=== PATIENT | female | born 1930 | race Caucasian/White ===

== ENCOUNTER → 2018-09-16 | Outpatient (CLI) | payer MEDICARE ==
--- NOTE | 2018-09-16 16:32 | Diagnostic Imaging Report ---
PROCEDURE: CT head without contrast. TECHNIQUE: Multiple contiguous axial images were obtained through the brain without the use of intravenous contrast. Auto Exposure Controls were utilized during the CT exam to meet ALARA standards for radiation dose reduction. INDICATION: Cerebrovascular deficit, weakness There is decreased density in the periventricular white matter and both cerebral hemispheres. There are no masses or hemorrhages. There are no extra-axial fluid collections. There is no CT evidence of acute infarct. Impression: Chronic ischemic leukoencephalopathy. No acute abnormalities seen. Dictated by: Dictated on workstation # [id number]
--- NOTE | 2018-09-16 16:38 | Diagnostic Imaging Report ---
PROCEDURE: US carotid duplex, bilateral. TECHNIQUE: Multiple real-time grayscale images were obtained over the carotid arteries in various projections, bilaterally. Additional spectral analysis and color Doppler duplex images were also obtained. INDICATION: Altered mental status FINDINGS: There is atherosclerotic plaque at both carotid bifurcations. The right internal carotid artery has increased velocity suggesting a stenosis of approximately 65%. There is no significant velocity change in the left internal carotid artery. Both vertebral arteries are patent with antegrade flow. IMPRESSION: Moderate stenosis right internal carotid artery. Parameters based on the consensus panel Landon-Scale and Doppler ultrasound criteria published March 2003, Radiology, Volume 229. DOPPLER (peak systolic velocity M/S Right Left CCA .70 .67 ICA Proximal 1.98 .50 ICA Mid 1.35 .75 ICA Distal 1.28 .82 RATIO 2.8 .74 ECA 2.22 .97 VERT .51 .35 Dictated by: Dictated on workstation # [id number]
== END ==
LOC: RAD 15:39
PROVIDERS: ATTEND Pediatrics
DX: G93.40 Encephalopathy, unspecified (principal); I65.21 Occlusion and stenosis of right carotid artery; I63.81 Other cerebral infarction due to occlusion or stenosis of small artery
CPT/HCPCS: 70450; 93880

== ENCOUNTER 2018-10-06 12:09 | Observation (INO) | payer MEDICARE ==
[~2018-10-06] VITALS: Ht 162.6 cm; Wt 64.6 kg
[2018-10-06] MEDS ORDERED: NS IV 1000 ML 500 ML IV SCH (12:27)
[2018-10-06 12:35] LABS: HEMATOCRIT 39 % (35-52); HEMOGLOBIN 12.6 G/DL (11.5-16.0); MEAN CORPUSCULAR HEMOGLOBIN 32 PG (25-34); MEAN CORPUSCULAR HGB CONC 33 G/DL (32-36); MEAN CORPUSCULAR VOLUME 98 FL (80-99); PLATELET COUNT 132 10^3/uL (130-400); RED CELL DISTRIBUTION WIDTH 14.6 % (10.0-14.5); WHITE BLOOD COUNT 8.1 10^3/uL (4.3-11.0)
[2018-10-06 12:36] LABS: BASOPHILS % (AUTO) 0 % (0-10); EOSINOPHILS # (AUTO) 0.4 10^3/uL (0.0-0.3); EOSINOPHILS % (AUTO) 5 % (0-10); LYMPHOCYTES # (AUTO) 3.1 X 10^3 (1.0-4.0); LYMPHOCYTES % (AUTO) 38 % (12-44); MEAN PLATELET VOLUME 11.7 FL (7.4-10.4); MONOCYTES # (AUTO) 1.1 X 10^3 (0.0-1.0); MONOCYTES % (AUTO) 14 % (0-12); NEUTROPHILS # (AUTO) 3.5 X 10^3 (1.8-7.8); NEUTROPHILS % (AUTO) 43 % (42-75)
--- NOTE | 2018-10-06 12:36 | ED Cardiac General ---
History of Present Illness General Stated Complaint: SYNCOPE History of Present Illness Date Seen by Provider: Oct 06, 2018 Time Seen by Provider: 12:10 Initial Comments The patient is an 88-year-old female with a history of hypertension, hyperlipidemia, coronary artery disease status post myocardial infarction, history of prior ischemic stroke. Patient's additional medical history is unc lear as I have no records to refer to and we have multiple conflicting medication lists for her. She presents with concern for a syncopal episode which occurred while she was seated at rest in a pew in [place] just prior to arrival. Patient states she had been feeling a little fatigued over the past couple of days but had generally been feeling well otherwise. She states she awoke from sleep late for cheondoism this morning and only had "some cookies" to eat before going to cheondoism. She states this is somewhat unusual for her. She states that over about 2 minutes prior to her syncopal episode she started to feel faint and lightheaded but had no other symptoms and specifically did not have any chest pain or shortness of breath or pain anywhere. She was then noted to fall forward but did not strike her head on the ground or hit or hurt anything as she was caught by bystanders per EMS report. Patient was immediately awake and alert after the episode and in no distress and there was no convulsive activity and no protracted loss of consciousness and en route per EMS vital signs were appropriate as was blood glucose and on arrival here the patient's vital signs are appropriate and she is alert and oriented 4. She denies any pain anywhere and states she feels well at this time and specifically denies fevers, nausea or vomiting, headache, focal weakness, numbness, tingling, neck stiffness, vision c hanges, shortness of breath or chest pain either now or prior to onset of symptoms, abdominal pain, flank pain, back pain, dysuria or hematuria, changes in bowel habits. Allergies and Home Medications Allergies Coded Allergies: No Known Drug Allergies (Unverified , 10/06/18) Patient Home Medication List Home Medication List Reviewed: Yes Review of Systems Review of Systems Constitutional: see HPI All Other Systems Reviewed Negative Unless Noted: Yes Past Ijgteeo-Dwidee-Usrnqd Hx Past Med/Social Hx: Reviewed Nursing Past Med/Soc Hx Family Medical History Reviewed Nursing Family Hx Physical Exam Vital Signs Vital Signs - First Documented 10/06/18 12:10 Temp 97.4 Pulse 57 Resp 17 B/P (MAP) 154/55 (88) Pulse Ox 99 O2 Delivery Nasal Cannula O2 Flow Rate 2.00 Capillary Refill : Height, Weight, BMI Height: '" Weight: lbs. oz. kg; BMI Method: General Appearance: No Apparent Distress Other comments This is a very elderly female appearing nontoxic and in no acute distress. She is alert and oriented 4 and pleasantly and appropriately interactive. Head is normocephalic and atraumatic. Neck is supple and nontender. Oropharynx is moist. Lungs are clear to auscultation at all stations. There is a normal S1 and S2 without rubs or gallops and capillary refill is appropriate, le ss 2 seconds globally. There are no murmurs. Abdomen is soft, nontender nondistended. Skin is warm and dry without cyanosis, clubbing or edema. Psychiatrically, the patient answers. Mood and affect and is alert. From a neurologic standpoint, cranial nerves II through XII are intact and there are no lateralizing deficits noted. Speech is normal. Line which is normal. Coordination is normal. There is no dysmetria to finger to nose bilaterally. Strength is 5 out of 5 in all joints of bilateral upper and lower extremity's. Sensation is intact to light touch in bilateral upper and lower extremities. Ambulation testing is deferred. Progress/Results/Core Measures Results/Orders Lab Results Laboratory Tests Test 10/06/18 12:25 10/06/18 13:00 Range/Units White Blood Count 8.1 4.3-11.0 10^3/uL Red Blood Count 3.93 L 4.35-5.85 10^6/uL Hemoglobin 12.6 11.5-16.0 G/DL Hematocrit 39 35-52 % Mean Corpuscular Volume 98 80-99 FL Mean Corpuscular Hemoglobin 32 25-34 PG Mean Corpuscular Hemoglobin Concent 33 32-36 G/DL Red Cell Distribution Width 14.6 H 10.0-14.5 % Platelet Count 132 130-400 10^3/uL Mean Platelet Volume 11.7 H 7.4-10.4 FL Neutrophils (%) (Auto) 43 42-75 % Lymphocytes (%) (Auto) 38 12-44 % Monocytes (%) (Auto) 14 H 0-12 % Eosinophils (%) (Auto) 5 0-10 % Basophils (%) (Auto) 0 0-10 % Neutrophils # (Auto) 3.5 1.8-7.8 X 10^3 Lymphocytes # (Auto) 3.1 1.0-4.0 X 10^3 Monocytes # (Auto) 1.1 H 0.0-1.0 X 10^3 Eosinophils # (Auto) 0.4 H 0.0-0.3 10^3/uL Basophils # (Auto) 0.0 0.0-0.1 10^3/uL Prothrombin Time 15.1 H 12.2-14.7 SEC INR Comment 1.1 0.8-1.4 Activated Partial Thromboplast Time 30 24-35 SEC Sodium Level 140 135-145 MMOL/L Potassium Level 3.9 3.6-5.0 MMOL/L Chloride Level 105 98-107 MMOL/L Blood Urea Nitrogen 20 H 7-18 MG/DL Creatinine 0.56 L 0.60-1.30 MG/DL Estimat Glomerular Filtration Rate > 60 BUN/Creatinine Ratio 36 Glucose Level 142 H 70-105 MG/DL Calcium Level 9.0 8.5-10.1 MG/DL Corrected Calcium 9.7 8.5-10.1 MG/DL Total Bilirubin 0.7 0.1-1.0 MG/DL Aspartate Amino Transf (AST/SGOT) 82 H 5-34 U/L Alanine Aminotransferase (ALT/SGPT) 53 0-55 U/L Alkaline Phosphatase 135 40-136 U/L Troponin T 13 H <=10 NG/L Pro-B-Type Natriuretic Peptide 1043.0 H <75.0 PG/ML Total Protein 6.6 6.4-8.2 GM/DL Albumin 3.1 L 3.2-4.5 GM/DL My Orders Orders - EDITH MALDONADO MD Cbc With Automated Diff (10/06/18 12:24) Comprehensive Metabolic Panel (10/06/18 12:24) Troponin T (10/06/18 12:24) Ekg Tracing (10/06/18 12:24) Chest 1 View Ap/Pa Only (10/06/18 12:24) Protime With Inr (10/06/18 12:24) Partial Thromboplastin Time (10/06/18 12:24) Ed Iv/Invasive Line Start (10/06/18 12:24) Probnp Fs (10/06/18 12:24) Ua Culture If Indicated (10/06/18 12:24) Ed Iv/Invasive Line Start (10/06/18 12:24) Ns Iv 1000 Ml (Sodium Chloride 0.9%) (10/06/18 12:27) Digoxin (10/06/18 12:59) Vital Signs/I&O 10/06/18 12:10 Temp 97.4 Pulse 57 Resp 17 B/P (MAP) 154/55 (88) Pulse Ox 99 O2 Delivery Nasal Cannula O2 Flow Rate 2.00 Progress Progress Note : Time: 12:37 Progress Note Initial clinical examination reassuring. Very elderly female with some significant cardiac comorbidities who presents after a syncopal episode at rest during cheondoism. She admits to poor by mouth intake earlier today; however, in view of syncopal episode at rest and comorbidities as noted, will minimally plan for labs and EKG and chest x-ray and urinalysis and a small fluid bolus and if workup is reassuring will plan for observation admission with telemetry monitoring at [facility]. The patient and her family understand and agree with the plan of care. Update 1343: Work up is as above, generally without significant evidence of acute process aside from elevated BNP without hypoxia and without findings concerning for vascular congestion on chest x-ray as well as a very minimal elevation in troponin T (nl <10, value is 13 in this patient) without any chest pain or shortness of breath. Upon reassessment the patient is resting comfortably and verbalizes that she is not having any symptoms and feels well. We will proceed with a transfer to [facility] for observation on telemetry, trending of troponin and further testing as indicated. Dr. Evans graciously accepts. We have been unable to obtain a urine sample yet and rather than straight catheterize the patient we will defer urine testing to the receiving facility. Initial ECG Impression Date: Oct 06, 2018 Comment Sinus rhythm, no acute ST elevation or depression, frequent premature ventricular contractions, KS 153, QRS 94, QTC 411, EP interpretation. Departure Impression Primary Impression: Syncope and collapse Additional Impressions: Elevated troponin Elevated brain natriuretic peptide (BNP) level Disposition: XFER SHT-TRM HOSP Condition: Stable Admissions Decision to Admit Reason: Admit from ER (General) Decision to Admit/Date: Oct 06, 2018 Time/Decision to Admit Time: 13:35 Departure-Patient Inst. Referrals: MARLIN ALLRED MD (PCP/Family) Primary Care Physician EDITH MALDONADO MD Oct 06, 2018 12:36
[2018-10-06 12:51] LABS: INR 1.1 (0.8-1.4); PROTHROMBIN TIME PATIENT 15.1 SEC (12.2-14.7)
--- NOTE | 2018-10-06 12:56 | Diagnostic Imaging Report ---
EXAMINATION: Single frontal view of the chest. INDICATION: Dizziness and syncope. COMPARISON: None available. FINDINGS: There is mild bibasilar atelectasis/scarring. Punctate calcified granulomas are demonstrated in the right upper lung laterally. There is mild biapical pleural-parenchymal scarring more prominent on the right. The lungs are otherwise clear and the pulmonary vasculature is normal. No pneumothorax or sizable pleural effusion. There is mild cardiomegaly. No acute osseous abnormality is appreciated. IMPRESSION: Mild bibasilar atelectasis/scarring, otherwise no radiographic evidence of acute chest disease. Mild cardiomegaly. Dictated by: Dictated on workstation # [id number]
[2018-10-06 13:07] LABS: CHLORIDE 105 MMOL/L (98-107); POTASSIUM 3.9 MMOL/L (3.6-5.0); SODIUM 140 MMOL/L (135-145)
[2018-10-06 13:08] LABS: ALANINE AMINOTRANSFERASE 53 U/L (0-55); ALBUMIN 3.1 GM/DL (3.2-4.5); ALKALINE PHOSPHATASE 135 U/L (40-136); BILIRUBIN,TOTAL 0.7 MG/DL (0.1-1.0); BUN/CREATININE RATIO 36; CREATININE SERUM 0.56 MG/DL (0.60-1.30); GFR ESTIMATED > 60; GLUCOSE 142 MG/DL (70-105); TOTAL PROTEIN 6.6 GM/DL (6.4-8.2)
[2018-10-06 13:46] LABS: CARBON DIOXIDE 21 MMOL/L (21-32)
[2018-10-06] MEDS ORDERED: ASPIRIN 81 MG CHEW (CHILDREN'S ASA) PO STA (13:48)
--- NOTE | 2018-10-06 14:09 | NUR ---
Patient states she has already taken 4 baby aspirins prior to arrival. Notified Dr Looney who instructed to not give the aspirin ordered on JUL.
[2018-10-06 15:25] VITALS: BP 156/83
[2018-10-06 15:28] VITALS: BP 156/83
[2018-10-06] MEDS ORDERED: CATHETER FLUSH 10 ML SYR IV PRN (15:30)
[2018-10-06 19:35] VITALS: BP 145/67
[2018-10-06] MEDS: CATHETER FLUSH 10 ML SYR IV SCH (22:52)
[2018-10-07 00:14] VITALS: BP 137/63
[2018-10-07 04:39] VITALS: BP 148/73
[2018-10-07 05:46] LABS: BASOPHILS % (AUTO) 0 % (0-10); EOSINOPHILS # (AUTO) 0.3 10^3/uL (0.0-0.3); EOSINOPHILS % (AUTO) 4 % (0-10); HEMATOCRIT 34 % (35-52); HEMOGLOBIN 11.4 G/DL (11.5-16.0); LYMPHOCYTES # (AUTO) 2.9 X 10^3 (1.0-4.0); LYMPHOCYTES % (AUTO) 48 % (12-44); MEAN CORPUSCULAR HEMOGLOBIN 32 PG (25-34); MEAN CORPUSCULAR HGB CONC 34 G/DL (32-36); MEAN CORPUSCULAR VOLUME 94 FL (80-99); MEAN PLATELET VOLUME 11.7 FL (7.4-10.4); MONOCYTES # (AUTO) 0.7 X 10^3 (0.0-1.0); MONOCYTES % (AUTO) 12 % (0-12); NEUTROPHILS # (AUTO) 2.1 X 10^3 (1.8-7.8); NEUTROPHILS % (AUTO) 35 % (42-75); PLATELET COUNT 93 10^3/uL (130-400); RED CELL DISTRIBUTION WIDTH 14.3 % (10.0-14.5); WHITE BLOOD COUNT 6.1 10^3/uL (4.3-11.0)
[2018-10-07 06:07] LABS: ALANINE AMINOTRANSFERASE 52 U/L (0-55); ALBUMIN 2.8 GM/DL (3.2-4.5); ALKALINE PHOSPHATASE 118 U/L (40-136); BILIRUBIN,TOTAL 0.9 MG/DL (0.1-1.0); BUN/CREATININE RATIO 22; CALCIUM 8.5 MG/DL (8.5-10.1); CARBON DIOXIDE 23 MMOL/L (21-32); CHLORIDE 113 MMOL/L (98-107); CREATININE SERUM 0.78 MG/DL (0.60-1.30); GFR ESTIMATED > 60; GLUCOSE 91 MG/DL (70-105); POTASSIUM 3.9 MMOL/L (3.6-5.0); SODIUM 141 MMOL/L (135-145); TOTAL PROTEIN 5.9 GM/DL (6.4-8.2)
[2018-10-07] MEDS: CATHETER FLUSH 10 ML SYR IV SCH ×2 (06:16→14:00)
[2018-10-07 08:00] VITALS: BP 164/80
[2018-10-07] MEDS ORDERED: NADO20TA PO (09:07)
[2018-10-07] MEDS ORDERED: CLOP75TA28 PO (09:07)
[2018-10-07] MEDS ORDERED: ISM60TCR PO (09:07)
[2018-10-07] MEDS ORDERED: ASPI-983 PO (09:07)
[2018-10-07] MEDS ORDERED: LOSA25TA41 PO (09:07)
[2018-10-07] MEDS ORDERED: IBUP-30 PO (09:48)
[2018-10-07] MEDS ORDERED: ACET325T38 PO (09:48)
[2018-10-07] MEDS ORDERED: CETI10TA20 PO (09:48)
--- NOTE | 2018-10-07 09:50 | NUR ---
SPOKE WITH THE PATIENT ABOUT HER MEDICATIONS. WE WENT OVER THE EXT MED HX AND SHE TOLD ME THAT SHE TAKES 1/2 TAB DAILY OF ONE MED AND 1.5 TABS BID OF ANOTHER BUT SHE DOES NOT KNOW THE NAMES OF THEM OR WHAT THEY ARE FOR. I UPDATED THE MED REC WITH WHAT HAS BEEN FILLED RECENTLY. I ALSO HAD A LIST FAXED OVER FROM DR. ALLRED'S OFFICE. THEY STATE SHE WAS CONFUSED ABOUT HER MEDICATIONS AT HER LAST VISIT BUT FAXED ME WHAT THEY HAVE ON FILE. I ADDED ZYRTEC DAILY, IBU AND TYLENOL PRN OTC FROM THAT LIST. THE PRESCRIPTIONS MATCHED WHAT HAS BEEN FILLED RECENTLY ACCORDING TO THE EXT MED HX.
--- NOTE | 2018-10-07 11:53 | History & Physical-Hospitalist ---
History of Present Illness HPI/Chief Complaint The patient is a charming 88-year-old white female who was at [employer] in [place]. She had not eaten and had an episode while sitting in which she began to feel faint and lightheaded and then started to pitch forward. She did not hit the pew in front of her or the floor but was restrained by others. She denied any chest pain or sense of palpitations. She has a cardiac history with previous [place] as well as previous ischemic stroke. She states that she has been seen a unit aide in [place] but this has been difficult because of the distance. She remains active including mowing her lawn on a riding no her. 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 She reports several syncopal attacks through the her life ith the first that she recalls happening in the early 1950s. Date Seen 10/07/18 Time Seen by a Provider: 11:55 Attending Physician Andres Ewing MD PCP Felipe Olvera MD Referring Physician Date of Admission Oct 06, 2018 at 14:01 Home Medications & Allergies Home Medications Reviewed patient Home Medication Reconciliation performed by pharmacy medication reconciliations land survey technician and/or nursing. Patients Allergies have been reviewed. Allergies Allergies Coded Allergies No Known Drug Allergies (Unverified10/06/18) Past Pvpegsd-Wlhvvp-Dysxki Hx Past Med/Social Hx: Reviewed Nursing Past Med/Soc Hx Patient Social History Alcohol Use: Denies Use Recreational Drug Use: No Smoking Status: Never a Smoker 2nd Hand Smoke Exposure: No Recent Foreign Travel: No Contact w/other who traveled: No Recent Hopitalizations: No Recent Infectious Disease Expo: No Immunizations Up To Date Date of Pneumonia Vaccine: Feb 06, 2018 Seasonal Allergies Seasonal Allergies: No Past Medical History Cardiac: Heart Attack, Hypertension Neurological: Stroke Musculoskeletal: Gout History of Blood Disorders: No Family History Reviewed Nursing Family Hx Review of Systems Constitutional: see HPI EENTM: no symptoms reported Respiratory: no symptoms reported Cardiovascular: see HPI Gastrointestinal: no symptoms reported Genitourinary: no symptoms reported Musculoskeletal: no symptoms reported Skin: no symptoms reported Psychiatric/Neurological: No Symptoms Reported Physical Exam Physical Exam Vital Signs Vital Signs - First Documented 10/06/18 12:10 Temp 97.4 Pulse 57 Resp 17 B/P (MAP) 154/55 (88) Pulse Ox 99 O2 Delivery Nasal Cannula O2 Flow Rate 2.00 Capillary Refill : Less Than 3 Seconds Height, Weight, BMI Height: 5'4.00" Weight: 142lbs. 6.0oz. 64.493578cw; 24.4 BMI Method:Stated General Appearance: No Apparent Distress Eyes: Bilateral Eye Normal Inspection HEENT: Normal ENT Inspection Neck: Full Range of Motion, Normal Inspection, Non Tender Respiratory: Chest Non Tender, Lungs Clear, Normal Breath Sounds, No Accessory Muscle Use, No Respiratory Distress Cardiovascular: Regular Rate, Rhythm, No Edema, No Gallop Gastrointestinal: Normal Bowel Sounds, No Organomegaly, No Pulsatile Mass, Non Tender, Soft Back: Normal Inspection, No CVA Tenderness, No Vertebral Tenderness Extremity: Normal Capillary Refill, Normal Inspection, Normal Range of Motion, Non Tender, No Calf Tenderness, No Pedal Edema Neurologic/Psychiatric: Alert, Oriented x3, No Motor/Sensory Deficits Results Results/Procedures Labs Laboratory Tests 10/06/18 12:25 10/07/18 05:20 Patient resulted labs reviewed. Assessment/Plan Admission Diagnosis 1.near syncopal episode. 2.arteriosclerotic heart disease with previous myocardial infarction. 3.history of previous ischemic stroke with minimum residua. 4.hypertension Admission Status: Observation Clinical Quality Measures DVT/VTE Risk/Contraindication: Risk Factor Score Per Nursin RFS Level Per Nursing on Admit: 4+=Very High ANDRES EWING MD Oct 07, 2018 11:53
[2018-10-07 12:00] VITALS: BP 145/66
--- NOTE | 2018-10-07 14:22 | Discharge Inst-Simple/Standard ---
Discharge Inst-Standard Patient Instructions/Follow Up Plan of Care/Instructions/FU: Medications as listed on the discharge sequence. Resume diet and activities as tolerated. Appointment with ABHAY Major as arranged by his nurse practitioner Edwina Patel Activity as Tolerated: Yes Discharge Diet: No Restrictions Return to The Hospital For: Change in performance TAVON EWING MD Oct 07, 2018 14:22
[2018-10-07 15:30] VITALS: BP 175/80
[2018-10-07 17:50] VITALS: BP 175/80
--- NOTE | 2018-10-07 17:51 | NUR ---
SARTHAK STANLEY demonstrates understanding of discharge instructions and accurately returns instructions upon questioning. Copy of Post-Discharge Instructions and Medication Discharge Instructions given to patient and family. SARTHAK STANLEY is able to manage continuing needs after discharge. Patients belongings returned to patient. Skin dry and intact; no breakdown noted. Patient discharged from [facility] on 10/07/18 at 1752 . SARTHAK STANLEY left floor via wheelchair, accompanied by staff and family.
[2018-10-07] MEDS ORDERED: PROPRANOLOL 20 MG (INDERAL) TABLET PO SCH (21:00)
[2018-10-08] MEDS ORDERED: ISOSORBIDE MONONITRATE 60 MG (IMDUR) TAB PO SCH (09:00)
[2018-10-08] MEDS ORDERED: ASPIRIN E.C. 325 MG (ECOTRIN) TABLET PO SCH (09:00)
[2018-10-08] MEDS ORDERED: LOSARTAN 25 MG (COZAAR) TAB PO SCH (09:00)
[2018-10-08] MEDS ORDERED: CLOPIDOGREL 75 MG (PLAVIX) TABLET PO SCH (09:00)
== END 2018-10-07 17:52 | disposition home or self-care (01) ==
LOC: EDUNIT# 12:09 → ER FS 12:11 → 4TH 14:01
PROVIDERS: ADMIT Internal Medicine; ATTEND Internal Medicine
DX: R55 Syncope and collapse (principal); R79.89 Other specified abnormal findings of blood chemistry; I25.10 Atherosclerotic heart disease of native coronary artery without angina pectoris; I10 Essential (primary) hypertension; E78.5 Hyperlipidemia, unspecified; I25.2 Old myocardial infarction; Z86.73 Personal history of transient ischemic attack (TIA), and cerebral infarction without residual deficits; Z79.82 Long term (current) use of aspirin; Z79.899 Other long term (current) drug therapy
CPT/HCPCS: 36415; 71045; 80053; 80162; 83880; 84484; 85025; 85610; 85730; 93005; 96360; G0378

== ENCOUNTER 2018-11-25 10:25 | Emergency (ER) | payer MEDICARE ==
[~2018-11-25] VITALS: Ht 165.1 cm; Wt 59.0 kg
[~2018-11-25 10:25] MED LIST: ACET325T38 PO; ASPI-983 PO; CETI10TA20 PO; CLOP75TA28 PO; IBUP-30 PO; ISM60TCR PO; LOSA25TA41 PO; NADO20TA PO
--- NOTE | 2018-11-25 10:41 | ED Back Pain ---
General Chief Complaint: Back Problems Stated Complaint: FALL; LWR BACK PAIN Source of Information: Patient Exam Limitations: No Limitations History of Present Illness Date Seen by Provider: Nov 25, 2018 Time Seen by Provider: 10:40 Initial Comments fell yesterday onto buttocks in a sitting position. c/o low back pain. She thought it might resolve, but this morning she noticed that the pain persisted and at times was severe in spasms. She lives by herself, but takes care of herself quite well. She even enjoys mowing her own lawn. She has had CVA twice in the past with right sided paralysis, which has resolved. She has history of heart attacks twice, and is on losratan, nadolol, clopedrogel , isosorb, and asa. Timing/Duration: 1 Day Severity: Moderate Pain/Injury Location: Back Method of Injury: Fall Associated Symptoms: muscle spasms, weakness Allergies and Home Medications Allergies Coded Allergies: No Known Drug Allergies (Unverified , 10/06/18) Home Medications Acetaminophen 325 Mg Tablet, 325 MG PO Q6H PRN for PAIN-MILD, (Reported) Aspirin 81 Mg Tablet.dr, 324 MG PO DAILY, (Reported) TAKES 4 (81MG) TABLETS Cetirizine HCl 10 Mg Tablet, 10 MG PO DAILY, (Reported) Clopidogrel Bisulfate 75 Mg Tablet, 75 MG PO DAILY, (Reported) Cyclobenzaprine HCl 5 Mg Tablet, 5 MG PO TID PRN for SPASMS Prescribed by: BRENDA AG on 11/30/18 0636 Cyclobenzaprine HCl 10 Mg Tablet, 5 MG PO Q8H PRN for SPASMS Prescribed by: BRENDA AG on 11/25/18 1304 Isosorbide Mononitrate 60 Mg Tab, 60 MG PO DAILY, (Reported) Losartan Potassium 25 Mg Tablet, 12.5 MG PO DAILY, (Reported) TAKES 1/2 (25MG) TABLET Nadolol 20 Mg Tablet, 30 MG PO BID, (Reported) TAKES 1 & 1/2 (20MG) TABLET Patient Home Medication List Home Medication List Reviewed: Yes Review of Systems Constitutional: no symptoms reported, see HPI EENTM: see HPI Respiratory: see HPI Cardiovascular: see HPI Gastrointestinal: see HPI Genitourinary: see HPI Musculoskeletal: see HPI, back pain Skin: see HPI Psychiatric/Neurological: No Symptoms Reported, See HPI All Other Systems Reviewed Negative Unless Noted: Yes Past Tfapxgf-Cruezv-[place] Hx Patient Social History 2nd Hand Smoke Exposure: No Recent Hopitalizations: No Immunizations Up To Date Date of Pneumonia Vaccine: Feb 06, 2018 Seasonal Allergies Seasonal Allergies: No Past Medical History Surgeries: Yes Respiratory: No Cardiac: Yes Heart Attack, Hypertension Neurological: Yes Stroke Genitourinary: No Gastrointestinal: No Musculoskeletal: Yes Gout Endocrine: No HEENT: No Cancer: No Psychosocial: No Integumentary: No Blood Disorders: No Physical Exam Vital Signs Vital Signs - First Documented 11/25/18 10:28 Temp 98.2 Pulse 66 Resp 18 B/P (MAP) 181/67 (105) Pulse Ox 94 O2 Delivery Room Air Capillary Refill : Height, Weight, BMI Height: 5'4.00" Weight: 142lbs. 6.0oz. 64.578720rk; 24.4 BMI Method:Stated General Appearance: No Apparent Distress, WD/WN HEENT: PERRL/EOMI Neck: Full Range of Motion, Normal Inspection, Non Tender, Supple Cardiovascular: Regular Rate, Rhythm, No Edema, No JVD, Normal Peripheral Pulses Respiratory: Chest Non Tender, No Accessory Muscle Use, No Respiratory Distress, Accessory Muscle Use Peripheral Pulses: 0 Carotid (R); 2+ Carotid (R); 0 Carotid (L); 2+ Carotid (L); 0 Femoral (R); 2+ Femoral (R); 0 Femoral (L); 2+ Femoral (L); 0 Dorsalis Pedis (R); 2+ Dorsalis Pedis (R); 0 Left Dors-Pedis (L); 2+ Left Dors-Pedis (L), 2+ Radial Pulses (R), 2+ Radial Pulses (L) Gastrointestinal: Non Tender, Soft Back: Normal Inspection, No CVA Tenderness, No Vertebral Tenderness, Other Extremity: Normal Inspection, Normal Range of Motion, Non Tender, No Calf Tenderness, No Pedal Edema Neurologic/Psychiatric: Alert, Oriented x3, No Motor/Sensory Deficits, Normal Mood/Affect, ammonium nitrate neutralizer II-XII Norm as Tested, Abnormal Cerebellar Tests Skin: Normal Color, Warm/Dry, Cool, Cyanosis Lymphatic: No Adenopathy, Axilla Node Tender (L), Axilla Node Tender (R) Progress/Results/Core Measures Results/Orders Lab Results Laboratory Tests Test 11/25/18 12:25 Range/Units Urine Color YELLOW Urine Clarity CLOUDY Urine pH 8.0 5-9 Urine Specific [place] 1.015 L 1.016-1.022 Urine Protein NEGATIVE NEGATIVE Urine Glucose (UA) NEGATIVE NEGATIVE Urine Ketones NEGATIVE NEGATIVE Urine Nitrite POSITIVE H NEGATIVE Urine Bilirubin NEGATIVE NEGATIVE Urine Urobilinogen 0.2 NORMAL MG/DL Urine Leukocyte Esterase 2+ H NEGATIVE Urine RBC (Auto) NEGATIVE NEGATIVE Urine RBC NONE /HPF Urine WBC 5-10 H /HPF Urine Squamous Epithelial Cells 0-2 /HPF Urine Crystals NONE /LPF Urine Bacteria LARGE H /HPF Urine Casts NONE /LPF Urine Mucus NONE /LPF Urine Culture Indicated YES Micro Results Microbiology 11/25/18 Urine Culture - Final, Complete Enterobacter aerogenes Enterobacter aerogenes#2 My Orders Orders - BRENDA MCGILL MD Lumbar Spine 2 Or 3 View (11/25/18 10:48) Ua Culture If Indicated (11/25/18 12:28) Urine Culture (11/25/18 12:25) Ceftriaxone For Im Use (Rocephin For Im (11/25/18 13:00) Ceftriaxone For Im Use (Rocephin For Im (11/25/18 13:00) Lidocaine 1% Inj 20 Ml (Xylocaine 1% Inj (11/25/18 13:00) Cyclobenzaprine Tablet (Flexeril Tablet) (11/25/18 13:15) Ibuprofen Tablet (Motrin Tablet) (11/25/18 13:15) Im Injection Antibiotic Ed (11/25/18 ) Vital Signs/I&O 11/25/18 11/25/18 10:28 13:45 Temp 98.2 97.6 Pulse 66 66 Resp 18 18 B/P (MAP) 181/67 (105) 167/79 (108) Pulse Ox 94 98 O2 Delivery Room Air Room Air Progress Progress Note : Time: 12:49 Progress Note There is no evidence of compression fracture. 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 Stress of fall may have activated lumbar spasm. I have discussed this with her. She takes ASA which is sufficient. At her age I do not recommend NSAID. Flexeril 5 BID or TID may help. Ultimately, imagine for stenosis will require MRI. She should contact her physician for reasonable time of recovery. If persistent or increased symptoms, causing functional disability, she will need MRI. Ua is cloudy, 5-10 WBC, large bacteria load, 2+ leukocytes, + nitrate and culture is indicated. Squams are 2 so presumptively reliable specimen. Question is whether incidental or co-incidental to fall and contributing to back pain. Unaware of regional resistances, so will give single dose Rocephin then wait for cultures to guide further treatment. She needs to call her doctor regarding this. Departure Impression Primary Impression: Back pain Disposition: 01 HOME, SELF-CARE Condition: Stable Departure-Patient Inst. Referrals: MARLIN ALLRED MD (PCP/Family) Primary Care Physician Scripts Cyclobenzaprine HCl (Cyclobenzaprine HCl) 10 Mg Tablet 5 MG PO Q8H PRN for SPASMS, #15 TAB 0 Refills Prov: BRENDA MCGILL MD 11/25/18 Cyclobenzaprine HCl (Cyclobenzaprine HCl) 5 Mg Tablet 5 MG PO TID PRN for SPASMS for 10 Days, #15 TAB 0 Refills Prov: BRENDA MCGILL MD 11/25/18 BRENDA MCGILL MD Nov 25, 2018 10:41
--- NOTE | 2018-11-25 11:46 | Diagnostic Imaging Report ---
EXAMINATION: Lumbar spine at 10:37 a.m. INDICATION: Fell, back pain. AP, lateral, and spot lateral views were obtained. There are no prior studies available for comparison. FINDINGS: The spot lateral view does suggest that there is a grade 2 spondylolisthesis of L5 with marked narrowing of the disc space at this level. The alignment of the other vertebral bodies is within normal limits. There is at least moderate narrowing of the L3-L4 disc space posteriorly. The other intervertebral spaces are well maintained. There is no fracture or acute bony abnormality appreciated. There is no sign of a paraspinal mass. There is a 3.6 x 3.7 cm oval calcification low in the pelvis just to the left of midline. This could represent a large calcified uterine fibroid. If further evaluation is desired, then ultrasound would be recommended. IMPRESSION: 1. There is no evidence for an acute bony abnormality. 2. 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 If there is clinical concern regarding spinal stenosis or nerve root encroachment at this level, then MRI would be recommended for further study. 3. There is a question of a large calcified uterine fibroid. Recommendations as above. Dictated by: Dictated on workstation # [id number]
[2018-11-25 12:41] LABS: BILIRUBIN,URINE NEGATIVE (NEGATIVE); CLARITY,URINE CLOUDY; COLOR,URINE YELLOW; GLUCOSE, URINE (UA) NEGATIVE (NEGATIVE); KETONES,URINE NEGATIVE (NEGATIVE); LEUKOCYTE ESTERASE ,URINE 2+ (NEGATIVE); NITRITE,URINE POSITIVE (NEGATIVE); PROTEIN,URINE NEGATIVE (NEGATIVE); UROBILINOGEN,URINE 0.2 MG/DL (NORMAL)
[2018-11-25 12:42] LABS: BACTERIA,URINE LARGE /HPF; SQUAMOUS EPITHELIAL CELL,UR 0-2 /HPF
[2018-11-25] MEDS ORDERED: cefTRIAXone 1,000 MG/2.86 ml vial (IM ONLY) IM SCH (13:00)
[2018-11-25] MEDS ORDERED: LIDOCAINE 1% INJ 20 ML 20 ML VIAL INJ ONE (13:00)
[2018-11-25] MEDS ORDERED: cefTRIAXone 500 MG/1.43 ML vial (IM ONLY) IM ONE (13:00)
[2018-11-25] MEDS ORDERED: CYCL5TAB PO (13:02)
[2018-11-25] MEDS ORDERED: CYCL10TA9 PO (13:04)
[2018-11-25] MEDS ORDERED: IBUPROFEN TABLET 200 MG TAB PO ONE (13:15)
[2018-11-25] MEDS ORDERED: CYCLOBENZAPRINE 10 MG (FLEXERIL) TAB PO SCH (13:15)
[2018-11-25 13:45] VITALS: BP 167/79
--- OUTSIDE RECORDS SUMMARY | 2018-11-25 22:21 | XMS REPORT | Continuity of Care Document ---
Author Organization Unknown Address Unknown Allergies Active Description Code Type Severity Reaction Onset Reported/Identified Relationship to Patient Clinical Status Yes No Known Drug Allergies [id number] Drug Allergy Unknown N/A 10/06/2018 Medications There is no data. 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 10/07/2018 TAVON EWING MD, Ot E78.5 HYPERLIPIDEMIA, UNSPECIFIED 10/07/2018 TAVON EWING MD Ot I10 ESSENTIAL (PRIMARY) HYPERTENSION 10/07/2018 TAVON EWING MD Ot I25.10 ATHSCL HEART DISEASE OF [place] CORONARY 10/07/2018 TAVON EWING MD, Ot I25.2 OLD MYOCARDIAL INFARCTION 10/07/2018 TAVON EWIGN MD Ot R55 SYNCOPE AND COLLAPSE 10/07/2018 TAVON EWING MD Ot R79.89 OTHER SPECIFIED ABNORMAL FINDINGS OF BLO 10/07/2018 TAVON EWING MD Ot Z79.82 FDC (CURRENT) USE OF ASPIRIN 10/07/2018 TAVON EWING MD Ot Z79.899 OTHER FDC (CURRENT) DRUG THERAPY 10/07/2018 TAVON EWING MD Ot Z86.73 PRSNL HX OF TIA (TIA), AND CEREB INFRC W 10/07/2018 TAVON EWING MD, Ot E78.5 HYPERLIPIDEMIA, UNSPECIFIED 10/07/2018 TAVON EWING MD Ot I10 ESSENTIAL (PRIMARY) HYPERTENSION 10/07/2018 TAVON EWING MD Ot I25.10 ATHSCL HEART DISEASE OF [place] CORONARY 10/07/2018 TAVON EWING MD Ot I25.2 OLD MYOCARDIAL INFARCTION 10/07/2018 TAVON EWING MD Ot R55 SYNCOPE AND COLLAPSE 10/07/2018 TAVON EWING MD Ot R79.89 OTHER SPECIFIED ABNORMAL FINDINGS OF BLO 10/07/2018 TAVON EWING MD Ot Z79.82 FDC (CURRENT) USE OF ASPIRIN 10/07/2018 TAVON EWING MD Ot Z79.899 OTHER DOCUMENTATION IMPROVEMENT SPECIALIST (CURRENT) DRUG THERAPY 10/07/2018 TAVON EWING MD Ot Z86.73 PRSNL HX OF TIA (TIA), AND CEREB INFRC W 10/08/2018 MARLIN ALLRED MD Ot G93.40 ENCEPHALOPATHY, UNSPECIFIED 10/08/2018 MARLIN ALLRED MD Ot 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 10/08/2018 MARLIN ALLRED MD Ot 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 10/11/2018 TAVON EWING MD Ot E78.5 HYPERLIPIDEMIA, UNSPECIFIED 10/11/2018 TAVON EWING MD Ot I10 ESSENTIAL (PRIMARY) HYPERTENSION 10/11/2018 TAVON EWING MD Ot I25.10 ATHSCL HEART DISEASE OF [place] CORONARY 10/11/2018 TAVON EWING MD Ot I25.2 OLD MYOCARDIAL INFARCTION 10/11/2018 TAVON EWING MD Ot R55 SYNCOPE AND COLLAPSE 10/11/2018 TAVON EWING MD Ot R79.89 OTHER SPECIFIED ABNORMAL FINDINGS OF BLO 10/11/2018 TAVON EWING MD Ot Z79.82 FDC (CURRENT) USE OF ASPIRIN 10/11/2018 TAVON EWING MD Ot Z79.899 OTHER DOCUMENTATION IMPROVEMENT SPECIALIST (CURRENT) DRUG THERAPY 10/11/2018 TAVON EWING MD Ot Z86.73 PRSNL HX OF TIA (TIA), AND CEREB INFRC W 10/11/2018 TAVON EWING MD Ot E78.5 HYPERLIPIDEMIA, UNSPECIFIED 10/11/2018 TAVON EWING MD Ot I10 ESSENTIAL (PRIMARY) HYPERTENSION 10/11/2018 TAVON EWING MD Ot I25.10 ATHSCL HEART DISEASE OF [place] CORONARY 10/11/2018 TAVON EWING MD Ot I25.2 OLD MYOCARDIAL INFARCTION 10/11/2018 TAVON EWING MD Ot R55 SYNCOPE AND COLLAPSE 10/11/2018 TAVON EWING MD, Ot R79.89 OTHER SPECIFIED ABNORMAL FINDINGS OF BLO 10/11/2018 TAVON EWING MD, Ot Z79.82 DOCUMENTATION IMPROVEMENT SPECIALIST (CURRENT) USE OF ASPIRIN 10/11/2018 TAVON EWING MD, Ot Z79.899 OTHER DOCUMENTATION IMPROVEMENT SPECIALIST (CURRENT) DRUG THERAPY 10/11/2018 TAVON EWING MD, Ot Z86.73 PRSNL HX OF TIA (TIA), AND CEREB INFRC W 10/16/2018 MARLIN ALLRED MD, Ot G93.40 ENCEPHALOPATHY, UNSPECIFIED 10/16/2018 MARLIN ALLRED MD, Ot 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 Results Test Result Range Complete blood count (CBC) with automated white blood cell (WBC) differential - 10/06/18 12:25 Blood leukocytes automated count (number/volume) 8.1 10*3/uL 4.3-11.0 Blood erythrocytes automated count (number/volume) 3.93 10*6/uL 4.35-5.85 Venous blood hemoglobin measurement (mass/volume) 12.6 g/dL 11.5-16.0 Blood hematocrit (volume fraction) 39 % 35-52 Automated erythrocyte mean corpuscular volume 98 [foz_us] 80-99 Automated erythrocyte mean corpuscular hemoglobin (mass per erythrocyte) 32 pg 25-34 Automated erythrocyte mean corpuscular hemoglobin concentration measurement (mass/volume) 33 g/dL 32-36 Automated erythrocyte distribution width ratio 14.6 % 10.0- 14.5 Automated blood platelet count (count/volume) 132 10*3/uL 130-400 Automated blood platelet mean volume measurement 11.7 [foz_us] 7.4-10.4 Automated blood neutrophils/100 leukocytes 43 % 42-75 Automated blood lymphocytes/100 leukocytes 38 % 12-44 Blood monocytes/100 leukocytes 14 % 0-12 Automated blood eosinophils/100 leukocytes 5 % 0-10 Automated blood basophils/100 leukocytes 0 % 0-10 Blood neutrophils automated count (number/volume) 3.5 10*3 1.8-7.8 Blood lymphocytes automated count (number/volume) 3.1 10*3 1.0-4.0 Blood monocytes automated count (number/volume) 1.1 10*3 0.0- 1.0 Automated eosinophil count 0.4 10*3/uL 0.0-0.3 Automated blood basophil count (count/volume) 0.0 10*3/uL 0.0-0.1 PT panel in platelet poor plasma by coagulation assay - 10/06/18 12:25 Prothrombin time (PT) in platelet poor plasma by coagulation assay 15.1 s 12.2-14.7 INR in platelet poor plasma or blood by coagulation assay 1.1 0.8-1.4 Activated partial thromboplastin time (aPTT) in platelet poor plasma bycoagulation assay - 10/06/18 12:25 Activated partial thromboplastin time (aPTT) in platelet poor plasma bycoagulation assay 30 s 24-35 Comprehensive metabolic panel - 10/06/18 12:25 Serum or plasma sodium measurement (moles/volume) 140 mmol/L 135-145 Serum or plasma potassium measurement (moles/volume) 3.9 mmol/L 3.6-5.0 Serum or plasma chloride measurement (moles/volume) 105 mmol/L 98-107 Carbon dioxide 21 mmol/L 21-32 Serum or plasma anion gap determination (moles/volume) 14 mmol/L 5-14 Serum or plasma urea nitrogen measurement (mass/volume) 20 mg/dL 7-18 Serum or plasma creatinine measurement (mass/volume) 0.56 mg/dL 0.60-1.30 Serum or plasma urea nitrogen/creatinine mass ratio 36 NRG Serum or plasma creatinine measurement with calculation of estimated glomerular filtration rate > NRG Serum or plasma glucose measurement (mass/volume) 142 mg/dL 70-105 Serum or plasma calcium measurement (mass/volume) 9.0 mg/dL 8.5-10.1 Serum or plasma total bilirubin measurement (mass/volume) 0.7 mg/dL 0.1-1.0 Serum or plasma alkaline phosphatase measurement (enzymatic activity/volume) 135 U/L 40-136 Serum or plasma aspartate aminotransferase measurement (enzymatic activity/volume) 82 U/L 5-34 Serum or plasma alanine aminotransferase measurement (enzymatic activity/volume) 53 U/L 0-55 Serum or plasma protein measurement (mass/volume) 6.6 g/dL 6.4-8.2 Serum or plasma albumin measurement (mass/volume) 3.1 g/dL 3.2-4.5 CALCIUM CORRECTED 9.7 mg/dL 8.5-10.1 TROPONIN T - 10/06/18 12:25 TROPONIN T 13 % <=10 PROBNP FS - 10/06/18 12:25 PROBNP FS 1043.0 pg/mL <75.0 DIGOXIN - 10/06/18 13:00 DIGOXIN < 0.30 0.80-2.00 Serum or plasma troponin i.cardiac measurement (mass/volume) - 10/06/18 18:10 Serum or plasma troponin i.cardiac measurement (mass/volume) < ng/mL <0.028 Serum or plasma troponin i.cardiac measurement (mass/volume) - 10/06/18 23:38 Serum or plasma troponin i.cardiac measurement (mass/volume) < ng/mL <0.028 Complete blood count (CBC) with automated white blood cell (WBC) differential - 10/07/18 05:20 Blood leukocytes automated count (number/volume) 6.1 10*3/uL 4.3-11.0 Blood erythrocytes automated count (number/volume) 3.57 10*6/uL 4.35-5.85 Venous blood hemoglobin measurement (mass/volume) 11.4 g/dL 11.5-16.0 Blood hematocrit (volume fraction) 34 % 35-52 Automated erythrocyte mean corpuscular volume 94 [foz_us] 80-99 Automated erythrocyte mean corpuscular hemoglobin (mass per erythrocyte) 32 pg 25-34 Automated erythrocyte mean corpuscular hemoglobin concentration measurement (mass/volume) 34 g/dL 32-36 Automated erythrocyte distribution width ratio 14.3 % 10.0- 14.5 Automated blood platelet count (count/volume) 93 10*3/uL 130- 400 Automated blood platelet mean volume measurement 11.7 [foz_us] 7.4-10.4 Automated blood neutrophils/100 leukocytes 35 % 42-75 Automated blood lymphocytes/100 leukocytes 48 % 12-44 Blood monocytes/100 leukocytes 12 % 0-12 Automated blood eosinophils/100 leukocytes 4 % 0-10 Automated blood basophils/100 leukocytes 0 % 0-10 Blood neutrophils automated count (number/volume) 2.1 10*3 1.8-7.8 Blood lymphocytes automated count (number/volume) 2.9 10*3 1.0-4.0 Blood monocytes automated count (number/volume) 0.7 10*3 0.0- 1.0 Automated eosinophil count 0.3 10*3/uL 0.0-0.3 Automated blood basophil count (count/volume) 0.0 10*3/uL 0.0-0.1 Comprehensive metabolic panel - 10/07/18 05:20 Serum or plasma sodium measurement (moles/volume) 141 mmol/L 135-145 Serum or plasma potassium measurement (moles/volume) 3.9 mmol/L 3.6-5.0 Serum or plasma chloride measurement (moles/volume) 113 mmol/L 98-107 Carbon dioxide 23 mmol/L 21-32 Serum or plasma anion gap determination (moles/volume) 5 mmol/L 5-14 Serum or plasma urea nitrogen measurement (mass/volume) 17 mg/dL 7-18 Serum or plasma creatinine measurement (mass/volume) 0.78 mg/dL 0.60-1.30 Serum or plasma urea nitrogen/creatinine mass ratio 22 NRG Serum or plasma creatinine measurement with calculation of estimated glomerular filtration rate > NRG Serum or plasma glucose measurement (mass/volume) 91 mg/dL 70-105 Serum or plasma calcium measurement (mass/volume) 8.5 mg/dL 8.5-10.1 Serum or plasma total bilirubin measurement (mass/volume) 0.9 mg/dL 0.1-1.0 Serum or plasma alkaline phosphatase measurement (enzymatic activity/volume) 118 U/L 40-136 Serum or plasma aspartate aminotransferase measurement (enzymatic activity/volume) 75 U/L 5-34 Serum or plasma alanine aminotransferase measurement (enzymatic activity/volume) 52 U/L 0-55 Serum or plasma protein measurement (mass/volume) 5.9 g/dL 6.4-8.2 Serum or plasma albumin measurement (mass/volume) 2.8 g/dL 3.2-4.5 CALCIUM CORRECTED 9.5 mg/dL 8.5-10.1 Complete urinalysis with reflex to culture - 11/25/18 12:25 Urine color determination YELLOW NRG Urine clarity determination CLOUDY NRG Urine pH measurement by test strip 8.0 5-9 Specific gravity of urine by test strip 1.015 1.016-1.022 Urine protein assay by test strip, semi-quantitative NEGATIVE NEGATIVE Urine glucose detection by automated test strip NEGATIVE NEGATIVE Erythrocytes detection in urine sediment by light microscopy NEGATIVE NEGATIVE Urine ketones detection by automated test strip NEGATIVE NEGATIVE Urine nitrite detection by test strip POSITIVE NEGATIVE Urine total bilirubin detection by test strip NEGATIVE NEGATIVE Urine urobilinogen measurement by automated test strip (mass/volume) 0.2 mg/dL NORMAL Urine leukocyte esterase detection by dipstick 2+ NEGATIVE Automated urine sediment erythrocyte count by microscopy (number/high power field) NONE NRG Automated urine sediment leukocyte count by microscopy (number/high power field) [HPF] NRG Bacteria detection in urine sediment by light microscopy LARGE NRG Squamous epithelial cells detection in urine sediment by light microscopy 0-2 NRG Crystals detection in urine sediment by light microscopy NONE NRG Casts detection in urine sediment by light microscopy NONE NRG Mucus detection in urine sediment by light microscopy NONE NRG Complete urinalysis with reflex to culture YES NRG Encounters ACCT No. Visit Date/Time Discharge Status Pt. Type Provider Facility Loc./Unit Complaint [id number] 10/06/2018 15:15:00 10/07/2018 14:21:00 DIS Inpatient KAYLIN HAMMOND, TAVON Murphy [facility] 4TH SYNCOPE [id number] 09/16/2018 15:39:00 09/16/2018 23:59:59 CLS Outpatient MARLIN ALLRED MD [facility] RAD FOCAL DEFICIT/CEREBROVASCULAR INS [id number] 11/25/2018 12:43:00 Document Registration
== END 2018-11-25 13:45 | disposition home or self-care (01) ==
LOC: EDUNIT# 10:25 → ER FS 10:26
DX: M54.5 Low back pain (principal); I10 Essential (primary) hypertension; I25.2 Old myocardial infarction; Z86.73 Personal history of transient ischemic attack (TIA), and cerebral infarction without residual deficits; Z79.82 Long term (current) use of aspirin; Z79.02 Long term (current) use of antithrombotics/antiplatelets; W19.XXXA Unspecified fall, initial encounter
CPT/HCPCS: 72100; 81000; 87077; 87088; 87186; 96372

== ENCOUNTER 2018-11-28 15:14 | Inpatient (IN) | payer MEDICARE ==
[~2018-11-28] VITALS: Ht 162.6 cm; Wt 61.9 kg
[~2018-11-28 15:14] MED LIST changes: +CYCL10TA9 PO; +CYCL5TAB PO
--- OUTSIDE RECORDS SUMMARY | 2018-11-28 15:20 | XMS REPORT | Continuity of Care Document ---
Author Organization Unknown Address Unknown Allergies Active Description Code Type Severity Reaction Onset Reported/Identified Relationship to Patient Clinical Status Yes No Known Drug Allergies [id number] Drug Allergy Unknown N/A 10/06/2018 Medications There [...] MD Ot I25.10 ATHSCL HEART DISEASE OF [place] CORONARY 10/07/2018 TAVON EWING MD, Ot I25.2 OLD MYOCARDIAL INFARCTION 10/07/2018 TAVON EWING MD Ot R55 SYNCOPE AND COLLAPSE 10/07/2018 TAVON EWING MD Ot R79.89 OTHER SPECIFIED ABNORMAL FINDINGS OF BLO 10/07/2018 TAVON EWING MD Ot Z79.82 ASSISTED (CURRENT) USE OF ASPIRIN 10/07/2018 TAVON EWING MD Ot Z79.899 OTHER ASSISTED (CURRENT) DRUG THERAPY 10/07/2018 TAVON EWING MD Ot Z86.73 PRSNL HX OF TIA (TIA), AND CEREB INFRC W 10/07/2018 TAVON EWING MD, Ot E78.5 HYPERLIPIDEMIA, UNSPECIFIED 10/07/2018 TAVON EWING MD Ot I10 ESSENTIAL (PRIMARY) HYPERTENSION 10/07/2018 TAVON EWING MD Ot I25.10 ATHSCL HEART DISEASE OF [place] CORONARY 10/07/2018 TAVON EWING MD Ot I25.2 OLD MYOCARDIAL INFARCTION 10/07/2018 TAVON EWING MD Ot R55 SYNCOPE AND COLLAPSE 10/07/2018 TAVON EWING MD Ot R79.89 OTHER SPECIFIED ABNORMAL FINDINGS OF BLO 10/07/2018 TAVON EWING MD Ot Z79.82 ASSISTED (CURRENT) USE OF ASPIRIN 10/07/2018 TAVON EWING MD Ot Z79.899 OTHER MARINE FIREMAN (CURRENT) DRUG THERAPY 10/07/2018 TAVON EWING MD [...] MD Ot I25.10 ATHSCL HEART DISEASE OF [place] CORONARY 10/11/2018 TAVON EWING MD Ot I25.2 OLD MYOCARDIAL INFARCTION 10/11/2018 TAVON EWING MD Ot R55 SYNCOPE AND COLLAPSE 10/11/2018 TAVON EWING MD Ot R79.89 OTHER SPECIFIED ABNORMAL FINDINGS OF BLO 10/11/2018 TAVON EWING MD Ot Z79.82 ASSISTED (CURRENT) USE OF ASPIRIN 10/11/2018 TAVON EWING MD Ot Z79.899 OTHER MARINE FIREMAN (CURRENT) DRUG THERAPY 10/11/2018 TAVON EWING MD Ot Z86.73 PRSNL HX OF TIA (TIA), AND CEREB INFRC W 10/11/2018 TAVON EWING MD Ot E78.5 HYPERLIPIDEMIA, UNSPECIFIED 10/11/2018 TAVON EWING MD Ot I10 ESSENTIAL (PRIMARY) HYPERTENSION 10/11/2018 TAVON EWING MD Ot I25.10 ATHSCL HEART DISEASE OF [place] CORONARY 10/11/2018 TAVON EWING MD Ot I25.2 OLD MYOCARDIAL INFARCTION 10/11/2018 TAVON EWING MD Ot R55 SYNCOPE AND COLLAPSE 10/11/2018 TAVON EWING MD, Ot R79.89 OTHER SPECIFIED ABNORMAL FINDINGS OF BLO 10/11/2018 TAVON EWING MD, Ot Z79.82 MARINE FIREMAN (CURRENT) USE OF ASPIRIN 10/11/2018 TAVON EWING MD, Ot Z79.899 OTHER MARINE FIREMAN (CURRENT) DRUG THERAPY 10/11/2018 TAVON EWING MD, [...] urinalysis with reflex to culture YES NRG Bacterial urine culture - 11/25/18 12:25 Bacterial urine culture [id number] NRG COLONY COUNT >100,000/ML NRG FTX;REPORTABLE SUSCEPTIBILITIES REPORTED [id number] [facility] FREE TEXT ENTRY 2 ID REPORTED 11/26/18 17:05 NRG Dirithromycin susceptibility test by disk diffusion - 11/25/18 12:25 Gentamicin susceptibility test by minimum inhibitory concentration <= NRG Trimethoprim/sulfamethoxazole susceptibility test by minimum inhibitoryconcentration <= NRG Levofloxacin susceptibility test by minimum inhibitory concentration <= NRG Ampicillin susceptibility test by minimum inhibitory concentration > NRG Cefazolin susceptibility test by minimum inhibitory concentration > NRG Ceftriaxone susceptibility test by minimum inhibitory concentration <= NRG Ciprofloxacin susceptibility test by minimum inhibitory concentration <= NRG Meropenem susceptibility test by minimum inhibitory concentration <= NRG Nitrofurantoin susceptibility test by minimum inhibitory concentration 64 NRG Amoxicillin and clavulanate potassium susc RAYMUNDO > NRG Dirithromycin susceptibility test by disk diffusion - 11/25/18 12:25 Gentamicin susceptibility test by minimum inhibitory concentration <= NRG Trimethoprim/sulfamethoxazole susceptibility test by minimum inhibitoryconcentration <= NRG Levofloxacin susceptibility test by minimum inhibitory concentration <= NRG Ampicillin susceptibility test by minimum inhibitory concentration R NRG Cefazolin susceptibility test by minimum inhibitory concentration > NRG Ceftriaxone susceptibility test by minimum inhibitory concentration <= NRG Ciprofloxacin susceptibility test by minimum inhibitory concentration <= NRG Meropenem susceptibility test by minimum inhibitory concentration <= NRG Nitrofurantoin susceptibility test by minimum inhibitory concentration 64 NRG Amoxicillin and clavulanate potassium susc RAYMUNDO > NRG Encounters ACCT No. Visit Date/Time Discharge Status Pt. Type Provider Facility Loc./Unit Complaint [id number] 11/25/2018 10:26:00 11/25/2018 13:45:00 DIS Emergency NANO HAMMOND, BRENDA Ocasio [facility] ER FS FALL; LWR BACK PAIN [id number] 10/06/2018 15:15:00 10/07/2018 14:21:00 DIS Inpatient KAYLIN HAMMOND, TAVON Murphy [facility] 4TH SYNCOPE [id number] 09/16/2018 15:39:00 09/16/2018 23:59:59 CLS Outpatient BRIGIDA HAMMOND, MARLIN Robins [facility] RAD FOCAL DEFICIT/CEREBROVASCULAR INS
--- NOTE | 2018-11-28 15:56 | ED General ---
General Chief Complaint: - Urinary Stated Complaint: FALL;FLANK PAIN Nursing Triage Note: PATIENT STATES THAT SHE WAS TOLD BY DR ALLRED TO COME TO THE ER FOR ADMISSION. HE DOES NOT HAVE ADMIT PRIVILEGES. APPARENTLY SHE NEEDS IV ANTIBIOTICS BECAUSE THE PILLS THAT COULD FIGHT THIS INFECTION SHE IS ALLERGIC TO. PATIENT STATES SHE IS NOT ALLERGIC TO ANY MEDICINE. Nursing Sepsis Screen: No Definite Risk Source of Information: Patient Exam Limitations: No Limitations History of Present Illness Date Seen by Provider: Nov 28, 2018 Time Seen by Provider: 15:37 Initial Comments Here with report of being told that she needed to come here for IV antibiotics because of allergies and multiple drug resistant pathogens. Patient states that she is not really allergic to Bactrim or sulfa and she only had of stomach stomach many years ago. She does not complain of fever, nausea, vomiting or breathing problems. Does have right hip pain still after the injury due to fall on 11/24/18. She was seen in the emergency department at [place] on 11/25/18 and had x-ray of the lumbar spine done which was negative for acute findings. Did have UA done at that time and this is apparently positive with the multi- drugs. That culture was done through our system and has been evaluated and shows that the patient would be sensitive to Rocephin or third generation cephalosporins as well as fluoroquinolones. Denies hitting her head on the fall but really does not remember. She is on Plavix. Timing/Duration: 4-5 Days Severity: Mild, Moderate Associated Systoms: No Chest Pain, No Fever/Chills, No Nausea/Vomiting, No Shortness of Air; Weakness Allergies and Home Medications Allergies Coded Allergies: No Known Drug Allergies (Unverified , 10/06/18) Home Medications Acetaminophen 325 Mg Tablet, 325 MG PO Q6H PRN for PAIN-MILD, (Reported) Aspirin 81 Mg Tablet.dr, 324 MG PO DAILY, (Reported) TAKES 4 (81MG) TABLETS Cetirizine HCl 10 Mg Tablet, 10 MG PO DAILY, (Reported) Clopidogrel Bisulfate 75 Mg Tablet, 75 MG PO DAILY, (Reported) Cyclobenzaprine HCl 10 Mg Tablet, 5 MG PO Q8H PRN for SPASMS Prescribed by: BRENDA AG on 11/25/18 1304 Ibuprofen 200 Mg Tablet, 200 MG PO Q6H PRN for PAIN-MILD, (Reported) Isosorbide Mononitrate 60 Mg Tab, 60 MG PO DAILY, (Reported) Losartan Potassium 25 Mg Tablet, 12.5 MG PO DAILY, (Reported) TAKES 1/2 (25MG) TABLET Nadolol 20 Mg Tablet, 30 MG PO BID, (Reported) TAKES 1 & 1/2 (20MG) TABLET Patient Home Medication List Home Medication List Reviewed: Yes Review of Systems Review of Systems Constitutional: see HPI; No chills, No fever; weakness EENTM: no symptoms reported Respiratory: no symptoms reported Cardiovascular: no symptoms reported Gastrointestinal: No abdominal pain, No nausea, No vomiting Genitourinary: see HPI; No dysuria, No pain Musculoskeletal: back pain, joint pain Skin: change in color; No lesions Psychiatric/Neurological: Denies Headache; Weakness, Other (dizziness) Hematologic/Lymphatic: No Symptoms Reported Immunological/Allergic: no symptoms reported All Other Systems Reviewed Negative Unless Noted: Yes Past Ighxopl-Rvyeoo-Dpzzrl Hx Past Med/Social Hx: Reviewed Nursing Past Med/Soc Hx Patient Social History Alcohol Use: Denies Use Recreational Drug Use: No Smoking Status: Never a Smoker 2nd Hand Smoke Exposure: No Recent Foreign Travel: No Contact w/Someone Who Travel: No Recent Infectious Disease Expo: No Recent Hopitalizations: No Immunizations Up To Date Date of Pneumonia Vaccine: Feb 06, 2018 Seasonal Allergies Seasonal Allergies: No Past Medical History Surgeries: No Respiratory: No Cardiac: Yes Heart Attack, Hypertension Neurological: Yes Stroke Genitourinary: No Gastrointestinal: No Musculoskeletal: Yes Gout Endocrine: No HEENT: No Cancer: No Psychosocial: No Integumentary: No Blood Disorders: No Family Medical History Reviewed Nursing Family Hx No Pertinent Family Hx Physical Exam-Suspected Sepsis Physical Exam Vital Signs Vital Signs - First Documented 11/28/18 15:24 Pulse 60 Resp 20 B/P (MAP) 164/80 (108) Pulse Ox 97 Capillary Refill : Less Than 3 Seconds Blood Pressure Mean: 108 Height, Weight, BMI Height: 5'4.00" Weight: 135lbs. 0oz. 61.029313nq; 24.4 BMI Method:Stated General Appearance: No Apparent Distress, WD/WN HEENT: PERRL/EOMI, Pharynx Normal Neck: Full Range of Motion, Normal Inspection, Non Tender, Supple Respiratory: Lungs Clear, Normal Breath Sounds Cardiovascular: No Murmur Gastrointestinal: Non Tender, Soft Back: Normal Inspection, No CVA Tenderness, No Vertebral Tenderness Extremity: Normal Range of Motion, No Calf Tenderness, Pelvis Stable, Other (tender over the right hip) Neurologic/Psychiatric: Alert, Oriented x3, No Motor/Sensory Deficits Skin: warm/dry, ecchymosis (right medial forearm but has full range of motion) Focused Exam Lactate Level 11/28/18 16:15: Lactic Acid Level 1.82 Lactic Acid Level Laboratory Tests Test 11/28/18 16:15 Lactic Acid Level 1.82 MMOL/L (0.50-2.00) Progress/Results/Core Measures Suspected Sepsis Recent Fever Within 48 Hours: No Infection Criteria Present: Documented Infection New/Unexplained Altered Menta: No Sepsis Screen: No Definite Risk SIRS Temperature: Pulse: 60 Respiratory Rate: 20 Laboratory Tests 11/28/18 16:15: White Blood Count 8.2 Blood Pressure 164 /80 Mean: 108 11/28/18 16:15: Lactic Acid Level 1.82 Laboratory Tests 11/28/18 16:15: Creatinine 0.86, INR Comment 1.1, Platelet Count 153, Total Bilirubin 1.0 Results/Orders Lab Results Laboratory Tests Test 11/28/18 15:05 11/28/18 16:15 Range/Units White Blood Count 8.2 4.3-11.0 10^3/uL Red Blood Count 4.19 L 4.35-5.85 10^6/uL Hemoglobin 13.4 11.5-16.0 G/DL Hematocrit 40 35-52 % Mean Corpuscular Volume 96 80-99 FL Mean Corpuscular Hemoglobin 32 25-34 PG Mean Corpuscular Hemoglobin Concent 34 32-36 G/DL Red Cell Distribution Width 14.4 10.0-14.5 % Platelet Count 153 130-400 10^3/uL Mean Platelet Volume 12.1 H 7.4-10.4 FL Neutrophils (%) (Auto) 42 42-75 % Lymphocytes (%) (Auto) 37 12-44 % Monocytes (%) (Auto) 16 H 0-12 % Eosinophils (%) (Auto) 5 0-10 % Basophils (%) (Auto) 0 0-10 % Neutrophils # (Auto) 3.4 1.8-7.8 X 10^3 Lymphocytes # (Auto) 3.0 1.0-4.0 X 10^3 Monocytes # (Auto) 1.3 H 0.0-1.0 X 10^3 Eosinophils # (Auto) 0.4 H 0.0-0.3 10^3/uL Basophils # (Auto) 0.0 0.0-0.1 10^3/uL Prothrombin Time 15.0 H 12.2-14.7 SEC INR Comment 1.1 0.8-1.4 Activated Partial Thromboplast Time 32 24-35 SEC Sodium Level 136 135-145 MMOL/L Potassium Level 4.7 3.6-5.0 MMOL/L Chloride Level 107 98-107 MMOL/L Carbon Dioxide Level 20 L 21-32 MMOL/L Anion Gap 9 5-14 MMOL/L Blood Urea Nitrogen 20 H 7-18 MG/DL Creatinine 0.86 0.60-1.30 MG/DL Estimat Glomerular Filtration Rate > 60 BUN/Creatinine Ratio 23 Glucose Level 88 70-105 MG/DL Lactic Acid Level 1.82 0.50-2.00 MMOL/L Calcium Level 9.5 8.5-10.1 MG/DL Corrected Calcium 10.0 8.5-10.1 MG/DL Total Bilirubin 1.0 0.1-1.0 MG/DL Aspartate Amino Transf (AST/SGOT) 108 H 5-34 U/L Alanine Aminotransferase (ALT/SGPT) 59 H 0-55 U/L Alkaline Phosphatase 162 H 40-136 U/L Total Protein 7.8 6.4-8.2 GM/DL Albumin 3.4 3.2-4.5 GM/DL My Orders Orders - HALEIGH MURILLO MD Cbc With Automated Diff (11/28/18 15:45) Comprehensive Metabolic Panel (11/28/18 15:45) Blood Culture (11/28/18 15:45) Sputum Culture (11/28/18 15:45) Urinalysis (11/28/18 15:45) Urine Culture (11/28/18 15:45) Protime With Inr (11/28/18 15:45) Partial Thromboplastin Time (11/28/18 15:45) Chest 1 View, Ap/Pa Only (11/28/18 15:45) Ed Iv/Invasive Line Start (11/28/18 15:45) Vital Signs Adult Sepsis Patie Q15M (11/28/18 15:45) O2 (11/28/18 15:45) Remove Rings In Anticipation O (11/28/18 15:45) Lactic Acid Analyzer (11/28/18 15:45) Pelvis (11/28/18 15:47) Ct Head Wo (11/28/18 16:28) Ns Iv 500 Ml (Sodium Chloride 0.9%) (11/28/18 16:36) Ceftriaxone For Iv Use (Rocephin For I (11/28/18 16:45) Medications Given in ED Current Medications Medications Dose Ordered Sig/Hollie Route Start Time Stop Time Status Last Admin Dose Admin Ceftriaxone Sodium 1000 mg/ Sterile Water 10 ml @ 200 mls/hr ONCE ONCE IV 11/28/18 16:45 11/28/18 16:47 DC 11/28/18 17:16 200 MLS/HR Sodium Chloride 500 ml @ 0 mls/hr Q0M ONCE IV 11/28/18 16:36 11/28/18 16:38 DC 11/28/18 16:44 500 MLS/HR Vital Signs/I&O 11/28/18 15:24 Pulse 60 Resp 20 B/P (MAP) 164/80 (108) Pulse Ox 97 Capillary Refill : Less Than 3 Seconds Blood Pressure Mean: 108 Progress Note : Progress Note Seen and evaluated. IV, labs, UA, chest x-ray, blood cultures and lactic acid ordered. We will go ahead and get pelvic x-ray and CT of the head due to the fall. Patient did have UA culture is been on previous visit and the shoulder evaluated. It does appear that she has UTI sensitive to Rocephin. We will initiate after blood cultures. Normal saline 500 mL bolus ordered. Monitor patient. 1745: She is doing little bit better but still weak. Given her advanced age, multiple organisms with multiple resistances and her urinary tract infection and the dizziness/weakness that she's been encountering, observation admission is indicated. This was discussed with patient and family who agree and are appreciative as she lives alone and they're concerned about her safety currently. I did discuss the case with Dr. Schultz and she accepts patient for admission, observation status. Patient and family agree with plan. Departure Communication (Admissions) Time/Spoke to Admitting Phy: 17:45 Impression Primary Impression: Urinary tract infection Qualified Codes: N30.00 - Acute cystitis without hematuria Additional Impression: Lumbar back pain Disposition: 09 ADMITTED INPATIENT Condition: Stable Admissions Decision to Admit Reason: Admit from ER (General) Decision to Admit/Date: Nov 28, 2018 Time/Decision to Admit Time: 17:45 Departure-Patient Inst. Referrals: MARLIN ALLRED MD (PCP/Family) Primary Care Physician HALEIGH MURILLO MD Nov 28, 2018 15:56
[2018-11-28 16:10] VITALS: BP 164/80
[2018-11-28 16:31] LABS: BASOPHILS % (AUTO) 0 % (0-10); EOSINOPHILS # (AUTO) 0.4 10^3/uL (0.0-0.3); EOSINOPHILS % (AUTO) 5 % (0-10); HEMATOCRIT 40 % (35-52); HEMOGLOBIN 13.4 G/DL (11.5-16.0); LYMPHOCYTES % (AUTO) 37 % (12-44); MEAN CORPUSCULAR HEMOGLOBIN 32 PG (25-34); MEAN CORPUSCULAR HGB CONC 34 G/DL (32-36); MEAN CORPUSCULAR VOLUME 96 FL (80-99); MEAN PLATELET VOLUME 12.1 FL (7.4-10.4); MONOCYTES # (AUTO) 1.3 X 10^3 (0.0-1.0); MONOCYTES % (AUTO) 16 % (0-12); NEUTROPHILS # (AUTO) 3.4 X 10^3 (1.8-7.8); NEUTROPHILS % (AUTO) 42 % (42-75); PLATELET COUNT 153 10^3/uL (130-400); RED CELL DISTRIBUTION WIDTH 14.4 % (10.0-14.5); WHITE BLOOD COUNT 8.2 10^3/uL (4.3-11.0)
[2018-11-28] MEDS ORDERED: NS IV 500 ML 500 ML IV ONE (16:36)
[2018-11-28 16:42] LABS: INR 1.1 (0.8-1.4)
[2018-11-28] MEDS ORDERED: cefTRIAXone FOR IV USE 1,000 MG in WATER (STERILE) FOR INJECTION 10 ML IV ONE (16:45)
[2018-11-28 16:50] LABS: ALANINE AMINOTRANSFERASE 59 U/L (0-55); ALBUMIN 3.4 GM/DL (3.2-4.5); ALKALINE PHOSPHATASE 162 U/L (40-136); BUN/CREATININE RATIO 23; CALCIUM 9.5 MG/DL (8.5-10.1); CARBON DIOXIDE 20 MMOL/L (21-32); CHLORIDE 107 MMOL/L (98-107); CREATININE SERUM 0.86 MG/DL (0.60-1.30); GFR ESTIMATED > 60; GLUCOSE 88 MG/DL (70-105); POTASSIUM 4.7 MMOL/L (3.6-5.0); SODIUM 136 MMOL/L (135-145); TOTAL PROTEIN 7.8 GM/DL (6.4-8.2)
--- NOTE | 2018-11-28 17:04 | Diagnostic Imaging Report ---
PROCEDURE: CT head without contrast. TECHNIQUE: Multiple contiguous axial images were obtained through the brain without the use of intravenous contrast. Auto Exposure Controls were utilized during the CT exam to meet ALARA standards for radiation dose reduction. INDICATION: Fall. Dizziness. Confusion. Anticoagulation therapy. COMPARISON: CT head without contrast 09/16/2018. FINDINGS: Advanced generalized cerebral and cerebellar parenchymal volume loss. 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 Intracranial vascular calcifications. No CT evidence of a territorial infarction. No intracranial hemorrhage, mass effect, hydrocephalus or extra-axial fluid collections. Osseous structures are intact. The paranasal sinuses and mastoids are clear where seen. IMPRESSION: No acute intracranial CT findings. Dictated by: Dictated on workstation # [id number]
--- NOTE | 2018-11-28 17:19 | Diagnostic Imaging Report ---
EXAM: CHEST 1 VIEW, AP/PA ONLY INDICATION: Fall. Back pain. COMPARISON: Chest radiograph 10/06/2018. FINDINGS: Cardiomegaly. Normal central pulmonary vascularity. Calcified granulomas in both lungs. Mild atelectasis or infiltrate in the left costophrenic angle is stable. No new focal pulmonary opacity. No pleural effusion or pneumothorax. Calcified aorta. No acute osseous findings. IMPRESSION: 1. No acute cardiopulmonary findings. 2. Stable cardiomegaly with normal central pulmonary vascularity. 3. Persistent atelectasis and/or scarring in the left costophrenic angle. Dictated by: Dictated on workstation # [id number]
[2018-11-28 17:23] LABS: BILIRUBIN,URINE NEGATIVE (NEGATIVE); CLARITY,URINE CLEAR; COLOR,URINE YELLOW; GLUCOSE, URINE (UA) NEGATIVE (NEGATIVE); KETONES,URINE NEGATIVE (NEGATIVE); LEUKOCYTE ESTERASE ,URINE 1+ (NEGATIVE); NITRITE,URINE NEGATIVE (NEGATIVE); PH,URINE 6.5 (5-9); PROTEIN,URINE NEGATIVE (NEGATIVE); UROBILINOGEN,URINE 4 MG/DL (NORMAL)
--- NOTE | 2018-11-28 17:26 | Diagnostic Imaging Report ---
EXAM: PELVIS. INDICATION: Fall. Low back pain. COMPARISON: None. FINDINGS: No fracture or malalignment. Advanced degenerative changes in the visualized lower lumbar spine. Presumed calcified uterine fibroid. Mild degenerative changes in both hips. Moderate degenerative changes in the pubic symphysis. IMPRESSION: No acute radiographic findings in the pelvis on this single image. Chronic findings as above. Dictated by: Dictated on workstation # [id number]
--- NOTE | 2018-11-28 17:50 | NUR ---
Tried to call report to ARVIN Golden and she asked to wait until 1830.
[2018-11-28 17:55] LABS: RBC,URINE RARE /HPF; WBC,URINE RARE /HPF
[2018-11-28 17:56] LABS: BACTERIA,URINE TRACE /HPF; RENAL EPITHELIAL CELLS,URINE RARE /HPF
--- NOTE | 2018-11-28 18:41 | NUR ---
Have tried to call report twice at this time, no answer.
[2018-11-28 19:00] VITALS: BP 133/61
--- NOTE | 2018-11-28 19:00 | NUR ---
SARTHAK STANLEY admitted to room 427-1, with an admitting diagnosis of UTI,back pain, on 11/28/18 from ED via wheelchair, accompanied by staff.SARTHAK STANLEY introduced to surroundings, call light, bed controls, phone, TV, temperature control, lights, meal times, smoking policy, visitor policy, side rail policy, bathrooms and showers. Patient Rights given to patient in the handbook. SARTHAK STANLEY verbalizes understanding that [facility] is not responsible for the loss or damage to any personal effects or valuables that are kept in the patients posession during their hospitalization. SARTHAK STANLEY verbalizes understanding of Interdisciplinary Patient Education. Patient and/or family were informed about the Rapid Response Team and its purpose.
[2018-11-28] MEDS ORDERED: CATHETER FLUSH 10 ML SYR IV PRN (19:15)
[2018-11-28] MEDS ORDERED: NS IV 1000 ML 1,000 ML IV SCH (19:15)
[2018-11-28] MEDS ORDERED: NAPROXEN 250 MG (NAPROSYN) TABLET PO PRN (19:15)
[2018-11-28 20:00] VITALS: BP 133/61
--- OUTSIDE RECORDS SUMMARY | 2018-11-28 20:01 | XMS REPORT | Continuity of Care Document ---
Author Organization Unknown Address Unknown Allergies Active Description Code Type Severity Reaction Onset Reported/Identified Relationship to Patient Clinical Status Yes No Known Drug Allergies [id number] Drug Allergy Unknown N/A 10/06/2018 Medications There [...] MD 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 10/07/2018 TAVON EWING MD, Ot I25.2 OLD MYOCARDIAL INFARCTION 10/07/2018 TAVON EWING MD Ot R55 SYNCOPE AND COLLAPSE 10/07/2018 TAVON EWING MD Ot R79.89 OTHER SPECIFIED ABNORMAL FINDINGS OF BLO 10/07/2018 TAVON EWING MD Ot Z79.82 RESIDENTIAL (CURRENT) USE OF ASPIRIN 10/07/2018 TAVON EWING MD Ot Z79.899 OTHER RESIDENTIAL (CURRENT) DRUG THERAPY 10/07/2018 TAVON EWING MD Ot Z86.73 PRSNL HX OF TIA (TIA), AND CEREB INFRC W 10/07/2018 TAVON EWING MD, Ot E78.5 HYPERLIPIDEMIA, UNSPECIFIED 10/07/2018 TAVON EWING MD Ot I10 ESSENTIAL (PRIMARY) HYPERTENSION 10/07/2018 TAVON EWING MD 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 10/07/2018 TAVON EWING MD Ot I25.2 OLD MYOCARDIAL INFARCTION 10/07/2018 TAVON EWING MD Ot R55 SYNCOPE AND COLLAPSE 10/07/2018 TAVON EWING MD Ot R79.89 OTHER SPECIFIED ABNORMAL FINDINGS OF BLO 10/07/2018 TAVON EWING MD Ot Z79.82 RESIDENTIAL (CURRENT) USE OF ASPIRIN 10/07/2018 TAVON EWING MD Ot Z79.899 OTHER MOP MAKER (CURRENT) DRUG THERAPY 10/07/2018 TAVON EWING MD [...] MD 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 10/11/2018 TAVON EWING MD Ot I25.2 OLD MYOCARDIAL INFARCTION 10/11/2018 TAVON EWING MD Ot R55 SYNCOPE AND COLLAPSE 10/11/2018 TAVON EWING MD Ot R79.89 OTHER SPECIFIED ABNORMAL FINDINGS OF BLO 10/11/2018 TAVON EWING MD Ot Z79.82 RESIDENTIAL (CURRENT) USE OF ASPIRIN 10/11/2018 TAVON EWING MD Ot Z79.899 OTHER MOP MAKER (CURRENT) DRUG THERAPY 10/11/2018 TAVON EWING MD Ot Z86.73 PRSNL HX OF TIA (TIA), AND CEREB INFRC W 10/11/2018 TAVON EWING MD Ot E78.5 HYPERLIPIDEMIA, UNSPECIFIED 10/11/2018 TAVON EWING MD Ot I10 ESSENTIAL (PRIMARY) HYPERTENSION 10/11/2018 TAVON EWING MD 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 10/11/2018 TAVON EWING MD Ot I25.2 OLD MYOCARDIAL INFARCTION 10/11/2018 TAVON EWING MD Ot R55 SYNCOPE AND COLLAPSE 10/11/2018 TAVON EWING MD, Ot R79.89 OTHER SPECIFIED ABNORMAL FINDINGS OF BLO 10/11/2018 TAVON EWING MD, Ot Z79.82 MOP MAKER (CURRENT) USE OF ASPIRIN 10/11/2018 TAVON EWING MD, Ot Z79.899 OTHER MOP MAKER (CURRENT) DRUG THERAPY 10/11/2018 TAVON EWING MD, [...] culture - 11/25/18 12:25 Bacterial urine culture [id number] NRG COLONY COUNT >100,000/ML NRG FTX;REPORTABLE SUSCEPTIBILITIES REPORTED [id number] [facility] FREE TEXT ENTRY 2 ID REPORTED 11/26/18 [...] and clavulanate potassium susc RAYMUNDO > NRG Complete urinalysis with reflex to culture - 11/28/18 15:05 Urine color determination YELLOW NRG Urine clarity determination CLEAR NRG Urine pH measurement by test strip 6.5 5-9 Specific gravity of urine by test strip 1.010 1.016-1.022 Urine protein assay by test strip, semi-quantitative NEGATIVE NEGATIVE Urine glucose detection by automated test strip NEGATIVE NEGATIVE Erythrocytes detection in urine sediment by light microscopy NEGATIVE NEGATIVE Urine ketones detection by automated test strip NEGATIVE NEGATIVE Urine nitrite detection by test strip NEGATIVE NEGATIVE Urine total bilirubin detection by test strip NEGATIVE NEGATIVE Urine urobilinogen measurement by automated test strip (mass/volume) 4 mg/dL NORMAL Urine leukocyte esterase detection by dipstick 1+ NEGATIVE Automated urine sediment erythrocyte count by microscopy (number/high power field) RARE NRG Automated urine sediment leukocyte count by microscopy (number/high power field) RARE NRG Bacteria detection in urine sediment by light microscopy TRACE NRG Crystals detection in urine sediment by light microscopy NONE NRG Casts detection in urine sediment by light microscopy NONE NRG Mucus detection in urine sediment by light microscopy NEGATIVE NRG Complete urinalysis with reflex to culture NO NRG Renal epithelial cells detection in urine sediment by light microscopy RARE NRG Complete blood count (CBC) with automated white blood cell (WBC) differential - 11/28/18 16:15 Blood leukocytes automated count (number/volume) 8.2 10*3/uL 4.3-11.0 Blood erythrocytes automated count (number/volume) 4.19 10*6/uL 4.35-5.85 Venous blood hemoglobin measurement (mass/volume) 13.4 g/dL 11.5-16.0 Blood hematocrit (volume fraction) 40 % 35-52 Automated erythrocyte mean corpuscular volume 96 [foz_us] 80-99 Automated erythrocyte mean corpuscular hemoglobin (mass per erythrocyte) 32 pg 25-34 Automated erythrocyte mean corpuscular hemoglobin concentration measurement (mass/volume) 34 g/dL 32-36 Automated erythrocyte distribution width ratio 14.4 % 10.0- 14.5 Automated blood platelet count (count/volume) 153 10*3/uL 130-400 Automated blood platelet mean volume measurement 12.1 [foz_us] 7.4-10.4 Automated blood neutrophils/100 leukocytes 42 % 42-75 Automated blood lymphocytes/100 leukocytes 37 % 12-44 Blood monocytes/100 leukocytes 16 % 0-12 Automated blood eosinophils/100 leukocytes 5 % 0-10 Automated blood basophils/100 leukocytes 0 % 0-10 Blood neutrophils automated count (number/volume) 3.4 10*3 1.8-7.8 Blood lymphocytes automated count (number/volume) 3.0 10*3 1.0-4.0 Blood monocytes automated count (number/volume) 1.3 10*3 0.0- 1.0 Automated eosinophil count 0.4 10*3/uL 0.0-0.3 Automated blood basophil count (count/volume) 0.0 10*3/uL 0.0-0.1 Blood lactic acid measurement (moles/volume) - 11/28/18 16:15 Blood lactic acid measurement (moles/volume) 1.82 mmol/L 0.50- 2.00 Comprehensive metabolic panel - 11/28/18 16:15 Serum or plasma sodium measurement (moles/volume) 136 mmol/L 135-145 Serum or plasma potassium measurement (moles/volume) 4.7 mmol/L 3.6-5.0 Serum or plasma chloride measurement (moles/volume) 107 mmol/L 98-107 Carbon dioxide 20 mmol/L 21-32 Serum or plasma anion gap determination (moles/volume) 9 mmol/L 5-14 Serum or plasma urea nitrogen measurement (mass/volume) 20 mg/dL 7-18 Serum or plasma creatinine measurement (mass/volume) 0.86 mg/dL 0.60-1.30 Serum or plasma urea nitrogen/creatinine mass ratio 23 NRG Serum or plasma creatinine measurement with calculation of estimated glomerular filtration rate > NRG Serum or plasma glucose measurement (mass/volume) 88 mg/dL 70-105 Serum or plasma calcium measurement (mass/volume) 9.5 mg/dL 8.5-10.1 Serum or plasma total bilirubin measurement (mass/volume) 1.0 mg/dL 0.1-1.0 Serum or plasma alkaline phosphatase measurement (enzymatic activity/volume) 162 U/L 40-136 Serum or plasma aspartate aminotransferase measurement (enzymatic activity/volume) 108 U/L 5-34 Serum or plasma alanine aminotransferase measurement (enzymatic activity/volume) 59 U/L 0-55 Serum or plasma protein measurement (mass/volume) 7.8 g/dL 6.4-8.2 Serum or plasma albumin measurement (mass/volume) 3.4 g/dL 3.2-4.5 CALCIUM CORRECTED 10.0 mg/dL 8.5-10.1 PT panel in platelet poor plasma by coagulation assay - 11/28/18 16:15 Prothrombin time (PT) in platelet poor plasma by coagulation assay 15.0 s 12.2-14.7 INR in platelet poor plasma or blood by coagulation assay 1.1 0.8-1.4 Activated partial thromboplastin time (aPTT) in platelet poor plasma bycoagulation assay - 11/28/18 16:15 Activated partial thromboplastin time (aPTT) in platelet poor plasma bycoagulation assay 32 s 24-35 Encounters ACCT No. Visit Date/Time Discharge Status Pt. Type Provider Facility Loc./Unit Complaint [id number] 11/25/2018 10:26:00 11/25/2018 13:45:00 DIS Emergency NANO HAMMOND, BRENDA Ocasio [facility] ER FS FALL; LWR BACK PAIN [id number] 10/06/2018 15:15:00 10/07/2018 14:21:00 DIS Inpatient KAYLIN HAMMOND, TAVON Murphy [facility] 4TH SYNCOPE [id number] 09/16/2018 15:39:00 09/16/2018 23:59:59 CLS Outpatient BRIGIDA HAMMOND, MARLIN Robins [facility] RAD FOCAL DEFICIT/CEREBROVASCULAR INS [id number] 11/28/2018 16:36:00 Document Registration
[2018-11-28] MEDS: ACETAMINOPHEN 325 MG TABLET PO PRN (20:22)
[2018-11-28] MEDS ORDERED: MELATONIN 3 MG TABLET PO PRN (21:15)
[2018-11-28] MEDS ORDERED: ONDANSETRON 4 MG (ZOFRAN) ORAL DISSOLVE TAB PO PRN (21:15)
[2018-11-28] MEDS ORDERED: diphenhydrAMINE 25 MG TAB (BENADRYL) PO PRN (21:15)
[2018-11-28] MEDS ORDERED: ONDANSETRON 4 MG/2 ML (SDV) Z0FRAN IVP PRN (21:15)
[2018-11-28] MEDS ORDERED: LOPERAMIDE 2 MG (IMODIUM) TABLET PO PRN (21:15)
[2018-11-28] MEDS ORDERED: CALCIUM CARBONATE 500 MG (TUMS) TAB.CHEW PO PRN (21:15)
[2018-11-28] MEDS ORDERED: DOCUSATE SODIUM 100 MG (COLACE) CAP PO PRN (21:15)
[2018-11-29 00:15] VITALS: BP 132/55
[2018-11-29 04:00] VITALS: BP 156/67
[2018-11-29] MEDS: ACETAMINOPHEN 325 MG TABLET PO PRN ×2 (05:33→18:08)
[2018-11-29 06:00] LABS: BASOPHILS % (AUTO) 0 % (0-10); EOSINOPHILS # (AUTO) 0.4 10^3/uL (0.0-0.3); EOSINOPHILS % (AUTO) 6 % (0-10); HEMATOCRIT 37 % (35-52); HEMOGLOBIN 12.3 G/DL (11.5-16.0); LYMPHOCYTES % (AUTO) 35 % (12-44); MEAN CORPUSCULAR HGB CONC 33 G/DL (32-36); MEAN CORPUSCULAR VOLUME 95 FL (80-99); MONOCYTES % (AUTO) 17 % (0-12); NEUTROPHILS # (AUTO) 2.4 X 10^3 (1.8-7.8); NEUTROPHILS % (AUTO) 42 % (42-75); PLATELET COUNT 109 10^3/uL (130-400); RED CELL DISTRIBUTION WIDTH 13.9 % (10.0-14.5); WHITE BLOOD COUNT 5.7 10^3/uL (4.3-11.0)
[2018-11-29 06:01] LABS: MEAN CORPUSCULAR HEMOGLOBIN 31 PG (25-34)
[2018-11-29 06:28] LABS: ALANINE AMINOTRANSFERASE 51 U/L (0-55); ALKALINE PHOSPHATASE 151 U/L (40-136); BILIRUBIN,TOTAL 1.1 MG/DL (0.1-1.0); BUN/CREATININE RATIO 23; CALCIUM 8.9 MG/DL (8.5-10.1); CARBON DIOXIDE 20 MMOL/L (21-32); CHLORIDE 111 MMOL/L (98-107); CREATININE SERUM 0.82 MG/DL (0.60-1.30); GFR ESTIMATED > 60; GLUCOSE 90 MG/DL (70-105); POTASSIUM 4.1 MMOL/L (3.6-5.0); SODIUM 140 MMOL/L (135-145); TOTAL PROTEIN 6.6 GM/DL (6.4-8.2)
[2018-11-29 08:00] VITALS: BP 144/55
[2018-11-29] MEDS: CLOPIDOGREL 75 MG (PLAVIX) TABLET PO SCH (09:26)
[2018-11-29] MEDS: cefTRIAXone 1,000 MG/SWFI 10 ML IV PUSH IV SCH ×2 (09:26)
[2018-11-29] MEDS: SENNA W/DOCUSATE (SENOKOT S) TABLET PO SCH ×2 (09:26→19:43)
--- NOTE | 2018-11-29 09:59 | NUR ---
WENT OVER THE EXT MED HX AND THE OTC MEDS ON FILE FOR THE PATIENT. SHE VERIFIED HOW SHE TAKES THEM. SHE WAS PRESCRIBED FLEXERIL FROM THE ED EARLIER THIS WEEK, I CALLED AND VERIFIED WITH THOMAS SHE DID PICK IT UP HOWEVER WHEN I ASKED HER ABOUT IT IT DID NOT SOUND FAMILIAR TO HER. I LEFT IT ON THE MED REC AT THIS TIME SINCE IT WAS PICKED UP RECENTLY.
--- NOTE | 2018-11-29 10:29 | Short Stay Summary-Hospitalist ---
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 Olvera informed her that due to [id number] UTI and intolerance to antibiotics she was to come to the ER for admission since he does not have admitting privileges. Patient is much improved but she has been following a great deal and the hip x- ray lumbar spine x-ray showed no evidence of any fracture that was done on 11/25/18 in [facility]. Rocephin as tolerated will Hep-Lock IV fluids since s he is eating and drinking and we'll order PT and OT and inpatient rehabilitation evaluation. Source: patient Exam Limitations: no limitations Date Seen 11/29/18 Time Seen by a Provider: 10:30 Attending Physician Alessandra Schultz DO PCP Felipe Olvera MD Referring Physician Date of Admission Nov 28, 2018 at 17:55 Home Medications & Allergies Home Medications Reviewed patient Home Medication Reconciliation performed by pharmacy medication reconciliations low voltage technician and/or nursing. Patients Allergies have been reviewed. Allergies Allergies Coded Allergies No Known Drug Allergies (Unverified10/06/18) Past Rkwxryn-Akwzdd-Jmqkni Hx Past Med/Social Hx: Reviewed Nursing Past Med/Soc Hx, Reviewed and Corrections made Patient Social History Marrital Status: Alcohol Use: Denies Use Recreational Drug Use: No Smoking Status: Never a Smoker 2nd Hand Smoke Exposure: No Recent Foreign Travel: No Contact w/other who traveled: No Recent Hopitalizations: No Recent Infectious Disease Expo: No Immunizations Up To Date Date of Pneumonia Vaccine: Nov 28, 2017 Seasonal Allergies Seasonal Allergies: No Past Medical History Cardiac: Heart Attack, Hypertension Neurological: Stroke Musculoskeletal: Gout History of Blood Disorders: No Family History Reviewed Nursing Family Hx No Pertinent Family Hx Review of Systems Constitutional: see HPI EENTM: no symptoms reported Respiratory: no symptoms reported Cardiovascular: no symptoms reported Gastrointestinal: no symptoms reported Genitourinary: no symptoms reported Musculoskeletal: back pain, joint pain Skin: no symptoms reported Psychiatric/Neurological: No Symptoms Reported All Other Systems Reviewed Negative Unless Noted: Yes Physical Exam Physical Exam Vital Signs Vital Signs - First Documented 11/28/18 11/28/18 11/28/18 15:24 16:10 19:00 Temp 97.6 Pulse 60 Resp 20 B/P (MAP) 164/80 (108) Pulse Ox 97 O2 Delivery Room Air Capillary Refill : Less Than 3 Seconds Height, Weight, BMI Height: 5'4.00" Weight: 138lbs. 5.0oz. [id number]; 23.7 BMI Method:Stated General Appearance: No Apparent Distress, WD/WN Eyes: Bilateral Eye Normal Inspection, Bilateral Eye PERRL HEENT: PERRL/EOMI, Normal ENT Inspection, Pharynx Normal Neck: Full Range of Motion, Normal Inspection, Non Tender, Supple Respiratory: Lungs Clear, Normal Breath Sounds Cardiovascular: No Murmur Gastrointestinal: Non Tender, Soft Back: Normal Inspection, No CVA Tenderness, No Vertebral Tenderness Extremity: Normal Capillary Refill, Normal Inspection, Normal Range of Motion, No Calf Tenderness, Pelvis Stable, Other (tender over the right hip) Neurologic/Psychiatric: Alert, Oriented x3, No Motor/Sensory Deficits, Normal Mood/Affect, station agent II-XII Norm as Tested Skin: Normal Color, Warm/Dry Lymphatic: No Adenopathy Results Results/Procedures Labs Laboratory Tests 11/28/18 16:15 11/29/18 05:43 Patient resulted labs reviewed. Short Stay Diagnosis Discharge Diagnosis-Short Stay Admission Diagnosis Assessment: UTI with resistant organism and intolerance to antibiotics remotely Recent fall with right hip pain no fracture History of stroke with right-sided weakness maintained on Plavix Osteoarthritis Plan: Rocephin Hep-locked IV fluid PT/OT Inpatient rehabilitation eval Final Discharge Diagnosis Assessment: UTI with resistant organism and intolerance to antibiotics remotely Recent fall with right hip pain no fracture History of stroke with right-sided weakness maintained on Plavix Osteoarthritis Plan: Rocephin Hep-locked IV fluid PT/OT Inpatient rehabilitation eval Conclusion Plan Plan: Rocephin Hep-locked IV fluid PT/OT Inpatient rehabilitation eval Clinical Quality Measures DVT/VTE Risk/Contraindication: Risk Factor Score Per Nursin RFS Level Per Nursing on Admit: 4+=Very High ALESSANDRA SCHULTZ DO Nov 29, 2018 10:29
--- NOTE | 2018-11-29 11:32 | NUR ---
IRF Evaluation Order received to evaluate patient for the ARU - awaiting therapy evaluation(s). Will continue to follow. Thank you for this referral.
[2018-11-29 12:00] VITALS: BP 146/60
--- NOTE | 2018-11-29 12:59 | Physical Therapy Evaluation ---
PT Evaluation-General Medical Diagnosis Admission Date Nov 28, 2018 at 17:55 Medical Diagnosis: sepsis Onset Date: Nov 28, 2018 Therapy Diagnosis Therapy Diagnosis: impaired mobility, strength, endurance Height/Weight Height (Feet): 5 Height (Inches): 4.00 Weight (Pounds): 138 Weight (Ounces): 5.0 Precautions Precautions/Isolations: Fall Prevention Weight Bear Status Right Lower Extremity: Right Weight Bearing/Tolerated Left Lower Extremity: Left Weight Bearing/Tolerated Referral Physician: Alessandra Schultz DO Reason for Referral: Evaluation/Treatment Medical History Additional Medical History Past Medical History Surgeries: No Respiratory: No Cardiac: Yes Heart Attack, Hypertension Neurological: Yes Stroke Genitourinary: No Gastrointestinal: No Musculoskeletal: Yes Gout Endocrine: No HEENT: No Cancer: No Psychosocial: No Integumentary: No Blood Disorders: No Reviewed History: Yes Social History Home: Single Level Current Living Status: Alone Entry Into Home: Stairs With Railing PT Steps Into Home: 2 Prior/Core FIM Prior Level of Function Therapy Code Descriptions/Definitions Functional Bulger Measure: 0=Not Assessed/NA 4=Minimal Assistance 1=Total Assistance 5=Supervision or Setup 2=Maximal Assistance 6=Modified Bulger 3=Moderate Assistance 7=Complete Bul[place] Therapy Quality Codes: 6 Independent with activity with or without an assistive device 5 Patient requires set up or clean up by helper. Patient completes activity by themselves 4 Supervision or touching assist (CGA). [place] provide cues , steadying assist 3 The helper provides less than half the effort to complete the activity 2 The helper provides more than half the effort to complete the activity 1 Dependent. The helper does all the effort to complete an activity 7 Patient refused to complete or attempt activity 9 The patient did not perform the activity before the current illness or injury 88 Not attempted due to Medical conditions or safety concerns Functional Abilities and Goals: Independent: Patient completed the activities by him/herself, with or without an assistive device, with no assistance from a helper. Needed Some Help: Patient needed partial assistance from another person to complete activities. Dependent: A helper completed the activities for the patient. Unknown: Not Applicable: Bed Mobility: 6 Transfers (B,C,W/C) (FIM): 6 Gait: 6 Stairs: 6 Indoor Mobility (Ambulation): Independent Stairs: Independent Patient was using a rolling walker previously. PT Evaluation-Current Subjective Patient in bed pre tx, agrees to PT, has no complaints of pain at rest. Pt/Family Goals to be independent at home Objective Patient Orientation: Person, Place, Situation Attachments: IV ROM/Strength ROM Lower Extremities WNL Strength Lower Extremities RLE (hip flexion 3/5, knee flexion 4/5, knee extension 4/5, dorsiflexion 3/5), LLE (hip flexion 4/5, knee flexion 5/5, knee extension 5/5, dorsiflexion 5/5) Sensory Hearing: Functional Sensation Right Lower Extremit: Intact Sensation Left Lower Extremity: Intact Transfers Therapy Code Descriptions/Definitions Functional Bulger Measure: 0=Not Assessed/NA 4=Minimal Assistance 1=Total Assistance 5=Supervision or Setup 2=Maximal Assistance 6=Modified Bulger 3=Moderate Assistance 7=Complete Bulger Transfers (B, C, W/C) (FIM): 4 Scootin Rollin Supine to/from Sit: 4 Sit to/from Stand: 4 Patient needs min assist for supine to sit but SBA for sit to supine, can stand with CGA but she can only stand for a couple of seconds due to pain in back and right hip. She tried to stand twice but could not remain standing, no ambulation. Balance Sitting Static: Normal Sitting Dynamic: Normal Standing Static: Poor Standing Dynamic: Poor Treatment supine exercises x15 (AP, HS, QS) Assessment/Needs Patient has impaired mobility, strength, endurance. She could not stand or ambulate due to back and hip pain on the right side. Patient BTB post tx with nurse call, phone, tray, all needs met. Rehab Potential: Fair PT Short Term Goals Short Term Goals Time Frame: Dec 06, 2018 Transfers (B,C,W/C) (FIM): 5 Gait (FIM): 1 Gait Distance Comment: 10' Gait Level of Assist: 4 Gait Assistive Device: FWW PT Plan Problem List Problem List: Activity Tolerance, Functional Strength, Safety, Balance, Gait, Transfer, Bed Mobility, ROM Treatment/Plan Treatment Plan: Continue Plan of Care Treatment Plan: Bed Mobility, Education, Functional Activity Marya, Functional Strength, Gait, Safety, Therapeutic Exercise, Transfers Treatment Duration: Dec 06, 2018 Frequency: 6 times per week Estimated Hrs Per Day: .25 hour per day Patient and/or Family Agrees t: Yes Safety Risks/Education Patient Education: Transfer Techniques, Correct Positioning, Safety Issues Teaching Recipient: Patient Teaching Methods: Demonstration, Discussion Response to Teaching: Reinforcement Needed Discharge Recommendations Plan Patient will perform bed mobility and transfer training, balance and endurance training, functional strengthening, stair training, gait training, and education, to improve functional mobility and independence at home. Therapy D/C Recommendations: Home w/ Family Support Time/GCodes Time In: 1136 Time Out: 1153 Total Billed Treatment Time: 17 Total Billed Treatment 1 visit KEATON 17' JAGJIT BONDS PT Nov 29, 2018 12:59
--- NOTE | 2018-11-29 14:47 | Occupational Therapy Eval ---
OT Evaluation-General/PLF Medical Diagnosis Admission Date Nov 28, 2018 at 17:55 Medical Diagnosis: sepsis Onset Date: Nov 28, 2018 Therapy Diagnosis Therapy Diagnosis: decreased self care skills Height/Weight Height (Feet): 5 Height (Inches): 4.00 Weight (Pounds): 138 Weight (Ounces): 5.0 Precautions Precautions/Isolations: Fall Prevention Safety Interventions: Bed Exit Alarm Referral Physician: Alessandra Schultz DO Medical History Pertinent Medical History: CVA, HTN, MS Additional Medical History gout Social History Home: Single Level Current Living Status: Alone Entry Into Home: Stairs With Railing Steps Into Home: 2 ADL-Prior Level of Function Therapy Code Descriptions/Definitions Functional [place] Measure: 0=Not Assessed/NA 4=Minimal Assistance 1=Total Assistance 5=Supervision or Setup 2=Maximal Assistance 6=Modified [place] 3=Moderate Assistance 7=Complete [place] Therapy Quality Codes: 6 Independent with activity with or without an assistive device 5 Patient requires set up or clean up by helper. Patient completes activity by themselves 4 Supervision or touching assist (CGA). [place] provide cues , steadying assist 3 The helper provides less than half the effort to complete the activity 2 The helper provides more than half the effort to complete the activity 1 Dependent. The helper does all the effort to complete an activity 7 Patient refused to complete or attempt activity 9 The patient did not perform the activity before the current illness or injury 88 Not attempted due to Medical conditions or safety concerns Functional Abilities and Goals: Independent: Patient completed the activities by him/herself, with or without an assistive device, with no assistance from a helper. Needed Some Help: Patient needed partial assistance from another person to complete activities. Dependent: A helper completed the activities for the patient. Unknown: Not Applicable: ADL PLOF Comments Pt reports being independent prior to admission. States she has a FWW and cane, but does not use inside the house. Pt reports doing her own housework and shopping. Self Care: Independent DME/Equipment: Grab Bars, Shower, Tub/Shower Drive Self: Yes OT Current Status Subjective Pt in bed, agrees to therapy. Pt reports back pain with movement, but does not rate. Mental Status/Objective Patient Orientation: Person, Place, Situation Current Glasses/Contacts: Yes (reading) Hearing Aids: Yes Dentures/Partials: Yes Hand Dominance: Right Upper Extremity ROM Grossly WFL ADL-Treatment ADL-Current Pt supine to sit with minimal assistance. UE assessment completed. Pt declined to attempt standing secondary pain, requests to return to supine. Sit to supine with min assist for LE. Pt resting in bed with needs met after session. Therapy Code Descriptions/Definitions Functional [place] Measure: 0=Not Assessed/NA 4=Minimal Assistance 1=Total Assistance 5=Supervision or Setup 2=Maximal Assistance 6=Modified [place] 3=Moderate Assistance 7=Complete [place] Therapy Quality Codes: 6 Independent with activity with or without an assistive device 5 Patient requires set up or clean up by helper. Patient completes activity by themselves 4 Supervision or touching assist (CGA). [place] provide cues , steadying assist 3 The helper provides less than half the effort to complete the activity 2 The helper provides more than half the effort to complete the activity 1 Dependent. The helper does all the effort to complete an activity 7 Patient refused to complete or attempt activity 9 The patient did not perform the activity before the current illness or injury 88 Not attempted due to Medical conditions or safety concerns Eating (FIM): 5 (by report) Education OT Patient Education: Rehab process Teaching Recipient: Patient Teaching Methods: Discussion Response to Teaching: Verbalize Understanding OT Short Term Goals Short Term Goals Transfers (B,C,W/C) (FIM): 5 1=Demonstrate adherence to instructed precautions during ADL tasks. 2=Patient will verbalize/demonstrate understanding of assistive devices/modifications for ADL. 3=Patient will improve strength/tolerance for activity to enable patient to perform ADL's. OT Flattening Press Operator Goals Flattening Press Operator Goals Time Frame: Dec 13, 2018 Eating (FIM): 6 Grooming(FIM): 6 Bathing(FIM): 5 Upper Body Dressing(FIM): 6 Lower Body Dressing(FIM): 6 Toilet/Commode Transfer(FIM): 6 Additional Goals: 1-Demonstrate ADL Tasks, 2-Verbalize Understanding, 3- ImproveStrength/Marya 1=Demonstrate adherence to instructed precautions during ADL tasks. 2=Patient will verbalize/demonstrate understanding of assistive devices/modifications for ADL. 3=Patient will improve strength/tolerance for activity to enable patient to perform ADL's. OT Education/Plan Problem List/Assessment Assessment: Decreased Activ Tolerance, Decreased UE Strength, Dependent Transfers, Impaired Funct Balance, Impaired Self-Care Skills Pt to benefit from skilled OT intervention for ADL training, transfers, strengthening, and safety education to increase level of independence and allow safe discharge. Discharge Recommendations Plan/Recommendations: Continue POC Treatment Plan/Plan of Care Treatment,Training & Education: Yes Patient would benefit from OT for education, treatment and training to promote independence in ADL's, mobility, safety and/or upper extremity function for ADL's. Plan of Care: ADL Retraining, Functional Mobility, UE Funct Exercise/Act Treatment Duration: Dec 13, 2018 Frequency: 5 times per week Estimated Hrs Per Day: .25 hour per day Rehab Potential: Fair Time/GCodes Start Time: 13:52 Stop Time: 14:07 Total Time Billed (hr/min): 15 Billed Treatment Time 1 visit, EVM(15minutes) TONIO HOLDER OT Nov 29, 2018 14:47
[2018-11-29 15:45] VITALS: BP 153/66
[2018-11-29 19:45] VITALS: BP 129/62
[2018-11-30] VITALS (7 sets, daily range): BP systolic 113–170; BP diastolic 60–77
[2018-11-30] MEDS: SENNA W/DOCUSATE (SENOKOT S) TABLET PO SCH ×2 (08:56→19:53)
[2018-11-30] MEDS: CLOPIDOGREL 75 MG (PLAVIX) TABLET PO SCH (08:56)
[2018-11-30] MEDS: cefTRIAXone 1,000 MG/SWFI 10 ML IV PUSH IV SCH ×2 (08:57)
[2018-11-30] MEDS: ACETAMINOPHEN 325 MG TABLET PO PRN ×2 (08:57→17:39)
--- NOTE | 2018-11-30 12:56 | Progress Note - Hospitalist ---
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 Olvera informed her that due to [id number] UTI and intolerance to antibiotics she was to come to the ER for admission since he does not have admitting privileges. Patient is much improved but she has been following a great deal and the hip x- ray lumbar spine x-ray showed no evidence of any fracture that was done on 11/25/18 in [place] ER. Rocephin as tolerated will Hep-Lock IV fluids since she is eating and drinking and we'll order PT and OT and inpatient rehabilitation evaluation. Subjective/Events-last exam Patient feeling a little better but her back pain and leg pain preclude her from participating a lot in therapy and ambulating Uses a walker Interested in going to respiratory and manner at [place] since she has long- term care insurance and that is a great plan since she is observation and does not have skilled days at this current time Tolerating Rocephin Constipated so we'll add MiraLAX to the Colace Review of Systems General: Fatigue Gastrointestinal: Constipation Musculoskeletal: back pain, leg pain Focused Exam Lactate Level 11/28/18 16:15: Lactic Acid Level 1.82 Objective Exam Vital Signs Vital Signs Date Time Temp Pulse Resp B/P (MAP) Pulse Ox O2 Delivery O2 Flow Rate FiO2 11/30/18 12:00 98.0 76 18 113/77 (89) 97 Room Air Capillary Refill : Less Than 3 Seconds General Appearance: No Apparent Distress, WD/WN HEENT: PERRL/EOMI, Normal ENT Inspection, Pharynx Normal Neck: Full Range of Motion, Normal Inspection, Non Tender, Supple Respiratory: Lungs Clear, Normal Breath Sounds Cardiovascular: No Murmur Gastrointestinal: Non Tender, Soft Back: Normal Inspection, No CVA Tenderness, No Vertebral Tenderness Extremity: Normal Capillary Refill, Normal Inspection, Normal Range of Motion, No Calf Tenderness, Pelvis Stable, Other (tender over the right hip) Neurologic/Psychiatric: Alert, Oriented x3, No Motor/Sensory Deficits, Normal Mood/Affect, roofing tile sorter II-XII Norm as Tested Skin: Normal Color, Warm/Dry Lymphatic: No Adenopathy Results/Procedures Lab Patient resulted labs reviewed. Assessment/Plan Assessment and Plan Assess & Plan/Chief Complaint Assessment: UTI with resistant organism and intolerance to antibiotics remotely Recent fall with right hip pain no fracture History of stroke with right-sided weakness maintained on Plavix Osteoarthritis Plan: Rocephin Hep-locked IV fluid PT/OT [facility] in [place] at discharge since she has long-term care insurance Clinical Quality Measures DVT/VTE Risk/Contraindication: Risk Factor Score Per Nursin RFS Level Per Nursing on Admit: 4+=Very High EMILY STEIN DO Nov 30, 2018 12:56
--- NOTE | 2018-11-30 13:04 | Physical Therapy Daily Note ---
PT Daily Note-Current Subjective Pt had stood earlier to go to the restroom and felt popping in her back. She reported increased lumbar pain and requested to stay in bed. Pain Numeric Pain Scale: 5-Moderate Pain Location: Lower Location Body Site: Back Pain Description: Pressure Mental Status Patient Orientation: Person, Place, Time, Situation Transfers Therapy Code Descriptions/Definitions Functional Early Measure: 0=Not Assessed/NA 4=Minimal Assistance 1=Total Assistance 5=Supervision or Setup 2=Maximal Assistance 6=Modified Early 3=Moderate Assistance 7=Complete Early Therapy Quality Codes: 6 Independent with activity with or without an assistive device 5 Patient requires set up or clean up by helper. Patient completes activity by themselves 4 Supervision or touching assist (CGA). [place] provide cues , steadying assist 3 The helper provides less than half the effort to complete the activity 2 The helper provides more than half the effort to complete the activity 1 Dependent. The helper does all the effort to complete an activity 7 Patient refused to complete or attempt activity 9 The patient did not perform the activity before the current illness or injury 88 Not attempted due to Medical conditions or safety concerns Supine to/from Sit: 4 Weight Bearing Right Lower Extremity: Right Weight Bearing/Tolerated Left Lower Extremity: Left Weight Bearing/Tolerated Exercises Supine Ex: LE Protocol Supine Reps: 20 Assessment Current Status: Fair Progress Pt was able to complete all of the supine exercises including bridging without eliciting lumbar pain. She was able to sit edge of bed for 1 minute without lum bar pain, and then returned to supine. PT Short Term Goals Short Term Goals Time Frame: Dec 06, 2018 Transfers (B,C,W/C) (FIM): 5 Gait (FIM): 1 Gait Distance Comment: 10' Gait Level of Assist: 4 Gait Assistive Device: FWW PT Plan Treatment/Plan Treatment Plan: Continue Plan of Care Treatment Plan: Bed Mobility, Education, Functional Activity Marya, Functional Strength, Gait, Safety, Therapeutic Exercise, Transfers Treatment Duration: Dec 06, 2018 Frequency: 6 times per week Estimated Hrs Per Day: .25 hour per day Patient and/or Family Agrees t: Yes Time/GCodes Time In: 930 Time Out: 944 Total Billed Treatment Time: 14 Total Billed Treatment 1, ex 14 BALJEET BLUM PT Nov 30, 2018 13:04
[2018-11-30] MEDS ORDERED: POLYETHYLENE GLYCOL 17 GM (MIRALAX) PACK PO ONE (13:15)
[2018-11-30] MEDS: POLYETHYLENE GLYCOL 17 GM (MIRALAX) PACK PO SCH (19:54)
[2018-12-01 08:00] VITALS: BP 181/77
[2018-12-01] MEDS: cefTRIAXone 1,000 MG/SWFI 10 ML IV PUSH IV SCH ×2 (08:20)
[2018-12-01] MEDS: ACETAMINOPHEN 325 MG TABLET PO PRN ×2 (08:20→17:30)
[2018-12-01] MEDS: SENNA W/DOCUSATE (SENOKOT S) TABLET PO SCH ×2 (08:20→20:30)
[2018-12-01] MEDS: CLOPIDOGREL 75 MG (PLAVIX) TABLET PO SCH (08:20)
--- NOTE | 2018-12-01 11:25 | Progress Note - Hospitalist ---
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 Olvera informed her that due to [id number] UTI and intolerance to antibiotics she was to come to the ER for admission since he does not have admitting privileges. Patient is much improved but she has been following a great deal and the hip x- ray lumbar spine x-ray showed no evidence of any fracture that was done on 11/25/18 in [place] [facility]. Rocephin as tolerated will Hep-Lock IV fluids since she is eating and drinking and we'll order PT and OT and inpatient rehabilitation evaluation. Subjective/Events-last exam Patient doing well Going to a shelter tomorrow or Sunday once it is arranged at [facility] No pain except for back Check meds and labs Review of Systems General: Fatigue Focused Exam Lactate Level 11/28/18 16:15: Lactic Acid Level 1.82 Objective Exam Vital Signs Vital Signs Date Time Temp Pulse Resp B/P (MAP) Pulse Ox O2 Delivery O2 Flow Rate FiO2 12/01/18 08:00 98.5 52 20 181/77 (111) 96 Room Air Capillary Refill : Less Than 3 Seconds General Appearance: No Apparent Distress, WD/WN HEENT: PERRL/EOMI, Normal ENT Inspection, Pharynx Normal Neck: Full Range of Motion, Normal Inspection, Non Tender, Supple Respiratory: Lungs Clear, Normal Breath Sounds Cardiovascular: No Murmur Gastrointestinal: Non Tender, Soft Back: Normal Inspection, No CVA Tenderness, No Vertebral Tenderness Extremity: Normal Capillary Refill, Normal Inspection, Normal Range of Motion, No Calf Tenderness, Pelvis Stable, Other (tender over the right hip) Neurologic/Psychiatric: Alert, Oriented x3, No Motor/Sensory Deficits, Normal Mood/Affect, microbiology technician II-XII Norm as Tested Skin: Normal Color, Warm/Dry Lymphatic: No Adenopathy Results/Procedures Lab Patient resulted labs reviewed. Assessment/Plan Assessment and Plan Assess & Plan/Chief Complaint Assessment: UTI with resistant organism and intolerance to antibiotics remotely Recent fall with right hip pain no fracture History of stroke with right-sided weakness maintained on Plavix Osteoarthritis Plan: Rocephin Hep-locked IV fluid PT/OT [facility] in [place] at discharge since she has long-term care insurance Clinical Quality Measures DVT/VTE Risk/Contraindication: Risk Factor Score Per Nursin RFS Level Per Nursing on Admit: 4+=Very High EMILY STEIN DO Dec 01, 2018 11:24
[2018-12-01 16:12] VITALS: BP 177/77
[2018-12-01] MEDS: POLYETHYLENE GLYCOL 17 GM (MIRALAX) PACK PO SCH (20:30)
[2018-12-02 00:06] VITALS: BP 145/65
[2018-12-02] MEDS: SENNA W/DOCUSATE (SENOKOT S) TABLET PO SCH ×2 (08:03→20:50)
[2018-12-02] MEDS: CLOPIDOGREL 75 MG (PLAVIX) TABLET PO SCH (08:03)
[2018-12-02] MEDS: cefTRIAXone 1,000 MG/SWFI 10 ML IV PUSH IV SCH ×2 (08:03)
[2018-12-02] MEDS: POLYETHYLENE GLYCOL 17 GM (MIRALAX) PACK PO SCH (08:14)
[2018-12-02 08:21] VITALS: BP 178/73
--- NOTE | 2018-12-02 09:36 | NUR ---
Chart review complete. It appears patient intends to dismiss to a facility in [place], [place]; further evaluation not warranted.
--- NOTE | 2018-12-02 10:13 | Physical Therapy Daily Note ---
PT Daily Note-Current Subjective Patient agrees to PT. No c/o. Dons socks independently Pain Numeric Pain Scale: 5-Moderate Pain Location: Lower Location Body Site: Back Pain Description: Ache Mental Status Patient Orientation: Normal For Age Transfers Therapy Code Descriptions/Definitions Functional [place] Measure: 0=Not Assessed/NA 4=Minimal Assistance 1=Total Assistance 5=Supervision or Setup 2=Maximal Assistance 6=Modified [place] 3=Moderate Assistance 7=Complete [place] Therapy Quality Codes: 6 Independent with activity with or without an assistive device 5 Patient requires set up or clean up by helper. Patient completes activity by themselves 4 Supervision or touching assist (CGA). [place] provide cues , steadying assist 3 The helper provides less than half the effort to complete the activity 2 The helper provides more than half the effort to complete the activity 1 Dependent. The helper does all the effort to complete an activity 7 Patient refused to complete or attempt activity 9 The patient did not perform the activity before the current illness or injury 88 Not attempted due to Medical conditions or safety concerns Transfers (B, C, W/C) (FIM): 7 Scootin Rollin Supine to/from Sit: 7 Sit to/from Stand: 7 Weight Bearing Right Lower Extremity: Right Weight Bearing/Tolerated Left Lower Extremity: Left Weight Bearing/Tolerated Gait Training Gait (FIM): 6 Distance (FIM): 3=150 ft Distance: 300' Gait Level of Assist: 6 Gait Assistive Device: FWW slow, steady, functional gait sequence with FWW Assessment Patient tolerated treatment well and is up in recliner with needs met. Plan dismissal this week. PT Short Term Goals Short Term Goals Time Frame: Dec 06, 2018 Transfers (B,C,W/C) (FIM): 5 Gait (FIM): 1 Gait Distance Comment: 10' Gait Level of Assist: 4 Gait Assistive Device: FWW PT Plan Treatment/Plan Treatment Plan: Continue Plan of Care Treatment Plan: Bed Mobility, Education, Functional Activity Marya, Functional Strength, Gait, Safety, Therapeutic Exercise, Transfers Treatment Duration: Dec 06, 2018 Frequency: 6 times per week Estimated Hrs Per Day: .25 hour per day Patient and/or Family Agrees t: Yes Time/GCodes Time In: 941 Time Out: 950 Total Billed Treatment Time: 9 Total Billed Treatment 1 visit FA 9 min DELMER ALLEN PT Dec 02, 2018 10:13
--- NOTE | 2018-12-02 10:42 | NUR ---
CM/SS responded to consult. Patient information sent to [facility] ([facility]) in [facility] at the patient's request. Facility was going to review the information and then get back to this contract technical writer. 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
--- NOTE | 2018-12-02 11:45 | NUR ---
CM/SS [facility] needed therapy notes from this day. They were faxed over and they will also need an application for residency, they will fax it. Once they receive the application it has to be reviewed by their City Engineer before they would accept. They seemed hesitant to accept with the amount of assistance she is requiring with therapies.
--- NOTE | 2018-12-02 12:42 | Progress Note - Hospitalist ---
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 Olvera informed her that due to [id number] UTI and intolerance to antibiotics she was to come to the ER for admission since he does not have admitting privileges. Patient is much improved but she has been following a great deal and the hip x- ray lumbar spine x-ray showed no evidence of any fracture that was done on 11/25/18 in [facility]. Rocephin as tolerated will Hep-Lock IV fluids since she is eating and drinking and we'll order PT and OT and inpatient rehabilitation evaluation. Subjective/Events-last exam Pt reports doing well. Currently filling out paperwork for [facility]. Objective Exam Vital Signs Vital Signs Date Time Temp Pulse Resp B/P (MAP) Pulse Ox O2 Delivery O2 Flow Rate FiO2 12/02/18 08:21 97.2 67 22 178/73 (108) 99 Room Air Capillary Refill : Less Than 3 Seconds General Appearance: No Apparent Distress, WD/WN Respiratory: Lungs Clear, Normal Breath Sounds Cardiovascular: Regular Rate, Rhythm, No Murmur Gastrointestinal: Non Tender, Soft Neurologic/Psychiatric: Alert, Oriented x3 Results/Procedures Lab Patient resulted labs reviewed. Assessment/Plan Assessment and Plan Assess & Plan/Chief Complaint UTI Recent fall with right hip pain no fracture History of stroke with residual right-sided weakness Osteoarthritis Plan: Continue Rocephin Plan for DC to [facility] as soon as arranged Appreciate Social Work assistance Clinical Quality Measures DVT/VTE Risk/Contraindication: Risk Factor Score Per Nursin RFS Level Per Nursing on Admit: 4+=Very High REILLY TSE MD Dec 02, 2018 12:42
--- NOTE | 2018-12-02 13:28 | NUR ---
CM/SS assisted the patient with filling out the application for [facility] and faxed it back to them. They will review and let this jingle writer know.
--- NOTE | 2018-12-02 13:49 | Occupational Ther Daily Note ---
OT Current Status-Daily Note Subjective pt agreed to OT TX session with focus on increasing independence with ADLs and functional transfers. pt reports 4/10 R hip pain Mental Status/Objective Patient Orientation: Person, Place Therapy Code Descriptions/Definitions Functional [place] Measure: 0=Not Assessed/NA 4=Minimal Assistance 1=Total Assistance 5=Supervision or Setup 2=Maximal Assistance 6=Modified [place] 3=Moderate Assistance 7=Complete [place] ADL-Treatment Grooming (FIM): 5 (standing at sink. SPV for safety/ balance while stnaidng. ) Bathing (FIM): 5 (SPV for safty/ balnace hwile stanidng in shower. note dintermitted sitting and standing throught out shower. note SOB with activity. ) Bathing Location: L Arm, R Arm, L Upper Leg, R Upper Leg, L Lower Leg (including foot), R Lower Leg (including foot), Chest, Abdomen, Buttocks, Perineal Area Upper Body (FIM): 6 (green chain puller shirt. ) Lower Body Dressing (FIM): 5 (underpants, prabha socks. pt educatiuon on figure four positioing to increase indep., with LB dressing. pt demo correclty. ) Toileting (FIM): 6 (3/3 toielting tasks. ) Transfers (B, C, W/C) (FIM): 6 (use of RW ) Toilet/Commode Transfer (FIM): 6 (use of RW ) Shower Transfer(FIM): 5 (pt educaiton on placement of RW when perofrming transfers. noted use of GB and shower bench. ) pt reports increase right hip pain with ADLs. pt stated :I can mange through it, its not that bad, but I know it's there" noted SOB with activiy. pt education on energy conservation techniques throughout ADLs. pt verbalized understanding. post OT session pt sitting in recliner chair, call light within reach, all needs met. Education OT Patient Education: Energy conservation, Modified ADL techniques, Progress toward Goal/Update tx plan, Purpose of tx/functional activities, Transfer techniques Teaching Recipient: Patient Teaching Methods: Demonstration, Discussion Response to Teaching: Verbalize Understanding, Return Demonstration OT Short Term Goals Short Term Goals Transfers (B,C,W/C) (FIM): 5 1=Demonstrate adherence to instructed precautions during ADL tasks. 2=Patient will verbalize/demonstrate understanding of assistive devices/modifications for ADL. 3=Patient will improve strength/tolerance for activity to enable patient to perform ADL's. OT Detention Goals Golf Course Starter Goals Time Frame: Dec 13, 2018 Eating (FIM): 6 Grooming(FIM): 6 Bathing(FIM): 5 Upper Body Dressing(FIM): 6 Lower Body Dressing(FIM): 6 Toilet/Commode Transfer(FIM): 6 Additional Goals: 1-Demonstrate ADL Tasks, 2-Verbalize Understanding, 3- ImproveStrength/Marya 1=Demonstrate adherence to instructed precautions during ADL tasks. 2=Patient will verbalize/demonstrate understanding of assistive devices/modifications for ADL. 3=Patient will improve strength/tolerance for activity to enable patient to perform ADL's. OT Education/Plan Problem List/Assessment Assessment: Decreased Activ Tolerance, Decreased UE Strength, Impaired Funct Balance, Impaired I ADL's, Impaired Self-Care Skills Pt to benefit from skilled OT intervention for ADL training, transfers, strengthening, and safety education to increase level of independence and allow safe discharge. Discharge Recommendations Plan/Recommendations: Continue POC Treatment Plan/Plan of Care Treatment,Training & Education: Yes Patient would benefit from OT for education, treatment and training to promote independence in ADL's, mobility, safety and/or upper extremity function for ADL's. Plan of Care: ADL Retraining, Functional Mobility, UE Funct Exercise/Act Treatment Duration: Dec 13, 2018 Frequency: 5 times per week Estimated Hrs Per Day: .25 hour per day Rehab Potential: Fair Time/GCodes Start Time: 13:15 Stop Time: 13:55 Billed Treatment Time ADL 40 minutes, 3 units. CATHERINE DE LA ROSA OT Dec 02, 2018 13:49
--- NOTE | 2018-12-02 14:45 | NUR ---
Pastoral care visit.
--- NOTE | 2018-12-02 15:29 | NUR ---
VAZQUEZ/JACKIE RN from [facility] here to assess the patient before they would accept. Director also going to speak with the patient about potential financial responsibilities. They will give final answer when they know what insurance covers and if patient accepting of paying costs.
[2018-12-02 16:02] VITALS: BP 182/79
[2018-12-02] MEDS: ACETAMINOPHEN 325 MG TABLET PO PRN (20:50)
[2018-12-03] VITALS: BP 125/69
[2018-12-03] MEDS: ACETAMINOPHEN 325 MG TABLET PO PRN (06:43)
[2018-12-03 08:00] VITALS: BP 153/73
[2018-12-03] MEDS: SENNA W/DOCUSATE (SENOKOT S) TABLET PO SCH (08:07)
[2018-12-03] MEDS: CLOPIDOGREL 75 MG (PLAVIX) TABLET PO SCH (08:07)
[2018-12-03] MEDS: cefTRIAXone 1,000 MG/SWFI 10 ML IV PUSH IV SCH ×2 (08:08)
--- NOTE | 2018-12-03 09:54 | Occupational Ther Daily Note ---
OT Current Status-Daily Note Subjective pt sitting in recliner chiar upon OT arrival. pt agreed to OT TX session with focus energy conservation techniques within ADL sand HEP for increase strength for daily activities. Pain Numeric Pain Scale: 0-No Pain Mental Status/Objective Patient Orientation: Person, Place, Time Therapy Code Descriptions/Definitions Functional [place] Measure: 0=Not Assessed/NA 4=Minimal Assistance 1=Total Assistance 5=Supervision or Setup 2=Maximal Assistance 6=Modified [place] 3=Moderate Assistance 7=Complete [place] Other Treatment pt education on the 4"p" of energy conservation techniques within daily activities. pt able to stated example of how to use techniques within everyday task. all questions answered. pt education on pursed lip breathing. pt demo unde rstanding correcting . pt education on HEP to build UE strength/ tolerance for daily activities. pt perform 15X2 shoulder flex/ ADD/ ABD against gravity, 15X2 elbow flex/ ext against gravity. noted limited activity tolerance with tasks and good use of trained energy conservation techniques. pt sitting in recliner chair post OT session, call light within reach, all needs met. Education OT Patient Education: Energy conservation, Exercise program, Progress toward Goal/Update tx plan, Purpose of tx/functional activities Teaching Recipient: Patient Teaching Methods: Demonstration, Discussion Response to Teaching: Verbalize Understanding, Return Demonstration OT Short Term Goals Short Term Goals Transfers (B,C,W/C) (FIM): 5 1=Demonstrate adherence to instructed precautions during ADL tasks. 2=Patient will verbalize/demonstrate understanding of assistive devices/modifications for ADL. 3=Patient will improve strength/tolerance for activity to enable patient to perform ADL's. OT Chemistry Research Assistant Goals Chemistry Research Assistant Goals Time Frame: Dec 13, 2018 Eating (FIM): 6 Grooming(FIM): 6 Bathing(FIM): 5 Upper Body Dressing(FIM): 6 Lower Body Dressing(FIM): 6 Toilet/Commode Transfer(FIM): 6 Additional Goals: 1-Demonstrate ADL Tasks, 2-Verbalize Understanding, 3- ImproveStrength/Marya 1=Demonstrate adherence to instructed precautions during ADL tasks. 2=Patient will verbalize/demonstrate understanding of assistive devices/modifications for ADL. 3=Patient will improve strength/tolerance for activity to enable patient to perform ADL's. OT Education/Plan Problem List/Assessment Assessment: Decreased Activ Tolerance, Decreased UE Strength Pt to benefit from skilled OT intervention for ADL training, transfers, strengthening, and safety education to increase level of independence and allow safe discharge. Discharge Recommendations Plan/Recommendations: Continue POC Treatment Plan/Plan of Care Treatment,Training & Education: Yes Patient would benefit from OT for education, treatment and training to promote independence in ADL's, mobility, safety and/or upper extremity function for ADL's. Plan of Care: ADL Retraining, Functional Mobility, UE Funct Exercise/Act Treatment Duration: Dec 13, 2018 Frequency: 5 times per week Estimated Hrs Per Day: .25 hour per day Rehab Potential: Fair Time/GCodes Start Time: 09:35 Stop Time: 10:00 Billed Treatment Time FA 15 minutes, 1 unit EX 10 minutes, 1 unit CATHERINE DE LA ROSA OT Dec 03, 2018 09:54
--- NOTE | 2018-12-03 10:10 | Physical Therapy Daily Note ---
PT Daily Note-Current Subjective Patient is in bed and agrees to PT. She report her back hurt this morning earlier, however, is better. Pain Numeric Pain Scale: 3 Location: Lower Location Body Site: Back Pain Description: Ache Mental Status Patient Orientation: Person, Time, Situation Transfers Therapy Code Descriptions/Definitions Functional [place] Measure: 0=Not Assessed/NA 4=Minimal Assistance 1=Total Assistance 5=Supervision or Setup 2=Maximal Assistance 6=Modified [place] 3=Moderate Assistance 7=Complete [place] Therapy Quality Codes: 6 Independent with activity with or without an assistive device 5 Patient requires set up or clean up by helper. Patient completes activity by themselves 4 Supervision or touching assist (CGA). [place] provide cues , steadying assist 3 The helper provides less than half the effort to complete the activity 2 The helper provides more than half the effort to complete the activity 1 Dependent. The helper does all the effort to complete an activity 7 Patient refused to complete or attempt activity 9 The patient did not perform the activity before the current illness or injury 88 Not attempted due to Medical conditions or safety concerns Transfers (B, C, W/C) (FIM): 5 Scootin Rollin Supine to/from Sit: 6 Sit to/from Stand: 5 Bed to/from Chair: 5 Weight Bearing Right Lower Extremity: Right Weight Bearing/Tolerated Left Lower Extremity: Left Weight Bearing/Tolerated Gait Training Gait (FIM): 5 Distance (FIM): 3=150 ft Distance: 325' Gait Level of Assist: 5 Gait Assistive Device: FWW slow, steady mayra Exercises Seated Therapy Exercises: Ankle pumps, Long arc quads, Hip flexion Seated Reps: 15 Assessment Patient is up in recliner with needs met. Patient reports desire to transfer to [facility] in [place] for continued care. PT Short Term Goals Short Term Goals Time Frame: Dec 06, 2018 Transfers (B,C,W/C) (FIM): 5 Gait (FIM): 1 Gait Distance Comment: 10' Gait Level of Assist: 4 Gait Assistive Device: FWW PT Plan Treatment/Plan Treatment Plan: Continue Plan of Care Treatment Plan: Bed Mobility, Education, Functional Activity Marya, Functional Strength, Gait, Safety, Therapeutic Exercise, Transfers Treatment Duration: Dec 06, 2018 Frequency: 6 times per week Estimated Hrs Per Day: .25 hour per day Patient and/or Family Agrees t: Yes Time/GCodes Time In: 908 Time Out: 922 Total Billed Treatment Time: 14 Total Billed Treatment 1 visit FA 14 min DELMER ALLEN PT Dec 03, 2018 10:10
--- NOTE | 2018-12-03 10:38 | NUR ---
CM/SS spoke with the patient's son (Serene) he is viewing [facility] room this day and then arranging to get her belongings there. He will notify this typewriter repairer after his visit to confirm that she will be transitioning there.
--- NOTE | 2018-12-03 12:14 | D/C HH Face to Face Order ---
D/C Face to Face Orders Instructions for Patient Via [facility], Patient Instructions/FollowUp: Please continue to take your medications as written. Please follow up with your PCP in 1-2 weeks. If your symptoms return or worsen please return to the ER for evaluation. Physician to follow Patient: Dr Olvera Discharge Diet for Home: No Restrictions Patient Data-Allergies,Ht & Wt Patient Allergies: Coded Allergies: No Known Drug Allergies (Unverified , 10/06/18) Height (Feet): 5 Height (Inches): 4.00 Weight (Pounds): 136 Weight (Ounces): 8.0 Home Health Need/Face to Face Date of Face to Face: Dec 03, 2018 Clinical Findings: Generalized weakness and fatigue I have seen Pt [id number]: Yes Discharged To: Other ([facility]) Diagnosis/Conditions: HTN, CAD, CVA, Patient is Homebound due to: Ruba fall risk due to instabilty, Muscle weakness Homebound Status Due to the above stated illness, injury or surgical procedure (medical condition or diagnosis) and associated clinical findings, the patient is homebound because of his/her inability to leave home except with aid of a supportive device and/or person AND leaving the home requires a considerable and taxing effort or is medically contraindicated. Pt req the following assistanc: Aid of another person, Walker Home Health Nursing Orders Home Health Services Order: Nursing Services, Physical Therapy-Evaluate & Treat Home Health Infusion Therapy Line Start Date: Nov 28, 2018 Therapy Orders Therapy Orders: Physical Therapy, PT to assess for OT Therapy Specific Orders: Eval assistive deivces, Teach enviro modific ations/safety, Gait training, Increase strength/endurance [facility] that this patient is under my care and that I, a nurse practitioner or a physician; a assistant operations manager working with me, had a face to face encounter that -meets the physician face to face encounter requirements with this patient as dated. REILLY TSE MD Dec 03, 2018 12:14
--- NOTE | 2018-12-03 13:15 | Discharge Summary ---
Diagnosis/Chief Complaint Date of Admission Dec 01, 2018 at 8:52 am Date of Discharge Discharge Date: Dec 03, 2018 Admission Diagnosis Assessment: UTI Recent fall with right hip pain no fracture History of stroke with right-sided weakness maintained on Plavix Osteoarthritis Plan: Rocephin Hep-locked IV fluid PT/OT Inpatient rehabilitation eval Discharge Summary Discharge Physical Exam Allergies: Coded Allergies: No Known Drug Allergies (Unverified , 10/06/18) Vitals & I&Os Vital Signs Date Time Temp Pulse Resp B/P (MAP) Pulse Ox O2 Delivery O2 Flow Rate FiO2 12/03/18 08:00 97.8 62 18 153/73 (99) 96 Room Air General Appearance: No Apparent Distress, WD/WN Respiratory: Lungs Clear Cardiovascular: Regular Rate, Rhythm Neurologic/Psychiatric: Alert, Oriented x3 Hospital Course Pt admitted for UTI and frequent falls. She was treated with Rocephin and PT/OT were ordered. She had an uneventful hospital course and complete antibiotics while inpatient. She elected to discharge to an assisted living facility at [facility] in [place]. She discharged in stable condition with Home Health PT/OT arranged. Labs (last 24 hrs) Microbiology 11/28/18 Blood Culture - Final, Complete No growth 11/28/18 Urine Culture - Final, Complete 3 or more isolates Patient resulted labs reviewed. Discussion & Recommendations Discharge Planning: >30 minutes discharge planning Discharge Home Medications: Active Scripts Active Reported Tylenol (Acetaminophen) 325 Mg Tablet 325 Mg PO Q6H PRN Zyrtec (Cetirizine HCl) 10 Mg Tablet 10 Mg PO DAILY Nadolol 20 Mg Tablet 30 Mg PO BID TAKES 1 & 1/2 (20MG) TABLET Clopidogrel (Clopidogrel Bisulfate) 75 Mg Tablet 75 Mg PO DAILY Isosorbide Mononitrate ER (Isosorbide Mononitrate) 60 Mg Tab 60 Mg PO DAILY Losartan Potassium 25 Mg Tablet 12.5 Mg PO DAILY TAKES 1/2 (25MG) TABLET Aspirin EC (Aspirin) 81 Mg Tablet.dr 324 Mg PO DAILY TAKES 4 (81MG) TABLETS Instructions to patient/family Please see electronic discharge instructions given to patient. Clinical Quality Measures DVT/VTE Risk/Contraindication: Risk Factor Score Per Nursin RFS Level Per Nursing on Admit: 4+=Very High REILLY TSE MD Dec 03, 2018 13:15
--- NOTE | 2018-12-03 13:26 | NUR ---
CM/SS patient will discharge this day to [facility] in [facility]. The family will transport this afternoon around 1500/1530. Discharge information faxed to [facility] and [facility] for PT/OT. C choice form in chart. Had patient sign Medicare important message, it is in patient chart.
== END 2018-12-03 15:29 | disposition home health service (06) | DRG 690 ==
LOC: EDUNIT# 15:14 → ER 15:16 → 4TH 17:55 → UNDOADMOB 17:55 → 4TH 19:00 → OBSVTOIN 12-01 08:52 → INTOOBSV 12-01 08:52 → OBSVTOIN 12-01 08:54 → UNDODISIN 12-03 15:29
PROVIDERS: ADMIT Internal Medicine; ATTEND Internal Medicine
DX: N30.00 Acute cystitis without hematuria (principal); M54.5 Low back pain; S79.911A Unspecified injury of right hip, initial encounter; I69.351 Hemiplegia and hemiparesis following cerebral infarction affecting right dominant side; I25.2 Old myocardial infarction; I10 Essential (primary) hypertension; M10.9 Gout, unspecified; M19.91 Primary osteoarthritis, unspecified site; K59.00 Constipation, unspecified; W19.XXXA Unspecified fall, initial encounter; Z79.02 Long term (current) use of antithrombotics/antiplatelets
CPT/HCPCS: 36415; 70450; 71045; 72170; 80053; 81000; 83605; 85025; 85610; 85730; 87040; 87088; G0378

== ENCOUNTER → 2019-01-09 | Outpatient (CLI) | payer MEDICARE ==
--- NOTE | 2019-01-09 13:06 | Diagnostic Imaging Report ---
INDICATION: SOB COMPARISON: 11/28/2018 FINDINGS: Frontal and lateral views of the chest demonstrate normal heart size and pulmonary vascularity. The lungs are hyperinflated, but are otherwise clear. There are no signs of infiltrate, pleural effusions or pneumothoraces. The visualized osseous structures show no acute abnormalities. Calcified aortic atherosclerosis is noted. IMPRESSION: 1. No acute process. No signs of infiltrates, effusions or pneumothoraces. 2. Background COPD changes. Dictated by: Dictated on workstation # [id number]
== END ==
LOC: RAD 12:33
PROVIDERS: ATTEND Pediatrics
DX: J44.9 Chronic obstructive pulmonary disease, unspecified (principal)
CPT/HCPCS: 71046

== ENCOUNTER → 2019-01-20 | Outpatient (CLI) | payer MEDICARE ==
--- NOTE | 2019-01-20 11:25 | Diagnostic Imaging Report ---
PROCEDURE: US abdomen complete. TECHNIQUE: Multiple real-time grayscale images were obtained over the abdomen in various projections. INDICATION: Elevated liver enzymes. FINDINGS: The liver is normal in size at 14.8 cm. The portal vein is patent and shows normal direction of flow. No discrete liver mass is identified. The gallbladder is without stones or sludge. No wall thickening or biliary duct dilatation is identified. The pancreas is unremarkable. Spleen is normal in size at 8.8 cm. Adjacent accessory spleens are also present. Aorta is non-aneurysmal. IVC is patent. There are bilateral renal cysts. Cyst involving the right kidney is approximately 3.2 cm in diameter. Cyst involving the left kidney is 3.4 cm. No calculi or hydronephrosis is identified. There is no ascites. IMPRESSION: 1. No evidence of cholelithiasis or acute cholecystitis. No discrete liver mass is detected. 2. Bilateral renal cysts. Dictated by: Dictated on workstation # [id number]
== END ==
LOC: RAD 09:35
PROVIDERS: ATTEND Pediatrics
DX: N28.1 Cyst of kidney, acquired (principal); R74.8 Abnormal levels of other serum enzymes; R73.09 Other abnormal glucose
CPT/HCPCS: 36415; 76700; 83036

== ENCOUNTER → 2019-01-30 | Outpatient (CLI) | payer MEDICARE ==
[2019-01-30 12:19] LABS: BACTERIA,URINE LARGE /HPF; BILIRUBIN,URINE NEGATIVE (NEGATIVE); CLARITY,URINE CLOUDY; COLOR,URINE YELLOW; GLUCOSE, URINE (UA) TRACE (NEGATIVE); KETONES,URINE NEGATIVE (NEGATIVE); LEUKOCYTE ESTERASE ,URINE 3+ (NEGATIVE); NITRITE,URINE POSITIVE (NEGATIVE); PH,URINE 7.5 (5-9); PROTEIN,URINE 1+ (NEGATIVE); WBC,URINE >100 /HPF
== END ==
LOC: LAB FS 11:40
PROVIDERS: ATTEND Internal Medicine
DX: R30.0 Dysuria (principal)
CPT/HCPCS: 81000; 87077; 87088; 87186

== ENCOUNTER 2019-03-12 11:26 | Observation (INO) | payer MEDICARE ==
[~2019-03-12] VITALS: Ht 162.5 cm; Wt 65.0 kg
[2019-03-12] VITALS (16 sets, daily range): BP systolic 106–148; BP diastolic 48–78
--- NOTE | 2019-03-12 11:26 | NUR ---
Arrival to ER via [facility] with Code Red run with no report prior to arrival. Per EMS, patient went down syncopal at [facility] and hx of CVA. Pt appeared near apneic like and EMS bagged pt for awhile. Pt arrives awakening more and spontaneous breathing. Pt reports, "Feel sick!" See nursing triage. Pt continues to fall asleep rapidly, pt is answering questions by repeated awakening.
[2019-03-12] MEDS ORDERED: ONDANSETRON 4 MG/2 ML (SDV) Z0FRAN IVP ONE (11:30)
[2019-03-12] MEDS ORDERED: NS IV 500 ML 500 ML IV SCH (11:30)
--- NOTE | 2019-03-12 11:33 | NUR ---
[facility] began as numerous staff assisting with many tests/procedures upon arrival.
--- NOTE | 2019-03-12 11:37 | ED General ---
General Stated Complaint: SYNCOPE Source of Information: Patient, EMS Exam Limitations: No Limitations History of Present Illness Date Seen by Provider: Mar 12, 2019 Time Seen by Provider: 11:28 Initial Comments Patient brought in by EMS, "code red". She was getting her hair done this morning was feeling fine when she suddenly passed out and was unresponsive. On EMS arrival, patient still unresponsive but with a pulse. Stated they assisted with ventilation, she had a blood sugar of 120 and sinus rhythm on the monitor, no CPR done. On arrival to the ER, she was waking up. Patient states, she doesn't feel well. Somewhat nauseated, denies chest pain or shortness of air. Denies any abdominal pain and states that she did eat breakfast this morning. Allergies and Home Medications Allergies Coded Allergies: No Known Drug Allergies (Unverified , 10/06/18) Home Medications Acetaminophen 325 Mg Tablet, 325 MG PO Q6H PRN for PAIN-MILD, (Reported) Aspirin 81 Mg Tablet.dr, 324 MG PO DAILY, (Reported) TAKES 4 (81MG) TABLETS Cetirizine HCl 10 Mg Tablet, 10 MG PO DAILY, (Reported) Clopidogrel Bisulfate 75 Mg Tablet, 75 MG PO DAILY, (Reported) Isosorbide Mononitrate 60 Mg Tab, 60 MG PO DAILY, (Reported) Losartan Potassium 25 Mg Tablet, 12.5 MG PO DAILY, (Reported) TAKES 1/2 (25MG) TABLET Nadolol 20 Mg Tablet, 30 MG PO BID, (Reported) TAKES 1 & 1/2 (20MG) TABLET Patient Home Medication List Home Medication List Reviewed: Yes Review of Systems Review of Systems Constitutional: see HPI EENTM: no symptoms reported Respiratory: no symptoms reported; No cough, No dyspnea on exertion Cardiovascular: No chest pain, No palpitations; syncope, vascular heart diseas Gastrointestinal: No abdominal pain, No diarrhea, No melena; nausea; No vomiting Psychiatric/Neurological: Denies Headache, Denies Paresthesia; Weakness Past Sbomiwd-Aglifj-Vospox Hx Past Med/Social Hx: Reviewed Nursing Past Med/Soc Hx Patient Social History 2nd Hand Smoke Exposure: No Recent Foreign Travel: Yes Recent Hopitalizations: No Immunizations Up To Date Date of Pneumonia Vaccine: Nov 28, 2017 Seasonal Allergies Seasonal Allergies: No Past Medical History Surgeries: No Respiratory: No Cardiac: Yes Heart Attack, Hypertension Neurological: Yes Stroke Genitourinary: No Gastrointestinal: No Musculoskeletal: Yes Gout Endocrine: No HEENT: No Cancer: No Psychosocial: No Integumentary: No Blood Disorders: No Family Medical History No Pertinent Family Hx Physical Exam Vital Signs Vital Signs - First Documented 03/12/19 11:26 Temp 35.3 Pulse 71 Resp 24 B/P (MAP) 149/62 (91) Pulse Ox 94 O2 Delivery Room Air Capillary Refill : Height, Weight, BMI Height: 5'4.00" Weight: 136lbs. 8.0oz. 61.883231ip; 23.7 BMI Method:Stated General Appearance: No Apparent Distress, WD/WN, Other (very lethargic, arousable to voice and follows commands) Eyes: Bilateral Eye PERRL, Bilateral Eye EOMI HEENT: TMs Normal, Pharynx Normal Neck: Full Range of Motion, Non Tender, Supple Respiratory: Chest Non Tender, Lungs Clear, Normal Breath Sounds Cardiovascular: Regular Rate, Rhythm, No Edema, No Gallop, No JVD, No Murmur, Normal Peripheral Pulses Gastrointestinal: Normal Bowel Sounds, Non Tender, Soft Back: Normal Inspection, No CVA Tenderness Extremity: Normal Capillary Refill, Normal Inspection, Normal Range of Motion, Non Tender, No Calf Tenderness Neurologic/Psychiatric: Alert, Oriented x3, No Motor/Sensory Deficits, Normal Mood/Affect, internet marketing manager II-XII Norm as Tested; No Aphasia, No Disoriented, No Facial Droop, No Motor Weakness, No Sensory Deficit Focused Exam Lactate Level 03/12/19 11:30: Lactic Acid Level 2.13*H 03/12/19 13:30: Lactic Acid Level 1.44 Lactic Acid Level Progress/Results/Core Measures Suspected Sepsis SIRS Temperature: Pulse: Respiratory Rate: Laboratory Tests 03/12/19 11:30: White Blood Count 11.0 Blood Pressure / Mean: 03/12/19 11:30: Lactic Acid Level 2.13*H 03/12/19 13:30: Lactic Acid Level 1.44 Laboratory Tests 03/12/19 11:30: Creatinine 0.85, INR Comment 1.1, Platelet Count 193, Total Bilirubin 0.9 Results/Orders Lab Results Laboratory Tests Test 03/12/19 11:30 03/12/19 13:30 03/12/19 13:50 Range/Units White Blood Count 11.0 4.3-11.0 10^3/uL Red Blood Count 4.06 L 4.35-5.85 10^6/uL Hemoglobin 12.5 11.5-16.0 G/DL Hematocrit 38 35-52 % Mean Corpuscular Volume 94 80-99 FL Mean Corpuscular Hemoglobin 31 25-34 PG Mean Corpuscular Hemoglobin Concent 33 32-36 G/DL Red Cell Distribution Width 13.9 10.0-14.5 % Platelet Count 193 130-400 10^3/uL Mean Platelet Volume 11.5 H 7.4-10.4 FL Neutrophils (%) (Auto) 43 42-75 % Lymphocytes (%) (Auto) 35 12-44 % Monocytes (%) (Auto) 14 H 0-12 % Eosinophils (%) (Auto) 7 0-10 % Basophils (%) (Auto) 1 0-10 % Neutrophils # (Auto) 4.7 1.8-7.8 X 10^3 Lymphocytes # (Auto) 3.8 1.0-4.0 X 10^3 Monocytes # (Auto) 1.5 H 0.0-1.0 X 10^3 Eosinophils # (Auto) 0.8 H 0.0-0.3 10^3/uL Basophils # (Auto) 0.1 0.0-0.1 10^3/uL Prothrombin Time 14.8 H 12.2-14.7 SEC INR Comment 1.1 0.8-1.4 Activated Partial Thromboplast Time 28 24-35 SEC Sodium Level 138 135-145 MMOL/L Potassium Level 4.4 3.6-5.0 MMOL/L Chloride Level 106 98-107 MMOL/L Carbon Dioxide Level 20 L 21-32 MMOL/L Anion Gap 12 5-14 MMOL/L Blood Urea Nitrogen 17 7-18 MG/DL Creatinine 0.85 0.60-1.30 MG/DL Estimat Glomerular Filtration Rate > 60 BUN/Creatinine Ratio 20 Glucose Level 128 H 70-105 MG/DL Lactic Acid Level 2.13 *H 1.44 0.50-2.00 MMOL/L Calcium Level 9.0 8.5-10.1 MG/DL Corrected Calcium 9.5 8.5-10.1 MG/DL Total Bilirubin 0.9 0.1-1.0 MG/DL Aspartate Amino Transf (AST/SGOT) 123 H 5-34 U/L Alanine Aminotransferase (ALT/SGPT) 63 H 0-55 U/L Alkaline Phosphatase 230 H 40-136 U/L Troponin I < 0.30 <0.30 NG/ML Total Protein 7.4 6.4-8.2 GM/DL Albumin 3.4 3.2-4.5 GM/DL Urine Color YELLOW Urine Clarity CLOUDY Urine pH 6.0 5-9 Urine Specific [place] 1.015 L 1.016-1.022 Urine Protein NEGATIVE NEGATIVE Urine Glucose (UA) NEGATIVE NEGATIVE Urine Ketones TRACE H NEGATIVE Urine Nitrite POSITIVE H NEGATIVE Urine Bilirubin 1+ H NEGATIVE Urine Urobilinogen 1.0 NORMAL MG/DL Urine Leukocyte Esterase 2+ H NEGATIVE Urine RBC (Auto) NEGATIVE NEGATIVE Urine RBC NONE /HPF Urine WBC >100 H /HPF Urine Crystals NONE /LPF Urine Bacteria LARGE H /HPF Urine Casts NONE /LPF Urine Mucus NEGATIVE /LPF Urine Culture Indicated YES My Orders Orders - ROVENSTINE,KRANTHI L DO Ed Iv/Invasive Line Start (03/12/19 11:29) Ct Head Wo (03/12/19 11:29) Orthostatic Vital Signs (Adult (03/12/19 11:29) Cbc With Automated Diff (03/12/19 11:29) Comprehensive Metabolic Panel (03/12/19 11:29) Lactic Acid Analyzer (03/12/19 11:29) Troponin I Fs (03/12/19 11:29) Urinalysis (03/12/19 11:29) Ns Iv 500 Ml (Sodium Chloride 0.9%) (03/12/19 11:30) Ondansetron Injection (Zofran Injectio (03/12/19 11:30) Partial Thromboplastin Time (03/12/19 12:44) Protime With Inr (03/12/19 12:44) Urine Culture (03/12/19 13:50) Ciprofloxacin Iv 400mg/200ml (Cipro Iv S (03/12/19 14:24) Medications Given in ED Current Medications Medications Dose Ordered Sig/Hollie Route Start Time Stop Time Status Last Admin Dose Admin Ondansetron HCl 4 mg ONCE ONCE IVP 03/12/19 11:30 03/12/19 11:32 DC 03/12/19 11:38 4 MG Vital Signs/I&O 03/12/19 03/12/19 03/12/19 03/12/19 11:26 11:45 12:03 12:15 Temp 35.3 Pulse 71 66 58 Resp 24 27 27 B/P (MAP) 149/62 (91) 124/61 139/64 Pulse Ox 94 94 93 O2 Delivery Room Air 03/12/19 03/12/19 03/12/19 03/12/19 12:30 12:45 13:00 13:15 Pulse 52 51 53 55 Resp 24 24 22 20 B/P (MAP) 139/53 130/63 132/51 121/59 Pulse Ox 93 94 94 94 03/12/19 03/12/19 03/12/19 03/12/19 13:30 13:42 13:45 14:00 Pulse 55 59 61 57 61 64 Resp 20 21 21 B/P (MAP) 133/59 146/63 (90) 138/66 133/59 148/67 (94) 139/63 (88) Pulse Ox 94 94 94 03/12/19 03/12/19 03/12/19 03/12/19 14:00 14:15 14:30 15:20 Temp 35.5 Pulse 55 55 65 Resp 19 B/P (MAP) 126/57 123/55 123/55 (88) Pulse Ox 94 94 94 O2 Delivery Room Air 03/12/19 03/12/19 03/12/19 03/12/19 16:15 16:26 16:34 17:00 Temp 36.2 Pulse 60 62 59 Resp 25 12 B/P (MAP) 137/75 (95) 140/70 (93) Pulse Ox 95 97 96 O2 Delivery Room Air Room Air Room Air 03/12/19 03/12/19 18:00 20:00 Pulse 69 Resp 20 B/P (MAP) 146/78 (100) Pulse Ox 95 93 O2 Delivery Room Air Capillary Refill : Departure Communication (Admissions) Time/Spoke to Admitting Phy: 13:[address] Jacinto re pt presentation, EMS verbal report and current labs and CT findings. Accepts for OBS admission @ 1338 Impression Primary Impression: Syncopal episodes Qualified Codes: R55 - Syncope and collapse Additional Impressions: Weakness UTI (urinary tract infection) Qualified Codes: N39.0 - Urinary tract infection, site not specified Disposition: ADMITTED INPATIENT Condition: Stable Admissions Decision to Admit Reason: Admit from ER (General) Decision to Admit/Date: Mar 12, 2019 Time/Decision to Admit Time: 13:00 Departure-Patient Inst. Referrals: MARLIN ALLRED MD (PCP/Family) Primary Care Physician KRANTHI FLORES DO Mar 12, 2019 11:37 POS
--- NOTE | 2019-03-12 11:40 | NUR ---
Pt's son, Serene, arrived to see pt and told her he will move her car from [place] and await results before returning to ED after awhile.
[2019-03-12 11:47] LABS: BASOPHILS % (AUTO) 1 % (0-10); EOSINOPHILS # (AUTO) 0.8 10^3/uL (0.0-0.3); EOSINOPHILS % (AUTO) 7 % (0-10); HEMATOCRIT 38 % (35-52); HEMOGLOBIN 12.5 G/DL (11.5-16.0); LYMPHOCYTES # (AUTO) 3.8 X 10^3 (1.0-4.0); LYMPHOCYTES % (AUTO) 35 % (12-44); MEAN CORPUSCULAR HEMOGLOBIN 31 PG (25-34); MEAN CORPUSCULAR HGB CONC 33 G/DL (32-36); MEAN CORPUSCULAR VOLUME 94 FL (80-99); MEAN PLATELET VOLUME 11.5 FL (7.4-10.4); MONOCYTES # (AUTO) 1.5 X 10^3 (0.0-1.0); MONOCYTES % (AUTO) 14 % (0-12); NEUTROPHILS # (AUTO) 4.7 X 10^3 (1.8-7.8); NEUTROPHILS % (AUTO) 43 % (42-75); PLATELET COUNT 193 10^3/uL (130-400); RED CELL DISTRIBUTION WIDTH 13.9 % (10.0-14.5)
[2019-03-12 11:48] LABS: BASOPHILS # (AUTO) 0.1 10^3/uL (0.0-0.1)
[2019-03-12 12:06] LABS: ALANINE AMINOTRANSFERASE 63 U/L (0-55); ALBUMIN 3.4 GM/DL (3.2-4.5); ALKALINE PHOSPHATASE 230 U/L (40-136); BILIRUBIN,TOTAL 0.9 MG/DL (0.1-1.0); BUN/CREATININE RATIO 20; CARBON DIOXIDE 20 MMOL/L (21-32); CHLORIDE 106 MMOL/L (98-107); CREATININE SERUM 0.85 MG/DL (0.60-1.30); GFR ESTIMATED > 60; GLUCOSE 128 MG/DL (70-105); POTASSIUM 4.4 MMOL/L (3.6-5.0); SODIUM 138 MMOL/L (135-145); TOTAL PROTEIN 7.4 GM/DL (6.4-8.2)
--- NOTE | 2019-03-12 12:25 | Diagnostic Imaging Report ---
INDICATION: Syncope. Possible stroke. TECHNIQUE: Routine noncontrast enhanced axial images were obtained from the skull base to the vertex. Auto Exposure Controls were utilized during the CT exam to meet ALARA standards for radiation dose reduction COMPARISON: 11/28/2018. FINDINGS: The ventricles and cortical sulci are diffusely prominent, compatible with age-related volume loss. There are confluent areas of abnormal, low attenuation in the periventricular white matter. This is consistent with chronic small vessel ischemic changes. Old small bilateral basal ganglia infarcts are also noted. There is no midline shift or mass effect. No acute intra-axial hemorrhage is seen. There are no abnormal areas of increased or decreased density to suggest acute hemorrhage or edema. No extra-axial masses or collections are present. The bony calvarium is intact. The visualized paranasal sinuses are unremarkable. The mastoid air cells are clear. IMPRESSION: 1. No acute intracranial abnormality. No CT evidence of mass, acute infarct, or intracranial hemorrhage. 2. Chronic small vessel ischemic changes and old small bilateral basal ganglia infarcts. 3. The report was called to Brandyn Ramirez by RICCARDO@12:24 PM. Dictated by: Dictated on workstation # [id number]
[2019-03-12 13:10] LABS: INR 1.1 (0.8-1.4); PROTHROMBIN TIME PATIENT 14.8 SEC (12.2-14.7)
--- NOTE | 2019-03-12 13:45 | NUR ---
Pt up on bedside commode after orthostats completed. Pt requires assist x 1 to transfer back to bed after assist x 2 to get up for first time. Pt tolerated well. Dysphagia test completed, pt has passed.
--- NOTE | 2019-03-12 14:00 | NUR ---
Nilam RN speaking with [facility] on planned OBS admit. They will discuss in [facility] placement option and call back. Pt signed her transfer consent form.
[2019-03-12 14:03] LABS: CLARITY,URINE CLOUDY; COLOR,URINE YELLOW; GLUCOSE, URINE (UA) NEGATIVE (NEGATIVE); KETONES,URINE TRACE (NEGATIVE); NITRITE,URINE POSITIVE (NEGATIVE); PROTEIN,URINE NEGATIVE (NEGATIVE)
[2019-03-12 14:04] LABS: BACTERIA,URINE LARGE /HPF; BILIRUBIN,URINE 1+ (NEGATIVE); LEUKOCYTE ESTERASE ,URINE 2+ (NEGATIVE); WBC,URINE >100 /HPF
--- NOTE | 2019-03-12 14:20 | NUR ---
Call to patient's son whittaker to notify of admit per patient's wishes.
[2019-03-12] MEDS ORDERED: CIPROFLOXACIN IV 400MG/200ML 200 ML IV ONE (14:24)
--- NOTE | 2019-03-12 14:40 | NUR ---
Attempted call to [facility] Bed 4, nurses are busy and will have to call back for report.
--- NOTE | 2019-03-12 14:57 | NUR ---
Report called to Viki SHERIDAN.
--- NOTE | 2019-03-12 15:10 | NUR ---
EMS arriving for transport.
--- NOTE | 2019-03-12 15:20 | NUR ---
EMS departing ER at this time for admission to OBS bed at [facility] Bed 4. NS infusing at KVO rate with Cipro infusing at 200 ml/hr.
--- NOTE | 2019-03-12 16:29 | History & Physical-Hospitalist ---
History of Present Illness HPI/Chief Complaint Patient is an 88-year-old female with a past medical history of coronary artery disease CVA and TIA who presented to the emergency department via EMS after a syncopal episode at the [facility]. She reports she has been feeling well and had no precipitating symptoms but was sitting in a chair getting her hair done and passed out. EMS was called and they brought her in as a code red as they were bagging her. Reportedly she never lost a pulse. On arrival to the ER she awoke and was alert and oriented. She denies any palpitations chest pain or shortness of breath. She denies any confusion following the incident. She denies any incontinence tongue biting. She does not recall this event and there are no witnesses present to say whether she was convulsing. She states this happens from time to time most recently being around 2 months ago. She has never seen a mash tub cooker operator before. Source: patient Date Seen 03/12/19 Time Seen by a Provider: 16:24 Attending Physician Sara Jacinto MD PCP Dr Arroyo Self Referring Physician Date of Admission Mar 12, 2019 at 14:14 Home Medications & Allergies Home Medications Reviewed patient Home Medication Reconciliation performed by pharmacy medication reconciliations ag equipment field service technician and/or nursing. Patients Allergies have been reviewed. Allergies Allergies Coded Allergies No Known Drug Allergies (Unverified10/06/18) Past Wulyfwp-Gwwuwl-Dohjxo Hx Past Med/Social Hx: Reviewed Nursing Past Med/Soc Hx Patient Social History Employed/Student: retired Alcohol Use: Denies Use Recreational Drug Use: No Smoking Status: Never a Smoker 2nd Hand Smoke Exposure: No Recent Foreign Travel: Yes Contact w/other who traveled: No Recent Hopitalizations: No Recent Infectious Disease Expo: No Immunizations Up To Date Date of Pneumonia Vaccine: Nov 28, 2017 Date of Influenza Vaccine: Feb 04, 2019 Seasonal Allergies Seasonal Allergies: No Past Medical History Cardiac: Heart Attack, Hypertension Neurological: Stroke Musculoskeletal: Gout History of Blood Disorders: No Family History Reviewed Nursing Family Hx No Pertinent Family Hx Review of Systems Constitutional: no symptoms reported EENTM: no symptoms reported Respiratory: dyspnea on exertion; No orthopnea, No phlegm, No short of breath Cardiovascular: No chest pain, No edema, No Hx of Intervention, No palpitatio ns; syncope Genitourinary: No decreased output, No dysuria, No frequency Musculoskeletal: no symptoms reported Skin: no symptoms reported Psychiatric/Neurological: No Symptoms Reported Physical Exam Physical Exam Vital Signs Vital Signs - First Documented 03/12/19 11:26 Temp 35.3 Pulse 71 Resp 24 B/P (MAP) 149/62 (91) Pulse Ox 94 O2 Delivery Room Air Capillary Refill : Less Than 3 Seconds Height, Weight, BMI Height: 5'4.00" Weight: 136lbs. 8.0oz. 61.952167vn; 24.00 BMI Method:Stated General Appearance: No Apparent Distress, WD/WN, Thin HEENT: PERRL/EOMI, Moist Mucous Membranes; No Scleral Icterus (L), No Scleral Icterus (R) Neck: Normal Inspection, Supple; No Thyromegaly Respiratory: Lungs Clear, No Accessory Muscle Use, No Respiratory Distress Cardiovascular: Regular Rate, Rhythm, No JVD, No Murmur Gastrointestinal: Normal Bowel Sounds, Non Tender, Soft Extremity: No Calf Tenderness, No Pedal Edema Neurologic/Psychiatric: Alert, Oriented x3, Normal Mood/Affect Skin: Normal Color, Warm/Dry Results Results/Procedures Labs Laboratory Tests 03/12/19 11:30 Patient resulted labs reviewed. Imaging: Reviewed Imaging Report Assessment/Plan Admission Diagnosis Syncope Admission Status: Observation Assessment and Plan Syncope CAD CT head negative EKG sinus rhythm Monitor on telemetry Cardiology consulted, appreciate recs Echo ordered Does not sound seizure like based on history UTI Received Cipro per ER Will start Rocephin Await cultures no evidence of sepsis HTN Well controlled Diagnosis/Problems Diagnosis/Problems (1) CAD (coronary artery disease) Status: Chronic Qualifiers: Coronary Disease-Associated Artery/Lesion type: [place] artery [place] vs. transplanted heart: [place] heart Associated angina: without angina Qualified Codes: I25.10 - Atherosclerotic heart disease of [place] coronary artery without angina pectoris (2) Essential (primary) hypertension Status: Chronic (3) Syncopal episodes Status: Acute Qualifiers: Syncope type: unspecified Qualified Codes: R55 - Syncope and collapse (4) UTI (urinary tract infection) Status: Acute Qualifiers: Urinary tract infection type: acute cystitis Hematuria presence: without hematuria Qualified Codes: N30.00 - Acute cystitis without hematuria (5) Back pain Status: Chronic Qualifiers: Back pain location: low back pain Chronicity: chronic Back pain laterality: unspecified Sciatica presence: unspecified whether sciatica present Qualified Codes: M54.5 - Low back pain; G89.29 - Other chronic pain Clinical Quality Measures Stroke: Date of last known well: Mar 12, 2019 Copy Copies To 1: PADMAJA TANNER MD, KATELYN M MD Mar 12, 2019 16:29 POS
[2019-03-12] MEDS ORDERED: CATHETER FLUSH 10 ML SYR IV PRN (16:30)
[2019-03-12] MEDS ORDERED: MILK OF MAGNESIA 400 MG/5 ML 30 ML UDC PO PRN (16:45)
[2019-03-12] MEDS ORDERED: ACETAMINOPHEN 325 MG TABLET PO PRN (16:45)
[2019-03-12] MEDS ORDERED: MELATONIN 3 MG TABLET PO PRN (16:45)
[2019-03-12] MEDS ORDERED: BENZONATATE 100 MG (TESSALON) CAPSULE PO PRN (16:45)
[2019-03-12] MEDS ORDERED: ONDANSETRON 4 MG/2 ML (SDV) Z0FRAN IV PRN (16:45)
[2019-03-12] MEDS ORDERED: ANTACID SUSP 30 ML UDC (MYLANTA) PO PRN (16:45)
--- NOTE | 2019-03-12 17:36 | Consultation-Cardiology ---
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 Does not report any premonitory symptoms or confusion afterwards. Not known if she had seizures. She states she has had such episodes before, but cannot recall when the last was (thinks it was a year ago). She has chronic exertional shortness of breath. No palp or cp. No leg swelling. No recent fever or chills Review of Systems-Cardiology Review of Systems Constitutional: As described under HPI Eyes: No vision change Ears/Nose/Throat: chronic hearing loss; No ear discharge, No nasal drainage, No recent hearing loss Respiratory: As described under HPI Cardiovascular: As described under HPI Gastrointestinal: No diarrhea, No nausea, No vomiting Genitourinary: No dysuria, No hematuria, No urine frequency changes Musculoskeletal: back pain (chronic) Skin: No rash, No ulcerations Psychiatric/Neurological: As described under HPI; No focal weakness Hematologic: No bleeding abnormalities TCC-Jbolgd-Sphlut Hx Patient Social History Employed/Student: retired Alcohol Use: Denies Use Recreational Drug Use: No Smoking Status: Never a Smoker 2nd Hand Smoke Exposure: No Recent Foreign Travel: Yes Recent Infectious Disease Expo: No Hospitalization with Isolation: Denies Immunizations Up To Date Date of Pneumonia Vaccine: Feb 25, 2019 Date of Influenza Vaccine: Feb 25, 2019 Past Medical History PMH As described under Assessment. Family Medical History Family Medical History: Fam h/o CAD, but no early CAD. Fam h/o CVA (mother) Allergies and Home Medications Allergies Coded Allergies: No Known Drug Allergies (Unverified , 10/06/18) Home Medications Acetaminophen 325 Mg Tablet, 325 MG PO Q6H PRN for PAIN-MILD, (Reported) Aspirin 81 Mg Tablet.dr, 324 MG PO DAILY, (Reported) TAKES 4 (81MG) TABLETS Cetirizine HCl 10 Mg Tablet, 10 MG PO DAILY, (Reported) Clopidogrel Bisulfate 75 Mg Tablet, 75 MG PO DAILY, (Reported) Isosorbide Mononitrate 60 Mg Tab, 60 MG PO DAILY, (Reported) Losartan Potassium 25 Mg Tablet, 12.5 MG PO DAILY, (Reported) TAKES 1/2 (25MG) TABLET Nadolol 20 Mg Tablet, 30 MG PO BID, (Reported) TAKES 1 & 1/2 (20MG) TABLET Patient Home Medication List Home Medication List Reviewed: Yes Physical Exam-Cardiology Physical Exam Vital Signs/I&O 03/12/19 03/12/19 03/12/19 03/12/19 11:26 12:03 13:42 14:00 Temp 35.3 Pulse 71 59 61 64 Resp 24 B/P (MAP) 149/62 (91) 146/63 (90) 148/67 (94) 139/63 (88) Pulse Ox 94 O2 Delivery Room Air 03/12/19 03/12/19 03/12/19 03/12/19 15:20 16:15 16:26 16:34 Temp 35.5 36.2 Pulse 65 60 62 Resp 19 25 B/P (MAP) 123/55 (88) 137/75 (95) Pulse Ox 94 95 97 O2 Delivery Room Air Room Air Room Air Capillary Refill : Less Than 3 Seconds Constitutional: AAO x 3, well-developed, well-nourished, other (thin appearin) HEENT: PERRL, EOMI, hard of hearing Neck: carotid pulses are 2 + bilaterally, with good upstrokes Respiratory: No accessory muscle use; other (good bilateral air entry) Cardiovascular: regular rate-rhythm, S1 and S2, systolic murmur (soft SAMMY at card base) Gastrointestinal: No tender; soft; No guarding, No rebound; audible bowel sounds Extremities: No clubbing, No cyanosis, No significant edema Neurologic/Psychiatric: oriented x 3, other (moves all limbs equally) Skin: No rash on exposed areas, No ulcerations on exposed areas Data Review Labs Laboratory Tests 03/12/19 11:30: White Blood Count 11.0, Red Blood Count 4.06L, Hemoglobin 12.5, Hematocrit 38, Mean Corpuscular Volume 94, Mean Corpuscular Hemoglobin 31, Mean Corpuscular Hemoglobin Concent 33, Red Cell Distribution Width 13.9, Platelet Count 193, Me an Platelet Volume 11.5H, Neutrophils (%) (Auto) 43, Lymphocytes (%) (Auto) 35, Monocytes (%) (Auto) 14H, Eosinophils (%) (Auto) 7, Basophils (%) (Auto) 1, Neutrophils # (Auto) 4.7, Lymphocytes # (Auto) 3.8, Monocytes # (Auto) 1.5H, Eosinophils # (Auto) 0.8H, Basophils # (Auto) 0.1, Prothrombin Time 14.8H, INR Comment 1.1, Activated Partial Thromboplast Time 28, Sodium Level 138, Potassium Level 4.4, Chloride Level 106, Carbon Dioxide Level 20L, Anion Gap 12, Blood Urea Nitrogen 17, Creatinine 0.85, Estimat Glomerular Filtration Rate > 60, BUN/Creatinine Ratio 20, Glucose Level 128H, Lactic Acid Level 2.13*H, Calcium Level 9.0, Corrected Calcium 9.5, Total Bilirubin 0.9, Aspartate Amino Transf (AST/SGOT) 123H, Alanine Aminotransferase (ALT/SGPT) 63H, Alkaline Phosphatase 230H, Troponin I < 0.30, Total Protein 7.4, Albumin 3.4 03/12/19 13:30: Lactic Acid Level 1.44 03/12/19 13:50: Urine Color YELLOW, Urine Clarity CLOUDY, Urine pH 6.0, Urine Specific [place] 1.015L, Urine Protein NEGATIVE, Urine Glucose (UA) NEGATIVE, Urine Ketones TRACEH, Urine Nitrite POSITIVEH, Urine Bilirubin 1+H, Urine Urobilinogen 1.0, Urine Leukocyte Esterase 2+H, Urine RBC (Auto) NEGATIVE, Urine RBC NONE, Urine WBC >100H, Urine Crystals NONE, Urine Bacteria LARGEH, Urine Casts NONE, Urine Mucus NEGATIVE, Urine Culture Indicated YES Laboratory Tests 03/12/19 11:30 A/P-Cardiology Assessment/Admission Diagnosis Syncope of undetermined etiology H/o [place]. 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
[2019-03-12] MEDS: NS IV 1000 ML 1,000 ML IV SCH ×2 (17:38→20:27)
[2019-03-12] MEDS: cefTRIAXone FOR IV USE 1,000 MG in WATER (STERILE) FOR INJECTION 10 ML IV SCH (17:52)
[2019-03-12] MEDS: LACTOBACILLUS ACIDOPHILUS (PROBIOTIC) CAPSULE PO SCH (17:52)
[2019-03-13 00:35] VITALS: BP 145/63
[2019-03-13 03:51] LABS: BASOPHILS % (AUTO) 0 % (0-10); EOSINOPHILS # (AUTO) 0.4 10^3/uL (0.0-0.3); EOSINOPHILS % (AUTO) 5 % (0-10); HEMATOCRIT 31 % (35-52); HEMOGLOBIN 10.1 G/DL (11.5-16.0); LYMPHOCYTES # (AUTO) 2.9 X 10^3 (1.0-4.0); LYMPHOCYTES % (AUTO) 41 % (12-44); MEAN CORPUSCULAR HEMOGLOBIN 30 PG (25-34); MEAN CORPUSCULAR HGB CONC 32 G/DL (32-36); MEAN CORPUSCULAR VOLUME 94 FL (80-99); MEAN PLATELET VOLUME 11.9 FL (7.4-10.4); MONOCYTES % (AUTO) 14 % (0-12); NEUTROPHILS # (AUTO) 2.9 X 10^3 (1.8-7.8); NEUTROPHILS % (AUTO) 40 % (42-75); PLATELET COUNT 127 10^3/uL (130-400); RED CELL DISTRIBUTION WIDTH 14.2 % (10.0-14.5); WHITE BLOOD COUNT 7.2 10^3/uL (4.3-11.0)
[2019-03-13 04:14] LABS: ALANINE AMINOTRANSFERASE 53 U/L (0-55); ALBUMIN 2.6 GM/DL (3.2-4.5); ALKALINE PHOSPHATASE 176 U/L (40-136); BILIRUBIN,TOTAL 0.7 MG/DL (0.1-1.0); BUN/CREATININE RATIO 24; CALCIUM 8.6 MG/DL (8.5-10.1); CARBON DIOXIDE 21 MMOL/L (21-32); CHLORIDE 112 MMOL/L (98-107); CREATININE SERUM 0.85 MG/DL (0.60-1.30); GFR ESTIMATED > 60; GLUCOSE 90 MG/DL (70-105); MAGNESIUM 1.9 MG/DL (1.6-2.4); POTASSIUM 4.2 MMOL/L (3.6-5.0); SODIUM 140 MMOL/L (135-145); TOTAL PROTEIN 5.8 GM/DL (6.4-8.2)
[2019-03-13 05:29] VITALS: BP 146/70
--- NOTE | 2019-03-13 08:30 | NUR ---
REPORT RECEIVED AND CHART REVIEWED. ASSESSMENT COMPLETED. PT AMBULATED TO CHAIR WITH SBA WITH NO DIFFICULTIES. STATES SHE FEELS GOOD THIS MORNING. SHE HAS NO COMPLAINTS. VITALS OBTAINED. CALL LIGHT WITHIN REACH. PT STATES SHE UNDERSTANDS TO CALL FOR ASSISTANCE TO THE RESTROOM.
[2019-03-13] MEDS ORDERED: CEPH-507 PO (08:38)
[2019-03-13 09:00] VITALS: BP 151/65
[2019-03-13] MEDS: LACTOBACILLUS ACIDOPHILUS (PROBIOTIC) CAPSULE PO SCH ×3 (09:57→16:35)
[2019-03-13] MEDS: ASPIRIN 81 MG CHEW (CHILDREN'S ASA) PO SCH (09:57)
[2019-03-13] MEDS: RAMIPRIL 5 MG (ALTACE) CAP PO SCH (09:57)
[2019-03-13] MEDS: CLOPIDOGREL 75 MG (PLAVIX) TABLET PO SCH (09:57)
--- NOTE | 2019-03-13 09:57 | Diagnostic Imaging Report ---
PROCEDURE: US carotid duplex, bilateral. TECHNIQUE: Multiple real-time grayscale images were obtained over the carotid arteries in various projections, bilaterally. Additional spectral analysis and color Doppler duplex images were also obtained. INDICATION: Syncope. FINDINGS: The previous carotid Doppler exam performed on 09/16/2018 noted moderate stenosis of the internal carotid artery on the right as the IC/CC ratio was slightly elevated at 2.8. On this exam, there is again hard and soft plaque formation involving both carotid bifurcations. The IC/CC ratio on the right has increased and is now estimated to be 3.9. This does suggest a stenosis in the 70-80% range. I would recommend that CTA of the neck be performed for further evaluation. There is still no evidence for a hemodynamically significant stenosis of the left carotid system. Both vertebral arteries were noted and there was antegrade flow bilaterally. IMPRESSION: 1. The stenosis involving the internal carotid artery on the right noted on the prior exam has progressed and is now in the 70-80% range. CTA of the neck would be recommended for further study. 2. There is still no evidence for hemodynamically significant stenosis of the left carotid system. Parameters based on the consensus panel [place]andon-Scale and Doppler ultrasound criteria published March 2003, Radiology, Volume 229. DOPPLER (peak systolic velocity M/S Right Left CCA .72 1.38 ICA Proximal 2.79 .81 ICA Mid 1.84 1.09 ICA Distal 1.44 .72 RATIO 3.87 .79 ECA 1.67 1.34 VERT .66 .41 Dictated by: Dictated on workstation # [id number]
--- NOTE | 2019-03-13 11:06 | Progress Note - Hospitalist ---
Subjective HPI/CC On Admission Date Seen by Provider: Mar 13, 2019 Time Seen by Provider: 08:30 Patient is an 88-year-old female with a past medical history of coronary artery disease CVA and TIA who presented to the emergency department via EMS after a syncopal episode at the [facility]. She reports she has been feeling well and had no precipitating symptoms but was sitting in a chair getting her hair done and passed out. EMS was called and they brought her in as a code red as they were bagging her. Reportedly she never lost a pulse. On arrival to the ER she awoke and was alert and oriented. She denies any palpitations chest pain or shortness of breath. She denies any confusion following the incident. She denies any incontinence tongue biting. She does not recall this event and there are no witnesses present to say whether she was convulsing. She states this happens from time to time most recently being around 2 months ago. She has never seen a admissions specialist before. Subjective/Events-last exam Pt reports feeling well. currently getting carotid dopplers done. No further syn copal episodes. No palpitations. Focused Exam Lactate Level 03/12/19 11:30: Lactic Acid Level 2.13*H 03/12/19 13:30: Lactic Acid Level 1.44 Objective Exam Vital Signs Vital Signs Date Time Temp Pulse Resp B/P (MAP) Pulse Ox O2 Delivery O2 Flow Rate FiO2 03/13/19 09:00 36.2 69 16 151/65 (93) 95 Room Air Capillary Refill : Less Than 3 Seconds General Appearance: No Apparent Distress, WD/WN Respiratory: Lungs Clear, No Respiratory Distress Cardiovascular: Regular Rate, Rhythm, No Murmur Gastrointestinal: Normal Bowel Sounds, Soft Neurologic/Psychiatric: Alert, Oriented x3 Results/Procedures Lab Laboratory Tests 03/12/19 11:30 03/13/19 02:54 Patient resulted labs reviewed. Imaging: Reviewed Imaging Report Assessment/Plan Assessment and Plan Assess & Plan/Chief Complaint Syncope CAD CT head negative EKG sinus rhythm Orthostatics negative Monitor on telemetry- may need loop recorder Cardiology consulted, appreciate recs Echo ordered, Dopplers ordered- await results Does not sound seizure like based on history UTI Continue rocephin Await cultures no evidence of sepsis HTN Well controlled Diagnosis/Problems Diagnosis/Problems (1) CAD (coronary artery disease) Status: Chronic Qualifiers: Coronary Disease-Associated Artery/Lesion type: [place] artery [place] vs. transplanted heart: [place] heart Associated angina: without angina Qualified Codes: I25.10 - Atherosclerotic heart disease of [place] coronary artery without angina pectoris (2) Essential (primary) hypertension Status: Chronic (3) Syncopal episodes Status: Acute Qualifiers: Syncope type: unspecified Qualified Codes: R55 - Syncope and collapse (4) UTI (urinary tract infection) Status: Acute Qualifiers: Urinary tract infection type: site unspecified Hematuria presence: without hematuria Qualified Codes: N39.0 - Urinary tract infection, site not specified (5) Back pain Status: Chronic Qualifiers: Back pain location: low back pain Chronicity: chronic Back pain laterality: unspecified Sciatica presence: unspecified whether sciatica present Qualified Codes: M54.5 - Low back pain; G89.29 - Other chronic pain Clinical Quality Measures DVT/VTE Risk/Contraindication: Risk Factor Score Per Nursin RFS Level Per Nursing on Admit: 3=High Stroke: Date of last known well: Mar 12, 2019 REILLY TSE MD Mar 13, 2019 11:06 POS
[2019-03-13] MEDS ORDERED: CYCL5TAB PO (11:57)
[2019-03-13] MEDS ORDERED: MAGN400O7 PO (11:57)
--- NOTE | 2019-03-13 11:57 | NUR ---
REQUESTED A MEDICATION LIST TO BE FAXED OVER TWICE THIS MORNING FROM [facility] AFTER NOT RECEIVING IT THE 1ST TWO TIMES ON THE THIRD TIME I CALLED THEY E-MAILED IT. I STILL HAVE NOT RECEIVED IT AFTER THOSE THREE REQUESTS. I CALLED BACK AT THIS TIME AND THE NURSE READ THE ORDERS TO ME VERBALLY OVER THE PHONE AND I UPDATED THE MED REC ACCORDINGLY: ASPIRIN 81MG 4 TABS DAILY PLAVIX 75MG DAILY IMDUR ER 60MG DAILY LOSARTAN 25MG 1/2 TAB DAILY NADOLOL 20MG 1 & 1/2 TAB BID TYLENOL 325MG Q6H PRN FLEXERIL 5MG Q8H PRN MILK OF MAG PRN SHE NO LONGER TAKING ZYRTEC.
[2019-03-13 12:30] VITALS: BP 162/75
--- NOTE | 2019-03-13 16:27 | Progress Note - Cardiology ---
Cardiology SOAP Progress Note Subjective: No further syncope No cp or palp No shortness of breath at rest Objective: I&O/Vital Signs 03/13/19 03/13/19 03/13/19 03/13/19 05:29 06:21 08:30 09:00 Temp 36.2 Pulse 73 63 69 Resp 16 B/P (MAP) 146/70 (95) 151/65 (93) Pulse Ox 95 95 O2 Delivery Room Air Room Air Room Air 03/13/19 03/13/19 03/13/19 12:00 12:30 12:53 Pulse 78 62 Resp 31 B/P (MAP) 162/75 (104) Pulse Ox 94 O2 Delivery Room Air 03/12/19 23:59 Intake Total 100 ml Balance 100 ml Weight (Pounds): 136 Weight (Ounces): 8.0 Weight (Calculated Kilograms): 61.064244 Constitutional: AAO x 3, well-developed, well-nourished, other (thin appearin) Respiratory: No accessory muscle use; other (good bilateral air entry) Cardiovascular: regular rate-rhythm, S1 and S2, systolic murmur (soft SAMMY at card base) Gastrointestional: No tender; soft; No guarding, No rebound; audible bowel sounds Extremities: No clubbing, No cyanosis, No significant edema Neurologic/Psychiatric: oriented x 3, other (moves all limbs equally) Skin: No rash on exposed areas, No ulcerations on exposed areas Results/Procedures: Labs Laboratory Tests 03/13/19 02:54: White Blood Count 7.2, Red Blood Count 3.34L, Hemoglobin 10.1L, Hematocrit 31L, Mean Corpuscular Volume 94, Mean Corpuscular Hemoglobin 30, Mean Corpuscular Hemoglobin Concent 32, Red Cell Distribution Width 14.2, Platelet Count 127L, Mean Platelet Volume 11.9H, Neutrophils (%) (Auto) 40L, Lymphocytes (%) (Auto) 41, Monocytes (%) (Auto) 14H, Eosinophils (%) (Auto) 5, Basophils (%) (Auto) 0, Neutrophils # (Auto) 2.9, Lymphocytes # (Auto) 2.9, Monocytes # (Auto) 1.0, Eosinophils # (Auto) 0.4H, Basophils # (Auto) 0.0, Sodium Level 140, Potassium Level 4.2, Chloride Level 112H, Carbon Dioxide Level 21, Anion Gap 7, Blood Urea Nitrogen 20H, Creatinine 0.85, Estimat Glomerular Filtration Rate > 60, BUN/Creatinine Ratio 24, Glucose Level 90, Calcium Level 8.6, Corrected Calcium 9.7, Magnesium Level 1.9, Total Bilirubin 0.7, Aspartate Amino Transf (AST/SGOT) 93H, Alanine Aminotransferase (ALT/SGPT) 53, Alkaline Phosphatase 176H, Total Protein 5.8L, Albumin 2.6L, Thyroid Stimulating Hormone (TSH) 0.53 Laboratory Tests 03/12/19 11:30 03/13/19 02:54 A/P: Assessment: Syncope of undetermined etiology Ischemic cardiomyopathy: Echo of 03/13/19: LVEF 40-45%, mild global hypokinesis, localized apical akinesis, mild MAC, mild to mod MR, mild TR, RVSP 25 mmHg H/o [place]. She thinks it was in the late s, thinks had cor stents done at [facility] H/o CVA. She thinks last was around 1994, had weakness of R half of the body that has since recovered Carotid u/s of 03/13/19: 70-80% R ICA stenosis; no hemodynamically significant L ICA stenosis Hypertension, by history Hyperlipidemia, by history Plan: * Keep on tele * Add ramipril, given ischemic cardiomyopathy * D/c beta-nilo. Not suitable for beta-nilo because of significant likelihood of bradycardic syncope * ASA for CAD * Clopidogrel for carotid arterial disease * Add statin, given h/o CAD and carotid art dz * Refer for consideration of R CEA on an outpt basis * ILR if no cause for syncope found over next 24 hours * I discussed her case with Dr Jacinto again today Clinical Quality Measures Stroke: Date of last known well: Mar 12, 2019 ABHAY BENAVIDES MD FACP FAC CCDS Mar 13, 2019 16:27 POS
[2019-03-13 16:35] VITALS: BP 154/71
[2019-03-13] MEDS: cefTRIAXone FOR IV USE 1,000 MG in WATER (STERILE) FOR INJECTION 10 ML IV SCH (16:35)
[2019-03-13 20:55] VITALS: BP 148/66
[2019-03-14] VITALS: BP 172/78
[2019-03-14 03:40] LABS: BASOPHILS % (AUTO) 1 % (0-10); EOSINOPHILS # (AUTO) 0.7 10^3/uL (0.0-0.3); EOSINOPHILS % (AUTO) 9 % (0-10); HEMATOCRIT 36 % (35-52); HEMOGLOBIN 11.8 G/DL (11.5-16.0); LYMPHOCYTES # (AUTO) 2.5 X 10^3 (1.0-4.0); LYMPHOCYTES % (AUTO) 35 % (12-44); MEAN CORPUSCULAR HEMOGLOBIN 31 PG (25-34); MEAN CORPUSCULAR HGB CONC 33 G/DL (32-36); MEAN CORPUSCULAR VOLUME 94 FL (80-99); MEAN PLATELET VOLUME 11.9 FL (7.4-10.4); MONOCYTES % (AUTO) 14 % (0-12); NEUTROPHILS % (AUTO) 42 % (42-75); PLATELET COUNT 123 10^3/uL (130-400); WHITE BLOOD COUNT 7.2 10^3/uL (4.3-11.0)
[2019-03-14 04:00] VITALS: BP 164/75
[2019-03-14 04:17] LABS: CALCIUM 8.8 MG/DL (8.5-10.1); CREATININE SERUM 0.92 MG/DL (0.60-1.30); MAGNESIUM 1.7 MG/DL (1.6-2.4); POTASSIUM 4.1 MMOL/L (3.6-5.0)
[2019-03-14 05:08] LABS: EOSINOPHILS % (MANUAL) 11 %; LYMPHOCYTES % (MANUAL) 42 %; MONOCYTES % (MANUAL) 7 %; NEUTROPHILS % (MANUAL) 40 %
[2019-03-14] MEDS: LACTOBACILLUS ACIDOPHILUS (PROBIOTIC) CAPSULE PO SCH (06:38)
[2019-03-14 08:07] VITALS: BP 158/62
[2019-03-14] MEDS ORDERED: LIDOCAINE 1% INJ 20 ML 20 ML VIAL ONE (08:27)
[2019-03-14] MEDS ORDERED: ATOR40TA PO (09:13)
[2019-03-14] MEDS ORDERED: RAMI5CAP65 PO (09:13)
--- NOTE | 2019-03-14 09:14 | Discharge Inst-Simple/Standard ---
Discharge Inst-Standard Patient Instructions/Follow Up Plan of Care/Instructions/FU: Please continue to take her medications as written. Please follow up with Dr. Jacobsen as scheduled. Please follow-up with Dr. salguero in the next week to follow-up this hospital stay. Activity as Tolerated: Yes Discharge Diet: No Restrictions Return to The Hospital For: Passing out, chest pain, palpitations, shortness of breath, if you feel you are getting worse. REILLY TSE MD Mar 14, 2019 09:14 POS
--- NOTE | 2019-03-14 09:30 | NUR ---
patient back from procedure, assessment unchanged
[2019-03-14] MEDS: ASPIRIN 81 MG CHEW (CHILDREN'S ASA) PO SCH (09:44)
[2019-03-14] MEDS: CLOPIDOGREL 75 MG (PLAVIX) TABLET PO SCH (09:44)
[2019-03-14] MEDS: RAMIPRIL 5 MG (ALTACE) CAP PO SCH (09:44)
[2019-03-14] MEDS ORDERED: LIDOCAINE 1% INJ 20 ML 20 ML VIAL INJ ONE (09:45)
--- NOTE | 2019-03-14 09:55 | NUR ---
CM DISCHARGE PLANNING: Zaira has been dismissed to home self care. Visited with her et she denies any needs at this time. She did request that I call her son Serene to come et pick her up. I made contact with Serene et he indicates that someone will be here to get her within the next few hours. He denies any needs or concerns at this time either. Updated primary care nurse Hillary as well.
--- NOTE | 2019-03-14 10:52 | Discharge Summary ---
Diagnosis/Chief Complaint Date of Admission Mar 12, 2019 at 14:14 Date of Discharge Discharge Date: Mar 14, 2019 Admission Diagnosis Syncope Primary Care Felipe Olvera MD Discharge Diagnosis (1) CAD (coronary artery disease) Status: Chronic (2) Essential (primary) hypertension Status: Chronic (3) Syncopal episodes Status: Acute (4) UTI (urinary tract infection) Status: Acute (5) Back pain Status: Chronic Discharge Summary Discharge Physical Exam Allergies: Coded Allergies: No Known Drug Allergies (Unverified , 10/06/18) Vitals & I&Os Vital Signs Date Time Temp Pulse Resp B/P (MAP) Pulse Ox O2 Delivery O2 Flow Rate FiO2 03/14/19 08:08 96 Room Air 03/14/19 08:07 36.5 67 18 158/62 (94) General Appearance: No Apparent Distress, WD/WN Respiratory: Lungs Clear, No Respiratory Distress Cardiovascular: Regular Rate, Rhythm, No Murmur Neurologic/Psychiatric: Alert, Oriented x3 Hospital Course Patient is an 80-year-old female with a past medical history of coronary artery disease who presented to the ER due to syncopal episode. She reported that these were frequent episodes that happened at least every couple of months. She was observed on telemetry with no abnormal cardiac rhythm. Due to history they do sound like they are of cardiac origin and cardiology was co nsulted and ultimately a loop recorder was implanted. Her beta nilo was stopped to prevent bradycardia. Echo was done and revealed systolic heart failure that was compensated. She was started on an Ramipril. She was also to have a urinary tract infection and was treated with Rocephin and Keflex and sent to the pharmacy to complete course. She is to follow-up with Dr. salguero and with Dr. Pepper. Labs (last 24 hrs) Laboratory Tests 03/14/19 03:35: White Blood Count 7.2, Red Blood Count 3.86L, Hemoglobin 11.8, Hematocrit 36, Mean Corpuscular Volume 94, Mean Corpuscular Hemoglobin 31, Mean Corpuscular Hemoglobin Concent 33, Red Cell Distribution Width 14.0, Platelet Count 123L, Mean Platelet Volume 11.9H, Neutrophils (%) (Auto) 42, Lymphocytes (%) (Auto) 35, Monocytes (%) (Auto) 14H, Eosinophils (%) (Auto) 9, Basophils (%) (Auto) 1, Neutrophils # (Auto) 3.0, Lymphocytes # (Auto) 2.5, Monocytes # (Auto) 1.0, Eosinophils # (Auto) 0.7H, Basophils # (Auto) 0.0, Neutrophils % (Manual) 40, Lymphocytes % (Manual) 42, Monocytes % (Manual) 7, Eosinophils % (Manual) 11, Sodium Level 139, Potassium Level 4.1, Chloride Level 108H, Carbon Dioxide Level 23, Anion Gap 8, Blood Urea Nitrogen 20H, Creatinine 0.92, Estimat Glomerular Fi ltration Rate 58, BUN/Creatinine Ratio 22, Glucose Level 112H, Calcium Level 8.8, Magnesium Level 1.7, Triglycerides Level 80, Cholesterol Level 185, LDL Cholesterol Direct 135H, VLDL Cholesterol 16, HDL Cholesterol 39L Patient resulted labs reviewed. Pending Labs Laboratory Tests 03/14/19 03:35: White Blood Count 7.2, Red Blood Count 3.86, Hemoglobin 11.8, Hematocrit 36, Mean Corpuscular Volume 94, Mean Corpuscular Hemoglobin 31, Mean Corpuscular Hemoglobin Concent 33, Red Cell Distribution Width 14.0, Platelet Count 123, Mean Platelet Volume 11.9, Neutrophils (%) (Auto) 42, Lymphocytes (%) (Auto) 35, Monocytes (%) (Auto) 14, Eosinophils (%) (Auto) 9, Basophils (%) (Auto) 1, Neutrophils # (Auto) 3.0, Lymphocytes # (Auto) 2.5, Monocytes # (Auto) 1.0, Eosinophils # (Auto) 0.7, Basophils # (Auto) 0.0, Neutrophils % (Manual) 40, Lymphocytes % (Manual) 42, Monocytes % (Manual) 7, Eosinophils % (Manual) 11, S odium Level 139, Potassium Level 4.1, Chloride Level 108, Carbon Dioxide Level 23, Anion Gap 8, Blood Urea Nitrogen 20, Creatinine 0.92, Estimat Glomerular Filtration Rate 58, BUN/Creatinine Ratio 22, Glucose Level 112, Calcium Level 8.8, Magnesium Level 1.7, Triglycerides Level 80, Cholesterol Level 185, LDL Cholesterol Direct 135, VLDL Cholesterol 16, HDL Cholesterol 39 Imaging: Reviewed Imaging Report Discussion & Recommendations Discharge Planning: >30 minutes discharge planning Discharge Home Medications: Active Scripts Active Ramipril 5 Mg Capsule 5 Mg PO DAILY Lipitor (Atorvastatin Calcium) 40 Mg Tablet 40 Mg PO HS Keflex (Cephalexin) 500 Mg Capsule 500 Mg PO BID Reported Cyclobenzaprine HCl 5 Mg Tablet 5 Mg PO Q8H PRN Milk of Magnesia (Magnesium Hydroxide) 400 Mg/5 Ml Oral.susp 30 Ml PO DAILY PRN Tylenol (Acetaminophen) 325 Mg Tablet 325 Mg PO Q6H PRN Nadolol 20 Mg Tablet 30 Mg PO BID TAKES 1 & 1/2 (20MG) TABLET Clopidogrel (Clopidogrel Bisulfate) 75 Mg Tablet 75 Mg PO DAILY Isosorbide Mononitrate ER (Isosorbide Mononitrate) 60 Mg Tab 60 Mg PO DAILY Losartan Potassium 25 Mg Tablet 12.5 Mg PO DAILY TAKES 1/2 (25MG) TABLET Aspirin EC (Aspirin) 81 Mg Tablet.dr 324 Mg PO DAILY TAKES 4 (81MG) TABLETS Instructions to patient/family Please see electronic discharge instructions given to patient. Clinical Quality Measures DVT/VTE Risk/Contraindication: Risk Factor Score Per Nursin RFS Level Per Nursing on Admit: 3=High Stroke: Date of last known well: Mar 12, 2019 Problem Qualifiers (1) CAD (coronary artery disease): Coronary Disease-Associated Artery/Lesion type: [place] artery [place] vs. transplanted heart: [place] heart Associated angina: without angina Qualified Codes: I25.10 - Atherosclerotic heart disease of [place] coronary artery without angina pectoris (2) Syncopal episodes: Syncope type: unspecified Qualified Codes: R55 - Syncope and collapse (3) UTI (urinary tract infection): Urinary tract infection type: site unspecified Hematuria presence: without hematuria Qualified Codes: N39.0 - Urinary tract infection, site not specified (4) Back pain: Back pain location: low back pain Chronicity: chronic Back pain laterality: unspecified Sciatica presence: unspecified whether sciatica present Qualified Codes: M54.5 - Low back pain; G89.29 - Other chronic pain REILLY TSE MD Mar 14, 2019 10:52 POS
--- NOTE | 2019-03-14 10:55 | NUR ---
Patient taken to procedure accompanied by staff
[2019-03-14 12:00] VITALS: BP 164/75
--- NOTE | 2019-03-14 16:58 | OPERATIVE REPORT ---
DATE OF SERVICE: 03/14/2019 PREOPERATIVE DIAGNOSIS: Syncope. POSTOPERATIVE DIAGNOSIS: Syncope. PROCEDURE: Implantable loop recorder implantation. DESCRIPTION OF PROCEDURE: The patient is an 88-year-old lady who has syncope that occurs several months apart. No specific cause was found during this hospitalization. Implantable loop recorder was carried out after having obtained an informed consent. The left prepectoral area was prepared and draped in the usual sterile fashion. Lidocaine 1% was used for local anesthesia. The tools provided with Setred LINQ device were used to make a pocket anterior to the fourth intercostal space on the left side into which the device was placed. The wound edges were closed using Dermabond and Steri-Strips. She tolerated the procedure well. The serial number of the device is [id number]. Job ID: [id number] DocumentID: [id number] Dictated Date: 03/14/2019 09:13:25 Fleet Technician Date: 03/14/2019 16:58:42 Dictated By: ABHAY BENAVIDES MD, MA, FACP, FACC,
--- NOTE | 2019-03-14 17:08 | Progress Note - Cardiology ---
Cardiology SOAP Progress Note Subjective: No recurrence of syncope No cp or palp or shortness of breath or focal weakness Objective: I&O/Vital Signs 03/14/19 03/14/19 03/14/19 03/14/19 06:56 08:07 08:08 09:00 Temp 36.5 Pulse 62 67 Resp 18 B/P (MAP) 158/62 (94) Pulse Ox 95 96 96 O2 Delivery Room Air Room Air Room Air 03/14/19 03/14/19 12:00 12:00 Temp 36.5 Pulse 70 Resp 18 B/P (MAP) 164/75 (104) Pulse Ox 95 96 O2 Delivery Room Air Room Air 03/14/19 00:00 Intake Total 1700 ml Balance 1700 ml Weight (Pounds): 136 Weight (Ounces): 8.0 Weight (Calculated Kilograms): 61.885052 Constitutional: AAO x 3, well-developed, well-nourished, other (thin appearin) Respiratory: No accessory muscle use; other (good bilateral air entry) Cardiovascular: regular rate-rhythm, S1 and S2, systolic murmur (soft SAMMY at card base) Gastrointestional: No tender; soft; No guarding, No rebound; audible bowel sounds Extremities: No clubbing, No cyanosis, No significant edema Neurologic/Psychiatric: oriented x 3, other (moves all limbs equally) Skin: No rash on exposed areas, No ulcerations on exposed areas Results/Procedures: Labs Laboratory Tests 03/14/19 03:35: White Blood Count 7.2, Red Blood Count 3.86L, Hemoglobin 11.8, Hematocrit 36, Mean Corpuscular Volume 94, Mean Corpuscular Hemoglobin 31, Mean Corpuscular Hemoglobin Concent 33, Red Cell Distribution Width 14.0, Platelet Count 123L, Mean Platelet Volume 11.9H, Neutrophils (%) (Auto) 42, Lymphocytes (%) (Auto) 35, Monocytes (%) (Auto) 14H, Eosinophils (%) (Auto) 9, Basophils (%) (Auto) 1, Neutrophils # (Auto) 3.0, Lymphocytes # (Auto) 2.5, Monocytes # (Auto) 1.0, Eosinophils # (Auto) 0.7H, Basophils # (Auto) 0.0, Neutrophils % (Manual) 40, Lymphocytes % (Manual) 42, Monocytes % (Manual) 7, Eosinophils % (Manual) 11, Sodium Level 139, Potassium Level 4.1, Chloride Level 108H, Carbon Dioxide Level 23, Anion Gap 8, Blood Urea Nitrogen 20H, Creatinine 0.92, Estimat Glomerular Filtration Rate 58, BUN/Creatinine Ratio 22, Glucose Level 112H, Calcium Level 8.8, Magnesium Level 1.7, Triglycerides Level 80, Cholesterol Level 185, LDL Cholesterol Direct 135H, VLDL Cholesterol 16, HDL Cholesterol 39L A/P: Assessment: Syncope of undetermined etiology. S/p ILR that was implanted on 03/14/19 Ischemic cardiomyopathy: Echo of 03/13/19: LVEF 40-45%, mild global hypokinesis, localized apical akinesis, mild MAC, mild to mod MR, mild TR, RVSP 25 mmHg H/o AR. She thinks it was in the late s, thinks had cor stents done at [facility] H/o CVA. 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
== END 2019-03-14 10:48 | disposition home or self-care (01) ==
LOC: EDUNIT# 11:27 → ER FS 11:29 → ICU 14:14 → UNDOADMOB 14:14 → ICU 16:06 → CSD 03-13 23:02 → UNDODISOB 03-14 12:20
PROVIDERS: ADMIT Family Medicine; ATTEND Family Medicine
DX: I25.10 Atherosclerotic heart disease of native coronary artery without angina pectoris (principal); R55 Syncope and collapse; G89.29 Other chronic pain; M54.9 Dorsalgia, unspecified; E78.5 Hyperlipidemia, unspecified; I10 Essential (primary) hypertension; M10.9 Gout, unspecified; N39.0 Urinary tract infection, site not specified; Z79.01 Long term (current) use of anticoagulants; Z79.82 Long term (current) use of aspirin; Z79.899 Other long term (current) drug therapy; Z86.74 Personal history of sudden cardiac arrest; Z86.73 Personal history of transient ischemic attack (TIA), and cerebral infarction without residual deficits
CPT/HCPCS: 33285; 36415; 70450; 80048; 80053; 80061; 81000; 83605; 83735; 84443; 84484; 85007; 85025; 85027; 85610; 85730; 87077; 87088; 87186; 93005; 93306; 93880

== ENCOUNTER → 2019-04-15 | Outpatient (CLI) | payer MEDICARE ==
[~2019-04-15] VITALS: Ht 165 cm; Wt 62.0 kg
[~2019-04-15] MED LIST changes: +ATOR40TA PO; +CATHETER FLUSH 10 ML SYR IV PRN; +CEPH-507 PO; +MAGN400O7 PO; +RAMI5CAP65 PO; +REGADENOSON 0.4 MG/5 ML SYR (LEXISCAN) IV ONE
[2019-04-15 09:23] VITALS: BP 161/88
[2019-04-15 09:27] VITALS: BP 161/78
--- NOTE | 2019-04-15 16:15 | STRESS TEST ---
DATE OF SERVICE: 04/15/2019 RESTING AND POST REGADENOSON TECHNETIUM-99M TETROFOSMIN SPECT CT IMAGING ORDERING PHYSICIAN: Edwina Patel APRN PRIMARY PHYSICIAN: Dr. Jacinto. CLINICAL DIAGNOSES: Syncope. Baseline images were carried out after injection of 10.55 mCi of technetium-99m Tetrofosmin. This was followed by 0.4 mg regadenoson and 29.2 mCi of technetium-99m Tetrofosmin. The electrocardiogram showed sinus rhythm with subtle nonspecific ST abnormality. Isolated and coupled premature ventricular contractions were seen throughout the study. The patient noted mild shortness of breath following regadenoson infusion, which resolved in a few minutes. Review of images at rest and following stress indicates a large anteroapical perfusion defect that is predominantly fixed. Gated images show anteroapical akinesis to dyskinesis. Left ventricular ejection fraction is 28%. CONCLUSIONS: 1. Anteroapical with minimal maco-infarct ischemia. 2. Anteroapical akinesis to dyskinesis. 3. Impairment of global left ventricular systolic function with ejection fraction approximately 28%. Job ID: [id number] DocumentID: [id number] Dictated Date: 04/15/2019 15:32:31 Resolution Agent Date: 04/15/2019 16:14:02 Dictated By: ABHAY BENAVIDES MD, MA, FACP, FACC,
== END ==
LOC: CARD 08:12
PROVIDERS: ATTEND Nurse Practitioner Family
DX: I25.10 Atherosclerotic heart disease of native coronary artery without angina pectoris (principal); I65.23 Occlusion and stenosis of bilateral carotid arteries; E78.5 Hyperlipidemia, unspecified; I51.89 Other ill-defined heart diseases
CPT/HCPCS: 78452; 93017

== ENCOUNTER 2019-10-04 09:27 | Emergency (ER) | payer MEDICARE ==
[~2019-10-04] VITALS: Ht 162.6 cm; Wt 62.0 kg
[~2019-10-04 09:27] MED LIST changes: -CATHETER FLUSH 10 ML SYR IV PRN; -CETI10TA20 PO; +CETI10TA21 PO; -REGADENOSON 0.4 MG/5 ML SYR (LEXISCAN) IV ONE
--- OUTSIDE RECORDS SUMMARY | 2019-10-04 09:45 | XMS REPORT | Continuity of Care Document ---
Author Organization Unknown Address Unknown Phone Unavailable Allergies Active Description Code Type Severity Reaction Onset Reported/Identified Relationship to Patient Clinical Status Yes No Known Drug Allergies [id number] Drug Allergy Unknown N/A 10/06/2018 Medications There is no data. 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 INFARCTION 10/07/2018 TAVON EWING MD Ot R55 SYNCOPE AND COLLAPSE 10/07/2018 TAVON EWING MD Ot R79.89 OTHER SPECIFIED ABNORMAL FINDINGS OF BLO 10/07/2018 TAVON EWING MD Ot Z79.82 ELEVATOR INSTALLER APPRENTICE (CURRENT) USE OF ASPIRIN 10/07/2018 TAVON EWING MD Ot Z79.899 OTHER USP (CURRENT) DRUG THERAPY 10/07/2018 TAVON EWING MD Ot Z86.73 PRSNL HX OF TIA (TIA), AND CEREB INFRC W 10/07/2018 TAVON EWING MD, Ot E78 .5 HYPERLIPIDEMIA, UNSPECIFIED 10/07/2018 TVAON EWING MD Ot I10 ESSENTIAL (PRIMARY) HYPERTENSION 10/07/2018 TAVON EWING MD Ot I25.10 ATHSCL HEART DISEASE OF [place] CORONARY 10/07/2018 TAVON EWING MD Ot 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 INFARCTION 10/07/2018 TAVON EWING MD Ot R55 SYNCOPE AND COLLAPSE 10/07/2018 TAVON EWING MD Ot R79.89 OTHER SPECIFIED ABNORMAL FINDINGS OF BLO 10/07/2018 TAVON EWING MD Ot Z79.82 ELEVATOR INSTALLER APPRENTICE (CURRENT) USE OF ASPIRIN 10/07/2018 TAVON EWING MD Ot Z79.899 OTHER ELEVATOR INSTALLER APPRENTICE (CURRENT) DRUG THERAPY 10/07/2018 TAVON EWING MD Ot Z86.73 PRSNL HX OF TIA (TIA), AND CEREB INFRC W 10/08/2018 MARLIN ALLRED MD Ot G93.40 ENCEPHALOPATHY, UNSPECIFIED 10/08/2018 MARLIN ALLRED MD Ot 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 10/08/2018 MARLIN ALLRED MD Ot 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 10/11/2018 TAVON EWING MD Ot E78 .5 HYPERLIPIDEMIA, UNSPECIFIED 10/11/2018 TAVON EWING MD Ot I10 ESSENTIAL (PRIMARY) HYPERTENSION 10/11/2018 TAVON EWING MD Ot I25.10 ATHSCL HEART DISEASE OF [place] CORONARY 10/11/2018 TAVON EWING MD Ot 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 INFARCTION 10/11/2018 TAVON EWING MD Ot R55 SYNCOPE AND COLLAPSE 10/11/2018 TAVON EWING MD Ot R79.89 OTHER SPECIFIED ABNORMAL FINDINGS OF BLO 10/11/2018 TAVON EWING MD Ot Z79.82 USP (CURRENT) USE OF ASPIRIN 10/11/2018 TAVON EWING MD Ot Z79.899 OTHER USP (CURRENT) DRUG THERAPY 10/11/2018 TAVON EWING MD Ot Z86.73 PRSNL HX OF TIA (TIA), AND CEREB INFRC W 10/11/2018 TAOVN EWING MD Ot E78 .5 HYPERLIPIDEMIA, UNSPECIFIED 10/11/2018 TAVON EWING MD Ot I10 ESSENTIAL (PRIMARY) HYPERTENSION 10/11/2018 TAVON EWING MD Ot I25.10 ATHSCL HEART DISEASE OF [place] CORONARY 10/11/2018 TAVON EWING MD Ot 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 INFARCTION 10/11/2018 TAVON EWING MD Ot R55 SYNCOPE AND COLLAPSE 10/11/2018 TAVON EWING MD Ot R79.89 OTHER SPECIFIED ABNORMAL FINDINGS OF BLO 10/11/2018 TAVON EWING MD Ot Z79.82 ELEVATOR INSTALLER APPRENTICE (CURRENT) USE OF ASPIRIN 10/11/2018 TAVON EWING MD Ot Z79.899 OTHER USP (CURRENT) DRUG THERAPY 10/11/2018 TAVON EWING MD Ot Z86.73 PRSNL HX OF TIA (TIA), AND CEREB INFRC W 10/16/2018 MARLIN ALLRED MD Ot G93.40 ENCEPHALOPATHY, UNSPECIFIED 10/16/2018 MARLIN ALLRED MD Ot 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 10/16/2018 MARLIN ALLRED MD Ot 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 11/25/2018 BRENDA MCGILL MD I10 ESSENTIAL (PRIMARY) HYPERTENSION 11/25/2018 BRENDA MCGILL MD I25.2 OLD MYOCARDIAL INFARCTION 11/25/2018 BRENDA MCGILL MD M54.5 LOW BACK PAIN 11/25/2018 BRENDA MCGILL MD W19.XXXA UNSPECIFIED FALL, INITIAL ENCOUNTER 11/25/2018 BRENDA MCGILL MD Z79.02 ELEVATOR INSTALLER APPRENTICE (CURRENT) USE OF ANTITHROMBOTI 11/25/2018 BRENDA MCGILL MD Z79.82 USP (CURRENT) USE OF ASPIRIN 11/25/2018 BRENDA MCGILL MD Z86.73 PRSNL HX OF TIA (TIA), AND CEREB INFRC W 12/02/2018 BRENDA MCGILL MD I10 ESSENTIAL (PRIMARY) HYPERTENSION 12/02/2018 BRENDA MCGILL MD I25.2 OLD MYOCARDIAL INFARCTION 12/02/2018 BRENDA MCGILL MD M54.5 LOW BACK PAIN 12/02/2018 BRENDA MCGILL MD W19.XXXA UNSPECIFIED FALL, INITIAL ENCOUNTER 12/02/2018 BRENDA MCGILL MD Z79.02 USP (CURRENT) USE OF ANTITHROMBOTI 12/02/2018 BRENDA MCGILL MD Z79.82 ELEVATOR INSTALLER APPRENTICE (CURRENT) USE OF ASPIRIN 12/02/2018 NANO HAMMOND, BRENDA mccloud Z86.73 PRSNL HX OF TIA (TIA), AND CEREB INFRC W 12/03/2018 STEIN DO, EMILY Ot I10 ESSENTIAL (PRIMARY) HYPERTENSION 12/03/2018 STEIN DO, EMILY Ot I25.2 OLD MYOCARDIAL INFARCTION 12/03/2018 STEIN DO, EMILY Ot M10.9 GOUT, UNSPECIFIED 12/03/2018 STEIN DO, EMILY Ot M54.5 LOW BACK PAIN 12/03/2018 STEIN DO, EMILY Ot N30.00 ACUTE CYSTITIS WITHOUT HEMATURIA 12/03/2018 STEIN DO, EMILY Ot S79.91 1A UNSPECIFIED INJURY OF RIGHT HIP, INITIAL 12/03/2018 STEIN DO, EMILY Ot W19.XX XA UNSPECIFIED FALL, INITIAL ENCOUNTER 12/03/2018 STEIN DO, EMILY Ot Z79.02 ELEVATOR INSTALLER APPRENTICE (CURRENT) USE OF ANTITHROMBOTI 12/03/2018 STEIN DO, EMILY Ot Z86.73 PRSNL HX OF TIA (TIA), AND CEREB INFRC W 12/03/2018 STEIN DO, EMILY Ot I10 ESSENTIAL (PRIMARY) HYPERTENSION 12/03/2018 STEIN DO, EMILY Ot I25.2 OLD MYOCARDIAL INFARCTION 12/03/2018 STEIN DO, EMILY Ot 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 12/03/2018 STEIN DO, EMILY Ot K59.00 CONSTIPATION, UNSPECIFIED 12/03/2018 STEIN DO, EMILY Ot M10.9 GOUT, UNSPECIFIED 12/03/2018 STEIN DO, EMILY Ot M19.91 PRIMARY OSTEOARTHRITIS, UNSPECIFIED SITE 12/03/2018 STEIN DO, EMILY Ot M54.5 LOW BACK PAIN 12/03/2018 STEIN DO, EMILY Ot N30.00 ACUTE CYSTITIS WITHOUT HEMATURIA 12/03/2018 STEIN DO, EMILY Ot S79.91 1A UNSPECIFIED INJURY OF RIGHT HIP, INITIAL 12/03/2018 STEIN DO, EMILY Ot W19.XX XA UNSPECIFIED FALL, INITIAL ENCOUNTER 12/03/2018 STEIN DO, EMILY Ot Z79.02 ELEVATOR INSTALLER APPRENTICE (CURRENT) USE OF ANTITHROMBOTI 12/03/2018 STEIN DO, EMILY Ot Z86.73 PRSNL HX OF TIA (TIA), AND CEREB INFRC W 12/04/2018 STEIN DO, EMILY Ot I10 ESSENTIAL (PRIMARY) HYPERTENSION 12/04/2018 STEIN DO, EMILY Ot I25.2 OLD MYOCARDIAL INFARCTION 12/04/2018 STEIN DO, EMILY Ot 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 12/04/2018 STEIN DO, EMILY Ot K59.00 CONSTIPATION, UNSPECIFIED 12/04/2018 STEIN DO, EMILY Ot M10.9 GOUT, UNSPECIFIED 12/04/2018 STEIN DO, EMILY Ot M19.91 PRIMARY OSTEOARTHRITIS, UNSPECIFIED SITE 12/04/2018 STEIN DO, EMILY Ot M54.5 LOW BACK PAIN 12/04/2018 STEIN DO, EMILY Ot N30.00 ACUTE CYSTITIS WITHOUT HEMATURIA 12/04/2018 STEIN DO, EMILY Ot S79.91 1A UNSPECIFIED INJURY OF RIGHT HIP, INITIAL 12/04/2018 STEIN DO, EMILY Ot W19.XX XA UNSPECIFIED FALL, INITIAL ENCOUNTER 12/04/2018 EMIL DO EMILY Ot Z79.02 USP (CURRENT) USE OF ANTITHROMBOTI 12/04/2018 EMIL DO, EMILY Ot Z86.73 PRSNL HX OF TIA (TIA), AND CEREB INFRC W 12/04/2018 STEIN DO, EMILY Ot I10 ESSENTIAL (PRIMARY) HYPERTENSION 12/04/2018 STEIN DO, EMILY Ot I25.2 OLD MYOCARDIAL INFARCTION 12/04/2018 STEIN DO, EMILY Ot 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 12/04/2018 STEIN DO, EMILY Ot K59.00 CONSTIPATION, UNSPECIFIED 12/04/2018 STEIN DO, EMILY Ot M10.9 GOUT, UNSPECIFIED 12/04/2018 STEIN DO, EMILY Ot M19.91 PRIMARY OSTEOARTHRITIS, UNSPECIFIED SITE 12/04/2018 STEIN DO, EMILY Ot M54.5 LOW BACK PAIN 12/04/2018 STEIN DO, EMILY Ot N30.00 ACUTE CYSTITIS WITHOUT HEMATURIA 12/04/2018 STEIN DO, EMILY Ot S79.91 1A UNSPECIFIED INJURY OF RIGHT HIP, INITIAL 12/04/2018 STEIN DO, EMILY Ot W19.XX XA UNSPECIFIED FALL, INITIAL ENCOUNTER 12/04/2018 EMILY STEIN DO, Ot Z79.02 ELEVATOR INSTALLER APPRENTICE (CURRENT) USE OF ANTITHROMBOTI 12/04/2018 EMILY STEIN DO, Ot Z86.73 PRSNL HX OF TIA (TIA), AND CEREB INFRC W 01/13/2019 MARLIN ALLRED MD, Ot J44.9 CHRONIC OBSTRUCTIVE PULMONARY DISEASE, U 01/20/2019 MARLIN ALLRED MD, Ot G93.40 ENCEPHALOPATHY, UNSPECIFIED 01/20/2019 MARLIN ALLRED MD, Ot 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 01/20/2019 MARLIN ALLRED MD, Ot 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 01/20/2019 MARLIN ALLRED MD, Ot J44.9 CHRONIC OBSTRUCTIVE PULMONARY DISEASE, U 01/20/2019 MARLIN ALLRED MD, Ot R73.09 OTHER ABNORMAL GLUCOSE 01/22/2019 MARLIN ALLRED MD, Ot N28.1 CYST OF KIDNEY, ACQUIRED 01/22/2019 MARLIN ALLRED MD, Ot R73.09 OTHER ABNORMAL GLUCOSE 01/22/2019 MARLIN ALLRED MD, Ot R74.8 ABNORMAL LEVELS OF OTHER SERUM ENZYMES 01/29/2019 MARLIN ALLRED MD, Ot J44.9 CHRONIC OBSTRUCTIVE PULMONARY DISEASE, U 01/30/2019 MARLIN ALLRED MD, Ot G93.40 ENCEPHALOPATHY, UNSPECIFIED 01/30/2019 MARLIN ALLRED MD, Ot 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 01/30/2019 MARLIN ALLRED MD, Ot 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 01/30/2019 MARLIN ALLRED MD, Ot J44.9 CHRONIC OBSTRUCTIVE PULMONARY DISEASE, U 01/30/2019 MARLIN ALLRED MD, Ot N28.1 CYST OF KIDNEY, ACQUIRED 01/30/2019 MARLIN ALLRED MD, Ot R73.09 OTHER ABNORMAL GLUCOSE 01/30/2019 MARLIN ALLRED MD, Ot R74.8 ABNORMAL LEVELS OF OTHER SERUM ENZYMES 02/06/2019 MARLIN ALLRED MD, Ot J44.9 CHRONIC OBSTRUCTIVE PULMONARY DISEASE, U 02/13/2019 MARLIN ALLRED MD, Ot N28.1 CYST OF KIDNEY, ACQUIRED 02/13/2019 MARLIN ALLRED MD, Ot R73.09 OTHER ABNORMAL GLUCOSE 02/13/2019 MARLIN ALLRED MD, Ot R74.8 ABNORMAL LEVELS OF OTHER SERUM ENZYMES 02/19/2019 MARLIN ALLRED MD, Ot N28.1 CYST OF KIDNEY, ACQUIRED 02/19/2019 MARLIN ALLRED MD Ot R73.09 OTHER ABNORMAL GLUCOSE 02/19/2019 MARLIN ALLRED MD, Ot R74.8 ABNORMAL LEVELS OF OTHER SERUM ENZYMES 03/14/2019 REILLY TSE MD, Ot E78. 5 HYPERLIPIDEMIA, UNSPECIFIED 03/14/2019 REILLY TSE MD, Ot G89. 29 OTHER CHRONIC PAIN 03/14/2019 REILLY TSE MD, Ot I10 ESSENTIAL (PRIMARY) HYPERTENSION 03/14/2019 REILLY TSE MD, Ot I25. 10 ATHSCL HEART DISEASE OF [place] CORONARY 03/14/2019 REILLY TSE MD, Ot M10. 9 GOUT, UNSPECIFIED 03/14/2019 REILLY TSE MD, Ot M54. 9 DORSALGIA, UNSPECIFIED 03/14/2019 REILLY TSE MD, Ot N39. 0 URINARY TRACT INFECTION, SITE NOT SPECIF 03/14/2019 REILLY TSE MD, Ot R55 SYNCOPE AND COLLAPSE 03/14/2019 REILLY TSE MD, Ot Z79. 01 USP (CURRENT) USE OF ANTICOAGULANT 03/14/2019 REILLY TSE MD, Ot Z79. 82 ELEVATOR INSTALLER APPRENTICE (CURRENT) USE OF ASPIRIN 03/14/2019 REILLY TSE MD, Ot Z79.899 OTHER USP (CURRENT) DRUG THERAPY 03/14/2019 REILLY TSE MD, Ot Z86. 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 Results Test Result Range Complete blood count (CBC) with automate d white blood cell (WBC) differential - 10/06/18 12:25 Blood leukocytes automated count (number/volume) 8.1 10*3/uL 4.3-11.0 Blood erythrocytes automated count (number/volume) 3.93 10*6/uL 4.35-5.85 Venous blood hemoglobin measurement (mass/volume) 12.6 g/dL 11.5-16.0 Blood hematocrit (volume fraction) 39 % 35-52 Automated erythrocyte mean corpuscular volume 98 [ foz_us] 80-99 Automated erythrocyte mean corpuscular h emoglobin (mass per erythrocyte) 32 pg 25-34 Automated erythrocyte mean corpuscular h emoglobin concentration measurement (mass/volume) 33 g/dL 32-36 Automated erythrocyte distribution width ratio 14. 6 % 10.0- 14.5 Automated blood platelet count [...] 10*3 1.0-4.0 Blood monocytes automated count (number/volume) 1. 1 10*3 0.0-1.0 Automated eosinophil count 0.4 10*3/uL 0 .0-0.3 Automated blood basophil count (count/volume) 0.0 10*3/uL 0.0-0.1 PT panel in platelet poor plasma by coag ulation assay - 10/06/18 12:25 Prothrombin time (PT) in platelet poor plasma by coagu lation assay 15.1 s 12.2-14.7 INR in platelet poor plasma or blood by coagulation as say 1.1 0.8-1.4 Activated partial thromboplastin time (a PTT) in platelet poor plasma bycoagulation assay - 10/06/18 12:25 Activated partial thromboplastin time (a PTT) in platelet poor plasma bycoagulation assay 30 s 24-35 Comprehensive metabolic panel - 10/06/18 12:25 Serum or plasma sodium measurement (moles/volume) 140 mmol/L 135-145 Serum or plasma potassium measurement (moles/volume) 3.9 mmol/L 3.6-5.0 Serum or plasma chloride measurement (moles/volume) 105 mmol/L 98-107 Carbon dioxide 21 mmol/L 21-32 Serum or plasma anion gap determination (moles/volume) 14 mmol/L 5-14 Serum or plasma urea nitrogen measurement (mass/volume ) 20 mg/dL 7-18 Serum or plasma creatinine measurement (mass/volume) 0.56 mg/dL 0.60-1.30 Serum or plasma urea nitrogen/creatinine mass ratio 36 NRG Serum or plasma creatinine measurement w ith calculation of estimated glomerular filtration rate > NRG Serum or plasma glucose measurement (mass/volume) 142 mg/dL 70-105 Serum or plasma calcium measurement (mass/volume) 9.0 mg/dL 8.5-10.1 Serum or plasma total bilirubin measurement (mass/volu me) 0.7 mg/dL 0.1-1.0 Serum or plasma alkaline phosphatase josefina surement (enzymatic activity/volume) 135 U/L 40-136 Serum or plasma aspartate aminotransfera se measurement (enzymatic activity/volume) 82 U/L 5-34 Serum [...] 0.30 0.80-2.00 Serum or plasma troponin i.cardiac measu rement (mass/volume) - 10/06/18 18:10 Serum or plasma troponin i.cardiac measurement (mass/v olume) < ng/mL <0.028 Serum or plasma troponin i.cardiac measu rement (mass/volume) - 10/06/18 23:38 Serum or plasma troponin i.cardiac measurement (mass/v olume) < ng/mL <0.028 Complete blood count (CBC) with automate d white blood cell (WBC) differential - 10/07/18 05:20 Blood leukocytes automated count (number/volume) 6.1 10*3/uL 4.3-11.0 Blood erythrocytes automated count (number/volume) 3.57 10*6/uL 4.35-5.85 Venous blood hemoglobin measurement (mass/volume) 11.4 g/dL 11.5-16.0 Blood hematocrit (volume fraction) 34 % 35-52 Automated erythrocyte mean corpuscular volume 94 [ foz_us] 80-99 Automated erythrocyte mean corpuscular h emoglobin (mass per erythrocyte) 32 pg 25-34 Automated erythrocyte mean corpuscular h emoglobin concentration measurement (mass/volume) 34 g/dL 32-36 Automated erythrocyte distribution width ratio 14. 3 % 10.0- 14.5 Automated blood platelet count (count/volume) 93 1 0*3/uL 130-400 Automated blood platelet mean volume measurement [...] 10*3 1.0-4.0 Blood monocytes automated count (number/volume) 0. 7 10*3 0.0-1.0 Automated eosinophil count 0.3 10*3/uL 0 .0-0.3 Automated blood basophil count (count/volume) 0.0 10*3/uL 0.0-0.1 Comprehensive metabolic panel - 06/03/19 05:20 Serum or plasma sodium measurement (moles/volume) 141 mmol/L 135-145 Serum or plasma potassium measurement (moles/volume) 3.9 mmol/L 3.6-5.0 Serum or plasma chloride measurement (moles/volume) 113 mmol/L 98-107 Carbon dioxide 23 mmol/L 21-32 Serum or plasma anion gap determination (moles/volume) 5 mmol/L 5-14 Serum or plasma urea nitrogen measurement (mass/volume ) 17 mg/dL 7-18 Serum or plasma creatinine measurement (mass/volume) 0.78 mg/dL 0.60-1.30 Serum or plasma urea nitrogen/creatinine mass ratio 22 NRG Serum or plasma creatinine measurement w ith calculation of estimated glomerular filtration rate > NRG Serum or plasma glucose measurement (mass/volume) 91 mg/dL 70-105 Serum or plasma calcium measurement (mass/volume) 8.5 mg/dL 8.5-10.1 Serum or plasma total bilirubin measurement (mass/volu me) 0.9 mg/dL 0.1-1.0 Serum or plasma alkaline phosphatase josefina surement (enzymatic activity/volume) 118 U/L 40-136 Serum or plasma aspartate aminotransfera se measurement (enzymatic activity/volume) 75 U/L 5-34 Serum or plasma alanine aminotransferase measurement (enzymatic activity/volume) 52 U/L 0-55 Serum or plasma protein measurement (mass/volume) 5.9 g/dL 6.4-8.2 Serum or plasma albumin measurement (mass/volume) 2.8 g/dL 3.2-4.5 CALCIUM CORRECTED 9.5 mg/dL 8.5-10.1 Complete urinalysis with reflex to cultu re - 11/25/18 12:25 Urine color determination YELLOW NRG Urine clarity determination CLOUDY NR G Urine pH measurement by test strip 8.0 5-9 Specific gravity of urine by test strip 1.015 1.016-1.022 Urine protein assay by test strip, semi-quantitative NEGATIVE NEGATIVE Urine glucose detection by automated test strip NE GATIVE NEGATIVE Erythrocytes detection in urine sediment by light micr oscopy NEGATIVE NEGATIVE Urine ketones detection by automated test strip NE GATIVE NEGATIVE Urine nitrite detection by test strip POSITIVE NEGATIVE Urine total bilirubin detection by test strip NEGA TIVE NEGATIVE Urine urobilinogen measurement by automated test strip (mass/volume) 0.2 mg/dL NORMAL Urine leukocyte esterase detection by dipstick 2+ NEGATIVE Automated urine sediment erythrocyte cou nt by microscopy (number/high power field) NONE NRG Automated urine sediment leukocyte count by microscopy (number/high power field) [HPF] NRG Bacteria detection in urine sediment by light microsco py LARGE NRG Squamous epithelial cells detection in u rine sediment by light microscopy 0-2 NRG Crystals detection in urine sediment by light microsco py NONE NRG Casts detection in urine sediment by light microscopy NONE NRG Mucus detection in urine sediment by light microscopy NONE NRG Complete urinalysis with reflex to culture YES NRG Bacterial urine culture - 11/25/18 12:25 Bacterial urine culture [id number] NRG COLONY COUNT >100,000/ML NRG FTX;REPORTABLE SUSCEPTIBILITIES REPORTED [id number] NRG FREE TEXT ENTRY 2 ID REPORTED 11/26/18 17:05 NRG Dirithromycin susceptibility test by dis k diffusion - 11/25/18 12:25 Gentamicin susceptibility test by minimum inhibitory c oncentration <= NRG Trimethoprim/sulfamethoxazole susceptibi lity test by minimum inhibitoryconcentration <= NRG Levofloxacin susceptibility test by minimum inhibitory concentration <= NRG Ampicillin susceptibility test by minimum inhibitory c oncentration > NRG Cefazolin susceptibility test by minimum inhibitory co ncentration > NRG Ceftriaxone susceptibility test by minimum inhibitory concentration <= NRG Ciprofloxacin susceptibility test by minimum inhibitor y concentration <= NRG Meropenem susceptibility test by minimum inhibitory co ncentration <= NRG Nitrofurantoin susceptibility test by mi nimum inhibitory concentration 64 NRG Amoxicillin and clavulanate potassium susc RAYMUNDO > NRG Dirithromycin susceptibility test by dis k diffusion - 11/25/18 12:25 Gentamicin susceptibility test by minimum inhibitory c oncentration <= NRG Trimethoprim/sulfamethoxazole susceptibi lity test by minimum inhibitoryconcentration <= NRG Levofloxacin susceptibility test by minimum inhibitory concentration <= NRG Ampicillin susceptibility test by minimum inhibitory c oncentration R NRG Cefazolin susceptibility test by minimum inhibitory co ncentration > NRG Ceftriaxone susceptibility test by minimum inhibitory concentration <= NRG Ciprofloxacin susceptibility test by minimum inhibitor y concentration <= NRG Meropenem susceptibility test by minimum inhibitory co ncentration <= NRG Nitrofurantoin susceptibility test by mi nimum inhibitory concentration 64 NRG Amoxicillin and clavulanate potassium susc RAYMUNDO > NRG Complete urinalysis with reflex to cultu re - 11/28/18 15:05 Urine color determination YELLOW NRG Urine clarity determination CLEAR NR G Urine pH measurement by test strip 6.5 5-9 Specific gravity of urine by test strip 1.010 1.016-1.022 Urine protein assay by test strip, semi-quantitative NEGATIVE NEGATIVE Urine glucose detection by automated test strip NE GATIVE NEGATIVE Erythrocytes detection in urine sediment by light micr oscopy NEGATIVE NEGATIVE Urine ketones detection by automated test strip NE GATIVE NEGATIVE Urine nitrite detection by test strip NEGATIVE NEGATIVE Urine total bilirubin detection by test strip NEGA TIVE NEGATIVE Urine urobilinogen measurement by automated test strip (mass/volume) 4 mg/dL NORMAL Urine leukocyte esterase detection by dipstick 1+ NEGATIVE Automated urine sediment erythrocyte cou nt by microscopy (number/high power field) RARE NRG Automated urine sediment leukocyte count by microscopy (number/high power field) RARE NRG Bacteria detection in urine sediment by light microsco py TRACE NRG Crystals detection in urine sediment by light microsco py NONE NRG Casts detection in urine sediment by light microscopy NONE NRG Mucus detection in urine sediment by light microscopy NEGATIVE NRG Complete urinalysis with reflex to culture NO NRG Renal epithelial cells detection in urin e sediment by light microscopy RARE NRG Bacterial urine culture - 11/28/18 15:05 Bacterial urine culture 3 OR MORE NRG COLONY COUNT 40,000 CFU/ML NRG FTX;REPORTABLE SUGGESTING PROBABLE COLLECTION NRG FREE TEXT ENTRY 2 CONTAMINATION WITH SKIN JOHN NRG FREE TEXT ENTRY 3 NO SUSCEPTIBILITY PERFORMED NRG Complete blood count (CBC) with automate d white blood cell (WBC) differential - 11/28/18 16:15 Blood leukocytes automated count (number/volume) 8.2 10*3/uL 4.3-11.0 Blood erythrocytes automated count (number/volume) 4.19 10*6/uL 4.35-5.85 Venous blood hemoglobin measurement (mass/volume) 13.4 g/dL 11.5-16.0 Blood hematocrit (volume fraction) 40 % 35-52 Automated erythrocyte mean corpuscular volume 96 [ foz_us] 80-99 Automated erythrocyte mean corpuscular h emoglobin (mass per erythrocyte) 32 pg 25-34 Automated erythrocyte mean corpuscular h emoglobin concentration measurement (mass/volume) 34 g/dL 32-36 Automated erythrocyte distribution width ratio 14. 4 % 10.0- 14.5 Automated blood platelet count [...] 10*3 1.0-4.0 Blood monocytes automated count (number/volume) 1. 3 10*3 0.0-1.0 Automated eosinophil count 0.4 10*3/uL 0 .0-0.3 Automated blood basophil count (count/volume) 0.0 10*3/uL 0.0-0.1 Blood lactic acid measurement (moles/vol ume) - 11/28/18 16:15 Blood lactic acid measurement (moles/volume) 1.82 mmol/L 0.50-2.00 Comprehensive metabolic panel - 11/28/18 16:15 Serum or plasma sodium measurement (moles/volume) 136 mmol/L 135-145 Serum or plasma potassium measurement (moles/volume) 4.7 mmol/L 3.6-5.0 Serum or plasma chloride measurement (moles/volume) 107 mmol/L 98-107 Carbon dioxide 20 mmol/L 21-32 Serum or plasma anion gap determination (moles/volume) 9 mmol/L 5-14 Serum or plasma urea nitrogen measurement (mass/volume ) 20 mg/dL 7-18 Serum or plasma creatinine measurement (mass/volume) 0.86 mg/dL 0.60-1.30 Serum or plasma urea nitrogen/creatinine mass ratio 23 NRG Serum or plasma creatinine measurement w ith calculation of estimated glomerular filtration rate > NRG Serum or plasma glucose measurement (mass/volume) 88 mg/dL 70-105 Serum or plasma calcium measurement (mass/volume) 9.5 mg/dL 8.5-10.1 Serum or plasma total bilirubin measurement (mass/volu me) 1.0 mg/dL 0.1-1.0 Serum or plasma alkaline phosphatase josefina surement (enzymatic activity/volume) 162 U/L 40-136 Serum or plasma aspartate aminotransfera se measurement (enzymatic activity/volume) 108 U/L 5-34 Serum or plasma alanine aminotransferase measurement (enzymatic activity/volume) 59 U/L 0-55 Serum or plasma protein measurement (mass/volume) 7.8 g/dL 6.4-8.2 Serum or plasma albumin measurement (mass/volume) 3.4 g/dL 3.2-4.5 CALCIUM CORRECTED 10.0 mg/dL 8.5-10.1 PT panel in platelet poor plasma by coag ulation assay - 11/28/18 16:15 Prothrombin time (PT) in platelet poor plasma by coagu lation assay 15.0 s 12.2-14.7 INR in platelet poor plasma or blood by coagulation as say 1.1 0.8-1.4 Activated partial thromboplastin time (a PTT) in platelet poor plasma bycoagulation assay - 11/28/18 16:15 Activated partial thromboplastin time (a PTT) in platelet poor plasma bycoagulation assay 32 s 24-35 Bacterial blood culture - 11/28/18 16:15 Bacterial blood culture NG NRG Bacterial blood culture - 11/28/18 16:44 Bacterial blood culture NG NRG Complete blood count (CBC) with automate d white blood cell (WBC) differential - 11/29/18 05:43 Blood leukocytes automated count (number/volume) 5.7 10*3/uL 4.3-11.0 Blood erythrocytes automated count (number/volume) 3.91 10*6/uL 4.35-5.85 Venous blood hemoglobin measurement (mass/volume) 12.3 g/dL 11.5-16.0 Blood hematocrit (volume fraction) 37 % 35-52 Automated erythrocyte mean corpuscular volume 95 [ foz_us] 80-99 Automated erythrocyte mean corpuscular h emoglobin (mass per erythrocyte) 31 pg 25-34 Automated erythrocyte mean corpuscular h emoglobin concentration measurement (mass/volume) 33 g/dL 32-36 Automated erythrocyte distribution width ratio 13. 9 % 10.0- 14.5 Automated blood platelet count (count/volume) 109 10*3/uL 130-400 Automated blood platelet mean volume measurement 12.0 [foz_us] 7.4-10.4 Automated blood neutrophils/100 leukocytes 42 % 42-75 Automated blood lymphocytes/100 leukocytes 35 % 12-44 Blood monocytes/100 leukocytes 17 % 0-12 Automated blood eosinophils/100 leukocytes 6 % 0-10 Automated blood basophils/100 leukocytes 0 % 0-10 Blood neutrophils automated count (number/volume) 2.4 10*3 1.8-7.8 Blood lymphocytes automated count (number/volume) 2.0 10*3 1.0-4.0 Blood monocytes automated count (number/volume) 1. 0 10*3 0.0-1.0 Automated eosinophil count 0.4 10*3/uL 0 .0-0.3 Automated blood basophil count (count/volume) 0.0 10*3/uL 0.0-0.1 Comprehensive metabolic panel - 11/29/18 05:43 Serum or plasma sodium measurement (moles/volume) 140 mmol/L 135-145 Serum or plasma potassium measurement (moles/volume) 4.1 mmol/L 3.6-5.0 Serum or plasma chloride measurement (moles/volume) 111 mmol/L 98-107 Carbon dioxide 20 mmol/L 21-32 Serum or plasma anion gap determination (moles/volume) 9 mmol/L 5-14 Serum or plasma urea nitrogen measurement (mass/volume ) 19 mg/dL 7-18 Serum or plasma creatinine measurement (mass/volume) 0.82 mg/dL 0.60-1.30 Serum or plasma urea nitrogen/creatinine mass ratio 23 NRG Serum or plasma creatinine measurement w ith calculation of estimated glomerular filtration rate > NRG Serum or plasma glucose measurement (mass/volume) 90 mg/dL 70-105 Serum or plasma calcium measurement (mass/volume) 8.9 mg/dL 8.5-10.1 Serum or plasma total bilirubin measurement (mass/volu me) 1.1 mg/dL 0.1-1.0 Serum or plasma alkaline phosphatase josefina surement (enzymatic activity/volume) 151 U/L 40-136 Serum or plasma aspartate aminotransfera se measurement (enzymatic activity/volume) 89 U/L 5-34 Serum or plasma alanine aminotransferase measurement (enzymatic activity/volume) 51 U/L 0-55 Serum or plasma protein measurement (mass/volume) 6.6 g/dL 6.4-8.2 Serum or plasma albumin measurement (mass/volume) 3.0 g/dL 3.2-4.5 CALCIUM CORRECTED 9.7 mg/dL 8.5-10.1 Hemoglobin A1c measurement - 01/20/19 09 :51 Blood hemoglobin A1C measurement (mass/volume) 5.8 % 4.0-5.6 MEAN BLOOD GLUCOSE 120 % <=126 Complete urinalysis with reflex to cultu re - 01/30/19 09:30 Urine color determination YELLOW NRG Urine clarity determination CLOUDY NR G Urine pH measurement by test strip 7.5 5-9 Specific gravity of urine by test strip 1.015 1.016-1.022 Urine protein assay by test strip, semi-quantitative 1+ NEGATIVE Urine glucose detection by automated test strip TR DONN NEGATIVE Erythrocytes detection in urine sediment by light micr oscopy 2+ NEGATIVE Urine ketones detection by automated test strip NE GATIVE NEGATIVE Urine nitrite detection by test strip POSITIVE NEGATIVE Urine total bilirubin detection by test strip NEGA TIVE NEGATIVE Urine urobilinogen measurement by automated test strip (mass/volume) 1.0 mg/dL NORMAL Urine leukocyte esterase detection by dipstick 3+ NEGATIVE Automated urine sediment erythrocyte cou nt by microscopy (number/high power field) [HPF] NRG Automated urine sediment leukocyte count by microscopy (number/high power field) > [HPF] NRG Bacteria detection in urine sediment by light microsco py LARGE NRG Squamous epithelial cells detection in u rine sediment by light microscopy NONE NRG Crystals detection in urine sediment by light microsco py NONE NRG Casts detection in urine sediment by light microscopy NONE NRG Mucus detection in urine sediment by light microscopy NEGATIVE NRG Complete urinalysis with reflex to culture YES NRG Bacterial urine culture - 01/30/19 09:30 Bacterial urine culture [id number] NRG COLONY COUNT >100,000/ML NRG FTX;REPORTABLE SUSCEPTIBILITY REPORTED 02-01-19, NRG Dirithromycin susceptibility test by dis k diffusion - 01/30/19 09:30 Gentamicin susceptibility test by minimum inhibitory c oncentration <= NRG Trimethoprim/sulfamethoxazole susceptibi lity test by minimum inhibitoryconcentration <= NRG Levofloxacin susceptibility test by minimum inhibitory concentration <= NRG Ampicillin susceptibility test by minimum inhibitory c oncentration > NRG Cefazolin susceptibility test by minimum inhibitory co ncentration 2 NRG Ceftriaxone susceptibility test by minimum inhibitory concentration <= NRG Ciprofloxacin susceptibility test by minimum inhibitor y concentration <= NRG Meropenem susceptibility test by minimum inhibitory co ncentration <= NRG Nitrofurantoin susceptibility test by mi nimum inhibitory concentration <= NRG Amoxicillin and clavulanate potassium susc RAYMUNDO = NRG TSH w/ FREE T4 - 02/04/19 16:04 TSH 2.26 mIU/L 0.40-4.50 T4, FREE 1.5 ng/dL 0.8-1.8 MICROALBUMIN/CREATININE RATIO, URINE - 1 16:04 CREATININE, RANDOM URINE 133 mg/dL 20-27 5 MICROALBUMIN 21.1 mg/dL See Note: MICROALBUMIN/CREATININE RATIO, RANDOM URINE 159 mcg/mg creat <30 CMP - 02/04/19 16:04 GLUCOSE 144 mg/dL 65-139 UREA NITROGEN (BUN) 23 mg/dL 7-25 CREATININE 1.02 mg/dL 0.60-0.88 eGFR NON-AFR. MICRONESIAN 49 mL/min/1.73m2 > OR = 60 eGFR 57 mL/min/1.73m2 > OR = 60 BUN/CREATININE RATIO 23 (calc) 6-22 SODIUM 138 mmol/L 135-146 POTASSIUM 4.8 mmol/L 3.5-5.3 CHLORIDE 103 mmol/L 98-110 CARBON DIOXIDE 26 mmol/L 20-32 CALCIUM 9.2 mg/dL 8.6-10.4 PROTEIN, TOTAL 7.1 g/dL 6.1-8.1 ALBUMIN 3.4 g/dL 3.6-5.1 GLOBULIN 3.7 g/dL (calc) 1.9-3.7 ALBUMIN/GLOBULIN RATIO 0.9 (calc) 1.0-2. 5 BILIRUBIN, TOTAL 0.9 mg/dL 0.2-1.2 ALKALINE PHOSPHATASE 199 U/L 33-130 AST 90 U/L 10-35 ALT 60 U/L 6-29 A1C - 02/04/19 16:04 HEMOGLOBIN A1c 5.8 % of total Hgb <5.7 Complete blood count (CBC) with automate d white blood cell (WBC) differential - 03/12/19 11:30 Blood leukocytes automated count (number/volume) 11.0 10*3/uL 4.3-11.0 Blood erythrocytes automated count (number/volume) 4.06 10*6/uL 4.35-5.85 Venous blood hemoglobin measurement (mass/volume) 12.5 g/dL 11.5-16.0 Blood hematocrit (volume fraction) 38 % 35-52 Automated erythrocyte mean corpuscular volume 94 [ foz_us] 80-99 Automated erythrocyte mean corpuscular h emoglobin (mass per erythrocyte) 31 pg 25-34 Automated erythrocyte mean corpuscular h emoglobin concentration measurement (mass/volume) 33 g/dL 32-36 Automated erythrocyte distribution width ratio 13. 9 % 10.0- 14.5 Automated blood platelet count (count/volume) 193 10*3/uL 130-400 Automated blood platelet mean volume measurement 11.5 [foz_us] 7.4-10.4 Automated blood neutrophils/100 leukocytes 43 % 42-75 Automated blood lymphocytes/100 leukocytes 35 % 12-44 Blood monocytes/100 leukocytes 14 % 0-12 Automated blood eosinophils/100 leukocytes 7 % 0-10 Automated blood basophils/100 leukocytes 1 % 0-10 Blood neutrophils automated count (number/volume) 4.7 10*3 1.8-7.8 Blood lymphocytes automated count (number/volume) 3.8 10*3 1.0-4.0 Blood monocytes automated count (number/volume) 1. 5 10*3 0.0-1.0 Automated eosinophil count 0.8 10*3/uL 0 .0-0.3 Automated blood basophil count (count/volume) 0.1 10*3/uL 0.0-0.1 Blood lactic acid measurement (moles/vol ume) - 03/12/19 11:30 Blood lactic acid measurement (moles/volume) 2.13 mmol/L 0.50-2.00 Comprehensive metabolic panel - 03/12/19 11:30 Serum or plasma sodium measurement (moles/volume) 138 mmol/L 135-145 Serum or plasma potassium measurement (moles/volume) 4.4 mmol/L 3.6-5.0 Serum or plasma chloride measurement (moles/volume) 106 mmol/L 98-107 Carbon dioxide 20 mmol/L 21-32 Serum or plasma anion gap determination (moles/volume) 12 mmol/L 5-14 Serum or plasma urea nitrogen measurement (mass/volume ) 17 mg/dL 7-18 Serum or plasma creatinine measurement (mass/volume) 0.85 mg/dL 0.60-1.30 Serum or plasma urea nitrogen/creatinine mass ratio 20 NRG Serum or plasma creatinine measurement w ith calculation of estimated glomerular filtration rate > NRG Serum or plasma glucose measurement (mass/volume) 128 mg/dL 70-105 Serum or plasma calcium measurement (mass/volume) 9.0 mg/dL 8.5-10.1 Serum or plasma total bilirubin measurement (mass/volu me) 0.9 mg/dL 0.1-1.0 Serum or plasma alkaline phosphatase josefina surement (enzymatic activity/volume) 230 U/L 40-136 Serum or plasma aspartate aminotransfera se measurement (enzymatic activity/volume) 123 U/L 5-34 Serum or plasma alanine aminotransferase measurement (enzymatic activity/volume) 63 U/L 0-55 Serum or plasma protein measurement (mass/volume) 7.4 g/dL 6.4-8.2 Serum or plasma albumin measurement (mass/volume) 3.4 g/dL 3.2-4.5 CALCIUM CORRECTED 9.5 mg/dL 8.5-10.1 TROPONIN I FS - 03/12/19 11:30 TROPONIN I FS < 0.30 <0.30 PT panel in platelet poor plasma by coag ulation assay - 03/12/19 11:30 Prothrombin time (PT) in platelet poor plasma by coagu lation assay 14.8 s 12.2-14.7 INR in platelet poor plasma or blood by coagulation as say 1.1 0.8-1.4 Activated partial thromboplastin time (a PTT) in platelet poor plasma bycoagulation assay - 03/12/19 11:30 Activated partial thromboplastin time (a PTT) in platelet poor plasma bycoagulation assay 28 s 24-35 Serum or plasma lactate measurement (mol es/volume) - 03/12/19 13:30 Serum or plasma lactate measurement (moles/volume) 1.44 mmol/L 0.50-2.00 Complete urinalysis with reflex to cultu re - 03/12/19 13:50 Urine color determination YELLOW NRG Urine clarity determination CLOUDY NR G Urine pH measurement by test strip 6.0 5-9 Specific gravity of urine by test strip 1.015 1.016-1.022 Urine protein assay by test strip, semi-quantitative NEGATIVE NEGATIVE Urine glucose detection by automated test strip NE GATIVE NEGATIVE Erythrocytes detection in urine sediment by light micr oscopy NEGATIVE NEGATIVE Urine ketones detection by automated test strip TR DONN NEGATIVE Urine nitrite detection by test strip POSITIVE NEGATIVE Urine total bilirubin detection by test strip 1+ NEGATIVE Urine urobilinogen measurement by automated test strip (mass/volume) 1.0 mg/dL NORMAL Urine leukocyte esterase detection by dipstick 2+ NEGATIVE Automated urine sediment erythrocyte cou nt by microscopy (number/high power field) NONE NRG Automated urine sediment leukocyte count by microscopy (number/high power field) > [HPF] NRG Bacteria detection in urine sediment by light microsco py LARGE NRG Crystals detection in urine sediment by light microsco py NONE NRG Casts detection in urine sediment by light microscopy NONE NRG Mucus detection in urine sediment by light microscopy NEGATIVE NRG Complete urinalysis with reflex to culture YES NRG Bacterial urine culture - 03/12/19 13:50 Bacterial urine culture [id number] NRG COLONY COUNT >100,000/ML NRG FTX;REPORTABLE SUSCEPTIBILITY REPORTED 03/15 10:20 NRG Dirithromycin susceptibility test by dis k diffusion - 03/12/19 13:50 Gentamicin susceptibility test by minimum inhibitory c oncentration <= NRG Trimethoprim/sulfamethoxazole susceptibi lity test by minimum inhibitoryconcentration <= NRG Levofloxacin susceptibility test by minimum inhibitory concentration <= NRG Ampicillin susceptibility test by minimum inhibitory c oncentration > NRG Cefazolin susceptibility test by minimum inhibitory co ncentration 16 NRG Ceftriaxone susceptibility test by minimum inhibitory concentration <= NRG Ciprofloxacin susceptibility test by minimum inhibitor y concentration <= NRG Meropenem susceptibility test by minimum inhibitory co ncentration <= NRG Nitrofurantoin susceptibility test by mi nimum inhibitory concentration 32 NRG Amoxicillin and clavulanate potassium susc RAYMUNDO = NRG Complete blood count (CBC) with automate d white blood cell (WBC) differential - 03/13/19 02:54 Blood leukocytes automated count (number/volume) 7.2 10*3/uL 4.3-11.0 Blood erythrocytes automated count (number/volume) 3.34 10*6/uL 4.35-5.85 Venous blood hemoglobin measurement (mass/volume) 10.1 g/dL 11.5-16.0 Blood hematocrit (volume fraction) 31 % 35-52 Automated erythrocyte mean corpuscular volume 94 [ foz_us] 80-99 Automated erythrocyte mean corpuscular h emoglobin (mass per erythrocyte) 30 pg 25-34 Automated erythrocyte mean corpuscular h emoglobin concentration measurement (mass/volume) 32 g/dL 32-36 Automated erythrocyte distribution width ratio 14. 2 % 10.0- 14.5 Automated blood platelet count (count/volume) 127 10*3/uL 130-400 Automated blood platelet mean volume measurement 11.9 [foz_us] 7.4-10.4 Automated blood neutrophils/100 leukocytes 40 % 42-75 Automated blood lymphocytes/100 leukocytes 41 % 12-44 Blood monocytes/100 leukocytes 14 % 0-12 Automated blood eosinophils/100 leukocytes 5 % 0-10 Automated blood basophils/100 leukocytes 0 % 0-10 Blood neutrophils automated count (number/volume) 2.9 10*3 1.8-7.8 Blood lymphocytes automated count (number/volume) 2.9 10*3 1.0-4.0 Blood monocytes automated count (number/volume) 1. 0 10*3 0.0-1.0 Automated eosinophil count 0.4 10*3/uL 0 .0-0.3 Automated blood basophil count (count/volume) 0.0 10*3/uL 0.0-0.1 Comprehensive metabolic panel - 03/13/19 02:54 Serum or plasma sodium measurement (moles/volume) 140 mmol/L 135-145 Serum or plasma potassium measurement (moles/volume) 4.2 mmol/L 3.6-5.0 Serum or plasma chloride measurement (moles/volume) 112 mmol/L 98-107 Carbon dioxide 21 mmol/L 21-32 Serum or plasma anion gap determination (moles/volume) 7 mmol/L 5-14 Serum or plasma urea nitrogen measurement (mass/volume ) 20 mg/dL 7-18 Serum or plasma creatinine measurement (mass/volume) 0.85 mg/dL 0.60-1.30 Serum or plasma urea nitrogen/creatinine mass ratio 24 NRG Serum or plasma creatinine measurement w ith calculation of estimated glomerular filtration rate > NRG Serum or plasma glucose measurement (mass/volume) 90 mg/dL 70-105 Serum or plasma calcium measurement (mass/volume) 8.6 mg/dL 8.5-10.1 Serum or plasma total bilirubin measurement (mass/volu me) 0.7 mg/dL 0.1-1.0 Serum or plasma alkaline phosphatase josefina surement (enzymatic activity/volume) 176 U/L 40-136 Serum or plasma aspartate aminotransfera se measurement (enzymatic activity/volume) 93 U/L 5-34 Serum or plasma alanine aminotransferase measurement (enzymatic activity/volume) 53 U/L 0-55 Serum or plasma protein measurement (mass/volume) 5.8 g/dL 6.4-8.2 Serum or plasma albumin measurement (mass/volume) 2.6 g/dL 3.2-4.5 CALCIUM CORRECTED 9.7 mg/dL 8.5-10.1 Magnesium - 03/13/19 02:54 Magnesium 1.9 mg/dL 1.6-2.4 THYROID STIMULATING HORMONE - 03/13/19 0 2:54 THYROID STIMULATING HORMONE 0.53 u[iU]/mL 0.35-4.94 Blood CBC with ordered manual differenti al panel - 03/14/19 03:35 Blood leukocytes automated count (number/volume) 7.2 10*3/uL 4.3-11.0 Blood erythrocytes automated count (number/volume) 3.86 10*6/uL 4.35-5.85 Venous blood hemoglobin measurement (mass/volume) 11.8 g/dL 11.5-16.0 Blood hematocrit (volume fraction) 36 % 35-52 Automated erythrocyte mean corpuscular volume 94 [ foz_us] 80-99 Automated erythrocyte mean corpuscular h emoglobin (mass per erythrocyte) 31 pg 25-34 Automated erythrocyte mean corpuscular h emoglobin concentration measurement (mass/volume) 33 g/dL 32-36 Automated erythrocyte distribution width ratio 14. 0 % 10.0- 14.5 Automated blood platelet count (count/volume) 123 10*3/uL 130-400 Automated blood platelet mean volume measurement 11.9 [foz_us] 7.4-10.4 Automated blood neutrophils/100 leukocytes 42 % 42-75 Automated blood lymphocytes/100 leukocytes 35 % 12-44 Blood monocytes/100 leukocytes 7 % NRG Automated blood eosinophils/100 leukocytes 9 % 0-10 Automated blood basophils/100 leukocytes 1 % 0-10 Blood neutrophils automated count (number/volume) 3.0 10*3 1.8-7.8 Blood lymphocytes automated count (number/volume) 2.5 10*3 1.0-4.0 Blood monocytes automated count (number/volume) 1. 0 10*3 0.0-1.0 Automated eosinophil count 0.7 10*3/uL 0 .0-0.3 Automated blood basophil count (count/volume) 0.0 10*3/uL 0.0-0.1 Manual blood segmented neutrophils/100 leukocytes 40 % NRG Manual blood lymphocytes/100 leukocytes 42 % NRG Manual eosinophils/100 leukocytes in nose 11 % NRG Whole blood basic metabolic panel - 12/23 03:35 Serum or plasma sodium measurement (moles/volume) 139 mmol/L 135-145 Serum or plasma potassium measurement (moles/volume) 4.1 mmol/L 3.6-5.0 Serum or plasma chloride measurement (moles/volume) 108 mmol/L 98-107 Carbon dioxide 23 mmol/L 21-32 Serum or plasma anion gap determination (moles/volume) 8 mmol/L 5-14 Serum or plasma urea nitrogen measurement (mass/volume ) 20 mg/dL 7-18 Serum or plasma creatinine measurement (mass/volume) 0.92 mg/dL 0.60-1.30 Serum or plasma urea nitrogen/creatinine mass ratio 22 NRG Serum or plasma creatinine measurement w ith calculation of estimated glomerular filtration rate 58 NRG Serum or plasma glucose measurement (mass/volume) 112 mg/dL 70-105 Serum or plasma calcium measurement (mass/volume) 8.8 mg/dL 8.5-10.1 Magnesium - 03/14/19 03:35 Magnesium 1.7 mg/dL 1.6-2.4 Lipid 1996 panel - 03/14/19 03:35 Serum or plasma triglyceride measurement (mass/volume) 80 mg/dL <150 Serum or plasma cholesterol measurement (mass/volume) 185 mg/dL < 200 Serum or plasma cholesterol in HDL measurement (mass/v olume) 39 mg/dL 40-60 Cholesterol in LDL [mass/volume] in serum or plasma by direct assay 135 mg/dL 1-129 Serum or plasma cholesterol in VLDL measurement (mass/ volume) 16 mg/dL 5-40 Encounters ACCT No. Visit Date/Time Discharge Status Pt. Type Provider Facility Loc./Unit Complaint [id number] 05/18/2019 10:50:00 05/18/2019 23:59: 59 [facility] Outpatient [facility] [id number] 02/04/2019 15:30:00 Document Registration [id number] 04/15/2019 08:12:00 23:59:59 CLS Outpatient ADRIAN ROSALES [facility] CARD SYNCOPE [id number] 03/12/2019 16:06:00 10:48:00 DIS Inpatient DEDRICK HAMMOND, REILLY Robins [facility] CSD SYNCOPAL EVENT WEAKNE SS [id number] 01/30/2019 11:40:00 23:59:59 CLS Outpatient MARLIN HINSON MD [facility] LAB FS R30.0 [id number] 01/20/2019 09:35:00 23:59:59 CLS Outpatient BRIGIDA HAMMOND, MARLIN cort[facility] RAD ELEVATED LIVER ENZYMES, EVELATED GLUCOSE [id number] 01/09/2019 12:33:00 23:59:59 CLS Outpatient BRIGIDA HAMMOND, MARLIN cortes [facility] RAD CHEST XR [id number] 12/01/2018 08:54:00 15:29:00 DIS Inpatient STEIN DO, EMILY V [facility] 4TH UTI,BACK PAIN [id number] 11/25/2018 10:26:00 13:45:00 DIS Emergency NANO HAMMOND, RENEE Ocasio [facility] ER FS FALL; LWR B ACK PAIN [id number] 10/06/2018 15:15:00 14:21:00 DIS Inpatient TAVON EWING MD [facility] 4TH SYNCOPE [id number] 09/16/2018 15:39:00 23:59:59 CLS Outpatient BRIGIDA HAMMOND, MARLIN cort[facility] RAD FOCAL DEFICIT/CEREBROVA SCULAR INS
--- NOTE | 2019-10-04 09:56 | ED Hip Pain/Injury ---
General Chief Complaint: Hip/Pelvic Problems Stated Complaint: RT HIP PAIN Nursing Triage Note: Patient reports right hip pain after falling in her kitchen at [facility]. Patient states she lost her balance and fell, denies any pain/injury other than right hip. States she has broken her right hip previously. Exam Limitations: no limitations History of Present Illness Date Seen by Provider: October 04, 2019 Time Seen by Provider: 09:30 Initial Comments Patient was in the kitchen today when she turned to get milk slipped and fell onto her right hip causing pain she did not hit her head there was no loss of consciousness she has no back elbow arm knee pain is localized only to the right hip. She was able to be assisted and was able to ambulate. Timing/Duration: just prior to arrival Location: hip (R) Method of Injury: fell Associated Symptoms: denies symptoms Allergies and Home Medications Allergies Coded Allergies: Sulfa (Sulfonamide Antibiotics) (Verified Allergy, Unknown, 10/04/19) carvedilol (Verified Allergy, Unknown, 10/04/19) ciprofloxacin (Verified Allergy, Unknown, 10/04/19) Home Medications Acetaminophen 325 Mg Tablet, 325 MG PO Q6H PRN for PAIN-MILD, (Reported) Aspirin 81 Mg Tablet.dr, 324 MG PO DAILY, (Reported) TAKES 4 (81MG) TABLETS Atorvastatin Calcium 40 Mg Tablet, 40 MG PO HS Prescribed by: REILLY TSE on 03/14/19912 Cephalexin 500 Mg Capsule, 500 MG PO BID Prescribed by: REILLY TSE on 03/14/19912 Cephalexin 500 Mg Capsule, 500 MG PO QID Prescribed by: LEDA CALLE on 10/04/19 1148 Clopidogrel Bisulfate 75 Mg Tablet, 75 MG PO DAILY, (Reported) Cyclobenzaprine HCl 5 Mg Tablet, 5 MG PO Q8H PRN for MUSCLE SPASMS, (Reported) Hydrocodone/Acetaminophen 1 Each Tablet, 1 EACH PO QID Prescribed by: LEDA CALLE on 10/04/19 1136 Isosorbide Mononitrate 60 Mg Tab, 60 MG PO DAILY, (Reported) Magnesium Hydroxide 400 Mg/5 Ml Oral.susp, 30 ML PO DAILY PRN for CONSTIPATION- 7TH LINE, (Reported) Ramipril 5 Mg Capsule, 5 MG PO DAILY Prescribed by: REILLY TSE on 03/14/19912 Patient Home Medication List Home Medication List Reviewed: Yes Review of Systems Constitutional: no symptoms reported EENTM: no symptoms reported Respiratory: no symptoms reported Cardiovascular: no symptoms reported Gastrointestinal: no symptoms reported Genitourinary: no symptoms reported Musculoskeletal: see HPI Skin: no symptoms reported Psychiatric/Neurological: No Symptoms Reported Past Gyxmsct-Uisvbb-Gmhltz Hx Past Med/Social Hx: Reviewed Nursing Past Med/Soc Hx Patient Social History 2nd Hand Smoke Exposure: No Recent Foreign Travel: No Contact w/Someone Who Travel: No Recent Infectious Disease Expo: No Recent Hopitalizations: No Immunizations Up To Date Date of Pneumonia Vaccine: Feb 25, 2019 Date of Influenza Vaccine: Feb 25, 2019 Seasonal Allergies Seasonal Allergies: No Past Medical History Surgeries: No Respiratory: No Cardiac: Yes Heart Attack, Hypertension Neurological: Yes Stroke Genitourinary: No Gastrointestinal: No Musculoskeletal: Yes Gout Endocrine: No HEENT: No Cancer: No Psychosocial: No Integumentary: No Blood Disorders: No Family Medical History No Pertinent Family Hx Physical Exam Vital Signs Vital Signs - First Documented 10/04/19 09:30 Temp 36.4 Pulse 71 Resp 24 B/P (MAP) 139/64 (89) Pulse Ox 98 O2 Delivery Room Air Capillary Refill : Less Than 3 Seconds Height, Weight, BMI Height: 5'4.00" Weight: 136lbs. 8.0oz. 61.012523mf; 23.00 BMI Method:Stated General Appearance: No Apparent Distress, WD/WN HEENT: PERRL/EOMI, Normal ENT Inspection, Moist Mucous Membranes Neck: Full Range of Motion, Normal Inspection, Non Tender, Supple Cardiovascular: Regular Rate, Rhythm, No Edema, No Gallop Respiratory: Chest Non Tender, Lungs Clear, Normal Breath Sounds, No Accessory Muscle Use, No Respiratory Distress Gastrointestinal: Normal Bowel Sounds, No Organomegaly, No Pulsatile Mass, Non Tender Back: Normal Inspection, No CVA Tenderness, No Vertebral Tenderness Extremity: Normal Capillary Refill, Normal Inspection, Normal Range of Motion, Non Tender, No Calf Tenderness Neurologic/Psychiatric: Alert, Oriented x3, No Motor/Sensory Deficits, Normal Mood/Affect Skin: Normal Color, Warm/Dry Progress/Results/Core Measures Results/Orders Lab Results Laboratory Tests Test 10/04/19 11:00 10/04/19 11:10 Range/Units White Blood Count 6.4 4.3-11.0 10^3/uL Red Blood Count 4.06 L 4.35-5.85 10^6/uL Hemoglobin 10.4 L 11.5-16.0 G/DL Hematocrit 32 L 35-52 % Mean Corpuscular Volume 79 L 80-99 FL Mean Corpuscular Hemoglobin 26 25-34 PG Mean Corpuscular Hemoglobin Concent 33 32-36 G/DL Red Cell Distribution Width 20.7 H 10.0-14.5 % Platelet Count 150 130-400 10^3/uL Mean Platelet Volume 7.4-10.4 FL Sodium Level 138 135-145 MMOL/L Potassium Level 4.9 3.6-5.0 MMOL/L Chloride Level 105 98-107 MMOL/L Carbon Dioxide Level 23 21-32 MMOL/L Anion Gap 10 5-14 MMOL/L Blood Urea Nitrogen 20 H 7-18 MG/DL Creatinine 1.01 0.60-1.30 MG/DL Estimat Glomerular Filtration Rate 52 BUN/Creatinine Ratio 20 Glucose Level 121 H 70-105 MG/DL Calcium Level 9.1 8.5-10.1 MG/DL Corrected Calcium 9.9 8.5-10.1 MG/DL Total Bilirubin 1.8 H 0.1-1.0 MG/DL Aspartate Amino Transf (AST/SGOT) 300 H 5-34 U/L Alanine Aminotransferase (ALT/SGPT) 142 H 0-55 U/L Alkaline Phosphatase 335 H 40-136 U/L Total Protein 7.7 6.4-8.2 GM/DL Albumin 3.0 L 3.2-4.5 GM/DL Urine Color YELLOW Urine Clarity CLOUDY Urine pH 6.0 5-9 Urine Specific [place] 1.025 H 1.016-1.022 Urine Protein 1+ H NEGATIVE Urine Glucose (UA) NEGATIVE NEGATIVE Urine Ketones NEGATIVE NEGATIVE Urine Nitrite NEGATIVE NEGATIVE Urine Bilirubin NEGATIVE NEGATIVE Urine Urobilinogen 2.0 < = 1.0 MG/DL Urine Leukocyte Esterase 3+ H NEGATIVE Urine RBC (Auto) 2+ H NEGATIVE Urine RBC 10-25 H /HPF Urine WBC >100 H /HPF Urine Squamous Epithelial Cells 2-5 /HPF Urine Crystals NONE /LPF Urine Leucine Crystals /LPF Urine Bacteria LARGE H /HPF Urine Casts NONE /LPF Urine Mucus NEGATIVE /LPF Urine Culture Indicated YES My Orders Orders - CALLE,LEDA B DO Pelvis With Right Hip 2-3 View (10/04/19 09:41) Ct Pelvis Wo (10/04/19 10:37) Cbc No Diff (10/04/19 10:38) Comprehensive Metabolic Panel (10/04/19 10:38) Ekg Tracing (10/04/19 10:38) Urinalysis (10/04/19 10:38) Chest 1 View Ap/Pa Only (10/04/19 10:38) Urine Culture (10/04/19 11:10) Vital Signs/I&O 10/04/19 09:30 Temp 36.4 Pulse 71 Resp 24 B/P (MAP) 139/64 (89) Pulse Ox 98 O2 Delivery Room Air Blood Pressure Mean: 89 Progress Progress Note : Progress Note Patient is a ground-level fall onto her right hip and she was ambulatory after that she complains only mild discomfort. With an otherwise normal physical exam she did not strike her head there was no loss of consciousness. Differential includes contusion of right hip unlikely fracture plan will be radiographic screening reassurance and probably discharged home patient does not appear to warrant further diagnostic imaging such as a CT [address] shows nondisplaced superior and inferior pubic rami fracture she has been able to ambulate. And will be discharged home with oral analgesics stooling recommendations rick Herrmann primary care follow-up Initial ECG Impression Date: October 04, 2019 Initial ECG Impression Time: 11:15 Initial ECG Rate: 69 Initial ECG Rhythm: Normal Sinus Initial ECG Impression: Nonspecific Changes Departure Communication (Admissions) Patient's CT shows isolated pelvis fracture she's been ambulatory in the department up to the commode will qualify to be discharged home with home health assistance oral analgesics and advised to return Impression Primary Impression: Fracture of pelvis Additional Impression: UTI (urinary tract infection) Disposition: 01 HOME, SELF-CARE Condition: Improved Departure-Patient Inst. Referrals: SELF,PADMAJA HAMMOND (PCP/Family) Primary Care Physician First part of next week Patient Instructions: Pelvic Fracture Add. Discharge Instructions: Use a walker be mindful not to fall use pain medication to tolerate activity takes something for your bowels to move and return if her pain becomes intolerable or not manageable at home All discharge instructions reviewed with patient and/or family. Voiced understanding. Scripts Cephalexin (Keflex) 500 Mg Capsule 500 MG PO QID for infection for 10 Days, #40 CAP 0 Refills Prov: LEDA CALLE DO 10/04/19 Hydrocodone/Acetaminophen (Hydrocodone-Acetamin 5-325 mg) 1 Each Tablet 1 EACH PO QID for Pain for 4 Days, #25 TAB 0 Refills Prov: LEDA CALLE DO 10/04/19 LEDA CALLE DO October 04, 2019 09:56
--- NOTE | 2019-10-04 10:09 | Diagnostic Imaging Report ---
INDICATION: Fall, right hip pain EXAMINATION: Pelvis, right hip 10/04/2019 There is irregularity involving the superior pubic ramus on the right consistent with a fracture. Vague lucency inferior pubic ramus on the right may be a fracture as well. The remaining pelvic structures intact. Hip joint space is maintained. Nonspecific hyperdensities in the left paramedian aspect of the pelvis are noted but stable from previous lumbar spine imaging dated 11/25/2018 most likely due to calcified fibroid uterus. Linear density superimposed upon the pelvis are nonspecific likely overlying the patient. IMPRESSION: 1. Right superior pubic ramus and possibly inferior pubic ramus fractures with other incidental findings as discussed above. Dictated by: Dictated on workstation # [id number]
[2019-10-04 11:20] LABS: HEMATOCRIT 32 % (35-52); HEMOGLOBIN 10.4 G/DL (11.5-16.0); MEAN CORPUSCULAR HEMOGLOBIN 26 PG (25-34); MEAN CORPUSCULAR HGB CONC 33 G/DL (32-36); MEAN CORPUSCULAR VOLUME 79 FL (80-99); PLATELET COUNT 150 10^3/uL (130-400); RED CELL DISTRIBUTION WIDTH 20.7 % (10.0-14.5); WHITE BLOOD COUNT 6.4 10^3/uL (4.3-11.0)
--- NOTE | 2019-10-04 11:20 | Diagnostic Imaging Report ---
EXAMINATION: Chest 1 view HISTORY: Pelvic fracture COMPARISON: 01/09/2019 FINDINGS: Loop recorder projects over the lower chest. There are calcified mediastinal lymph nodes. No pleural effusion or pneumothorax. Heart size is normal. IMPRESSION: 1. Clear lungs. Dictated by: Dictated on workstation # [id number]
--- NOTE | 2019-10-04 11:20 | Diagnostic Imaging Report ---
PROCEDURE: CT pelvis without contrast. TECHNIQUE: Multiple contiguous axial images were obtained through the pelvis without the use of intravenous contrast. Sagittal and coronal reformations were performed. Auto Exposure Controls were utilized during the CT exam to meet ALARA standards for radiation dose reduction. INDICATION: Fall with pain COMPARISON: Radiographs from the same date and ultrasound dated 01/20/2019 FINDINGS: Prominent fluid collection is noted within the central aspect of the right kidney, felt to relate to an extrarenal pelvis. This is noted on prior ultrasound. Calcification is seen layering dependently within the extra renal pelvis. Advanced vascular calcifications within the abdominal aorta and its branch vessels. The urinary bladder is unremarkable. Several rounded masses are identified associated with the uterus, the majority appear densely calcified. No abnormal additional adnexal mass lesion. Colonic diverticulosis. No evidence of bowel obstruction within the [id number]. Small amount of free fluid is noted throughout the visualized abdomen pelvis, particularly on the right and within the lower pelvis. This demonstrates low density with a Hounsfield units of near 0. Small fat-containing umbilical hernia. No free air. Nondisplaced fracturing of the mid right inferior pubic ramus with focal angulation. Additional essentially nondisplaced fracturing involving the medial aspect of the right superior pubic ramus is also noted. Mild adjacent enlargement and hematoma within the adjacent musculature. No large volume focal fluid collection. 1.3 cm anterolisthesis of L5 on S1 secondary to bilateral pars interarticularis defects of L5. Degenerative changes are present within the lower lumbar spine. Severe left and moderate right neural foraminal stenosis at L5/S1. The sacroiliac joints are intact. Degenerative changes of the pubic symphysis. Bilateral femoral heads maintain a normal shape and contour. IMPRESSION: Acute essentially nondisplaced fracturing involving the right inferior and superior pubic rami with minimal adjacent hematoma. Small amount of free fluid throughout the abdomen and pelvis. This fluid does appear to be low density and simple in nature. Right extrarenal pelvis with associated right renal calculus. Calcified uterine fibroids. Advanced vascular calcifications. Dictated by: Dictated on workstation # [id number]
[2019-10-04] MEDS ORDERED: HYDR-83 PO (11:36)
[2019-10-04 11:38] LABS: BILIRUBIN,URINE NEGATIVE (NEGATIVE); CLARITY,URINE CLOUDY; COLOR,URINE YELLOW; GLUCOSE, URINE (UA) NEGATIVE (NEGATIVE); KETONES,URINE NEGATIVE (NEGATIVE); LEUKOCYTE ESTERASE ,URINE 3+ (NEGATIVE); NITRITE,URINE NEGATIVE (NEGATIVE); PROTEIN,URINE 1+ (NEGATIVE)
[2019-10-04 11:39] LABS: BACTERIA,URINE LARGE /HPF; WBC,URINE >100 /HPF
[2019-10-04] MEDS ORDERED: CEPH-507 PO (11:48)
[2019-10-04 12:08] LABS: BILIRUBIN,TOTAL 1.8 MG/DL (0.1-1.0); CALCIUM 9.1 MG/DL (8.5-10.1); CREATININE SERUM 1.01 MG/DL (0.60-1.30); POTASSIUM 4.9 MMOL/L (3.6-5.0)
[2019-10-04 12:09] LABS: TOTAL PROTEIN 7.7 GM/DL (6.4-8.2)
[2019-10-04 13:06] VITALS: BP 135/49
[2019-10-08] MEDS ORDERED: NITR-65 PO (11:04)
== END 2019-10-04 13:06 | disposition home or self-care (01) ==
LOC: EDUNIT# 09:27 → ER FS 09:29
DX: S32.9XXA Fracture of unspecified parts of lumbosacral spine and pelvis, initial encounter for closed fracture (principal); N39.0 Urinary tract infection, site not specified; I10 Essential (primary) hypertension; I25.2 Old myocardial infarction; Z86.73 Personal history of transient ischemic attack (TIA), and cerebral infarction without residual deficits; Z88.2 Allergy status to sulfonamides; Z88.1 Allergy status to other antibiotic agents; Z79.82 Long term (current) use of aspirin; Z79.02 Long term (current) use of antithrombotics/antiplatelets; W01.0XXA Fall on same level from slipping, tripping and stumbling without subsequent striking against object, initial encounter; Y92.000 Kitchen of unspecified non-institutional (private) residence as the place of occurrence of the external cause
CPT/HCPCS: 36415; 71045; 72192; 73502; 80053; 81000; 85027; 87077; 87088; 87186; 93005

== ENCOUNTER 2019-10-17 21:46 | Inpatient (IN) | payer MEDICARE ==
[~2019-10-17] VITALS: Ht 163 cm; Wt 70.5 kg
[~2019-10-17 21:46] MED LIST changes: +HYDR-83 PO; +NITR-65 PO
[2019-10-17] MEDS ORDERED: meTOprolol 5 MG/5 ML (LOPRESSOR) VIAL IV ONE ×2 (22:00→22:45)
--- NOTE | 2019-10-17 22:03 | ED Cardiac General ---
History of Present Illness General Stated Complaint: CARDIAC PROBLEMS Source: patient, EMS Exam Limitations: no limitations History of Present Illness Date Seen by Provider: Oct 17, 2019 Time Seen by Provider: 21:55 Initial Comments Presents via EMS w concern of not feeling well today. Seen by her Dr in the [place] today. Noted to have rapid heart rate. Info relayed that her metoprolol was held today. Pt denies CP or SOA, states she is feeling sick. Complains of nausea. Allergies and Home Medications Allergies Coded Allergies: Sulfa (Sulfonamide Antibiotics) (Verified Allergy, Unknown, 10/04/19) carvedilol (Verified Allergy, Unknown, 10/04/19) ciprofloxacin (Verified Allergy, Unknown, 10/04/19) Home Medications Acetaminophen 325 Mg Tablet, 325 MG PO Q6H PRN for PAIN-MILD, (Reported) Aspirin 81 Mg Tablet.dr, 324 MG PO DAILY, (Reported) TAKES 4 (81MG) TABLETS Atorvastatin Calcium 40 Mg Tablet, 40 MG PO HS Prescribed by: REILLY TSE on 03/14/19912 Cephalexin 500 Mg Capsule, 500 MG PO BID Prescribed by: REILLY TSE on 03/14/19912 Cephalexin 500 Mg Capsule, 500 MG PO QID Prescribed by: LEDA CALLE on 10/04/19 1148 Clopidogrel Bisulfate 75 Mg Tablet, 75 MG PO DAILY, (Reported) Cyclobenzaprine HCl 5 Mg Tablet, 5 MG PO Q8H PRN for MUSCLE SPASMS, (Reported) Hydrocodone/Acetaminophen 1 Each Tablet, 1 EACH PO QID Prescribed by: LEDA CALLE on 10/04/19 1136 Isosorbide Mononitrate 60 Mg Tab, 60 MG PO DAILY, (Reported) Magnesium Hydroxide 400 Mg/5 Ml Oral.susp, 30 ML PO DAILY PRN for CONSTIPATION- 7TH LINE, (Reported) Nitrofurantoin Monohyd/M-Cryst 100 Mg Capsule, 1 TAB PO DAILY, (Reported) Ramipril 5 Mg Capsule, 5 MG PO DAILY Prescribed by: REILLY TSE on 03/14/19912 Patient Home Medication List Home Medication List Reviewed: Yes Review of Systems Review of Systems Constitutional: see HPI, malaise, weakness Respiratory: Denies Cough; Shortness of Air Cardiovascular: Denies Chest Pain, Denies Edema; Irregular Heart Rate; Denies Palpitations Gastrointestinal: Denies Abdominal Pain, Denies Diarrhea; Nausea Musculoskeletal: no symptoms reported Skin: No change in color, No rash Past Ihwstfv-Quxbqs-Mnzlrk Hx Past Med/Social Hx: Reviewed Nursing Past Med/Soc Hx Patient Social History 2nd Hand Smoke Exposure: No Recent Foreign Travel: No Contact w/Someone Who Travel: No Recent Hopitalizations: No Immunizations Up To Date Date of Pneumonia Vaccine: Feb 25, 2019 Date of Influenza Vaccine: Feb 25, 2019 Seasonal Allergies Seasonal Allergies: No Past Medical History Surgeries: No Respiratory: No Cardiac: Yes Heart Attack, Hypertension Neurological: Yes Stroke Genitourinary: No Gastrointestinal: No Musculoskeletal: Yes Gout Endocrine: No HEENT: No Cancer: No Psychosocial: No Integumentary: No Blood Disorders: No Family Medical History No Pertinent Family Hx Physical Exam Vital Signs Vital Signs - First Documented 10/17/19 21:47 Temp 35.7 Pulse 164 Resp 32 B/P (MAP) 80/47 (58) Pulse Ox 97 O2 Delivery Nasal Cannula O2 Flow Rate 2.00 Capillary Refill : Height, Weight, BMI Height: 5'4.00" Weight: 136lbs. 8.0oz. 61.285279ap; 23.00 BMI Method:Stated General Appearance: No Apparent Distress, Chronically ill, Thin HEENT: Normal ENT Inspection Respiratory: Chest Non Tender, Lungs Clear, Normal Breath Sounds, No Accessory Muscle Use, No Respiratory Distress Cardiovascular: No Edema, No JVD, Normal Peripheral Pulses, Irregularly Irregular, Tachycardia Gastrointestinal: Normal Bowel Sounds, No Pulsatile Mass, Non Tender, Distended; No Guarding Extremity: Normal Capillary Refill, Normal Inspection, Non Tender, No Calf Tenderness Neurologic/Psychiatric: No Motor/Sensory Deficits Skin: Warm/Dry; No Petechia, No Rash Focused Exam Lactate Level 10/17/19 22:00: Lactic Acid Level 3.09*H Lactic Acid Level Laboratory Tests Test 10/17/19 22:00 Lactic Acid Level 3.09 MMOL/L (0.50-2.00) *H Progress/Results/Core Measures Results/Orders Lab Results Laboratory Tests Test 10/17/19 22:00 Range/Units White Blood Count 11.8 H 4.3-11.0 10^3/uL Red Blood Count 3.41 L 4.35-5.85 10^6/uL Hemoglobin 8.9 L 11.5-16.0 G/DL Hematocrit 27 L 35-52 % Mean Corpuscular Volume 79 L 80-99 FL Mean Corpuscular Hemoglobin 26 25-34 PG Mean Corpuscular Hemoglobin Concent 33 32-36 G/DL Red Cell Distribution Width 22.4 H 10.0-14.5 % Platelet Count 192 130-400 10^3/uL Mean Platelet Volume 12.3 H 7.4-10.4 FL Neutrophils (%) (Auto) 40 L 42-75 % Lymphocytes (%) (Auto) 42 12-44 % Monocytes (%) (Auto) 13 H 0-12 % Eosinophils (%) (Auto) 4 0-10 % Basophils (%) (Auto) 0 0-10 % Neutrophils # (Auto) 4.7 1.8-7.8 X 10^3 Lymphocytes # (Auto) 4.9 H 1.0-4.0 X 10^3 Monocytes # (Auto) 1.6 H 0.0-1.0 X 10^3 Eosinophils # (Auto) 0.5 H 0.0-0.3 10^3/uL Basophils # (Auto) 0.1 0.0-0.1 10^3/uL Sodium Level 132 L 135-145 MMOL/L Potassium Level 4.5 3.6-5.0 MMOL/L Chloride Level 101 98-107 MMOL/L Carbon Dioxide Level 18 L 21-32 MMOL/L Anion Gap 13 5-14 MMOL/L Blood Urea Nitrogen 30 H 7-18 MG/DL Creatinine 1.35 H 0.60-1.30 MG/DL Estimat Glomerular Filtration Rate 37 BUN/Creatinine Ratio 22 Glucose Level 159 H 70-105 MG/DL Lactic Acid Level 3.09 *H 0.50-2.00 MMOL/L Calcium Level 8.3 L 8.5-10.1 MG/DL Corrected Calcium 9.7 8.5-10.1 MG/DL Total Bilirubin 1.2 H 0.1-1.0 MG/DL Aspartate Amino Transf (AST/SGOT) 131 H 5-34 U/L Alanine Aminotransferase (ALT/SGPT) 59 H 0-55 U/L Alkaline Phosphatase 348 H 40-136 U/L Troponin I < 0.30 <0.30 NG/ML Total Protein 6.5 6.4-8.2 GM/DL Albumin 2.2 L 3.2-4.5 GM/DL My Orders Orders - ROVENSTINE,KRANTHI L DO Ed Iv/Invasive Line Start (10/17/19 21:56) Cbc With Automated Diff (10/17/19 21:56) Comprehensive Metabolic Panel (10/17/19 21:56) Lactic Acid Analyzer (10/17/19 21:56) Troponin I Fs (10/17/19 21:56) Ekg Tracing (10/17/19 21:56) Chest 1 View Ap/Pa Only (10/17/19 21:56) Metoprolol Tartrate Injection (Lopressor (10/17/19 22:00) Lactated Ringers (Lr 1000 Ml Iv Solution (10/17/19 22:00) Phenylephrine Injection (Maynor-Synephrine (10/17/19 22:15) Ns (Ivpb) (Sodium Chloride 0.9% Ivpb Bag (10/17/19 22:14) Metoprolol Tartrate Injection (Lopressor (10/17/19 22:45) Diltiazem Injection (Cardizem Injection) (10/17/19 23:00) Medications Given in ED Vital Signs/I&O 10/17/19 10/17/19 10/17/19 21:47 22:31 23:15 Temp 35.7 Pulse 164 118 109 Resp 32 24 B/P (MAP) 80/47 (58) 74/50 109/51 (70) Pulse Ox 97 96 O2 Delivery Nasal Cannula Nasal Cannula O2 Flow Rate 2.00 2.00 Initial ECG Impression Date: Oct 17, 2019 Initial ECG Impression Time: 21:53 Initial ECG Rate: 160 Initial ECG Rhythm: A Fib/Flutter Initial ECG Impression: Atrial Fibrillation w/RVR Departure Communication (Admissions) Time/Spoke to Admitting Phy: 10:41 Dr Schultz accepts for ICU admission, advises Cardio consult Time/Spoke to Consulting Phy: 10:[address] Cameron who will consult on patient. Advised to talk to family regarding consideration of cardioversion and anticoagulation as pt is DNR. I was able to make contact with her son Serene on the phone (@ [phone]) and he was in agreement w "cardioversion" if it was needed, but he did not want her to be on oral anticoagulation medication. Impression Primary Impression: Atrial fibrillation with tachycardic ventricular rate Additional Impressions: Hypotension Qualified Codes: I95.9 - Hypotension, unspecified Anemia Qualified Codes: D64.9 - Anemia, unspecified Dehydration Abnormal LFTs Disposition: ADMITTED INPATIENT Condition: Improved Admissions Decision to Admit Reason: Admit from ER (General) Decision to Admit/Date: Oct 17, 2019 Time/Decision to Admit Time: 22:19 Departure-Patient Inst. Referrals: PADMAJA TANNER MD (PCP/Family) Primary Care Physician KRANTHI FLORES DO Oct 17, 2019 22:03
[2019-10-17] MEDS: LACTATED RINGERS 1,000 ML IV SCH (22:06)
[2019-10-17 22:08] LABS: BASOPHILS % (AUTO) 0 % (0-10); EOSINOPHILS % (AUTO) 4 % (0-10); HEMATOCRIT 27 % (35-52); HEMOGLOBIN 8.9 G/DL (11.5-16.0); LYMPHOCYTES % (AUTO) 42 % (12-44); MEAN CORPUSCULAR HEMOGLOBIN 26 PG (25-34); MEAN CORPUSCULAR HGB CONC 33 G/DL (32-36); MEAN CORPUSCULAR VOLUME 79 FL (80-99); MEAN PLATELET VOLUME 12.3 FL (7.4-10.4); NEUTROPHILS % (AUTO) 40 % (42-75); PLATELET COUNT 192 10^3/uL (130-400); RED CELL DISTRIBUTION WIDTH 22.4 % (10.0-14.5); WHITE BLOOD COUNT 11.8 10^3/uL (4.3-11.0)
[2019-10-17 22:09] LABS: BASOPHILS # (AUTO) 0.1 10^3/uL (0.0-0.1); EOSINOPHILS # (AUTO) 0.5 10^3/uL (0.0-0.3); LYMPHOCYTES # (AUTO) 4.9 X 10^3 (1.0-4.0); MONOCYTES # (AUTO) 1.6 X 10^3 (0.0-1.0); MONOCYTES % (AUTO) 13 % (0-12); NEUTROPHILS # (AUTO) 4.7 X 10^3 (1.8-7.8)
[2019-10-17] MEDS ORDERED: NS (IVPB) 100 ML ONE ×2 (22:14→23:42)
[2019-10-17] MEDS ORDERED: PHENYLEPHRINE INJ 10 MG/ML (FOR DRIP KITS ONLY) IV ONE (22:15)
[2019-10-17 22:31] LABS: BUN/CREATININE RATIO 22; CARBON DIOXIDE 18 MMOL/L (21-32); CHLORIDE 101 MMOL/L (98-107); CREATININE SERUM 1.35 MG/DL (0.60-1.30); GFR ESTIMATED 37; GLUCOSE 159 MG/DL (70-105); POTASSIUM 4.5 MMOL/L (3.6-5.0); SODIUM 132 MMOL/L (135-145)
[2019-10-17 22:32] LABS: ALANINE AMINOTRANSFERASE 59 U/L (0-55); ALBUMIN 2.2 GM/DL (3.2-4.5); ALKALINE PHOSPHATASE 348 U/L (40-136); BILIRUBIN,TOTAL 1.2 MG/DL (0.1-1.0); CALCIUM 8.3 MG/DL (8.5-10.1); TOTAL PROTEIN 6.5 GM/DL (6.4-8.2)
[2019-10-17 23:15] VITALS: BP 109/51
--- OUTSIDE RECORDS SUMMARY | 2019-10-17 23:23 | XMS REPORT | Continuity of Care Document ---
Author Organization Unknown Address Unknown Phone Unavailable Allergies Active Description Code Type Severity Reaction Onset Reported/Identified Relationship to Patient Clinical Status Yes No Known Drug Allergies [id number] Drug Allergy Unknown N/A 10/06/2018 Yes carvedilol [id number] Drug Allerg y Unknown N/A 10/04/2019 Yes ciprofloxacin [id number] Darren g Allergy Unknown N/A 10/04/2019 Yes Sulfa (Sulfonamide Antibiotics) [id number] Drug Allergy Unknown N/A 020 Medications There is no data. 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 INFARCTION 10/07/2018 TAVON EWING MD Ot R55 SYNCOPE AND COLLAPSE 10/07/2018 TAVON EWING MD Ot R79.89 OTHER SPECIFIED ABNORMAL FINDINGS OF BLO 10/07/2018 TAVON EWING MD Ot Z79.82 EXECUTIVE DIRECTOR OF NURSING (CURRENT) USE OF ASPIRIN 10/07/2018 TAVON EWING MD Ot Z79.899 OTHER EXECUTIVE DIRECTOR OF NURSING (CURRENT) DRUG THERAPY 10/07/2018 TAVON EWING MD [...] MD Ot I25.10 ATHSCL HEART DISEASE OF [place] CORONARY 10/11/2018 TAVON EWING MD, Ot 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 INFARCTION 10/11/2018 TAVON EWING MD Ot R55 SYNCOPE AND COLLAPSE 10/11/2018 TAVON EWING MD Ot R79.89 OTHER SPECIFIED ABNORMAL FINDINGS OF BLO 10/11/2018 TAVON EWING MD, Ot Z79.82 EXECUTIVE DIRECTOR OF NURSING (CURRENT) USE OF ASPIRIN 10/11/2018 TAVON EWING MD Ot Z79.899 OTHER ALF (CURRENT) DRUG THERAPY 10/11/2018 TAVON EWING MD Ot Z86.73 PRSNL HX OF TIA (TIA), AND CEREB INFRC W 10/11/2018 TAVON EWING MD Ot E78 .5 HYPERLIPIDEMIA, UNSPECIFIED 10/11/2018 TAVON EWING MD Ot I10 ESSENTIAL (PRIMARY) HYPERTENSION 10/11/2018 TAVON EWING MD, Ot I25.10 ATHSCL HEART DISEASE OF [place] CORONARY 10/11/2018 TAVON EWING MD, Ot 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 INFARCTION 10/11/2018 TAVON EWING MD Ot R55 SYNCOPE AND COLLAPSE 10/11/2018 TAVON EWING MD, Ot R79.89 OTHER SPECIFIED ABNORMAL FINDINGS OF BLO 10/11/2018 TAVON EWING MD, Ot Z79.82 ALF (CURRENT) USE OF ASPIRIN 10/11/2018 TAVON EWING MD Ot Z79.899 OTHER ALF (CURRENT) DRUG THERAPY 10/11/2018 TAVON EWING MD, Ot Z86.73 PRSNL HX OF TIA (TIA), AND CEREB INFRC W 10/16/2018 MARLIN ALLRED MD, Ot G93.40 ENCEPHALOPATHY, UNSPECIFIED 10/16/2018 MARLIN ALLRED MD, Ot 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 10/16/2018 MARLIN LALRED MD, Ot 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 11/25/2018 BRENDA MCGILL MD I10 ESSENTIAL (PRIMARY) HYPERTENSION 11/25/2018 BRENDA MCGILL MD I25.2 OLD MYOCARDIAL INFARCTION 11/25/2018 BRENDA MCGILL MD M54.5 LOW BACK PAIN 11/25/2018 BRENDA MCGILL MD W19.XXXA UNSPECIFIED FALL, INITIAL ENCOUNTER 11/25/2018 BRENDA MCGILL MD Z79.02 EXECUTIVE DIRECTOR OF NURSING (CURRENT) USE OF ANTITHROMBOTI 11/25/2018 BRENDA MCGILL MD Z79.82 ALF (CURRENT) USE OF ASPIRIN 11/25/2018 BRENDA MCGILL MD Z86.73 PRSNL HX OF TIA (TIA), AND CEREB INFRC W 12/02/2018 BRENDA MCGILL MD I10 ESSENTIAL (PRIMARY) HYPERTENSION 12/02/2018 BRENDA MCGILL MD I25.2 OLD MYOCARDIAL INFARCTION 12/02/2018 BRENDA MCGILL MD M54.5 LOW BACK PAIN 12/02/2018 BRENDA MCGILL MD O t W19.XXXA UNSPECIFIED FALL, INITIAL ENCOUNTER 12/02/2018 NANO HAMMOND, BRENDA mccloud Z79.02 EXECUTIVE DIRECTOR OF NURSING (CURRENT) USE OF ANTITHROMBOTI 12/02/2018 NANO HAMMOND, BRENDA mccloud Z79.82 ALF (CURRENT) USE OF ASPIRIN 12/02/2018 NNAO HAMMOND, BRENDA mccloud Z86.73 PRSNL HX OF [...] ENCOUNTER 12/03/2018 STEIN DO, EMILY Ot Z79.02 ALF (CURRENT) USE OF ANTITHROMBOTI 12/03/2018 STEIN DO, [...] ENCOUNTER 12/03/2018 STEIN DO, EMILY Ot Z79.02 ALF (CURRENT) USE OF ANTITHROMBOTI 12/03/2018 STEIN DO, [...] W19.XX XA UNSPECIFIED FALL, INITIAL ENCOUNTER 12/04/2018 STEIN DO, EMILY Ot Z79.02 EXECUTIVE DIRECTOR OF NURSING (CURRENT) USE OF ANTITHROMBOTI 12/04/2018 STEIN DO, EMILY Ot Z86.73 PRSNL HX [...] EMILY Ot M54.5 LOW BACK PAIN 12/04/2018 EMILY STEIN DO Ot N30.00 ACUTE CYSTITIS WITHOUT HEMATURIA 12/04/2018 EMILY STEIN DO Ot S79.91 1A UNSPECIFIED INJURY OF RIGHT HIP, INITIAL 12/04/2018 EMILY STEIN DO Ot W19.XX XA UNSPECIFIED FALL, INITIAL ENCOUNTER 12/04/2018 EMILY STEIN DO Ot Z79.02 ALF (CURRENT) USE OF ANTITHROMBOTI 12/04/2018 EMILY STEIN DO Ot Z86.73 PRSNL HX OF TIA (TIA), [...] CYST OF KIDNEY, ACQUIRED 02/19/2019 MARLIN ALLRED MD, Ot R73.09 OTHER ABNORMAL GLUCOSE 02/19/2019 MARLIN ALLRED MD, Ot R74.8 ABNORMAL LEVELS OF OTHER SERUM ENZYMES 03/14/2019 REILLY TSE MD, Ot E78. 5 HYPERLIPIDEMIA, UNSPECIFIED 03/14/2019 REILLY TSE MD, Ot G89. 29 OTHER CHRONIC PAIN 03/14/2019 REILLY TSE MD, Ot I10 ESSENTIAL (PRIMARY) HYPERTENSION 03/14/2019 REILLY TSE MD, Ot I25. 10 ATHSCL HEART DISEASE OF [place] CORONARY 03/14/2019 REILLY TSE MD, Ot M10. 9 GOUT, UNSPECIFIED 03/14/2019 REILLY TSE MD, Ot M54. 9 DORSALGIA, UNSPECIFIED 03/14/2019 REILLY TSE MD, Ot N39. 0 URINARY TRACT INFECTION, SITE NOT SPECIF 03/14/2019 REILLY TSE MD, Ot R55 SYNCOPE AND COLLAPSE 03/14/2019 REILLY TSE MD, Ot Z79. 01 ALF (CURRENT) USE OF ANTICOAGULANT 03/14/2019 REILLY TSE MD, Ot Z79. 82 EXECUTIVE DIRECTOR OF NURSING (CURRENT) USE OF ASPIRIN 03/14/2019 REILLY TSE MD, Ot Z79.899 OTHER EXECUTIVE DIRECTOR OF NURSING (CURRENT) DRUG THERAPY 03/14/2019 REILLY TSE MD, Ot Z86. 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 05/06/2019 ADRIAN ROSALES Ot I65.23 OCCLUSION AND STENOSIS OF [place] 05/19/2019 ADRIAN ROSALES Ot E78.5 HYPERLIPIDEMIA, UNSPECIFIED 05/19/2019 ADRIAN ROSALES Ot I25.10 ATHSCL HEART DISEASE OF [place] CORONARY 05/19/2019 ADRIAN ROSALES Ot I51.89 OTHER ILL-DEFINED HEART DISEASES 05/19/2019 ADRIAN ROSALES Ot I65.23 OCCLUSION AND STENOSIS OF [place] 10/07/2019 [facility], LEDA Galdamez Ot I10 ESSENTIAL (PRIMARY) HYPERTENSION 10/07/2019 [facility], LEDA Galdamez Ot I25.2 OLD MYOCARDIAL INFARCTION 10/07/2019 [facility], LEDA Galdamez Ot M25.5 51 PAIN IN RIGHT HIP 10/07/2019 [facility], LEDA Galdamez Ot N39.0 URINARY TRACT INFECTION, SITE NOT SPECIF 10/07/2019 [facility], LEAD Galdamez Ot S32.9XXA FRACTURE OF [facility] PARTS OF LUMBOSACRAL SP 10/07/2019 [facility], LEDA Galdamez Ot W01.0XXA FALL SAME LEV FROM SLIP/TRIP W/O STRIKE 10/07/2019 [facility], LEDA Galdamez Ot Y92.0 00 KITCHEN OF [facility] NON-INSTITUT (PRIVATE) R 10/07/2019 [facility], LEDA Galdamez Ot Z79.0 2 ALF (CURRENT) USE OF ANTITHROMBOTI 10/07/2019 [facility], LEDA Galdamez Ot Z79.8 2 EXECUTIVE DIRECTOR OF NURSING (CURRENT) USE OF ASPIRIN 10/07/2019 [facility], LEDA Galdamez Ot Z86.7 3 PRSNL HX OF TIA (TIA), AND CEREB INFRC W 10/07/2019 [facility], LEDA Galdamez Ot Z88.1 ALLERGY STATUS TO OTHER ANTIBIOTIC AGENT 10/07/2019 [facility], LEDA Galdamez Ot Z88.2 ALLERGY STATUS TO SULFONAMIDES STATUS Procedures There is no data. Results Test [...] culture - 11/25/18 12:25 Bacterial urine culture [id number] NRG COLONY COUNT >100,000/ML NRG FTX;REPORTABLE SUSCEPTIBILITIES REPORTED 11-28-18, 0905 NRG FREE TEXT ENTRY 2 ID REPORTED [...] poor plasma by coag ulation assay - 07/25/19 16:15 Prothrombin time (PT) in platelet poor [...] culture - 01/30/19 09:30 Bacterial urine culture [id number] NRG COLONY COUNT >100,000/ML NRG FTX;REPORTABLE SUSCEPTIBILITY [...] 7-25 CREATININE 1.02 mg/dL 0.60-0.88 eGFR NON-AFR. PANAMANIAN 49 mL/min/1.73m2 > OR = 60 eGFR [...] culture - 03/12/19 13:50 Bacterial urine culture [id number] NRG COLONY COUNT >100,000/ML NRG FTX;REPORTABLE SUSCEPTIBILITY [...] VLDL measurement (mass/ volume) 16 mg/dL 5-40 Automated blood complete blood count (he mogram) panel - 10/04/19 11:00 Blood leukocytes automated count (number/volume) 6.4 10*3/uL 4.3-11.0 Blood erythrocytes automated count (number/volume) 4.06 10*6/uL 4.35-5.85 Venous blood hemoglobin measurement (mass/volume) 10.4 g/dL 11.5-16.0 Blood hematocrit (volume fraction) 32 % 35-52 Automated erythrocyte mean corpuscular volume 79 [ foz_us] 80-99 Automated erythrocyte mean corpuscular h emoglobin (mass per erythrocyte) 26 pg 25-34 Automated erythrocyte mean corpuscular h emoglobin concentration measurement (mass/volume) 33 g/dL 32-36 Automated erythrocyte distribution width ratio 20. 7 % 10.0- 14.5 Automated blood platelet count (count/volume) 150 10*3/uL 130-400 Automated blood platelet mean volume measurement T AUTOMATED ACCESS SYSTEMS TECHNICIAN 7.4- 10.4 Comprehensive metabolic panel - 10/04/19 11:00 Serum or plasma sodium measurement (moles/volume) 138 mmol/L 135-145 Serum or plasma potassium measurement (moles/volume) 4.9 mmol/L 3.6-5.0 Serum or plasma chloride measurement (moles/volume) 105 mmol/L 98-107 Carbon dioxide 23 mmol/L 21-32 Serum or plasma anion gap determination (moles/volume) 10 mmol/L 5-14 Serum or plasma urea nitrogen measurement (mass/volume ) 20 mg/dL 7-18 Serum or plasma creatinine measurement (mass/volume) 1.01 mg/dL 0.60-1.30 Serum or plasma urea nitrogen/creatinine mass ratio 20 NRG Serum or plasma creatinine measurement w ith calculation of estimated glomerular filtration rate 52 NRG Serum or plasma glucose measurement (mass/volume) 121 mg/dL 70-105 Serum or plasma calcium measurement (mass/volume) 9.1 mg/dL 8.5-10.1 Serum or plasma total bilirubin measurement (mass/volu me) 1.8 mg/dL 0.1-1.0 Serum or plasma alkaline phosphatase josefina surement (enzymatic activity/volume) 335 U/L 40-136 Serum or plasma aspartate aminotransfera se measurement (enzymatic activity/volume) 300 U/L 5-34 Serum or plasma alanine aminotransferase measurement (enzymatic activity/volume) 142 U/L 0-55 Serum or plasma protein measurement (mass/volume) 7.7 g/dL 6.4-8.2 Serum or plasma albumin measurement (mass/volume) 3.0 g/dL 3.2-4.5 CALCIUM CORRECTED 9.9 mg/dL 8.5-10.1 Complete urinalysis with reflex to cultu re - 10/04/19 11:10 Urine color determination YELLOW NRG Urine clarity determination CLOUDY NR G Urine pH measurement by test strip 6.0 5-9 Specific gravity of urine by test strip 1.025 1.016-1.022 Urine protein assay by test strip, [...] urobilinogen measurement by automated test strip (mass/volume) 2.0 mg/dL < = 1.0 Urine leukocyte esterase detection by dipstick 3+ NEGATIVE Automated urine sediment erythrocyte cou nt by microscopy (number/high power field) [HPF] NRG Automated urine sediment leukocyte count by microscopy (number/high power field) > [HPF] NRG Bacteria detection in urine sediment by light microsco py LARGE NRG Squamous epithelial cells detection in u rine sediment by light microscopy 2-5 NRG Crystals detection in urine sediment by light microsco py NONE NRG Casts detection in urine sediment by light microscopy NONE NRG Mucus detection in urine sediment by light microscopy NEGATIVE NRG Complete urinalysis with reflex to culture YES NRG Bacterial urine culture - 10/04/19 11:10 Bacterial urine culture [id number] NRG COLONY COUNT >100,000/ML NRG SUSCEPTIBILITY SUSCEPTIBILITY REPORTED 10/08/19 9:25 NRG Dirithromycin susceptibility test by dis k diffusion - 10/04/19 11:10 Gentamicin susceptibility test by minimum inhibitory c oncentration <= NRG Trimethoprim/sulfamethoxazole susceptibi lity test by minimum inhibitoryconcentration <= NRG Levofloxacin susceptibility test by minimum inhibitory concentration <= NRG Ampicillin susceptibility test by minimum inhibitory c oncentration R NRG Cefazolin susceptibility test by minimum inhibitory co ncentration R NRG Ceftriaxone susceptibility test by minimum inhibitory concentration <= NRG Ciprofloxacin susceptibility test by minimum inhibitor y concentration <= NRG Meropenem susceptibility test by minimum inhibitory co ncentration <= NRG Nitrofurantoin susceptibility test by mi nimum inhibitory concentration <= NRG Amoxicillin and clavulanate potassium susc RAYMUNDO R NRG Dirithromycin susceptibility test by dis k diffusion - 10/04/19 11:10 Vancomycin susceptibility test by minimum inhibitory c oncentration 1 NRG Levofloxacin susceptibility test by minimum inhibitory concentration 2 NRG Ampicillin susceptibility test by minimum inhibitory c oncentration 1 NRG Nitrofurantoin susceptibility test by mi nimum inhibitory concentration <= NRG Linezolid susceptibility test by minimum inhibitory co ncentration 2 NRG Daptomycin susc RAYMUNDO 4 NRG Complete blood count (CBC) with automate d white blood cell (WBC) differential - 10/17/19 22:00 Blood leukocytes automated count (number/volume) 11.8 10*3/uL 4.3-11.0 Blood erythrocytes automated count (number/volume) 3.41 10*6/uL 4.35-5.85 Venous blood hemoglobin measurement (mass/volume) 8.9 g/dL 11.5-16.0 Blood hematocrit (volume fraction) 27 % 35-52 Automated erythrocyte mean corpuscular volume 79 [ foz_us] 80-99 Automated erythrocyte mean corpuscular h emoglobin (mass per erythrocyte) 26 pg 25-34 Automated erythrocyte mean corpuscular h emoglobin concentration measurement (mass/volume) 33 g/dL 32-36 Automated erythrocyte distribution width ratio 22. 4 % 10.0- 14.5 Automated blood platelet count (count/volume) 192 10*3/uL 130-400 Automated blood platelet mean volume measurement 12.3 [foz_us] 7.4-10.4 Automated blood neutrophils/100 leukocytes 40 % 42-75 Automated blood lymphocytes/100 leukocytes 42 % 12-44 Blood monocytes/100 leukocytes 13 % 0-12 Automated blood eosinophils/100 leukocytes 4 % 0-10 Automated blood basophils/100 leukocytes 0 % 0-10 Blood neutrophils automated count (number/volume) 4.7 10*3 1.8-7.8 Blood lymphocytes automated count (number/volume) 4.9 10*3 1.0-4.0 Blood monocytes automated count (number/volume) 1. 6 10*3 0.0-1.0 Automated eosinophil count 0.5 10*3/uL 0 .0-0.3 Automated blood basophil count (count/volume) 0.1 10*3/uL 0.0-0.1 Comprehensive metabolic panel - 10/17/19 22:00 Serum or plasma sodium measurement (moles/volume) 132 mmol/L 135-145 Serum or plasma potassium measurement (moles/volume) 4.5 mmol/L 3.6-5.0 Serum or plasma chloride measurement (moles/volume) 101 mmol/L 98-107 Carbon dioxide 18 mmol/L 21-32 Serum or plasma anion gap determination (moles/volume) 13 mmol/L 5-14 Serum or plasma urea nitrogen measurement (mass/volume ) 30 mg/dL 7-18 Serum or plasma creatinine measurement (mass/volume) 1.35 mg/dL 0.60-1.30 Serum or plasma urea nitrogen/creatinine mass ratio 22 NRG Serum or plasma creatinine measurement w ith calculation of estimated glomerular filtration rate 37 NRG Serum or plasma glucose measurement (mass/volume) 159 mg/dL 70-105 Serum or plasma calcium measurement (mass/volume) 8.3 mg/dL 8.5-10.1 Serum or plasma total bilirubin measurement (mass/volu me) 1.2 mg/dL 0.1-1.0 Serum or plasma alkaline phosphatase josefina surement (enzymatic activity/volume) 348 U/L 40-136 Serum or plasma aspartate aminotransfera se measurement (enzymatic activity/volume) 131 U/L 5-34 Serum or plasma alanine aminotransferase measurement (enzymatic activity/volume) 59 U/L 0-55 Serum or plasma protein measurement (mass/volume) 6.5 g/dL 6.4-8.2 Serum or plasma albumin measurement (mass/volume) 2.2 g/dL 3.2-4.5 CALCIUM CORRECTED 9.7 mg/dL 8.5-10.1 TROPONIN I FS - 10/17/19 22:00 TROPONIN I FS < 0.30 <0.30 Encounters ACCT No. Visit Date/Time Discharge Status Pt. Type Provider Facility Loc./Unit Complaint [id number] 05/18/2019 10:50:00 05/18/2019 23:59: 59 [facility] [id number] 02/04/2019 15:30:00 Document Registration [id number] 10/04/2019 09:29:00 13:06:00 DIS Outpatient LEDA CALLE DO [facility] [address] ER FS RT HIP PAIN [id number] 04/15/2019 08:12:00 23:59:59 CLS Outpatient ADRIAN ROSALES [facility] [address] CARD SYNCOPE [id number] 03/12/2019 16:06:00 10:48:00 DIS Inpatient REILLY TSE MD [facility] [address] CSD SYNCOPAL EVENT WEAKNE SS [id number] 01/30/2019 11:40:00 23:59:59 CLS Outpatient MARLIN HINSON MD [facility] [address] LAB FS R30.0 [id number] 01/20/2019 09:35:00 23:59:59 CLS Outpatient MARLIN ALLRED MD Vi a [facility] [address] RAD ELEVATED LIVER ENZYMES, EVELATED GLUCOSE [id number] 01/09/2019 12:33:00 23:59:59 CLS Outpatient BRIGIDA HAMMOND, MARLIN cortes [facility] [address] RAD CHEST XR [id number] 12/01/2018 08:54:00 15:29:00 DIS Inpatient EMILY STEIN DO, V ia [facility] [address] 4TH UTI,BACK PAIN [id number] 11/25/2018 10:26:00 13:45:00 DIS Emergency NANO HAMMOND, RENEE Ocasio [facility] [address] ER FS FALL; LWR B ACK PAIN [id number] 10/06/2018 15:15:00 14:21:00 DIS Inpatient KAYLIN HAMMOND, TAVON Murphy [facility] [address] 4TH SYNCOPE [id number] 09/16/2018 15:39:00 23:59:59 CLS Outpatient BRIGIDA HAMMOND, MARLIN cortes [facility] [address] RAD FOCAL DEFICIT/CEREBROVA SCULAR INS [id number] 10/17/2019 21:47:[address] Emergency KRANTHI FLORES DO [facility] [address] ER FS CARDIAC PROBLEMS
--- OUTSIDE RECORDS SUMMARY | 2019-10-17 23:43 | XMS REPORT | Continuity of Care Document ---
Author Organization Unknown Address Unknown Phone Unavailable Allergies Active Description Code Type Severity Reaction Onset Reported/Identified Relationship to Patient Clinical Status Yes No Known Drug Allergies [id number] Drug Allergy Unknown N/A 10/06/2018 Yes carvedilol [id number] Drug Allerg y Unknown N/A 10/04/2019 Yes ciprofloxacin [id number] Darren g Allergy Unknown N/A 10/04/2019 Yes Sulfa (Sulfonamide Antibiotics) [id number] Drug Allergy Unknown N/A 020 Medications [...] MD Ot I25.10 ATHSCL HEART DISEASE OF [place] CORONARY 10/07/2018 TAVON EWING MD Ot 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 INFARCTION 10/07/2018 TAVON EWING MD Ot R55 SYNCOPE AND COLLAPSE 10/07/2018 TAVON EWING MD Ot R79.89 OTHER SPECIFIED ABNORMAL FINDINGS OF BLO 10/07/2018 TAVON EWING MD Ot Z79.82 PRISON (CURRENT) USE OF ASPIRIN 10/07/2018 TAVON EWING MD Ot Z79.899 OTHER PRISON (CURRENT) DRUG THERAPY 10/07/2018 TAVON EWING MD Ot Z86.73 PRSNL HX OF TIA (TIA), AND CEREB INFRC W 10/07/2018 TAVON EWING MD, Ot E78 .5 HYPERLIPIDEMIA, UNSPECIFIED 10/07/2018 TAVON EWING MD Ot I10 ESSENTIAL (PRIMARY) HYPERTENSION 10/07/2018 TAVON EWING MD Ot I25.10 ATHSCL HEART DISEASE OF [place] CORONARY 10/07/2018 TAVON EWING MD Ot 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 INFARCTION 10/07/2018 TAVON EWING MD Ot R55 SYNCOPE AND COLLAPSE 10/07/2018 TAVON EWING MD Ot R79.89 OTHER SPECIFIED ABNORMAL FINDINGS OF BLO 10/07/2018 TAVON EWING MD Ot Z79.82 GROUNDS MANAGER (CURRENT) USE OF ASPIRIN 10/07/2018 TAVON EWING MD Ot Z79.899 OTHER GROUNDS MANAGER (CURRENT) DRUG THERAPY 10/07/2018 TAVON EWING MD Ot Z86.73 PRSNL HX OF TIA (TIA), AND CEREB INFRC W 10/08/2018 MARLIN ALRLED MD Ot G93.40 ENCEPHALOPATHY, UNSPECIFIED 10/08/2018 MARLIN ALLRED MD Ot 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 10/08/2018 MARLIN ALLRED MD Ot 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 10/11/2018 TAVON EWING MD Ot E78 .5 HYPERLIPIDEMIA, UNSPECIFIED 10/11/2018 TAVON EWING MD Ot I10 ESSENTIAL (PRIMARY) HYPERTENSION 10/11/2018 TAVON EWING MD Ot I25.10 ATHSCL HEART DISEASE OF [place] CORONARY 10/11/2018 TAVON EWING MD, Ot 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 INFARCTION 10/11/2018 TAVON EWING MD Ot R55 SYNCOPE AND COLLAPSE 10/11/2018 TAVON EWING MD Ot R79.89 OTHER SPECIFIED ABNORMAL FINDINGS OF BLO 10/11/2018 TAVON EWING MD, Ot Z79.82 GROUNDS MANAGER (CURRENT) USE OF ASPIRIN 10/11/2018 TAVON EWING MD Ot Z79.899 OTHER PRISON (CURRENT) DRUG THERAPY 10/11/2018 TAVON EWING MD Ot Z86.73 PRSNL HX OF TIA (TIA), AND CEREB INFRC W 10/11/2018 TAVON EWING MD Ot E78 .5 HYPERLIPIDEMIA, UNSPECIFIED 10/11/2018 TAVON EWING MD Ot I10 ESSENTIAL (PRIMARY) HYPERTENSION 10/11/2018 TAVON EWING MD, Ot I25.10 ATHSCL HEART DISEASE OF [place] CORONARY 10/11/2018 TAVON EWING MD, Ot 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 INFARCTION 10/11/2018 TAVON EWING MD Ot R55 SYNCOPE AND COLLAPSE 10/11/2018 TAVON EWING MD, Ot R79.89 OTHER SPECIFIED ABNORMAL FINDINGS OF BLO 10/11/2018 TAVON EWING MD, Ot Z79.82 PRISON (CURRENT) USE OF ASPIRIN 10/11/2018 TAVON EWING MD Ot Z79.899 OTHER PRISON (CURRENT) DRUG THERAPY 10/11/2018 TAVON EWING MD, [...] INITIAL ENCOUNTER 11/25/2018 BRENDA MCGILL MD Z79.02 GROUNDS MANAGER (CURRENT) USE OF ANTITHROMBOTI 11/25/2018 BRENDA MCGILL MD Z79.82 PRISON (CURRENT) USE OF ASPIRIN 11/25/2018 BRENDA MCGILL MD Z86.73 PRSNL HX OF TIA (TIA), AND CEREB INFRC W 12/02/2018 BRENDA MCGILL MD I10 ESSENTIAL (PRIMARY) HYPERTENSION 12/02/2018 BRENDA MCGILL MD I25.2 OLD MYOCARDIAL INFARCTION 12/02/2018 BRENDA MCGILL MD M54.5 LOW BACK PAIN 12/02/2018 BRENDA MCGILL MD O t W19.XXXA UNSPECIFIED FALL, INITIAL ENCOUNTER 12/02/2018 NANO HAMMOND, BRENDA mccloud Z79.02 GROUNDS MANAGER (CURRENT) USE OF ANTITHROMBOTI 12/02/2018 NANO HAMMOND, BRENDA [employer]ccloud Z79.82 PRISON (CURRENT) USE OF ASPIRIN 12/02/2018 NANO HAMMOND, [...] ENCOUNTER 12/03/2018 STEIN DO, EMILY Ot Z79.02 PRISON (CURRENT) USE OF ANTITHROMBOTI 12/03/2018 STEIN DO, [...] ENCOUNTER 12/03/2018 STEIN DO, EMILY Ot Z79.02 PRISON (CURRENT) USE OF ANTITHROMBOTI 12/03/2018 STEIN DO, [...] ENCOUNTER 12/04/2018 STEIN DO, EMILY Ot Z79.02 GROUNDS MANAGER (CURRENT) USE OF ANTITHROMBOTI 12/04/2018 STEIN DO, [...] ENCOUNTER 12/04/2018 EMILY STEIN DO Ot Z79.02 PRISON (CURRENT) USE OF ANTITHROMBOTI 12/04/2018 EMILY STEIN [...] Ot I25. 10 ATHSCL HEART DISEASE OF [place] CORONARY 03/14/2019 REILLY TSE MD, Ot M10. 9 GOUT, UNSPECIFIED 03/14/2019 REILLY TSE MD, Ot M54. 9 DORSALGIA, UNSPECIFIED 03/14/2019 REILLY TSE MD, Ot N39. 0 URINARY TRACT INFECTION, SITE NOT SPECIF 03/14/2019 REILLY TSE MD, Ot R55 SYNCOPE AND COLLAPSE 03/14/2019 REILLY TSE MD, Ot Z79. 01 PRISON (CURRENT) USE OF ANTICOAGULANT 03/14/2019 REILLY TSE MD, Ot Z79. 82 GROUNDS MANAGER (CURRENT) USE OF ASPIRIN 03/14/2019 REILLY TSE MD, Ot Z79.899 OTHER GROUNDS MANAGER (CURRENT) DRUG THERAPY 03/14/2019 REILLY TSE MD, Ot Z86. 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[place] 10/07/2019 [facility], LEDA Galdamez Ot I10 ESSENTIAL (PRIMARY) HYPERTENSION 10/07/2019 [facility], LEDA Galdamez Ot I25.2 OLD MYOCARDIAL INFARCTION 10/07/2019 [facility], LEDA Galdamez Ot M25.5 51 PAIN IN RIGHT HIP 10/07/2019 [facility], LEDA Galdamez Ot N39.0 URINARY TRACT INFECTION, SITE NOT SPECIF 10/07/2019 [facility], LEDA Galdamez Ot S32.9XXA FRACTURE OF [facility] PARTS OF LUMBOSACRAL SP 10/07/2019 [facility], LEDA Galdamez Ot W01.0XXA FALL SAME LEV FROM SLIP/TRIP W/O STRIKE 10/07/2019 [facility], LEDA Galdamez Ot Y92.0 00 KITCHEN OF [facility] NON-INSTITUT (PRIVATE) R 10/07/2019 [facility], LEDA Galdamez Ot Z79.0 2 PRISON (CURRENT) USE OF ANTITHROMBOTI 10/07/2019 [facility], LEDA Galdamez Ot Z79.8 2 GROUNDS MANAGER (CURRENT) USE OF ASPIRIN 10/07/2019 [facility], LEDA Galdamez Ot Z86.7 3 PRSNL HX OF TIA (TIA), AND CEREB INFRC W 10/07/2019 [facility], LEDA Galdamez Ot Z88.1 ALLERGY STATUS TO OTHER ANTIBIOTIC AGENT 10/07/2019 [facility], LEDA Galdamez Ot Z88.2 ALLERGY STATUS [...] culture - 11/25/18 12:25 Bacterial urine culture [id number] NRG COLONY COUNT >100,000/ML NRG FTX;REPORTABLE SUSCEPTIBILITIES [...] culture - 01/30/19 09:30 Bacterial urine culture [id number] NRG COLONY COUNT >100,000/ML NRG FTX;REPORTABLE SUSCEPTIBILITY [...] 7-25 CREATININE 1.02 mg/dL 0.60-0.88 eGFR NON-AFR. PALAUAN 49 mL/min/1.73m2 > OR = 60 eGFR [...] culture - 03/12/19 13:50 Bacterial urine culture [id number] NRG COLONY COUNT >100,000/ML NRG FTX;REPORTABLE SUSCEPTIBILITY [...] Automated blood platelet mean volume measurement T DOUGHNUT ICER 7.4- 10.4 Comprehensive metabolic panel - 10/04/19 [...] culture - 10/04/19 11:10 Bacterial urine culture [id number] NRG COLONY COUNT >100,000/ML NRG SUSCEPTIBILITY SUSCEPTIBILITY [...] Status Pt. Type Provider Facility Loc./Unit Complaint [id number] 05/18/2019 10:50:00 05/18/2019 23:59: 59 [facility] [id number] 02/04/2019 15:30:00 Document Registration [id number] 10/04/2019 09:29:00 13:06:00 DIS Outpatient LEDA CALLE DO [facility] ER FS RT HIP PAIN [id number] 04/15/2019 08:12:00 23:59:59 CLS Outpatient ADRIAN ROSALES [facility] CARD SYNCOPE [id number] 03/12/2019 16:06:00 10:48:00 DIS Inpatient REILLY TSE MD [facility] CSD SYNCOPAL EVENT WEAKNE SS [id number] 01/30/2019 11:40:00 23:59:59 CLS Outpatient MARLIN HINSON MD [facility] LAB FS R30.0 [id number] 01/20/2019 09:35:00 23:59:59 CLS Outpatient MARLIN ALLRED MD Vi [facility] RAD ELEVATED LIVER ENZYMES, EVELATED GLUCOSE [id number] 01/09/2019 12:33:00 23:59:59 CLS Outpatient BRIGIDA HAMMOND, MARLIN cortes [facility] RAD CHEST XR [id number] 12/01/2018 08:54:00 15:29:00 DIS Inpatient EMILY STEIN DO, V [facility] 4TH UTI,BACK PAIN [id number] 11/25/2018 10:26:00 13:45:00 DIS Emergency NANO HAMMOND, RENEE Ocasio [facility] ER FS FALL; LWR B ACK PAIN [id number] 10/06/2018 15:15:00 14:21:00 DIS Inpatient KAYLIN HAMMOND, TAVON Murphy [facility] 4TH SYNCOPE [id number] 09/16/2018 15:39:00 23:59:59 CLS Outpatient BRIGIDA HAMMOND, MARLIN cortes [facility] RAD FOCAL DEFICIT/CEREBROVA SCULAR INS [id number] 10/17/2019 23:34:[address] Inpatient EMILY STEIN DO [facility] CSD CARDIAC PROBLEMS
[2019-10-18] VITALS (29 sets, daily range): BP systolic 80–121; BP diastolic 47–82
[2019-10-18] MEDS ORDERED: PHENYLEPHRINE INJ 10 MG/ML (FOR DRIP KITS ONLY) IV ONE
[2019-10-18] MEDS: dilTIAZem DRIP PRE-MIX 125 ML IV SCH ×3 (01:39→18:47)
[2019-10-18] MEDS ORDERED: LACTATED RINGERS 1,000 ML IV SCH ×2 (01:45→03:00)
[2019-10-18 01:56] LABS: BASOPHILS % (AUTO) 0 % (0-10); EOSINOPHILS # (AUTO) 0.3 10^3/uL (0.0-0.3); EOSINOPHILS % (AUTO) 2 % (0-10); HEMATOCRIT 30 % (35-52); HEMOGLOBIN 9.9 G/DL (11.5-16.0); LYMPHOCYTES # (AUTO) 2.9 X 10^3 (1.0-4.0); LYMPHOCYTES % (AUTO) 22 % (12-44); MEAN CORPUSCULAR HEMOGLOBIN 27 PG (25-34); MEAN CORPUSCULAR HGB CONC 34 G/DL (32-36); MEAN CORPUSCULAR VOLUME 79 FL (80-99); MEAN PLATELET VOLUME 11.4 FL (7.4-10.4); MONOCYTES # (AUTO) 1.7 X 10^3 (0.0-1.0); MONOCYTES % (AUTO) 13 % (0-12); NEUTROPHILS # (AUTO) 8.1 X 10^3 (1.8-7.8); NEUTROPHILS % (AUTO) 62 % (42-75); PLATELET COUNT 230 10^3/uL (130-400); RED CELL DISTRIBUTION WIDTH 22.3 % (10.0-14.5)
[2019-10-18 02:03] LABS: ALBUMIN 2.6 GM/DL (3.2-4.5)
[2019-10-18 02:04] LABS: INR 1.3 (0.8-1.4); PROTHROMBIN TIME PATIENT 16.6 SEC (12.2-14.7)
[2019-10-18 02:05] LABS: CALCIUM 8.4 MG/DL (8.5-10.1)
[2019-10-18 02:06] LABS: TOTAL PROTEIN 7.4 GM/DL (6.4-8.2)
[2019-10-18 02:09] LABS: PHOSPHORUS 3.3 MG/DL (2.3-4.7)
[2019-10-18 02:10] LABS: CREATININE SERUM 1.39 MG/DL (0.60-1.30)
--- NOTE | 2019-10-18 02:48 | Progress Note-Post Operative ---
Post-Operative Progess Note Surgeon (s)/Pharmacy Buyer (s) Surgeon IRIS VELAZQUEZ DO Pharmacy Buyer: none Pre-Operative Diagnosis Hypotension, Afib with RVR, CHF Post-Operative Diagnosis same Procedure & Operative Findings Date of Procedure 10/18/19 Procedure Performed/Findings PROCEDURE: [Right] internal jugular central line placement using ultrasound guidance. COMPLICATIONS: None. INDICATIONS: The patient is a 89 year old female [with hypotension, afib with RVR]. Patient understands the risks and benefits of port placement and wished to proceed with the procedure. Consent was signed on the chart. PROCEDURE: The patient was in her bed in the ICU, was prepped and draped in the sterile fashion. A surgical pause was performed. Ultrasound was used to locate the internal jugular vein. Once located anesthetic was infiltrated above it. Using 18 gauge finder needle with negative inspiration the right internal vein was accessed. Dark nonpulsatile blood was withdrawn. The wire was inserted. Fluoroscopy assured proper placement. The needle was removed. A [#11] blade scalpel was used to make a stab incision along the wire. The dilator sheath was then advanced over the wire and checked with US. The triple lumen catheter was then inserted over the guidewire using the Seldinger technique and the wire was removed. All 3 ports were then accessed without difficulty; aspirated to get good flash of blood and then flushed with sterile saline. The catheter was then sewn in place with 3-0 Silk on a Reed needle. The areas were then washed and dried. A sterile dressing was placed. The patient tolerated the procedure well without complication. Anesthesia Type Local lidocaine Estimated Blood Loss Estimated blood loss (mL): less than 3ml Specimens/Packing Specimens Removed none IRIS VELAZQUEZ DO Oct 18, 2019 02:48
--- NOTE | 2019-10-18 02:54 | Consultation - Surgery ---
History of Present Illness History of Present Illness Patient Consulted On(nicky/time) 10/18/19 02:49 Time Seen by Provider: 21:10 History of Present Illness Surgery asked to consult regarding Hypotension and need for central line in order to give Pressors. HPI per ED: Presents via EMS w concern of not feeling well today. Seen by her Dr in the [place] today. Noted to have rapid heart rate. Info relayed that her metoprolol was held today. Pt denies CP or SOA, states she is feeling sick. Complains of nausea. When I spoke to pt she was comfortable in her ICU bed and denied chest pain. Pt was weak and not feeling good and went in to the ER; found to be in Afib with RVR and was not able to support her own BP. She got 2 liter bolus of crystalloids in ER and then started on Neosynephrine. She still had low BP and when asked about central line she said "whatever you think best, whatever needs to be done." Allergies and Home Medications Allergies Coded Allergies: Sulfa (Sulfonamide Antibiotics) (Verified Allergy, Unknown, 10/04/19) carvedilol (Verified Allergy, Unknown, 10/04/19) ciprofloxacin (Verified Allergy, Unknown, 10/04/19) Home Medications Acetaminophen 325 Mg Tablet, 325 MG PO Q6H PRN for PAIN-MILD, (Reported) Aspirin 81 Mg Tablet.dr, 324 MG PO DAILY, (Reported) TAKES 4 (81MG) TABLETS Atorvastatin Calcium 40 Mg Tablet, 40 MG PO HS Prescribed by: REILLY TSE on 03/14/19912 Cephalexin 500 Mg Capsule, 500 MG PO BID Prescribed by: REILLY TSE on 03/14/19912 Cephalexin 500 Mg Capsule, 500 MG PO QID Prescribed by: LEDA CALLE on 10/04/19 1148 Clopidogrel Bisulfate 75 Mg Tablet, 75 MG PO DAILY, (Reported) Cyclobenzaprine HCl 5 Mg Tablet, 5 MG PO Q8H PRN for MUSCLE SPASMS, (Reported) Hydrocodone/Acetaminophen 1 Each Tablet, 1 EACH PO QID Prescribed by: LEDA CALLE on 10/04/19 1136 Isosorbide Mononitrate 60 Mg Tab, 60 MG PO DAILY, (Reported) Magnesium Hydroxide 400 Mg/5 Ml Oral.susp, 30 ML PO DAILY PRN for CONSTIPATION- 7TH LINE, (Reported) Nitrofurantoin Monohyd/M-Cryst 100 Mg Capsule, 1 TAB PO DAILY, (Reported) Ramipril 5 Mg Capsule, 5 MG PO DAILY Prescribed by: REILLY TSE on 03/14/19 0913 Patient Home Medication List Home Medication List Reviewed: Yes Past Aubunqs-Zencav-Zfdbcz Hx Patient Social History Alcohol Use: Denies Use Recreational Drug Use: No Smoking Status: Never a Smoker 2nd Hand Smoke Exposure: No Recent Foreign Travel: No Contact w/Someone Who Travel: No Recent Infectious Disease Expo: No Recent Hopitalizations: No Immunizations Up To Date Date of Pneumonia Vaccine: Feb 25, 2019 Date of Influenza Vaccine: Feb 25, 2019 Seasonal Allergies Seasonal Allergies: No Surgeries History of Surgeries: No Respiratory History of Respiratory Disorde: No Cardiovascular History of Cardiac Disorders: Yes Cardiac Disorders: Heart Attack, Hypertension Neurological History of Neurological Disord: Yes Neurological Disorders: Stroke Genitourinary History of Genitourinary Disor: No Gastrointestinal History of Gastrointestinal Di: No Musculoskeletal History of Musculoskeletal Dis: Yes Musculoskeletal Disorders: Gout Endocrine History of Endocrine Disorders: No HEENT History of HEENT Disorders: No Cancer History of Cancer: No Psychosocial History of Psychiatric Problem: No Integumentary History of Skin or Integumenta: No Blood Transfusions History of Blood Disorders: No Family Medical History Significant Family History: Heart Disease (Father in his 80's from heart attack), Stroke (Mother at 53 with stroke) Review of Systems-General Constitutional: malaise, weakness EENTM: No blurred vision, No double vision, No mouth pain, No mouth swelling, No epistaxis Respiratory: No cough; dyspnea on exertion, short of breath Cardiovascular: chest pain; No edema; palpitations Gastrointestinal: No abdominal pain, No nausea, No vomiting Genitourinary: No dysuria, No frequency, No hematuria Musculoskeletal: joint pain, joint swelling, muscle stiffness Skin: No change in color, No change in hair/nails Psychiatric/Neurological: Denies Anxiety, Denies Depressed, Denies Seizure, Denies Tremors Other pt states she is on blood thinner and bruises easily Physical Exam-General Problems Physical Exam Vital Signs Vital Signs - First Documented 10/17/19 21:47 Temp 35.7 Pulse 164 Resp 32 B/P (MAP) 80/47 (58) Pulse Ox 97 O2 Delivery Nasal Cannula O2 Flow Rate 2.00 Capillary Refill : Less Than 3 Seconds General Appearance: WD/WN, no apparent distress Eyes: Bilateral Eye PERRL, Bilateral Eye EOMI HEENT: pharynx normal; No scleral icterus (R), No scleral icterus (L) Neck: non-tender, normal inspection Respiratory: lungs clear, no respiratory distress, no accessory muscle use; No crackles; wheezing Cardiovascular: tachycardia, irregularly irregular Gastrointestinal: non tender, soft, no organomegaly Rectal: deferred Back: no CVA tenderness, no vertebral tenderness Extremities: no pedal edema, no calf tenderness, normal capillary refill Neurologic/Psychiatric: color making supervisor II-XII nml as tested, alert, normal mood/affect Skin: normal color, warm/dry Lymphatic: no adenopathy (neck, axilla or groin) Data Review Labs Laboratory Tests 10/17/19 22:00: White Blood Count 11.8H, Red Blood Count 3.41L, Hemoglobin 8.9L, Hematocrit 27L, Mean Corpuscular Volume 79L, Mean Corpuscular Hemoglobin 26, Mean Corpuscular Hemoglobin Concent 33, Red Cell Distribution Width 22.4H, Platelet Count 192, Me an Platelet Volume 12.3H, Neutrophils (%) (Auto) 40L, Lymphocytes (%) (Auto) 42, Monocytes (%) (Auto) 13H, Eosinophils (%) (Auto) 4, Basophils (%) (Auto) 0, Neutrophils # (Auto) 4.7, Lymphocytes # (Auto) 4.9H, Monocytes # (Auto) 1.6H, Eosinophils # (Auto) 0.5H, Basophils # (Auto) 0.1, Sodium Level 132L, Potassium Level 4.5, Chloride Level 101, Carbon Dioxide Level 18L, Anion Gap 13, Blood Urea Nitrogen 30H, Creatinine 1.35H, Estimat Glomerular Filtration Rate 37, BUN/Creatinine Ratio 22, Glucose Level 159H, Calcium Level 8.3L, Corrected Calcium 9.7, Total Bilirubin 1.2H, Aspartate Amino Transf (AST/SGOT) 131H, Alanine Aminotransferase (ALT/SGPT) 59H, Alkaline Phosphatase 348H, Troponin I < 0.30, Total Protein 6.5, Albumin 2.2L 10/18/19 01:45: White Blood Count 13.0H, Red Blood Count 3.74L, Hemoglobin 9.9L, Hematocrit 30L, Mean Corpuscular Volume 79L, Mean Corpuscular Hemoglobin 27, Mean Corpuscular Hemoglobin Concent 34, Red Cell Distribution Width 22.3H, Platelet Count 230, Mean Platelet Volume 11.4H, Neutrophils (%) (Auto) 62, Lymphocytes (%) (Auto) 22, Monocytes (%) (Auto) 13H, Eosinophils (%) (Auto) 2, Basophils (%) (Auto) 0, Neutrophils # (Auto) 8.1H, Lymphocytes # (Auto) 2.9, Monocytes # (Auto) 1.7H, Eosinophils # (Auto) 0.3, Basophils # (Auto) 0.0, Sodium Level 133L, Potassium Level 5.0, Chloride Level 105, Carbon Dioxide Level 21, Anion Gap 7, Blood Urea Nitrogen 28H, Creatinine 1.39H, Estimat Glomerular Filtration Rate 36, BUN/Creatinine Ratio 20, Glucose Level 136H, Calcium Level 8.4L, Corrected Calci um 9.5, Total Bilirubin 2.0H, Aspartate Amino Transf (AST/SGOT) 146H, Alanine Aminotransferase (ALT/SGPT) 70H, Alkaline Phosphatase 374H, Total Protein 7.4, Albumin 2.6L, Prothrombin Time 16.6H, INR Comment 1.3, Activated Partial Thromboplast Time 33, Phosphorus Level 3.3, Magnesium Level 2.0, Thyroid Stimulating Hormone (TSH) 2.13 Assessment/Plan Assessment/Plan Assessment/Plan Hypotension AFib with RVR CHF Anemia Pt needs a central line so she can get Vasopressors for her Hypotension; which is probably due to the Afib. She is also anemic which is probably contributing to her hypotension as well. She understands that she will be at higher risk for bleeding because of the Plavix. All questions answered to her satisfaction. Clinical Quality Measures DVT/VTE Risk/Contraindication: Risk Factor Score Per Nursin RFS Level Per Nursing on Admit: 4+=Very High IRIS VELAZQUEZ DO Oct 18, 2019 02:54
[2019-10-18] MEDS ORDERED: NS (IVPB) 0 ML ONE (03:19)
[2019-10-18] MEDS ORDERED: PHENYLEPHRINE INJ 10 MG/ML (FOR DRIP KITS ONLY) ONE (03:20)
[2019-10-18] MEDS ORDERED: NS (IVPB) 250 ML ONE (03:20)
[2019-10-18 03:55] LABS: BILIRUBIN,URINE NEGATIVE (NEGATIVE); CLARITY,URINE CLEAR; COLOR,URINE YELLOW; GLUCOSE, URINE (UA) NEGATIVE (NEGATIVE); KETONES,URINE NEGATIVE (NEGATIVE); LEUKOCYTE ESTERASE ,URINE NEGATIVE (NEGATIVE); NITRITE,URINE NEGATIVE (NEGATIVE); PH,URINE 5.5 (5-9); PROTEIN,URINE 2+ (NEGATIVE)
[2019-10-18] MEDS ORDERED: NOREPINEPHRINE 4 MG/250 ML 250 ML IV ONE (03:56)
[2019-10-18] MEDS: LACTATED RINGERS 1,000 ML IV SCH ×7 (03:58→23:11)
[2019-10-18] MEDS: NOREPINEPHRINE 4 MG/250 ML 250 ML IV SCH ×3 (04:07→21:34)
[2019-10-18 04:13] LABS: AMORPHOUS SEDIMENT,UR MOD AMOR URATES /LPF; BACTERIA,URINE TRACE /HPF
[2019-10-18] MEDS: RT-ALBUTEROL/IPRATROPIUM 3 ML (DUONEB) VIAL INH SCH (04:36)
--- NOTE | 2019-10-18 05:00 | NUR ---
Timeline note below: 0056 Patient arrived to ICU11 via EMS Stretcher. Patient has Maynor-Synephrine gtt running at 50mcg/min. 0100 Pt's BP 89/66 and HR ranging from 110-140's. This RN contacted Tele-ICU, new orders received (see order hx). 0123 Dr. Bishop notified of consult for Central Line. 0145 This RN spoke with patient's son, Hillary, to update per patient's request. 0211 Dr. Bishop at bedside placing Central Line. 0230 Central Line placement complete.
--- NOTE | 2019-10-18 05:33 | Diagnostic Imaging Report ---
EXAMINATION: Chest 1 view HISTORY: Atrial fibrillation. COMPARISON: 10/04/2019. FINDINGS: Stable cardiomegaly with loop recorder overlying the cardiac silhouette. There is calcified aortic atherosclerotic plaque. No focal consolidation or pulmonary mass. No large pleural effusion or pneumothorax. No acute osseous abnormalities. IMPRESSION: 1. Cardiomegaly. No overt pulmonary edema. Dictated by: Dictated on workstation # [id number]
[2019-10-18] MEDS: MAGNESIUM 1 GM/100 ML IVPB 100 ML IV SCH (05:39)
[2019-10-18] MEDS: KCL 20 MEQ TAB (K-DUR) PO SCH (05:39)
[2019-10-18] MEDS: POTASSIUM CL 10MEQ/50ML IVPB 50 ML IV SCH (05:39)
--- NOTE | 2019-10-18 06:07 | NUR ---
This RN notified Tele-ICU of decreased urine output of 100ml since 1am.
--- NOTE | 2019-10-18 06:37 | Pulmonary Consultation ---
History of Present Illness History of Present Illness Date Seen by Provider: Oct 18, 2019 Time Seen by Provider: 06:31 Date of Admission Allergies and Home Medications Allergies Coded Allergies: Sulfa (Sulfonamide Antibiotics) (Verified Allergy, Unknown, 10/04/19) carvedilol (Verified Allergy, Unknown, 10/04/19) ciprofloxacin (Verified Allergy, Unknown, 10/04/19) Home Medications Acetaminophen 325 Mg Tablet, 325 MG PO Q6H PRN for PAIN-MILD, (Reported) Aspirin 81 Mg Tablet.dr, 324 MG PO DAILY, (Reported) TAKES 4 (81MG) TABLETS Atorvastatin Calcium 40 Mg Tablet, 40 MG PO HS Prescribed by: REILLY TSE on 03/14/19912 Cephalexin 500 Mg Capsule, 500 MG PO BID Prescribed by: REILLY TSE on 03/14/19912 Cephalexin 500 Mg Capsule, 500 MG PO QID Prescribed by: LEDA CALLE on 10/04/19 1148 Clopidogrel Bisulfate 75 Mg Tablet, 75 MG PO DAILY, (Reported) Cyclobenzaprine HCl 5 Mg Tablet, 5 MG PO Q8H PRN for MUSCLE SPASMS, (Reported) Hydrocodone/Acetaminophen 1 Each Tablet, 1 EACH PO QID Prescribed by: LEDA CALLE on 10/04/19 1136 Isosorbide Mononitrate 60 Mg Tab, 60 MG PO DAILY, (Reported) Magnesium Hydroxide 400 Mg/5 Ml Oral.susp, 30 ML PO DAILY PRN for CONSTIPATION- 7TH LINE, (Reported) Nitrofurantoin Monohyd/M-Cryst 100 Mg Capsule, 1 TAB PO DAILY, (Reported) Ramipril 5 Mg Capsule, 5 MG PO DAILY Prescribed by: REILLY TSE on 03/14/19912 Past Byaqzrq-Lmigww-Dfmqvn Hx Past Med/Social Hx: Reviewed Nursing Past Med/Soc Hx Patient Social History Alcohol Use: Denies Use Recreational Drug Use: No Smoking Status: Never a Smoker 2nd Hand Smoke Exposure: No Recent Foreign Travel: No Contact w/Someone Who Travel: No Recent Infectious Disease Expo: No Recent Hopitalizations: No Immunizations Up To Date Date of Pneumonia Vaccine: Feb 25, 2019 Date of Influenza Vaccine: Feb 25, 2019 Seasonal Allergies Seasonal Allergies: No Past Medical History Surgeries: No Respiratory: No Cardiac: Yes Heart Attack, Hypertension Neurological: Yes Stroke Genitourinary: No Gastrointestinal: No Musculoskeletal: Yes Gout Endocrine: No HEENT: No Cancer: No Psychosocial: No Integumentary: No Blood Disorders: No Family Medical History Heart Disease (Father in his 80's from heart attack), Stroke (Mother at 53 with stroke) Sepsis Event Evaluation Height, Weight, BMI Height: 5'4.00" Weight: 136lbs. 8.0oz. 61.313753wp; 23.00 BMI Method:Stated Exam Exam Vital Signs Date Time Temp Pulse Resp B/P (MAP) Pulse Ox O2 Delivery O2 Flow Rate FiO2 10/18/19 04:55 36.2 10/18/19 04:36 96 Room Air 21 10/18/19 04:18 35.7 118 97 28 10/18/19 04:07 114 111/64 10/18/19 04:00 Nasal Cannula 2.00 10/18/19 04:00 114 23 109/57 (74) 100 Nasal Cannula 2.00 10/18/19 03:30 116 22 95/56 (69) 100 Nasal Cannula 2.00 10/18/19 03:00 114 27 112/64 (80) 100 Nasal Cannula 2.00 10/18/19 02:45 128 16 111/73 (86) 100 Nasal Cannula 2.00 10/18/19 02:30 109 27 109/58 (75) 97 Nasal Cannula 2.00 10/18/19 02:15 123 27 99/66 (77) 100 Nasal Cannula 2.00 10/18/19 02:00 131 22 98/80 (86) 100 Nasal Cannula 2.00 10/18/19 01:45 138 21 101/74 (83) 100 Nasal Cannula 2.00 10/18/19 01:15 113 24 101/82 (88) 100 Nasal Cannula 2.00 10/18/19 01:14 114 10/18/19 00:56 Nasal Cannula 2.00 10/17/19 23:57 114 111/64 10/17/19 23:53 35.7 109 24 110/65 (70) 96 Nasal Cannula 2.00 10/17/19 23:15 109 24 109/51 (70) 96 Nasal Cannula 2.00 10/17/19 22:31 118 74/50 10/17/19 21:47 35.7 164 32 80/47 (58) 97 Nasal Cannula 2.00 I & O 10/18/19 07:00 Intake Total 200 ml Output Total 100 ml Balance 100 ml Height & Weight Height: 5'4.00" Weight: 136lbs. 8.0oz. 61.145088xm; 23.00 BMI Method:Stated General Appearance: No Apparent Distress, Chronically ill, Thin HEENT: Normal ENT Inspection Respiratory: Chest Non Tender, Lungs Clear, Normal Breath Sounds, No Accessory Muscle Use, No Respiratory Distress Cardiovascular: No Edema, No JVD, Normal Peripheral Pulses, Irregularly Irregular, Tachycardia Capillary Refill: Less Than 3 Seconds Gastrointestinal: non tender, soft, no organomegaly Extremity: Normal Capillary Refill, Normal Inspection, Non Tender, No Calf Tenderness Neurologic/Psychiatric: No Motor/Sensory Deficits Skin: Warm/Dry; No Petechia, No Rash Results Lab Laboratory Tests 10/17/19 22:00 10/18/19 01:45 Assessment/Plan Assessment/Plan Afib RVR -Cardizem gtt -Cardiology following -Currently on Heparin Leukocytosis r/o Sepsis -Add cefepime and vanco for now -LA is pending -Castañeda cultures pending Hypotension -Pt was started on Neosynephrin prior to transfer arrived at 0056 -Central line was placed by Dr. Bishop after transfer around 0115. -Levophed gtt Anemia -Monitor Dehydration -IVF -start LR at 150 for now Hx of CHF AURELIO MESA DO Oct 18, 2019 06:37
[2019-10-18] MEDS ORDERED: PHARMACY TO DOSE IV SCH (06:45)
--- NOTE | 2019-10-18 07:03 | NUR ---
Vancomycin - Loading dose of 1250mg x 1 today, then 500mg IV daily. CrCl calculated using Adj. Bodywt., 26ml/min. Trough to be drawn Sunday, 10/19 @ 0630-anuj.
[2019-10-18] MEDS ORDERED: VANCOMYCIN 1250 MG/NS 250 ML IVPB IV NR ×2 (08:00)
[2019-10-18] MEDS: CEFEPIME INJECTION 2,000 MG in WATER (STERILE) FOR INJECTION 20 ML IV SCH ×2 (08:17→20:59)
--- NOTE | 2019-10-18 08:22 | History & Physical-Hospitalist ---
History of Present Illness HPI/Chief Complaint CC: AF w/RVR HPI: This is an 89yoWF [place] patient of [facility] who presented to the [facility] ER with AF w/RVR. Patient tolerated Cardizem well but did require central line placement once arrived in ICU by Dr Bishop. Patient feels better than she did and does not report chest pain or palpitations. Patient has dementia so minimal details. Source: patient, RN/MD Exam Limitations: clinical condition (dementia) Date Seen 10/18/19 Time Seen by a Provider: 10:15 Attending Physician Alessandra Stein DO PCP Self,Cruz HAMMOND Referring Physician Date of Admission Oct 17, 2019 at 23:34 Home Medications & Allergies Home Medications Reviewed patient Home Medication Reconciliation performed by pharmacy medication reconciliations renal dialysis technician and/or nursing. Patients Allergies have been reviewed. Allergies Allergies Coded Allergies Sulfa (Sulfonamide Antibiotics) (Verified Allergy, Unknown, 10/04/19) carvedilol (Verified Allergy, Unknown, 10/04/19) ciprofloxacin (Verified Allergy, Unknown, 10/04/19) Past Rfeuacn-Erajun-Djkdhg Hx Past Med/Social Hx: Reviewed Nursing Past Med/Soc Hx, Reviewed and Corrections made Patient Social History Marrital Status: single Employed/Student: retired Alcohol Use: Denies Use Recreational Drug Use: No Smoking Status: Never a Smoker 2nd Hand Smoke Exposure: No Recent Foreign Travel: No Contact w/other who traveled: No Recent Hopitalizations: No Recent Infectious Disease Expo: No Immunizations Up To Date Date of Pneumonia Vaccine: Feb 25, 2019 Date of Influenza Vaccine: Feb 25, 2019 Seasonal Allergies Seasonal Allergies: No Past Medical History Cardiac: Cardiomyopathy, Coronary Artery Disease, Heart Attack, Hypertension Neurological: Stroke Musculoskeletal: Gout History of Blood Disorders: No Family History Heart Disease (Father in his 80's from heart attack), Stroke (Mother at 53 with stroke) Review of Systems Constitutional: see HPI Cardiovascular: palpitations Physical Exam Physical Exam Vital Signs Vital Signs - First Documented 10/17/19 10/18/19 21:47 04:18 Temp 35.7 Pulse 164 Resp 32 B/P (MAP) 80/47 (58) Pulse Ox 97 O2 Delivery Nasal Cannula O2 Flow Rate 2.00 FiO2 28 Capillary Refill : Less Than 3 Seconds Height, Weight, BMI Height: 5'4.00" Weight: 136lbs. 8.0oz. 61.522096ww; 23.00 BMI Method:Stated General Appearance: No Apparent Distress, Chronically ill Eyes: Right Eye Normal Inspection, Right Eye PERRL HEENT: PERRL/EOMI, Normal ENT Inspection, Pharynx Normal, Moist Mucous Membranes Neck: Full Range of Motion, Normal Inspection, Non Tender Respiratory: Chest Non Tender, Lungs Clear, Normal Breath Sounds, No Accessory Muscle Use, No Respiratory Distress Cardiovascular: No Edema, No Gallop, No JVD, No Murmur, Normal Peripheral Pulses, Irregularly Irregular Gastrointestinal: Normal Bowel Sounds, No Organomegaly, No Pulsatile Mass, Non Tender, Soft Back: Normal Inspection, No CVA Tenderness, No Vertebral Tenderness Extremity: Normal Capillary Refill, Normal Inspection, Normal Range of Motion, Non Tender, No Calf Tenderness, No Pedal Edema Neurologic/Psychiatric: Alert, Oriented x3, No Motor/Sensory Deficits, Normal Mood/Affect, Disoriented Skin: Normal Color, Warm/Dry Lymphatic: No Adenopathy Results Results/Procedures Labs Laboratory Tests 10/17/19 22:00 10/18/19 01:45 Patient resulted labs reviewed. Assessment/Plan Admission Diagnosis Assessment: AF w/RVR Dehydration Elevated lactic acidosis Hypotension due to meds Dementia Anemia Central [facility] placement [facility]: [facility] ERIKA Cameron appreciated Appreciate Dr Bishop for central line placement Admission Status: Inpatient Order (span 2 midnights) Reason for Inpatient Admission: af w/rvr Diagnosis/Problems Diagnosis/Problems (1) Atrial fibrillation with tachycardic ventricular rate Status: Acute (2) Hypotension Status: Acute Qualifiers: Hypotension type: unspecified hypotension type Qualified Codes: I95.9 - Hypotension, unspecified (3) Anemia Status: Acute Qualifiers: Anemia type: unspecified type Qualified Codes: D64.9 - Anemia, unspecified (4) Essential (primary) hypertension Status: Chronic (5) CAD (coronary artery disease) Status: Chronic Clinical Quality Measures DVT/VTE Risk/Contraindication: Risk Factor Score Per Nursin RFS Level Per Nursing on Admit: 4+=Very High ALESSANDRA STEIN DO Oct 18, 2019 08:22
[2019-10-18] MEDS ORDERED: LACTATED RINGERS 500 ML IV ONE (10:00)
[2019-10-18] MEDS: fentaNYL INJECTION 100 MCG/2 ML AMP IVP PRN ×2 (12:44→21:05)
--- NOTE | 2019-10-18 13:45 | Progress Note - Surgery ---
Subjective Time Seen by a Provider: 12:49 Subjective/Events-last exam Pt seen and examined, no complaints. Nurse states that they have not been able to take her off Levophed; "everytime we turn it off her SBP goes into the 60's". Review of Systems General: No Chills, No Night Sweats Pulmonary: No Dyspnea, No Cough Cardiovascular: Palpitations; No: Chest Pain Gastrointestinal: No: Nausea, Vomiting Focused Exam Lactate Level 10/17/19 22:00: 10/18/19 07:09: Lactic Acid Level 2.20*H 10/18/19 09:35: Lactic Acid Level 1.63 Objective Exam Vital Signs Date Time Temp Pulse Resp B/P (MAP) Pulse Ox O2 Delivery O2 Flow Rate FiO2 10/18/19 13:00 86 24 100/50 (67) 100 Room Air 10/18/19 12:41 84 111/52 10/18/19 12:27 77 10/18/19 12:00 98 Room Air 10/18/19 12:00 89 32 111/52 (71) 100 Room Air 10/18/19 12:00 36.3 10/18/19 11:00 81 28 103/60 (74) 100 Room Air 10/18/19 10:00 86 24 102/55 (71) 100 Room Air 10/18/19 09:08 Room Air 10/18/19 09:00 80 25 96/47 (63) 100 Nasal Cannula 2.00 10/18/19 08:00 98 Room Air 10/18/19 08:00 102 25 114/54 (74) 92 Nasal Cannula 2.00 10/18/19 07:11 37.3 10/18/19 07:00 91 10/18/19 07:00 94 31 94/63 (73) 100 Nasal Cannula 2.00 10/18/19 06:00 125 25 107/54 (71) 100 Nasal Cannula 2.00 10/18/19 05:00 128 24 114/53 (73) 100 Nasal Cannula 2.00 10/18/19 04:55 36.2 10/18/19 04:36 96 Room Air 21 10/18/19 04:18 35.7 118 97 28 10/18/19 04:07 114 111/64 10/18/19 04:00 Nasal Cannula 2.00 10/18/19 04:00 114 23 109/57 (74) 100 Nasal Cannula 2.00 10/18/19 03:30 116 22 95/56 (69) 100 Nasal Cannula 2.00 10/18/19 03:00 114 27 112/64 (80) 100 Nasal Cannula 2.00 10/18/19 02:45 128 16 111/73 (86) 100 Nasal Cannula 2.00 10/18/19 02:30 109 27 109/58 (75) 97 Nasal Cannula 2.00 10/18/19 02:15 123 27 99/66 (77) 100 Nasal Cannula 2.00 10/18/19 02:00 131 22 98/80 (86) 100 Nasal Cannula 2.00 10/18/19 01:45 138 21 101/74 (83) 100 Nasal Cannula 2.00 10/18/19 01:15 113 24 101/82 (88) 100 Nasal Cannula 2.00 10/18/19 01:14 114 10/18/19 00:56 Nasal Cannula 2.00 10/17/19 23:57 114 111/64 10/17/19 23:53 35.7 109 24 110/65 (70) 96 Nasal Cannula 2.00 10/17/19 23:15 109 24 109/51 (70) 96 Nasal Cannula 2.00 10/17/19 22:31 118 74/50 10/17/19 21:47 35.7 164 32 80/47 (58) 97 Nasal Cannula 2.00 I & O 10/18/19 07:00 Intake Total 200 ml Output Total 100 ml Balance 100 ml Capillary Refill : Less Than 3 Seconds General Appearance: No Apparent Distress, Chronically ill, Thin Respiratory: Normal Breath Sounds, No Accessory Muscle Use, No Respiratory Distress, Wheezing Cardiovascular: No Edema, Irregularly Irregular, Tachycardia Gastrointestinal: non tender, soft, no organomegaly Skin: Other (Triple lumen catheter site looks good) Results Lab Laboratory Tests 10/17/19 22:00: White Blood Count 11.8H, Red Blood Count 3.41L, Hemoglobin 8.9L, Hematocrit 27L, Mean Corpuscular Volume 79L, Mean Corpuscular Hemoglobin 26, Mean Corpuscular Hemoglobin Concent 33, Red Cell Distribution Width 22.4H, Platelet Count 192, Mean Platelet Volume 12.3H, Neutrophils (%) (Auto) 40L, Lymphocytes (%) (Auto) 42, Monocytes (%) (Auto) 13H, Eosinophils (%) (Auto) 4, Basophils (%) (Auto) 0, Neutrophils # (Auto) 4.7, Lymphocytes # (Auto) 4.9H, Monocytes # (Auto) 1.6H, Eosinophils # (Auto) 0.5H, Basophils # (Auto) 0.1, Sodium Level 132L, Potassium Level 4.5, Chloride Level 101, Carbon Dioxide Level 18L, Anion Gap 13, Blood Urea Nitrogen 30H, Creatinine 1.35H, Estimat Glomerular Filtration Rate 37, BUN/Creatinine Ratio 22, Glucose Level 159H, Calcium Level 8.3L, Corrected Calcium 9.7, Total Bilirubin 1.2H, Aspartate Amino Transf (AST/SGOT) 131H, Alanine Aminotransferase (ALT/SGPT) 59H, Alkaline Phosphatase 348H, Troponin I < 0.30, Total Protein 6.5, Albumin 2.2L 10/18/19 01:45: White Blood Count 13.0H, Red Blood Count 3.74L, Hemoglobin 9.9L, Hematocrit 30L, Mean Corpuscular Volume 79L, Mean Corpuscular Hemoglobin 27, Mean Corpuscular Hemoglobin Concent 34, Red Cell Distribution Width 22.3H, Platelet Count 230, Mean Platelet Volume 11.4H, Neutrophils (%) (Auto) 62, Lymphocytes (%) (Auto) 22, Monocytes (%) (Auto) 13H, Eosinophils (%) (Auto) 2, Basophils (%) (Auto) 0, Neutrophils # (Auto) 8.1H, Lymphocytes # (Auto) 2.9, Monocytes # (Auto) 1.7H, Eosinophils # (Auto) 0.3, Basophils # (Auto) 0.0, Sodium Level 133L, Potassium Level 5.0, Chloride Level 105, Carbon Dioxide Level 21, Anion Gap 7, Blood Urea Nitrogen 28H, Creatinine 1.39H, Estimat Glomerular Filtration Rate 36, BUN/Creatinine Ratio 20, Glucose Level 136H, Calcium Level 8.4L, Corrected Calcium 9.5, Total Bilirubin 2.0H, Aspartate Amino Transf (AST/SGOT) 146H, Alanine Aminotransferase (ALT/SGPT) 70H, Alkaline Phosphatase 374H, Total Protein 7.4, Albumin 2.6L, Prothrombin Time 16.6H, INR Comment 1.3, Activated Partial Thromboplast Time 33, Phosphorus Level 3.3, Magnesium Level 2.0, Thyroid Stimulating Hormone (TSH) 2.13 10/18/19 03:45: Urine Color YELLOW, Urine Clarity CLEAR, Urine pH 5.5, Urine Specific Leonardo 1.025H, Urine Protein 2+H, Urine Glucose (UA) NEGATIVE, Urine Ketones NEGATIVE, Urine Nitrite NEGATIVE, Urine Bilirubin NEGATIVE, Urine Urobilinogen 2.0, Urine Leukocyte Esterase NEGATIVE, Urine RBC (Auto) NEGATIVE, Urine RBC NONE, Urine WBC NONE, Urine Squamous Epithelial Cells 5-10, Urine Crystals PRESENTH, Urine Amorphous Sediment MOD STONEY URATESH, Urine Bacteria TRACE, Urine Casts PRESENT, Urine Hyaline Casts 2-5H, Urine Granular Casts 2-5H, Urine Mucus SMALLH, Urine Culture Indicated NO 10/18/19 07:09: Lactic Acid Level 2.20*H, Procalcitonin 0.63H 10/18/19 09:35: Lactic Acid Level 1.63 Assessment/Plan Assessment/Plan Assessment/Plan Hypotension AFib with RVR CHF Anemia S/P central line placement for Vasopressors; pt still requiring for her Hypotension. Site looks good, I will sign off. Clinical Quality Measures DVT/VTE Risk/Contraindication: Risk Factor Score Per Nursin RFS Level Per Nursing on Admit: 4+=Very High IRIS VELAZQUEZ DO Oct 18, 2019 13:45
[2019-10-18] MEDS ORDERED: dilTIAZem120 MG (CARDIZEM CD) CAP PO ONE (18:44)
[2019-10-18] MEDS: DOCUSATE SODIUM 100 MG (COLACE) CAP PO SCH (20:59)
--- NOTE | 2019-10-18 21:33 | Consultation-Cardiology ---
HPI-Cardiology Cardiology Consultation: Date of Consultation 10/18/19 Date of Admission Attending Physician Alessandra Schultz DO Admitting Physician Cruz Mullins MD Consulting Physician Julienne CAMERON MD HPI: Time Seen by a Provider: 16:00 Chief Complaint: Palpitations This is a 89-year-old lady who follows with Dr. Jacobsen as an outpatient. She presents from the halfway with complains of not feeling well. She was noted to have rapid heart beating. EKG showed atrial fibrillation with rapid ventricular rate. She denies any other cardiac complaints. She denies active smoking. Pertinent family history is negative. Review of Systems-Cardiology Review of Systems Constitutional: As described under HPI; No As described under HPI, No no symptoms reported, No chills, No fever, No lightheadedness; tiredness Eyes: No As described under HPI, No no symptoms reported, No blindness, No blurred vision, No contact lenses, No drainage, No decreased acuity, No foreign body sensation, No pain, No vision change Ears/Nose/Throat: No As described under HPI, No no symptoms reported, No chronic hearing loss, No ear discharge, No ear pain, No nasal drainage, No ulcerations Respiratory: No no symptoms reported; As described under HPI; No As described under HPI, No cough, No orthopnea, No shortness of breath, No SOB with excertion Cardiovascular: No no symptoms reported; As described under HPI; No As described under HPI, No chest pain, No edema, No irregular heart rate, No ligh theadedness Gastrointestinal: No no symptoms reported, No As described under HPI, No abdomen distended, No abdominal pain, No blood streaked bowels, No constipation, No diarrhea, No nausea, No vomiting, No stool coloration changes Genitourinary: No As described under HPI, No burning, No dysuria, No discharge, No frequency, No flank pain, No hematuria, No urgency : Yes : No Skin: No rash, No skin related problems, No ulcerations Psychiatric/Neurological: No anxiety, No depression, No seizure, No focal weakness, No syncope Hematologic: No bleeding abnormalities ZEV-Scukff-Hpqufk Hx Patient Social History Marrital Status: single Employed/Student: retired Alcohol Use: Denies Use Recreational Drug Use: No Smoking Status: Never a Smoker 2nd Hand Smoke Exposure: No Recent Foreign Travel: No Recent Infectious Disease Expo: No Hospitalization with Isolation: Denies Immunizations Up To Date Date of Pneumonia Vaccine: Feb 25, 2019 Date of Influenza Vaccine: Feb 25, 2019 Past Medical History PMH As described under Assessment. Family Medical History Family Medical History: Fam h/o CAD, but no early CAD. Fam h/o CVA (mother) Allergies and Home Medications Allergies Coded Allergies: Sulfa (Sulfonamide Antibiotics) (Verified Allergy, Unknown, 10/04/19) carvedilol (Verified Allergy, Unknown, 10/04/19) ciprofloxacin (Verified Allergy, Unknown, 10/04/19) Home Medications Acetaminophen 325 Mg Tablet, 650 MG PO Q4H PRN for PAIN-MILD (1-4) OR TEMPATURE, (Reported) Albuterol Sulfate 1 Puff Puff, 2 PUFF IN Q4H PRN for SHORTNESS OF BREATH, (Reported) Aspirin 81 Mg Tablet.dr, 324 MG PO DAILY, (Reported) TAKES 4 (81MG) TABLETS Atorvastatin Calcium 40 Mg Tablet, 40 MG PO HS, (Reported) Benzonatate 100 Mg Capsule, 100 MG PO Q6H PRN for COUGH, (Reported) Cetirizine HCl 10 Mg Tablet, 10 MG PO DAILY PRN for ALLERGY SYMPTOMS, (Reported) Clopidogrel Bisulfate 75 Mg Tablet, 75 MG PO DAILY, (Reported) Cyclobenzaprine HCl 5 Mg Tablet, 5 MG PO Q8H PRN for MUSCLE SPASMS, (Reported) Docusate Sodium 100 Mg Capsule, 100 MG PO BID, (Reported) Hydrocodone/Acetaminophen 1 Each Tablet, 1 EACH PO Q4H PRN for PAIN-MODERATE (5- 7), (Reported) Loperamide HCl 2 Mg Tablet, 2 MG PO UD PRN for LOOSE STOOLS, (Reported) Magnesium Hydroxide 400 Mg/5 Ml Oral.susp, 30 ML PO DAILY PRN for CONSTIPATION- 7TH LINE, (Reported) Nitrofurantoin Monohyd/M-Cryst 100 Mg Capsule, 1 TAB PO DAILY, (Reported) Ondansetron HCl 4 Mg Tablet, 4 MG PO Q8H PRN for NAUSEA/VOMITING-1ST LINE, (Reported) Ramipril 2.5 Mg Capsule, 2.5 MG PO DAILY, (Reported) Patient Home Medication List Home Medication List Reviewed: Yes Physical Exam-Cardiology Physical Exam Vital Signs/I&O 10/21/19 10/21/19 10/21/1920 06:31 08:00 09:00 10:10 Temp 36.6 Pulse 108 90 Resp 20 B/P (MAP) 115/76 (89) Pulse Ox 96 O2 Delivery Nasal Cannula Nasal Cannula Nasal Cannula O2 Flow Rate 1.50 1.00 2.00 10/21/19 10/21/19 10/21/19 12:00 12:40 15:18 Temp 36.2 36.0 Pulse 63 108 97 Resp 20 20 B/P (MAP) 84/62 (69) 111/77 (88) Pulse Ox 96 99 O2 Delivery Nasal Cannula Nasal Cannula O2 Flow Rate 1.50 1.50 10/21/19 00:00 Intake Total 675 ml Output Total 600 ml Balance 75 ml Capillary Refill : Less Than 3 Seconds Constitutional: appears stated age, AAO x 3; No apparent distress; well- developed, well-nourished HEENT: PERRL; No discharge; hearing is well preserved, oral hygience is good; No ulceration, No xanthelasmas are seen Neck: No carotid bruit; carotid pulses are 2 + bilaterally Respiratory: chest is bilaterally symmetric, lungs clear to auscultation Cardiovascular: irregularly irregular, tachycardia, S1 and S2; No diastolic murmur, No systolic murmur Gastrointestinal: soft, audible bowel sounds; No spleenomegaly Rectal: deferred Extremities: normal range of motion, non-tender, normal inspection; No clubbing, No cyanosis; no lower extremity edema bilateral; No significant edema Neurologic/Psychiatric: no motor/sensory deficits, alert, oriented x 3, power is 5/5 both on sides Skin: normal color, warm/dry; No rash, No ulcerations Lymphatic: no adenopathy (neck, axilla or groin) Data Review Labs Laboratory Tests 10/21/19 03:10: White Blood Count 7.5, Red Blood Count 3.51L, Hemoglobin 9.0L, Hematocrit 28L, Mean Corpuscular Volume 79L, Mean Corpuscular Hemoglobin 26, Mean Corpuscular Hemoglobin Concent 33, Red Cell Distribution Width 22.1H, Platelet Count 142, Mean Platelet Volume 10.7H, Sodium Level 133L, Potassium Level 4.1, Chloride Level 108H, Carbon Dioxide Level 19L, Anion Gap 6, Blood Urea Nitrogen 17, Creatinine 0.84, Estimat Glomerular Filtration Rate > 60, BUN/Creatinine Ratio 2 0, Glucose Level 121H, Calcium Level 8.0L, Magnesium Level 1.7, Thyroid Stimulating Hormone (TSH) 2.33 Microbiology 10/18/19 Blood Culture - Preliminary, Resulted No growth 10/18/19 MRSA Screen - Final, Complete MRSA not isolated ECG Impression ECG Initial ECG Impression: Atrial Fibrillation w/RVR A/P-Cardiology Assessment/Admission Diagnosis PAF with RVR. Syncope of undetermined etiology Severe anemia of undetermined etiology, being managed by Dr Schultz S/p ILR that was implanted on 03/14/19 H/o KS. She has previously reported that it was in the late 90s, had cor stents X 2 done at [facility] H/o CVA. 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 Follows with Dr. Jacobsen. Hypertension, by history Hyperlipidemia, by history H/o mild dementia Plan * Echocardiogram. * Rate control with Cardizem infusion. Thank you for your consultation. Please call me if you have any questions. Josiah Cameron MD, FACP, FACC, [facility] [place] Interventional Cardiology Cardiac Electrophysiology Vascular Medicine and Endovascular Interventions Clinical Quality Measures DVT/VTE Risk/Contraindication: Risk Factor Score Per Nursin RFS Level Per Nursing on Admit: 4+=Very High Julienne CAMERON MD Oct 18, 2019 21:33
[2019-10-19] VITALS (18 sets, daily range): BP systolic 90–121; BP diastolic 52–73
[2019-10-19] MEDS: LACTATED RINGERS 1,000 ML IV SCH ×3 (03:05→17:52)
[2019-10-19 03:29] LABS: BASOPHILS % (AUTO) 0 % (0-10); EOSINOPHILS # (AUTO) 0.3 10^3/uL (0.0-0.3); EOSINOPHILS % (AUTO) 2 % (0-10); HEMATOCRIT 25 % (35-52); HEMOGLOBIN 8.2 G/DL (11.5-16.0); LYMPHOCYTES # (AUTO) 4.1 X 10^3 (1.0-4.0); LYMPHOCYTES % (AUTO) 30 % (12-44); MEAN CORPUSCULAR HEMOGLOBIN 26 PG (25-34); MEAN CORPUSCULAR HGB CONC 33 G/DL (32-36); MEAN CORPUSCULAR VOLUME 78 FL (80-99); MEAN PLATELET VOLUME 10.9 FL (7.4-10.4); MONOCYTES # (AUTO) 2.3 X 10^3 (0.0-1.0); MONOCYTES % (AUTO) 17 % (0-12); NEUTROPHILS # (AUTO) 6.9 X 10^3 (1.8-7.8); NEUTROPHILS % (AUTO) 51 % (42-75); PLATELET COUNT 199 10^3/uL (130-400); RED CELL DISTRIBUTION WIDTH 21.8 % (10.0-14.5); WHITE BLOOD COUNT 13.6 10^3/uL (4.3-11.0)
[2019-10-19 03:48] LABS: CALCIUM 7.9 MG/DL (8.5-10.1); CREATININE SERUM 1.13 MG/DL (0.60-1.30); MAGNESIUM 1.8 MG/DL (1.6-2.4); PHOSPHORUS 2.8 MG/DL (2.3-4.7); POTASSIUM 4.5 MMOL/L (3.6-5.0)
[2019-10-19] MEDS: KCL 20 MEQ TAB (K-DUR) PO SCH (05:46)
[2019-10-19] MEDS: MAGNESIUM 1 GM/100 ML IVPB 100 ML IV SCH (05:46)
[2019-10-19] MEDS: POTASSIUM CL 10MEQ/50ML IVPB 50 ML IV SCH (05:46)
--- NOTE | 2019-10-19 05:58 | NUR ---
This RN notified Dr. Cameron that patient's Cardizem gtt was turned off on 10/18/19 at 2315, 4 hours after PO Cardizem was given. Throughout night patient's HR ranged from 90-120's. Patient's HR now ranging from 100-130's and sustaining. New order received for Cardizem CD 180mg PO Daily, give first dose now.
--- NOTE | 2019-10-19 06:08 | Pulmonary Progress Note ---
Subjective Time Seen by a Provider: 06:04 Subjective/Events-last exam Pt appears to be doing better. Sepsis Event Evaluation Height, Weight, BMI Height: 5'4.00" Weight: 136lbs. 8.0oz. 61.458614dk; 23.00 BMI Method:Stated Focused Exam Lactate Level 10/17/19 22:00: Lactic Acid Level 3.09*H 10/18/19 07:09: Lactic Acid Level 2.20*H 10/18/19 09:35: Lactic Acid Level 1.63 Exam Exam Vital Signs Date Time Temp Pulse Resp B/P (MAP) Pulse Ox O2 Delivery O2 Flow Rate FiO2 10/19/19 04:00 113 27 112/58 (76) 99 Room Air 10/19/19 04:00 37.0 10/19/19 04:00 100 Room Air 10/19/19 03:00 100 26 107/64 (78) 98 Room Air 10/19/19 02:00 113 31 103/70 (81) 99 Room Air 10/19/19 01:00 117 29 105/59 (74) 99 Room Air 10/19/19 01:00 100 10/19/19 00:00 36.8 10/19/19 00:00 103 24 107/60 (76) 99 Room Air 10/19/19 00:00 100 Room Air 10/18/19 23:00 106 29 103/58 (73) 100 Room Air 10/18/19 22:00 98 28 113/57 (75) 99 Room Air 10/18/19 21:34 88 113/53 10/18/19 21:00 90 25 114/61 (78) 100 Room Air 10/18/19 20:00 111 20 111/61 (78) 99 Room Air 10/18/19 20:00 100 Room Air 10/18/19 20:00 37.4 10/18/19 19:00 88 10/18/19 19:00 109 20 121/52 (75) 100 Room Air 10/18/19 18:00 85 31 113/53 (73) 100 Room Air 10/18/19 17:00 85 31 106/60 (75) 100 Room Air 10/18/19 16:00 36.9 10/18/19 16:00 86 29 103/54 (70) 100 Room Air 10/18/19 16:00 98 Room Air 10/18/19 15:00 81 25 102/55 (71) 100 Room Air 10/18/19 14:00 97 26 100/58 (72) 100 Room Air 10/18/19 13:00 86 24 100/50 (67) 100 Room Air 10/18/19 12:41 84 111/52 10/18/19 12:27 77 10/18/19 12:00 98 Room Air 10/18/19 12:00 89 32 111/52 (71) 100 Room Air 10/18/19 12:00 36.3 10/18/19 11:00 81 28 103/60 (74) 100 Room Air 10/18/19 10:00 86 24 102/55 (71) 100 Room Air 10/18/19 09:08 Room Air 10/18/19 09:00 80 25 96/47 (63) 100 Nasal Cannula 2.00 10/18/19 08:00 98 Room Air 10/18/19 08:00 102 25 114/54 (74) 92 Nasal Cannula 2.00 10/18/19 07:11 37.3 10/18/19 07:00 91 10/18/19 07:00 94 31 94/63 (73) 100 Nasal Cannula 2.00 I & O 10/19/19 07:00 Intake Total 4552.5 ml Output Total 625 ml Balance 3927.5 ml Height & Weight Height: 5'4.00" Weight: 136lbs. 8.0oz. 61.552889zt; 23.00 BMI Method:Stated General Appearance: No Apparent Distress, Chronically ill HEENT: PERRL/EOMI, Normal ENT Inspection, Pharynx Normal, Moist Mucous Membranes Neck: Full Range of Motion, Normal Inspection, Non Tender Respiratory: Chest Non Tender, Lungs Clear, Normal Breath Sounds, No Accessory Muscle Use, No Respiratory Distress Cardiovascular: No Edema, No Gallop, No JVD, No Murmur, Normal Peripheral Pul ses, Irregularly Irregular Capillary Refill: Less Than 3 Seconds Gastrointestinal: non tender, soft, no organomegaly Extremity: Normal Capillary Refill, Normal Inspection, Normal Range of Motion, Non Tender, No Calf Tenderness, No Pedal Edema Neurologic/Psychiatric: Alert, Oriented x3, No Motor/Sensory Deficits, Normal Mood/Affect, Disoriented Skin: Normal Color, Warm/Dry Lymphatic: No Adenopathy Results Lab Laboratory Tests 10/17/19 22:00 10/18/19 01:45 10/19/19 03:02 Assessment/Plan Assessment/Plan Afib RVR -Cardizem gtt - currently off -Cardiology following -Currently on Heparin Pneumonia with sepsis - cefepime and vanco -LA is pending -Catsañeda cultures pending Hypotension -Levophed gtt - titrate to D/c Anemia -Monitor Dehydration -LR at 150 for now Hx of CHF AURELIO MESA DO Oct 19, 2019 06:08
--- NOTE | 2019-10-19 06:17 | Progress Note - Hospitalist ---
Subjective HPI/CC On Admission Date Seen by Provider: Oct 19, 2019 Time Seen by Provider: 09:15 CC: AF w/RVR HPI: This is an 89yoWF [place] patient of [facility] who presented to the [facility] ER with AF w/RVR. Patient tolerated Cardizem well but did require central line placement once arrived in ICU by Dr Bishop. Patient feels better than she did and does not report chest pain or palpitations. Patient has dementia so minimal details. Subjective/Events-last exam Patient had a good night Confusion and poor recall noted but that is baseline NH patient senior care AF w/RVR required increase in Cardizem PO dosing No pain reported Review of Systems General: Fatigue Neurological: Confusion Focused Exam Lactate Level 10/17/19 22:00: Lactic Acid Level 3.09*H 10/18/19 07:09: Lactic Acid Level 2.20*H 10/18/19 09:35: Lactic Acid Level 1.63 Objective Exam Vital Signs Vital Signs Date Time Temp Pulse Resp B/P (MAP) Pulse Ox O2 Delivery O2 Flow Rate FiO2 10/19/19 20:00 36.9 110 117/64 (81) 94 Room Air 10/19/19 19:48 2.00 10/19/19 16:00 26 10/19/19 06:38 21 Capillary Refill : Less Than 3 Seconds General Appearance: No Apparent Distress, WD/WN, Chronically ill Respiratory: Chest Non Tender, Lungs Clear, Normal Breath Sounds, No Accessory Muscle Use, No Respiratory Distress Cardiovascular: No Murmur, Irregularly Irregular, Tachycardia Neurologic/Psychiatric: Alert, Oriented x3, No Motor/Sensory Deficits, Normal Mood/Affect Results/Procedures Lab Laboratory Tests 10/19/19 03:02 Patient resulted labs reviewed. Assessment/Plan Assessment and Plan Assess & Plan/Chief Complaint Assessment: AF w/RVR Dehydration Elevated lactic acidosis Hypotension due to meds Dementia Anemia Central line placement Plan: Cardizem ECHO Dr Cameron appreciated Appreciate Dr Bishop for central line placement Diagnosis/Problems Diagnosis/Problems (1) Atrial fibrillation with tachycardic ventricular rate Status: Acute (2) Hypotension Status: Acute Qualifiers: Hypotension type: unspecified hypotension type Qualified Codes: I95.9 - Hypotension, unspecified (3) Anemia Status: Acute Qualifiers: Anemia type: unspecified type Qualified Codes: D64.9 - Anemia, unspecified (4) Essential (primary) hypertension Status: Chronic (5) CAD (coronary artery disease) Status: Chronic Clinical Quality Measures DVT/VTE Risk/Contraindication: Risk Factor Score Per Nursin RFS Level Per Nursing on Admit: 4+=Very High EMILY STEIN DO Oct 19, 2019 06:17
--- NOTE | 2019-10-19 06:22 | NUR ---
This RN notified RT of patient's increased work of breathing. Requested PRN breathing treatment to be given at this time.
[2019-10-19] MEDS: RT-ALBUTEROL/IPRATROPIUM 3 ML (DUONEB) VIAL INH SCH (06:38)
[2019-10-19] MEDS: fentaNYL INJECTION 100 MCG/2 ML AMP IVP PRN ×3 (07:30→20:44)
[2019-10-19] MEDS ORDERED: VANCOMYCIN 500 MG/NS 100 ML IV SCH ×2 (08:00)
[2019-10-19] MEDS: DOCUSATE SODIUM 100 MG (COLACE) CAP PO SCH ×2 (08:04→20:41)
[2019-10-19] MEDS: CEFEPIME INJECTION 2,000 MG in WATER (STERILE) FOR INJECTION 20 ML IV SCH ×2 (08:04→20:41)
--- NOTE | 2019-10-19 08:06 | Diagnostic Imaging Report ---
INDICATION: Atrial fibrillation. Time of exam: 3:51 AM Correlation is made with prior chest from 10/17/2019. Right IJ line has tip overlying the SVC. Cardiac monitoring device overlies the left heart. There may be some very minimal infiltrate left perihilar and bibasilar regions. There is no significant effusion. No pneumothorax is identified. IMPRESSION: Stable chest with minimal left perihilar and bibasilar infiltrates or atelectasis. Dictated by: Dictated on workstation # [id number]
[2019-10-19] MEDS ORDERED: dilTIAZem120 MG (CARDIZEM CD) CAP PO SCH (09:00)
[2019-10-19] MEDS: NOREPINEPHRINE 4 MG/250 ML 250 ML IV SCH (11:43)
[2019-10-19] MEDS ORDERED: DIGOXIN 0.25 MG (LANOXIN) TAB PO ONE ×3 (11:45→23:58)
[2019-10-19 12:42] LABS: ABG BASE EXCESS -2.9 MMOL/L (-2.5-2.5); ABG OXYGEN SATURATION 98 % (94-100); ABG PCO2 33 MMHG (35-45); ABG PH 7.42 (7.37-7.43); ABG PO2 94 MMHG (79-93); ABG TCO2 21.6 MMOL/L (21.0-31.0)
[2019-10-19 12:43] LABS: ALLENS TEST YES-POS; INSPIRED O2 2; PATIENT TEMP 37.7; VENTILATOR NO
--- NOTE | 2019-10-19 13:06 | Cardiology Progress Note ---
Cardiology SOAP Progress Note Subjective: No significant complaints. Objective: I&O/Vital Signs 10/21/19 10/21/19 10/21/19 10/21/19 06:31 08:00 09:00 10:10 Temp 36.6 Pulse 108 90 Resp 20 B/P (MAP) 115/76 (89) Pulse Ox 96 O2 Delivery Nasal Cannula Nasal Cannula Nasal Cannula O2 Flow Rate 1.50 1.00 2.00 10/21/19 10/21/19 10/21/19 12:00 12:40 15:18 Temp 36.2 36.0 Pulse 63 108 97 Resp 20 20 B/P (MAP) 84/62 (69) 111/77 (88) Pulse Ox 96 99 O2 Delivery Nasal Cannula Nasal Cannula O2 Flow Rate 1.50 1.50 10/21/19 00:00 Intake Total 675 ml Output Total 600 ml Balance 75 ml Weight (Pounds): 136 Weight (Ounces): 8.0 Weight (Calculated Kilograms): 61.281870 Constitutional: AAO x 3 Respiratory: chest is bilaterally symmetric, lungs clear to auscultation Cardiovascular: irregularly irregular, tachycardia, S1 and S2 Gastrointestional: soft, audible bowel sounds Extremities: normal range of motion, non-tender, normal inspection, no lower extremity edema bilateral Neurologic/Psychiatric: no motor/sensory deficits, alert, normal mood/affect, oriented x 3 Skin: normal color Results/Procedures: Labs Laboratory Tests 10/21/19 03:10: White Blood Count 7.5, Red Blood Count 3.51L, Hemoglobin 9.0L, Hematocrit 28L, Mean Corpuscular Volume 79L, Mean Corpuscular Hemoglobin 26, Mean Corpuscular Hemoglobin Concent 33, Red Cell Distribution Width 22.1H, Platelet Count 142, Mean Platelet Volume 10.7H, Sodium Level 133L, Potassium Level 4.1, Chloride Level 108H, Carbon Dioxide Level 19L, Anion Gap 6, Blood Urea Nitrogen 17, Creatinine 0.84, Estimat Glomerular Filtration Rate > 60, BUN/Creatinine Ratio 20, Glucose Level 121H, Calcium Level 8.0L, Magnesium Level 1.7, Thyroid Sti mulating Hormone (TSH) 2.33 Microbiology 10/18/19 Blood Culture - Preliminary, Resulted No growth 10/18/19 MRSA Screen - Final, Complete MRSA not isolated A/P: Assessment/Dx: Atrial fibrillation with rapid ventricular rate, History of significant carotid disease, Hypertension, History of syncope, Anemia Plan: Plan: * Echocardiogram shows severe LV systolic dysfunction. We will need to start medications for cardiomyopathy. * Atrial fibrillation: Change Cardizem to by mouth Cardizem. Might require digoxin. Discuss oral anticoagulation. Thank you for your consultation. Please call me if you have any questions. Josiah Cameron MD, FACP, FACC, FSCAI, FHRS, CCDS Interventional Cardiology Cardiac Electrophysiology Vascular Medicine and Endovascular Interventions Focused Exam Lactate Level Julienne CAMERON MD Oct 19, 2019 13:06
--- NOTE | 2019-10-19 18:17 | NUR ---
This RN contacted pt family to inform that pt status has changed to CSD and pt has been moved to 511. This RN educated family on visitation policy. Pt son verbalized understand of policy.
[2019-10-19] MEDS ORDERED: CEFEPIME 2 GM (MAXIPIME) VIAL ONE (20:34)
[2019-10-19] MEDS ORDERED: WATER (STERILE) FOR INJECTION 20 ML ONE (20:35)
[2019-10-20] MEDS: LACTATED RINGERS 1,000 ML IV SCH ×4 (00:20→15:07)
[2019-10-20] MEDS: NOREPINEPHRINE 4 MG/250 ML 250 ML IV SCH (00:20)
[2019-10-20] MEDS: dilTIAZem DRIP PRE-MIX 125 ML IV SCH (01:30)
[2019-10-20 04:00] VITALS: BP 111/63
[2019-10-20 06:17] LABS: BASOPHILS % (AUTO) 0 % (0-10); EOSINOPHILS # (AUTO) 0.3 10^3/uL (0.0-0.3); EOSINOPHILS % (AUTO) 4 % (0-10); HEMATOCRIT 25 % (35-52); HEMOGLOBIN 8.5 G/DL (11.5-16.0); LYMPHOCYTES % (AUTO) 29 % (12-44); MEAN CORPUSCULAR HEMOGLOBIN 26 PG (25-34); MEAN CORPUSCULAR HGB CONC 34 G/DL (32-36); MEAN CORPUSCULAR VOLUME 78 FL (80-99); MEAN PLATELET VOLUME 11.3 FL (7.4-10.4); MONOCYTES # (AUTO) 1.2 X 10^3 (0.0-1.0); MONOCYTES % (AUTO) 17 % (0-12); NEUTROPHILS # (AUTO) 3.5 X 10^3 (1.8-7.8); NEUTROPHILS % (AUTO) 50 % (42-75); PLATELET COUNT 125 10^3/uL (130-400); RED CELL DISTRIBUTION WIDTH 21.7 % (10.0-14.5)
[2019-10-20 06:32] LABS: CALCIUM 7.9 MG/DL (8.5-10.1); CREATININE SERUM 0.97 MG/DL (0.60-1.30); MAGNESIUM 1.7 MG/DL (1.6-2.4); PHOSPHORUS 2.4 MG/DL (2.3-4.7); POTASSIUM 4.1 MMOL/L (3.6-5.0)
--- NOTE | 2019-10-20 06:32 | Pulmonary Progress Note ---
Subjective Date Seen by a Provider: Oct 20, 2019 Time Seen by a Provider: 06:28 Subjective/Events-last exam Pt is doing better. Sepsis Event Evaluation Height, Weight, BMI Height: 5'4.00" Weight: 136lbs. 8.0oz. 61.229590nu; 23.00 BMI Method:Stated Focused Exam Lactate Level 10/17/19 22:00: Lactic Acid Level 3.09*H 10/18/19 07:09: Lactic Acid Level 2.20*H 10/18/19 09:35: Lactic Acid Level 1.63 Exam Exam Vital Signs Date Time Temp Pulse Resp B/P (MAP) Pulse Ox O2 Delivery O2 Flow Rate FiO2 10/20/19 04:00 Nasal Cannula 1.50 10/20/19 04:00 35.9 118 111/63 (79) 97 Nasal Cannula 1.00 10/20/19 01:00 105 10/20/19 00:00 Nasal Cannula 1.50 10/19/19 23:26 36.6 118 18 121/73 (89) 95 Nasal Cannula 1.00 10/19/19 20:00 Nasal Cannula 1.50 10/19/19 20:00 36.9 110 117/64 (81) 94 Room Air 10/19/19 19:48 Nasal Cannula 2.00 10/19/19 19:00 101 10/19/19 16:00 36.4 116 26 119/66 (83) 100 Room Air 10/19/19 16:00 100 Nasal Cannula 2.00 10/19/19 14:00 98 26 104/67 (79) 100 Room Air 10/19/19 13:00 105 21 94/53 (67) 97 Room Air 10/19/19 12:32 115 10/19/19 12:00 100 Nasal Cannula 2.00 10/19/19 12:00 37.0 10/19/19 12:00 107 27 97/63 (74) 96 Room Air 10/19/19 11:00 106 28 104/62 (76) 96 Room Air 10/19/19 10:00 105 25 90/56 (67) 96 Room Air 10/19/19 09:00 124 26 96/67 (77) 100 Room Air 10/19/19 08:00 37.4 10/19/19 08:00 126 28 108/62 (77) 100 Room Air 10/19/19 08:00 100 Room Air 10/19/19 07:00 137 10/19/19 07:00 128 31 95/52 (66) 95 Room Air 10/19/19 06:38 97 Room Air 21 I & O 10/20/19 07:00 Intake Total 2170 ml Output Total 1550 ml Balance 620 ml Height & Weight Height: 5'4.00" Weight: 136lbs. 8.0oz. 61.720338ha; 23.00 BMI Method:Stated General Appearance: No Apparent Distress, Chronically ill, Thin HEENT: Normal ENT Inspection Neck: Full Range of Motion, Normal Inspection, Non Tender Respiratory: Chest Non Tender, Lungs Clear, Normal Breath Sounds, No Accessory Muscle Use, No Respiratory Distress Cardiovascular: No Edema, No JVD, Normal Peripheral Pulses, Irregularly Irregular, Tachycardia Capillary Refill: Less Than 3 Seconds Gastrointestinal: non tender, soft, no organomegaly Extremity: Normal Capillary Refill, Normal Inspection, Non Tender, No Calf Tenderness Neurologic/Psychiatric: No Motor/Sensory Deficits Skin: Warm/Dry; No Petechia, No Rash Lymphatic: No Adenopathy Results Lab Laboratory Tests 10/19/19 03:02 10/20/19 05:55 Assessment/Plan Assessment/Plan Afib RVR -Cardiology following Pneumonia with sepsis - cefepime and vanco -MRSA is negative -D/C Vanco -LA is pending -Castañeda cultures pending Hypotension -Levophed gtt - titrate to D/c Anemia -Monitor Dehydration -LR at 150 for now Hx of CHF AURELIO MESA DO Oct 20, 2019 06:32
[2019-10-20 06:38] LABS: VANCOMYCIN,TROUGH 10.9 UG/ML (10.0-20.0)
--- NOTE | 2019-10-20 07:18 | Diagnostic Imaging Report ---
INDICATION: Atrial fibrillation. COMPARISON: 10/19/2019. TECHNIQUE: Single radiograph of the chest dated 10/20/2019. FINDINGS: Right IJ central venous catheter is stable. Loop recorder overlying left chest is again seen. The cardiac silhouette is within normal limits in size. No significant pulmonary vascular congestion. Previously noted perihilar and bibasilar opacities appear slightly improved since the prior examination. No new focal pulmonary opacity. No significant pleural effusion. No pneumothorax. No acute osseous abnormality. IMPRESSION: Improved though persistent mild perihilar and bibasilar atelectasis and/or infiltrate. Dictated by: Dictated on workstation # [id number]
[2019-10-20] MEDS: MAGNESIUM 1 GM/100 ML IVPB 100 ML IV SCH (07:35)
[2019-10-20] MEDS: POTASSIUM CL 10MEQ/50ML IVPB 50 ML IV SCH (07:36)
[2019-10-20] MEDS: KCL 20 MEQ TAB (K-DUR) PO SCH (07:36)
[2019-10-20 07:49] VITALS: BP 119/49
--- NOTE | 2019-10-20 08:04 | Progress Note - Cardiology ---
Cardiology SOAP Progress Note Objective: I&O/Vital Signs 10/22/19 10/22/19 10/22/19 10/22/19 00:17 01:00 04:57 08:18 Temp 36.1 36.1 Pulse 103 114 121 Resp 22 20 B/P (MAP) 115/58 (77) 99/67 (78) Pulse Ox 94 95 92 O2 Delivery Nasal Cannula Nasal Cannula Nasal Cannula O2 Flow Rate 1.50 1.50 1.00 10/22/19 00:00 Intake Total 470 ml Output Total 200 ml Balance 270 ml Weight (Pounds): 136 Weight (Ounces): 8.0 Weight (Calculated Kilograms): 61.732419 Results/Procedures: Labs Laboratory Tests 10/22/19 06:15: Sodium Level 133L, Potassium Level 4.1, Chloride Level 107, Carbon Dioxide Level 19L, Anion Gap 7, Blood Urea Nitrogen 23H, Creatinine 0.92, Estimat Glomerular Filtration Rate 57, BUN/Creatinine Ratio 25, Glucose Level 117H, Calcium Level 7.9L, Corrected Calcium 9.5, Total Bilirubin 1.7H, Aspartate Amino Transf (AST/SGOT) 97H, Alanine Aminotransferase (ALT/SGPT) 54, Alkaline Phosphatase 336H, Total Protein 6.0L, Albumin 2.0L Microbiology 10/18/19 Blood Culture - Preliminary, Resulted No growth 10/18/19 MRSA Screen - Final, Complete MRSA not isolated A/P: Assessment: A-fib with RVR - currently rate controlled PAF - first seen on ILR transmission of Jun 2019 OAC with Eliquis (low dose d/t advanced age and weight less than 80kg) S/p ILR that was implanted on 03/14/19 d/t syncopal episodes - no re-current episodes - no evidence of bradycardia or pauses thus far Ischemic cardiomyopathy: Echo of 03/13/19: LVEF 40-45%, mild global hypokinesis, localized apical akinesis, mild MAC, mild to mod MR, mild TR, RVSP 25 mmHg. Most recent echo of October 19, [address] Cameron shows LVEF 20-25%. LA mod dilated. Mild MR. 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 She thinks last was around 1994, had weakness of R half of the body homer t has since recovered Carotid u/s of 03/13/19: 70-80% R ICA stenosis; no hemodynamically significant L ICA stenosis - referred to Dr. Ashraf in Mar 2019 Hypertension, by history Hyperlipidemia, by history ADRIAN ROSALES Oct 20, 2019 08:04
[2019-10-20] MEDS ORDERED: cefTRIAXone 2 GM IV (ROCEPHIN) VIAL ONE (09:20)
[2019-10-20] MEDS ORDERED: WATER (STERILE) FOR INJECTION 20 ML ONE ×2 (09:20→20:09)
[2019-10-20] MEDS ORDERED: CEFEPIME 2 GM (MAXIPIME) VIAL ONE ×2 (09:27→20:09)
[2019-10-20] MEDS: CEFEPIME INJECTION 2,000 MG in WATER (STERILE) FOR INJECTION 20 ML IV SCH ×2 (09:32→20:18)
[2019-10-20] MEDS: DOCUSATE SODIUM 100 MG (COLACE) CAP PO SCH ×2 (09:33→20:18)
[2019-10-20] MEDS: ENALAPRIL 2.5 MG (VASOTEC) TAB PO SCH (09:33)
--- NOTE | 2019-10-20 09:38 | Progress Note - Cardiology ---
Cardiology SOAP Progress Note Subjective: She notes gen weakness, malaise and tiredness Does not report cp or palp or syncope or focal weakness Does not report n/v/d Objective: I&O/Vital Signs 10/19/19 10/20/19 10/20/19 10/20/19 23:26 00:00 01:00 04:00 Temp 36.6 35.9 Pulse 118 105 118 Resp 18 B/P (MAP) 121/73 (89) 111/63 (79) Pulse Ox 95 97 O2 Delivery Nasal Cannula Nasal Cannula Nasal Cannula O2 Flow Rate 1.00 1.50 1.00 10/20/19 10/20/19 10/20/19 04:00 07:00 07:49 Temp 36.4 Pulse 120 94 Resp 20 B/P (MAP) 119/49 (72) Pulse Ox 95 O2 Delivery Nasal Cannula Nasal Cannula O2 Flow Rate 1.50 1.00 10/20/19 00:00 Intake Total 900 ml Output Total 550 ml Balance 350 ml Weight (Pounds): 136 Weight (Ounces): 8.0 Weight (Calculated Kilograms): 61.863184 Constitutional: other (mildly confused, in no acute distress, well-develope, thin appearing) Respiratory: No accessory muscle use; other (fair to good air entry, increased exp phase) Cardiovascular: irregularly irregular, S1 and S2, systolic murmur (soft SAMMY at card base) Gastrointestional: No tender; soft; No guarding, No rebound; audible bowel sounds Extremities: No clubbing, No cyanosis, No significant edema Neurologic/Psychiatric: other (mildly confused, seems to move all limbs equally) Results/Procedures: Labs Laboratory Tests 10/19/19 12:35: Blood Gas Puncture Site RT RADIAL, Blood Gas Patient Temperature 37.7, Arterial Blood pH 7.42, Arterial Blood Partial Pressure CO2 33L, Arterial Blood Partial Pressure O2 94H, Arterial Blood HCO3 21L, Arterial Blood Total CO2 21.6, Arterial Blood Oxygen Saturation 98, Arterial Blood Base Excess -2.9L, José Test YES-POS, Blood Gas Ventilator Setting NO, Blood Gas Inspired Oxygen 2 10/20/19 05:55: White Blood Count 7.0, Red Blood Count 3.23L, Hemoglobin 8.5L, Hematocrit 25L, Mean Corpuscular Volume 78L, Mean Corpuscular Hemoglobin 26, Mean Corpuscular Hemoglobin Concent 34, Red Cell Distribution Width 21.7H, Platelet Count 125L, Mean Platelet Volume 11.3H, Neutrophils (%) (Auto) 50, Lymphocytes (%) (Auto) 29, Monocytes (%) (Auto) 17H, Eosinophils (%) (Auto) 4, Basophils (%) (Auto) 0, Neutrophils # (Auto) 3.5, Lymphocytes # (Auto) 2.0, Monocytes # (Auto) 1.2H, Eosinophils # (Auto) 0.3, Basophils # (Auto) 0.0, Sodium Level 134L, Potassium Level 4.1, Chloride Level 109H, Carbon Dioxide Level 19L, Anion Gap 6, Blood Urea Nitrogen 17, Creatinine 0.97, Estimat Glomerular Filtration Rate 54, BUN/Creatinine Ratio 18, Glucose Level 97, Calcium Level 7.9L, Phosphorus Level 2.4, Magnesium Level 1.7, Vancomycin Level Trough 10.9 Microbiology 10/18/19 Blood Culture - Preliminary, Resulted No growth 10/18/19 MRSA Screen - Final, Complete MRSA not isolated Laboratory Tests 10/19/19 03:02 10/20/19 05:55 A/P: Assessment: PAF Syncope of undetermined etiology Severe anemia of undetermined etiology, being managed by Dr Schultz S/p ILR that was implanted on 03/14/19 Ischemic cardiomyopathy: Echo of 10/19/19 (Dr Cameron): LVEF 20-25%, moderately dilated LA, mild MR, PASP 40-45 mmHg H/o ME. She has previously reported that it was in the late s, had cor stents X 2 done at [facility] H/o CVA. 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 Referred to for consideration of CEA, but she has not followed through Hypertension, by history Hyperlipidemia, by history H/o mild dementia Plan: * Treat cardiomyopathy with bb and DONN-inhib (if bp tolerates) * Because of AF, treat with apixaban, adjusted for age and wgt, if OK with Dr Schultz * Because of carotid art dz, treat with low-dose ASA, if OK with Dr Schultz * Severe anemia of undetermined etiology, evaluated and managed by ABHAY Roberts MD FACP FACC CCDS Oct 20, 2019 09:37
[2019-10-20] MEDS ORDERED: meTOproloL SUCCINATE 50 MG (TOPROL XL) TAB PO NR (10:02)
[2019-10-20 10:18] VITALS: BP 100/64
--- NOTE | 2019-10-20 10:18 | Progress Note - Hospitalist ---
Subjective HPI/CC On Admission Date Seen by Provider: Oct 20, 2019 Time Seen by Provider: 10:00 CC: AF w/RVR HPI: This is an 89yoWF [place] patient of [facility] who presented to the [facility] ER with AF w/RVR. Patient tolerated Cardizem well but did require central line placement once arrived in ICU by Dr Bishop. Patient feels better than she did and does not report chest pain or palpitations. Patient has dementia so minimal details. Subjective/Events-last exam Aspirin 81mg daily and Eliquis 2.5 will be started twice a day per cardiology Will order PT and OT Overall doing pretty well Maintain on telemetry Heart rate AF not well controlled Cardiology managing Review of Systems General: Fatigue Focused Exam Lactate Level 10/18/19 07:09: Lactic Acid Level 2.20*H 10/18/19 09:35: Lactic Acid Level 1.63 Objective Exam Vital Signs Vital Signs Date Time Temp Pulse Resp B/P (MAP) Pulse Ox O2 Delivery O2 Flow Rate FiO2 10/21/19 04:00 36.2 91 28 124/81 (95) 97 Nasal Cannula 1.00 10/20/19 15:15 21 Capillary Refill : Less Than 3 Seconds General Appearance: No Apparent Distress, WD/WN, Chronically ill Respiratory: Lungs Clear Cardiovascular: Irregularly Irregular, Tachycardia Neurologic/Psychiatric: Alert, Disoriented Results/Procedures Lab Laboratory Tests 10/21/19 03:10 Patient resulted labs reviewed. Assessment/Plan Assessment and Plan Assess & Plan/Chief Complaint Assessment: AF w/RVR Dehydration Elevated lactic acidosis Hypotension due to meds Dementia Anemia Central line placement Plan: Cardizem ECHO Dr Cameron appreciated Appreciate Dr Bishop for central line placement ASA Eliquis Diagnosis/Problems Diagnosis/Problems (1) Atrial fibrillation with tachycardic ventricular rate Status: Acute (2) Hypotension Status: Acute Qualifiers: Hypotension type: unspecified hypotension type Qualified Codes: I95.9 - Hypotension, unspecified (3) Anemia Status: Acute Qualifiers: Anemia type: unspecified type Qualified Codes: D64.9 - Anemia, unspecified (4) Essential (primary) hypertension Status: Chronic (5) CAD (coronary artery disease) Status: Chronic Clinical Quality Measures DVT/VTE Risk/Contraindication: Risk Factor Score Per Nursin RFS Level Per Nursing on Admit: 4+=Very High EMILY STEIN DO Oct 20, 2019 10:18
--- NOTE | 2019-10-20 11:04 | Physical Therapy Evaluation ---
PT Evaluation-General Medical Diagnosis Admission Date Oct 17, 2019 at 23:34 Medical Diagnosis: weakness Onset Date: Oct 18, 2019 Therapy Diagnosis Therapy Diagnosis: impaired mobility, strength, endurance Height/Weight Height (Feet): 5 Height (Inches): 4.00 Weight (Pounds): 136 Weight (Ounces): 8.0 Precautions Precautions/Isolations: Fall Prevention, Standard Precautions Referral Physician: Alessandra Schultz DO Reason for Referral: Evaluation/Treatment Medical History Pertinent Medical History: CVA, HTN, CO Additional Medical History Past Medical History Cardiac: Cardiomyopathy, Coronary Artery Disease, Heart Attack, Hypertension Neurological: Stroke Musculoskeletal: Gout Reviewed History: Yes Social History Home: Prison Prior Prior Level of Function SCALE: Activities may be completed with or without assistive devices. 0-Zkxqnpmwkc-xkufnnj completes the activity by him/herself with no assistance from a helper. 5-Set-up or Clean-up Assistance-helper sets up or cleans up; patient completes activity. [place] assists only prior to or following the activity. 4-Supervision or Touching Assistance-helper provides verbal cues and/or touching/steadying and/or contact guard assistance as patient completes activity. Assistance may be provided throughout the activity or intermittently. 3-Partial/Moderate Assistance-helper does LESS THAN HALF the effort. Bruce lifts, holds or supports trunk or limbs, but provides less than half the effort. 2-Substantial/Maximal Assistance-helper does MORE THAN HALF the effort. [place] lifts or holds trunk or limbs and provides more than half the effort. 5-Bbpfezxjm-gwqdfi does ALL the effort. Patient does none of the effort to complete the activity. Or, the assistance of 2 or more helpers is required for the patient to complete the activity. If activity was not attempted, code reason: 7-Patient Refused. 9-Not Applicable-not attempted and the patient did not perform the activity before the current illness, exacerbation or injury. 10-Not Attempted due to Environmental Limitations-(lack of equipment, weather restraints, etc.). 88-Not Attempted due to Medical Conditions or Safety Concerns. Unknown, patient seems to be a poor historian but she does indicate that she ambulates with a walker. PT Evaluation-Current Subjective Patient in bed pre tx, agrees to PT, states she has pain in her abdomen and states she has not had a BM in a week. Pt/Family Goals none stated Objective Patient Orientation: Person, Confused Attachments: Oxygen, Erickson Catheter, IV ROM/Strength ROM Lower Extremities WNL Strength Lower Extremities patient could not follow directions for MMT Sensory Hearing: Functional Transfers Roll Left to Right (QC): 3 Sit to Lying (QC): 3 Lying to Sitting/Side of Bed(Q: 3 Patient is mod assist for rolling and supine <-> sit. Patient is able to sit on the edge of the bed and becomes anxious but doesn't seem to be SOB. Patient sits for about 30 seconds before saying that she needs to lay down. Balance Sitting Static: Normal Sitting Dynamic: Fair Treatment supine BLE exercises x20 (AP, HS, QS) Assessment/Needs Patient has impaired mobility, strength, endurance. Patient gets very anxious with sitting EOB, could not get her to stand. Patient in bed post tx with nurse call, phone, tray, all needs met. Rehab Potential: Guarded PT [facility] Goals Weir Fisher Goals PT [facility] Goals Time Frame: Oct 27, 2019 Roll Left & Right (QC): 6 Sit to Lying (QC): 6 Lying-Sitting on Side/Bed(QC): 6 Sit to Stand (QC): 3 Chair/Lwb-kc-Oyziz Xfer(QC): 3 PT Plan Problem List Problem List: Activity Tolerance, Functional Strength, Safety, Balance, Gait, Transfer, Bed Mobility Treatment/Plan Treatment Plan: Continue Plan of Care Treatment Plan: Bed Mobility, Education, Functional Activity Marya, Functional Strength, Gait, Safety, Therapeutic Exercise, Transfers Treatment Duration: Oct 27, 2019 Frequency: 6 times per week Estimated Hrs Per Day: .25 hour per day Patient and/or Family Agrees t: Yes Safety Risks/Education Patient Education: Correct Positioning, Safety Issues Teaching Recipient: Patient Teaching Methods: Demonstration, Discussion Response to Teaching: Reinforcement Needed Discharge Recommendations Plan Patient will perform bed mobility and transfer training, balance and endurance training, functional strengthening, gait training, and education, to improve functional mobility and independence at home. Therapy Discharge Recommendati: Other, See Comments (NH) Time/GCodes Time In: 1040 Time Out: 1055 Total Billed Treatment Time: 15 Total Billed Treatment 1 visit KEATON Durán' JAGJIT BONDS PT Oct 20, 2019 11:04
[2019-10-20] MEDS: APIXABAN 2.5 MG (ELIQUIS) TABLET PO SCH ×2 (11:19→20:18)
[2019-10-20] MEDS: ASPIRIN 81 MG CHEW (CHILDREN'S ASA) PO SCH (11:19)
[2019-10-20 11:30] VITALS: BP 118/69
--- NOTE | 2019-10-20 14:24 | NUR ---
DISCHARGE PLANNING: This RN visited with patient. She was pleasant and oriented for the most part. She did tell me she is 89 y/o and "working on 90". She said she has fallen a couple times and put in [facility]...unsure of the accuracy of this statement. Patients only c/o is that she has not had a BM in 5 days....she is on the bedpan currently as apparently she is unable to get up due to her HR being high, and she reports that she broke her pelvis in one of her falls. She is likely going to need something more cathartic to get her bowels moving s she is on Fentanyl.
--- NOTE | 2019-10-20 14:33 | Occupational Therapy Eval ---
OT Evaluation-General/PLF Medical Diagnosis Admission Date Oct 17, 2019 at 23:34 Medical Diagnosis: AF with RVR Onset Date: Oct 18, 2019 Therapy Diagnosis Therapy Diagnosis: Weakness Height/Weight Height (Feet): 5 Height (Inches): 4.00 Weight (Pounds): 136 Weight (Ounces): 8.0 Precautions Precautions/Isolations: Fall Prevention, Standard Precautions Weight Bear Status Weight Bearing Restriction: Weight Bearing/Tolerated Referral Physician: Alessandra Schultz DO Referral Reason: Activity Tolerance, Self Care, Evaluation/Treatment, Strengthening/ROM Medical History Pertinent Medical History: CVA, HTN, MS Additional Medical History Dehydration, Pneumonia with sepsis. Pt. fell September 04 at [facility], [place] and fx her pelvis. States that she does not ambulate very much anymore due to this, and uses a wheelchair. Current History Pt. at this facility with dx of A fib and pneumonia Reviewed History: Yes Social History Home: Senior Living Current Living Status: Entry Into Home: Level Entry ADL-Prior Level of Function SCALE: Activities may be completed with or without assistive devices. 9-Xgraqzvcdj-plbizfo completes the activity by him/herself with no assistance from a helper. 5-Set-up or Clean-up Assistance-helper sets up or cleans up; patient completes activity. [place] assists only prior to or following the activity. 4-Supervision or Touching Assistance-helper provides verbal cues and/or touching/steadying and/or contact guard assistance as patient completes activity. Assistance may be provided throughout the activity or intermittently. 3-Partial/Moderate Assistance-helper does LESS THAN HALF the effort. [place] lifts, holds or supports trunk or limbs, but provides less than half the effort. 2-Substantial/Maximal Assistance-helper does MORE THAN HALF the effort. [place] lifts or holds trunk or limbs and provides more than half the effort. 8-Yutkvisos-fkapzz does ALL the effort. Patient does none of the effort to complete the activity. Or, the assistance of 2 or more helpers is required for the patient to complete the activity. If activity was not attempted, code reason: 7-Patient Refused. 9-Not Applicable-not attempted and the patient did not perform the activity before the current illness, exacerbation or injury. 10-Not Attempted due to Environmental Limitations-(lack of equipment, weather restraints, etc.). 88-Not Attempted due to Medical Conditions or Safety Concerns. ADL PLOF Comments Pt. reports that she can feed herself, but that she receives assistance from staff for ADLs. Self Care: Needed Some Help Functional Cognition: Unknown DME/Equipment: Bath Chair, Shower Drive Self: No OT Current Status Subjective Pt. reports that she has significant pain with movement, but is not hurting while lying in bed. Appearance Pt. in bed when OT entered room. Mental Status/Objective Patient Orientation: Person, Place Attachments: IV Current Upper Extremity ROM WFL Upper Extremity Strength 3+/5 bilateral UE strength. ADL-Treatment Eating (QC): 4 Oral Hygiene (QC): 4 (Pt. able to brush teeth with SBA and set up at bed level with HOB elevated. Pt. able to brush hair.) PT had just left room. Pt. reports that she attempted to sit on side of bed, but due to pelvic pain, was unable to. Pt. agrees to brush her teeth and hair while in bed. Has finished her breakfast and has no difficulty feeding self. P t. reports she was receiving assist for ADLs. Education OT Patient Education: Correct positioning, Modified ADL techniques, Progress toward Goal/Update tx plan, Purpose of tx/functional activities, Reviewed precautions, Rehab process, Transfer techniques Teaching Recipient: Patient Teaching Methods: Demonstration, Discussion Response to Teaching: Verbalize Understanding, Return Demonstration, Reinforcement Needed OT Short Term Goals Short Term Goals Time Frame: Oct 20, 2019 OT Hr Clerk Goals Hr Clerk Goals Time Frame: Nov 03, 2019 Eating (QC): 5 Oral Hygiene (QC): 5 Toileting Hygiene (QC): 3 Upper Body Dressing (QC): 3 Additional Goals: 1-Demonstrate ADL Tasks, 2-Verbalize Understanding, 3-ImproveStrength/Marya 1=Demonstrate adherence to instructed precautions during ADL tasks. 2=Patient will verbalize/demonstrate understanding of assistive devices/modifications for ADL. 3=Patient will improve strength/tolerance for activity to enable patient to perform ADL's. OT Education/Plan Problem List/Assessment Assessment: Decreased Activ Tolerance, Dependent Transfers, Impaired I ADL's, Impaired Self-Care Skills Discharge Recommendations Plan/Recommendations: Continue POC Therapy Discharge Recommendati: 24 Hour Supervision, Post Acute OT Treatment Plan/Plan of Care Treatment,Training & Education: Yes Patient would benefit from OT for education, treatment and training to promote independence in ADL's, mobility, safety and/or upper extremity function for ADL's. Plan of Care: ADL Retraining, Functional Mobility, UE Funct Exercise/Act Treatment Duration: Oct 27, 2019 Frequency: 5 times per week Estimated Hrs Per Day: .25 hour per day Agreement: Yes Rehab Potential: Fair Time/GCodes Start Time: 11:00 Stop Time: 11:20 Total Time Billed (hr/min): 20 Billed Treatment Time 1, CECELIA DAILEY OT Oct 20, 2019 14:33
--- NOTE | 2019-10-20 15:10 | NUR ---
REC'D PER BED FROM ICU. SEE ASSESSMENT.
[2019-10-20] MEDS ORDERED: NITR-65 PO (15:11)
[2019-10-20] MEDS ORDERED: RT-ALBUINH IN (15:11)
[2019-10-20] MEDS ORDERED: RAMI2.5C2 PO (15:11)
[2019-10-20] MEDS ORDERED: DOCU100C37 PO (15:11)
[2019-10-20] MEDS ORDERED: CETI10TA21 PO (15:11)
[2019-10-20] MEDS ORDERED: ATOR40TA70 PO (15:11)
[2019-10-20] MEDS ORDERED: BENZ-36 PO (15:11)
[2019-10-20] MEDS ORDERED: ACET325T49 PO (15:11)
[2019-10-20] MEDS ORDERED: ONDA-105 PO (15:11)
[2019-10-20] MEDS ORDERED: HYDR-83 PO (15:11)
[2019-10-20] MEDS ORDERED: LOPE2TAB34 PO (15:11)
--- NOTE | 2019-10-20 15:14 | NUR ---
ENTERED THE MED REC USING THE MAR FROM [facility] IN [facility] [[email or web address]] MINI
[2019-10-20] MEDS: RT-ALBUTEROL/IPRATROPIUM 3 ML (DUONEB) VIAL INH SCH (15:15)
--- NOTE | 2019-10-20 15:15 | NUR ---
PT TRANSFERRED TO ROOM 414 VIA BED ACCOMPANIED BY THIS RN. REPORT GIVEN TO UMER SHERIDAN FOR CONTINUING CARE.
--- NOTE | 2019-10-20 15:23 | NUR ---
RD ASSESSMENT PMHx: CAD; OR; HTN; stroke; gout PT INTERACTION: Pt was awake and pleasant during nutrition assessment. Note pt has dementia, per chart review. Pt states current appetite is now well, and has been this way since her fall. Nota avg PO intake 31% x1d, per chart review. Pt states following a regular diet at home, and has no issues with chewing/swallowing food. Pt states no recent issues with nausea, vomiting, or diarrhea. Pt states some recent issues with constipation, and states that her last BM "I haven't gone in about a week." Note last BM was 10/18, and pt currently on bowel regimen of colace BID, per chart review. Pt states no recent wt changes. Note recent 9# wt gain x2w, per chart review. ABNORMAL NUTRITION-RELATED LAB VALUES LOW: Na 134; Ca 7.9 HIGH: Cl 109 Est. kcal needs: 4633-4033 kcal | 25-30 kcal/kg Est. Pro needs: 53-66 g Pro | 0.8-1.0 g Pro/kg PES STATEMENT: Inadequate oral intake (NI-2.1) related to loss of appetite | constipation as evidenced by pt interview | avg PO intake 31% x1d INTERVENTION: Continue with current diet order of Heart Healthy diet. Add Ensure Enlive (vary) to meals TID, for increased kcal intake. Provides 350 kcal and 13 g Pro per serving. Will continue to follow and reassess as pt needs, intake, and status change. MONITOR/EVALUATE: PO Intake; Plan of Care; Hydration Status; Weight Status; Lab Values Ava Scott, MS, RD, LD
[2019-10-20 16:08] VITALS: BP 128/81
[2019-10-20] MEDS ORDERED: HYDROcodone/APAP 5 MG/325 MG (LORTAB) TAB ONE (17:44)
[2019-10-20] MEDS: HYDROcodone/APAP 5 MG/325 MG (LORTAB) TAB PO PRN (17:54)
[2019-10-20 19:51] VITALS: BP 116/70
[2019-10-20] MEDS: fentaNYL INJECTION 100 MCG/2 ML AMP IVP PRN (20:19)
[2019-10-21] VITALS: BP 131/74
[2019-10-21 03:12] LABS: MEAN PLATELET VOLUME 10.7 FL (7.4-10.4); RED CELL DISTRIBUTION WIDTH 22.1 % (10.0-14.5); WHITE BLOOD COUNT 7.5 10^3/uL (4.3-11.0)
[2019-10-21] MEDS: LACTATED RINGERS 1,000 ML IV SCH ×2 (03:27→03:50)
[2019-10-21 03:32] LABS: BUN/CREATININE RATIO 20; CARBON DIOXIDE 19 MMOL/L (21-32); CHLORIDE 108 MMOL/L (98-107); CREATININE SERUM 0.84 MG/DL (0.60-1.30); GFR ESTIMATED > 60; GLUCOSE 121 MG/DL (70-105); MAGNESIUM 1.7 MG/DL (1.6-2.4); POTASSIUM 4.1 MMOL/L (3.6-5.0); SODIUM 133 MMOL/L (135-145)
[2019-10-21 04:00] VITALS: BP 124/81
--- NOTE | 2019-10-21 07:16 | Pulmonary Progress Note ---
Subjective Time Seen by a Provider: 07:12 Subjective/Events-last exam Pt appears to be doing better. Sepsis Event Evaluation Height, Weight, BMI Height: 5'4.00" Weight: 136lbs. 8.0oz. 61.964342hk; 23.00 BMI Method:Stated Focused Exam Lactate Level 10/18/19 09:35: Lactic Acid Level 1.63 Exam Exam Vital Signs Date Time Temp Pulse Resp B/P (MAP) Pulse Ox O2 Delivery O2 Flow Rate FiO2 10/21/19 04:00 36.2 91 28 124/81 (95) 97 Nasal Cannula 1.00 10/21/19 01:17 94 10/21/19 00:00 35.5 103 28 131/74 (93) 94 Nasal Cannula 1.00 10/20/19 21:00 Nasal Cannula 1.00 10/20/19 19:51 36.0 122 28 116/70 (85) 94 Nasal Cannula 1.00 10/20/19 19:14 120 10/20/19 18:45 96 Room Air 10/20/19 16:08 36.6 90 24 128/81 (97) 97 Nasal Cannula 1.00 10/20/19 15:15 92 Room Air 21 10/20/19 15:10 97 Nasal Cannula 1.00 10/20/19 12:47 118 10/20/19 11:30 36.3 104 20 118/69 (85) 94 Nasal Cannula 1.00 10/20/19 10:18 100/64 (76) 10/20/19 08:00 Room Air 1.00 10/20/19 07:49 36.4 94 20 119/49 (72) 95 Nasal Cannula 1.00 I & O 10/21/19 07:00 Intake Total 3725 ml Output Total 700 ml Balance 3025 ml Height & Weight Height: 5'4.00" Weight: 136lbs. 8.0oz. 61.734096gs; 23.00 BMI Method:Stated General Appearance: No Apparent Distress, WD/WN, Chronically ill HEENT: Normal ENT Inspection Neck: Full Range of Motion, Normal Inspection, Non Tender Respiratory: Lungs Clear Cardiovascular: Irregularly Irregular, Tachycardia Capillary Refill: Less Than 3 Seconds Gastrointestinal: non tender, soft, no organomegaly Extremity: Normal Capillary Refill, Normal Inspection, Non Tender, No Calf Tenderness Neurologic/Psychiatric: Alert, Disoriented Skin: Warm/Dry; No Petechia, No Rash Lymphatic: No Adenopathy Results Lab Laboratory Tests 10/20/19 05:55 10/21/19 03:10 Assessment/Plan Assessment/Plan Pneumonia with sepsis - cefepime -- Change to Omnicef -MRSA is negative -D/C Vanco -LA is pending -Castañeda cultures pending Afib -Cardiology following Anemia -Monitor Dehydration -IVF Hx of CHF AURELIO MESA DO Oct 21, 2019 07:16
[2019-10-21 08:00] VITALS: BP 115/76
[2019-10-21] MEDS: ENALAPRIL 2.5 MG (VASOTEC) TAB PO SCH (08:38)
[2019-10-21] MEDS: CEFDINIR 300 MG (OMNICEF) CAP PO SCH ×2 (08:38→20:16)
[2019-10-21] MEDS: APIXABAN 2.5 MG (ELIQUIS) TABLET PO SCH ×2 (08:38→20:16)
[2019-10-21] MEDS: ASPIRIN 81 MG CHEW (CHILDREN'S ASA) PO SCH (08:38)
[2019-10-21] MEDS: meTOproloL SUCCINATE 50 MG (TOPROL XL) TAB PO SCH (08:38)
[2019-10-21] MEDS: DOCUSATE SODIUM 100 MG (COLACE) CAP PO SCH ×3 (08:38→20:18)
--- NOTE | 2019-10-21 08:58 | Progress Note - Cardiology ---
Cardiology SOAP Progress Note Subjective: Sitting up in bed. States she feels better this morning. Reports nausea throughout the night without emesis. No c/o CP or palpitations. Reports SOB, but feels it is better. Objective: I&O/Vital Signs 10/22/19 10/22/19 10/22/19 10/22/19 00:17 01:00 04:57 08:18 Temp 36.1 36.1 Pulse 103 114 121 Resp 22 20 B/P (MAP) 115/58 (77) 99/67 (78) Pulse Ox 94 95 92 O2 Delivery Nasal Cannula Nasal Cannula Nasal Cannula O2 Flow Rate 1.50 1.50 1.00 10/22/19 00:00 Intake Total 470 ml Output Total 200 ml Balance 270 ml Weight (Pounds): 136 Weight (Ounces): 8.0 Weight (Calculated Kilograms): 61.642409 Constitutional: other (mildly confused, in no acute distress, well-develope, thin appearing) Respiratory: No accessory muscle use; other (fair to good air entry, increased exp phase) Cardiovascular: irregularly irregular, S1 and S2, systolic murmur (soft SAMMY at card base) Gastrointestional: No tender; soft; No guarding, No rebound; audible bowel sounds Extremities: No clubbing, No cyanosis, No significant edema Neurologic/Psychiatric: other (mildly confused, seems to move all limbs equally) Skin: jaundice Results/Procedures: Labs Laboratory Tests 10/22/19 06:15: Sodium Level 133L, Potassium Level 4.1, Chloride Level 107, Carbon Dioxide Level 19L, Anion Gap 7, Blood Urea Nitrogen 23H, Creatinine 0.92, Estimat Glomerular Filtration Rate 57, BUN/Creatinine Ratio 25, Glucose Level 117H, Calcium Level 7.9L, Corrected Calcium 9.5, Total Bilirubin 1.7H, Aspartate Amino Transf (AST/SGOT) 97H, Alanine Aminotransferase (ALT/SGPT) 54, Alkaline Phosphatase 336H, Total Protein 6.0L, Albumin 2.0L Microbiology 10/18/19 Blood Culture - Preliminary, Resulted No growth 10/18/19 MRSA Screen - Final, Complete MRSA not isolated A/P: Assessment: PAF Syncope of undetermined etiology Severe anemia of undetermined etiology, being managed by Dr Schultz S/p ILR that was implanted on 03/14/19 Ischemic cardiomyopathy: Echo of 10/19/19 (Dr Cameron): LVEF 20-25%, moderately dilated LA, mild MR, PASP 40-45 mmHg H/o NC. She has previously reported that it was in the late s, had cor stents X 2 done at [facility] H/o CVA. 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 Referred to for consideration of CEA, but she has not followed through Hypertension, by history Hyperlipidemia, by history H/o mild dementia Plan: * Continue to treat cardiomyopathy with bb and DONN-inhib (if bp tolerates) * Because of AF, treat with apixaban, adjusted for age and wgt, if OK with Dr Schultz * Because of carotid art dz, treat with low-dose ASA, if OK with Dr Schultz * Severe anemia of undetermined etiology, evaluated and managed by Dr Schultz * Elevated liver enzymes of undetermined etiology - management per medical services ADRIAN ROSALES Oct 21, 2019 08:58
[2019-10-21] MEDS ORDERED: ENOXAPARIN 40 MG/0.4 ML (LOVENOX) SYR SQ SCH (09:00)
--- NOTE | 2019-10-21 09:01 | Physical Therapy Daily Note ---
PT Daily Note-Current Subjective Patient in bed pre tx, reluctant to participate in PT, has unrated pain "all over". Will transfer patient to recliner. Nurse in room to give meds. Appearance Patient in recline post tx with nurse call, phone, tray, chair alarm on. Mental Status Patient Orientation: Person, Confused Attachments: Oxygen, Erickson Catheter, IV Transfers SCALE: Activities may be completed with or without assistive devices. 2-Lyyfuegmsz-jafgrlh completes the activity by him/herself with no assistance from a helper. 5-Set-up or Clean-up Assistance-helper sets up or cleans up; patient completes activity. [place] assists only prior to or following the activity. 4-Supervision or Touching Assistance-helper provides verbal cues and/or touching/steadying and/or contact guard assistance as patient completes activity. Assistance may be provided throughout the activity or intermittently. 3-Partial/Moderate Assistance-helper does LESS THAN HALF the effort. [place] lifts, holds or supports trunk or limbs, but provides less than half the effort. 2-Substantial/Maximal Assistance-helper does MORE THAN HALF the effort. [place] lifts or holds trunk or limbs and provides more than half the effort. 1-Phiithcrz-lujwgf does ALL the effort. Patient does none of the effort to complete the activity. Or, the assistance of 2 or more helpers is required for the patient to complete the activity. If activity was not attempted, code reason: 7-Patient Refused. 9-Not Applicable-not attempted and the patient did not perform the activity before the current illness, exacerbation or injury. 10-Not Attempted due to Environmental Limitations-(lack of equipment, weather restraints, etc.). 88-Not Attempted due to Medical Conditions or Safety Concerns. Roll Left & Right (QC): 1 Lying to Sitting/Side of Bed(Q: 1 Sit to Stand (QC): 2 Chair/Umc-ad-Czcfk Xfer(QC): 2 Exercises Seated Therapy Exercises: Long arc quads Seated Reps: 20 Patient would not follow directions for any other exercises. Treatments bed mobility and transfers, LE exercise Assessment Current Status: Poor Progress Patient nauseated while sitting, nurse aware, patient refused breakfast. PT [facility] Goals [facility] Goals PT [facility] Goals Time Frame: Oct 27, 2019 Roll Left & Right (QC): 6 Sit to Lying (QC): 6 Lying-Sitting on Side/Bed(QC): 6 Sit to Stand (QC): 3 Chair/Gvm-sj-Nxfoj Xfer(QC): 3 PT Plan Problem List Problem List: Activity Tolerance, Functional Strength, Safety, Balance, Gait, Transfer, Bed Mobility, ROM Treatment/Plan Treatment Plan: Continue Plan of Care Treatment Plan: Bed Mobility, Education, Functional Activity Marya, Functional Strength, Gait, Safety, Therapeutic Exercise, Transfers Treatment Duration: Oct 27, 2019 Frequency: 6 times per week Estimated Hrs Per Day: .25 hour per day Patient and/or Family Agrees t: Yes Safety Risks/Education Patient Education: Transfer Techniques, Correct Positioning, Safety Issues Teaching Recipient: Patient Teaching Methods: Demonstration, Discussion Response to Teaching: Reinforcement Needed Time/GCodes Time In: 0840 Time Out: 0852 Total Billed Treatment Time: 12 Total Billed Treatment 1 visit FA JAGJIT KING PT Oct 21, 2019 09:01
--- NOTE | 2019-10-21 10:03 | Occupational Ther Daily Note ---
OT Current Status-Daily Note Subjective Pt sitting in chair, requesting to use restroom. Mental Status/Objective Attachments: Erickson Catheter, IV, Oxygen ADL-Treatment Pt transferred chair to BSC with max assist and cues for safety. Pt sat on BSC with SBA for balance. Pt states she is unable to have BM at this time and requests to transfer back to chair. Max assist for transfer. Pt declined further activity. Sitting in chair with needs met and chair alarm on after session. Therapy Code Descriptions/Definitions Functional [place] Measure: 0=Not Assessed/NA 4=Minimal Assistance 1=Total Assistance 5=Supervision or Setup 2=Maximal Assistance 6=Modified [place] 3=Moderate Assistance 7=Complete IndependenceSCALE: Activities may be completed with or without assistive devices. 8-Dlvcbgjnva-iedhzke completes the activity by him/herself with no assistance from a helper. 5-Set-up or Clean-up Assistance-helper sets up or cleans up; patient completes activity. [place] assists only prior to or following the activity. 4-Supervision or Touching Assistance-helper provides verbal cues and/or touching/steadying and/or contact guard assistance as patient completes activity. Assistance may be provided throughout the activity or intermittently. 3-Partial/Moderate Assistance-helper does LESS THAN HALF the effort. [place] lifts, holds or supports trunk or limbs, but provides less than half the effort. 2-Substantial/Maximal Assistance-helper does MORE THAN HALF the effort. [place] lifts or holds trunk or limbs and provides more than half the effort. 6-Xuymgyygs-gjnfye does ALL the effort. Patient does none of the effort to complete the activity. Or, the assistance of 2 or more helpers is required for the patient to complete the activity. If activity was not attempted, code reason: 7-Patient Refused. 9-Not Applicable-not attempted and the patient did not perform the activity before the current illness, exacerbation or injury. 10-Not Attempted due to Environmental Limitations-(lack of equipment, weather restraints, etc.). 88-Not Attempted due to Medical Conditions or Safety Concerns. Toilet Transfer (QC): 2 OT Short Term Goals Short Term Goals Time Frame: Oct 20, 2019 OT Mcfp Goals Director Of Planning Goals Time Frame: Nov 03, 2019 Eating (QC): 5 Oral Hygiene (QC): 5 Toileting Hygiene (QC): 3 Upper Body Dressing (QC): 3 Additional Goals: 1-Demonstrate ADL Tasks, 2-Verbalize Understanding, 3- ImproveStrength/Marya 1=Demonstrate adherence to instructed precautions during ADL tasks. 2=Patient will verbalize/demonstrate understanding of assistive devices/modifications for ADL. 3=Patient will improve strength/tolerance for activity to enable patient to perform ADL's. OT Education/Plan Discharge Recommendations Plan/Recommendations: Continue POC Treatment Plan/Plan of Care Patient would benefit from OT for education, treatment and training to promote independence in ADL's, mobility, safety and/or upper extremity function for ADL's. Plan of Care: ADL Retraining, Functional Mobility, UE Funct Exercise/Act Treatment Duration: Oct 27, 2019 Frequency: 5 times per week Estimated Hrs Per Day: .25 hour per day Agreement: Yes Rehab Potential: Fair Time/GCodes Start Time: 09:38 Stop Time: 09:51 Total Time Billed (hr/min): 13 Billed Treatment Time 1 visit, ADL(13minutes) TONIO HOLDER OT Oct 21, 2019 10:03
[2019-10-21 12:00] VITALS: BP 84/62
--- NOTE | 2019-10-21 12:18 | NUR ---
DISCHARGE PLANNING: This RN has spoken with nurse and Director from [facility] in [place] where patient resides. I learned that she has a child care that assists her in her apartment but that it is taking assist to get her up since her pelvic fracture. They would love to have her back when she is appropriate. At this time she is not wanting to move due the pain....and the pain medications are constipating her as she reports not having a bowl movement in 6 days. I have reached out to Dr. Schultz for something to assist in movement. Patient is willing for SNF but need to talk tot he sons. Currently she is on Oxygen that she is not normally using and will need testing to see if she requires at discharge. Addendum: 10/21/19 at 1307 by TOBI MURILLO RN Spoke with dr. Schultz regarding distended abdomen and diminished bowel sounds. She has asked for patient to receive Soap Suds Enema and Miralax BID.
--- NOTE | 2019-10-21 12:53 | Progress Note - Cardiology ---
Cardiology SOAP Progress Note Subjective: States feels unwell, but unable to specify Does not report cp or palp or shortness of breath or syncope Feels tired and weak Objective: I&O/Vital Signs 10/21/19 10/21/19 10/21/19 10/21/19 01:17 04:00 06:31 08:00 Temp 36.2 36.6 Pulse 94 91 108 90 Resp 28 20 B/P (MAP) 124/81 (95) 115/76 (89) Pulse Ox 97 96 O2 Delivery Nasal Cannula Nasal Cannula O2 Flow Rate 1.00 1.50 10/21/19 10/21/19 10/21/19 09:00 10:10 12:00 Temp 36.2 Pulse 63 Resp 20 B/P (MAP) 84/62 (69) Pulse Ox 96 O2 Delivery Nasal Cannula Nasal Cannula Nasal Cannula O2 Flow Rate 1.00 2.00 1.50 10/21/19 00:00 Intake Total 675 ml Output Total 600 ml Balance 75 ml Weight (Pounds): 136 Weight (Ounces): 8.0 Weight (Calculated Kilograms): 61.546285 Constitutional: other (mildly confused, in no acute distress, well-develope, thin appearing) Respiratory: No accessory muscle use; other (fair to good air entry, increased exp phase) Cardiovascular: irregularly irregular, S1 and S2, systolic murmur (soft SAMMY at card base) Gastrointestional: No tender; soft; No guarding, No rebound; audible bowel sounds Extremities: No clubbing, No cyanosis, No significant edema Neurologic/Psychiatric: other (mildly confused, seems to move all limbs equally) Skin: jaundice Results/Procedures: Labs Laboratory Tests 10/21/19 03:10: White Blood Count 7.5, Red Blood Count 3.51L, Hemoglobin 9.0L, Hematocrit 28L, Mean Corpuscular Volume 79L, Mean Corpuscular Hemoglobin 26, Mean Corpuscular Hemoglobin Concent 33, Red Cell Distribution Width 22.1H, Platelet Count 142, Mean Platelet Volume 10.7H, Sodium Level 133L, Potassium Level 4.1, Chloride Level 108H, Carbon Dioxide Level 19L, Anion Gap 6, Blood Urea Nitrogen 17, Creatinine 0.84, Estimat Glomerular Filtration Rate > 60, BUN/Creatinine Ratio 20, Glucose Level 121H, Calcium Level 8.0L, Magnesium Level 1.7, Thyroid Stimulating Hormone (TSH) 2.33 Microbiology 10/18/19 Blood Culture - Preliminary, Resulted No growth 10/18/19 MRSA Screen - Final, Complete MRSA not isolated A/P: Assessment: PAF Syncope of undetermined etiology Severe anemia of undetermined etiology, being managed by Dr Schultz S/p ILR that was implanted on 03/14/19 Ischemic cardiomyopathy: Echo of 10/19/19 (Dr Cameron): LVEF 20-25%, moderately dilated LA, mild MR, PASP 40-45 mmHg H/o [place]. She has previously reported that it was in the late s, had cor stents X 2 done at [facility] H/o CVA. 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
[2019-10-21 15:18] VITALS: BP 111/77
--- NOTE | 2019-10-21 15:53 | NUR ---
Pastoral care visit.
--- NOTE | 2019-10-21 19:22 | Progress Note - Hospitalist ---
Subjective HPI/CC On Admission Date Seen by Provider: Oct 21, 2019 Time Seen by Provider: 10:00 CC: AF w/RVR HPI: This is an 89yoWF [place] patient of [facility] who presented to the [facility] ER with AF w/RVR. Patient tolerated Cardizem well but did require central line placement once arrived in ICU by Dr Bishop. Patient feels better than she did and does not report chest pain or palpitations. Patient has dementia so minimal details. Subjective/Events-last exam Pt dizzy and very somatic, complaining of nausea at times Pt needs to have a BM, so ordered a soap-suds enema and MiraLax BID HGB 9.0 Sodium level 133 Tolerating Aspirin and low-dose Eliquis very well She is from assisted-living, may need senior care Review of Systems General: Fatigue Gastrointestinal: Nausea, Constipation Neurological: Confusion Objective Exam Vital Signs Vital Signs Date Time Temp Pulse Resp B/P (MAP) Pulse Ox O2 Delivery O2 Flow Rate FiO2 10/21/19 15:18 36.0 97 20 111/77 (88) 99 Nasal Cannula 1.50 10/20/19 15:15 21 Capillary Refill : Less Than 3 SecondsLess Than 3 Seconds General Appearance: No Apparent Distress, WD/WN, Chronically ill Respiratory: Chest Non Tender, Lungs Clear, Normal Breath Sounds, No Accessory Muscle Use, No Respiratory Distress Cardiovascular: No Edema, No Gallop, No JVD, No Murmur, Normal Peripheral Pulses, Irregularly Irregular Neurologic/Psychiatric: Alert, Oriented x3, No Motor/Sensory Deficits, Normal Mood/Affect Results/Procedures Lab Laboratory Tests 10/21/19 03:10 Patient resulted labs reviewed. Assessment/Plan Assessment and Plan Assess & Plan/Chief Complaint Assessment: AF w/RVR Dehydration Elevated lactic acidosis Hypotension due to meds Dementia Anemia Central line placement Constipation Chronic pain Nausea Plan: Cardizem ECHO Dr Cameron appreciated Appreciate Dr Bishop for central line placement ASA Eliquis BM regimen Tely NHP? Diagnosis/Problems Diagnosis/Problems (1) Atrial fibrillation with tachycardic ventricular rate Status: Acute (2) Hypotension Status: Acute Qualifiers: Hypotension type: unspecified hypotension type Qualified Codes: I95.9 - Hypotension, unspecified (3) Anemia Status: Acute Qualifiers: Anemia type: unspecified type Qualified Codes: D64.9 - Anemia, unspecified (4) Essential (primary) hypertension Status: Chronic (5) CAD (coronary artery disease) Status: Chronic Clinical Quality Measures DVT/VTE Risk/Contraindication: Risk Factor Score Per Nursin RFS Level Per Nursing on Admit: 4+=Very High EMILY STEIN DO Oct 21, 2019 19:22
[2019-10-21 19:23] VITALS: BP 118/59
[2019-10-21] MEDS ORDERED: RT-ALBUTEROL SULF 2.5 MG/3 ML PRE-MIX VIAL IH PRN (19:30)
[2019-10-21] MEDS ORDERED: BENZONATATE 100 MG (TESSALON) CAPSULE PO PRN (19:30)
[2019-10-21] MEDS ORDERED: MILK OF MAGNESIA 400 MG/5 ML 30 ML UDC PO PRN (19:30)
[2019-10-21] MEDS ORDERED: ACETAMINOPHEN 325 MG TABLET PO PRN (19:30)
[2019-10-21] MEDS: polyethylene glycoL POWDER 17 GM (MIRALAX) PACK PO SCH (20:17)
[2019-10-22] VITALS (7 sets, daily range): BP systolic 90–115; BP diastolic 58–68
[2019-10-22 06:37] LABS: POTASSIUM 4.1 MMOL/L (3.6-5.0)
[2019-10-22 06:38] LABS: CALCIUM 7.9 MG/DL (8.5-10.1)
[2019-10-22 06:42] LABS: BILIRUBIN,TOTAL 1.7 MG/DL (0.1-1.0)
[2019-10-22 06:44] LABS: CREATININE SERUM 0.92 MG/DL (0.60-1.30)
[2019-10-22] MEDS ORDERED: LOPERAMIDE 2 MG (IMODIUM) TABLET PO PRN (07:00)
[2019-10-22] MEDS ORDERED: ONDANSETRON 4 MG (ZOFRAN) ORAL DISSOLVE TAB PO PRN (07:00)
[2019-10-22] MEDS: NITROFURANTOIN 100 MG (MACROBID) CAPSULE PO SCH (07:26)
[2019-10-22] MEDS: APIXABAN 2.5 MG (ELIQUIS) TABLET PO SCH ×2 (07:56→21:37)
[2019-10-22] MEDS: CEFDINIR 300 MG (OMNICEF) CAP PO SCH (07:56)
[2019-10-22] MEDS: ASPIRIN 81 MG CHEW (CHILDREN'S ASA) PO SCH (07:56)
[2019-10-22] MEDS: polyethylene glycoL POWDER 17 GM (MIRALAX) PACK PO SCH ×2 (07:57→21:38)
[2019-10-22] MEDS: DOCUSATE SODIUM 100 MG (COLACE) CAP PO SCH ×4 (07:57→21:37)
--- NOTE | 2019-10-22 08:28 | Progress Note - Cardiology ---
Cardiology SOAP Progress Note Subjective: C/O generally feeling unwell this morning. C/O nausea with emesis. No c/o CP. C/O lose cough. C/O SOB this morning. Objective: I&O/Vital Signs 10/22/19 10/23/19 10/23/19 10/23/19 21:40 00:24 01:00 03:52 Temp 36.4 36.4 Pulse 122 123 66 Resp 16 16 B/P (MAP) 167/71 (103) 84/57 (66) Pulse Ox 96 95 O2 Delivery Nasal Cannula Nasal Cannula Nasal Cannula O2 Flow Rate 1.50 2.00 2.00 10/23/19 06:42 Pulse Ox 93 O2 Delivery Nasal Cannula O2 Flow Rate 1.50 10/23/19 00:00 Intake Total 2142 ml Output Total 50 ml Balance 2092 ml Weight (Pounds): 136 Weight (Ounces): 8.0 Weight (Calculated Kilograms): 61.119872 Constitutional: AAO x 3 Respiratory: chest is bilaterally symmetric, other (good air entry) Cardiovascular: irregularly irregular, tachycardia, S1 and S2 Gastrointestional: soft, audible bowel sounds Extremities: normal range of motion, non-tender, normal inspection, no lower extremity edema bilateral Neurologic/Psychiatric: grossly intact (moves extremities) Skin: No rash on exposed areas, No ulcerations on exposed areas Results/Procedures: Labs Laboratory Tests 10/22/19 10:58: Lactic Acid Level 2.35*H, Procalcitonin 0.49H 10/22/19 13:17: Urine Color DARK YELLOW, Urine Clarity SL CLOUDY, Urine pH 5.5, Urine Specific [place] >=1.030, Urine Protein 3+H, Urine Glucose (UA) TRACEH, Urine Ketones 1+H , Urine Nitrite NEGATIVE, Urine Bilirubin 1+H, Urine Urobilinogen 1.0, Urine Leukocyte Esterase TRACEH, Urine RBC (Auto) 2+H, Urine RBC RARE, Urine WBC 10- 25H, Urine Squamous Epithelial Cells 10-25H, Urine Crystals NONE, Urine Bacteria MODERATEH, Urine Casts NONE, Urine Mucus SMALLH, Urine Culture Indicated YES 10/22/19 13:19: Lactic Acid Level 1.90 10/23/19 05:08: White Blood Count 15.3H, Red Blood Count 3.38L, Hemoglobin 8.8L, Hematocrit 26L, Mean Corpuscular Volume 78L, Mean Corpuscular Hemoglobin 26, Mean Corpuscular Hemoglobin Concent 33, Red Cell Distribution Width 21.8H, Platelet Count 189, Mean Platelet Volume 11.2H, Neutrophils (%) (Auto) 64, Lymphocytes (%) (Auto) 20, Monocytes (%) (Auto) 13H, Eosinophils (%) (Auto) 2, Basophils (%) (Auto) 0, Neutrophils # (Auto) 9.8H, Lymphocytes # (Auto) 3.1, Monocytes # (Auto) 2.0H, Eosinophils # (Auto) 0.3, Basophils # (Auto) 0.0, Neutrophils % (Manual) 64, Lymphocytes % (Manual) 20, Monocytes % (Manual) 13, Eosinophils % (Manual) 2, Band Neutrophils 1, Sodium Level 134L, Potassium Level 4.3, Chloride Level 109H, Carbon Dioxide Level 18L, Anion Gap 7, Blood Urea Nitrogen 31H, Creatinine 1.31H , Estimat Glomerular Filtration Rate 38, BUN/Creatinine Ratio 24, Glucose Level 123H, Calcium Level 8.0L, Corrected Calcium 9.7, Total Bilirubin 1.6H, Aspartate Amino Transf (AST/SGOT) 101H, Alanine Aminotransferase (ALT/SGPT) 52, Alkaline Phosphatase 292H, Total Protein 5.7L, Albumin 1.9L Microbiology 10/18/19 Blood Culture - Preliminary, Resulted No growth 10/18/19 MRSA Screen - Final, Complete MRSA not isolated A/P: Assessment: PAF Syncope of undetermined etiology Anemia of undetermined etiology, being managed by Dr Schultz S/p ILR that was implanted on 03/14/19 Ischemic cardiomyopathy: Echo of 10/19/19 (Dr Cameron): LVEF 20-25%, moderately dilated LA, mild MR, PASP 40-45 mmHg H/o [place]. She has previously reported that it was in the late s, had cor stents X 2 done at [facility] H/o CVA. 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
--- NOTE | 2019-10-22 08:52 | Physician Query Clarification ---
PQ-Conflicting Diagnosis Admission/Discharge Admission Date: Oct 17, 2019 at 23:34 Discharge Date: The medical record reflects the following clinical scenario: History/Risk Factors: Hypotension Leukocytosis Clinical Findings: WBC 11.8, T 35.7, P 164, R 32, BP 80/47, Lactic acid 3.09, preliminary blood cultures-no growth. 10/18 chest xray impression: Stable chest with minimal left perihilar and bibasilar infiltrates or atelectasis. Treatment:IV Cefepime HCI 2,000mg and IV Vancomycin HCI 1,250mg. Question: Do you agree with the impression of the Pneumonia with sepsis per Dr. Schmitz's consult? Please document a response in Progress Note or Discharge Summary. 1. Yes 2. No 3. Other, with explanation of clinical findings 4. Clinically undetermined, no explanation for clinical findings. PHYSICIAN RESPONSE Do you agree w/Consulting Dx?: Yes Please remember a lack of response to the above will prompt a phone page by CDI/Coding staff. In responding to this query, please exercise your independent professional judgment. The purpose of this communication is to more accurately reflect the complexity of your patients condition. The fact that a question is asked does not imply that any particular answer is desired or expected. Thank you for your timely response to this clarification. Requestors name: Fiorella Simeon [facility] Phone # ext [phone] or [phone] THIS PHYSICIAN QUERY FORM IS A PERMANENT PART OF THE MEDICAL RECORD FIORELLA SIMEON Oct 22, 2019 08:52 EMILY STEIN DO Oct 22, 2019 09:54
[2019-10-22] MEDS ORDERED: LORATADINE (CLARITIN) 10 MG TAB PO PRN (09:00)
[2019-10-22] MEDS ORDERED: RAMIPRIL 2.5 MG (ALTACE) CAP PO SCH (09:00)
[2019-10-22] MEDS ORDERED: CYCLOBENZAPRINE 10 MG (FLEXERIL) TAB PO PRN (09:00)
--- NOTE | 2019-10-22 09:54 | Physical Therapy Daily Note ---
PT Daily Note-Current Subjective Patient in bed pre tx, agrees to PT but is confused, complains of pain in back, unrated. Appearance Patient in recliner post tx with nurse call, phone, tray,chair alarm on. Mental Status Patient Orientation: Person, Confused Attachments: Oxygen, Erickson Catheter Transfers SCALE: Activities may be completed with or without assistive devices. 6-Ptprulafgq-xkinvnf completes the activity by him/herself with no assistance from a helper. 5-Set-up or Clean-up Assistance-helper sets up or cleans up; patient completes activity. [place] assists only prior to or following the activity. 4-Supervision or Touching Assistance-helper provides verbal cues and/or touching/steadying and/or contact guard assistance as patient completes activity. Assistance may be provided throughout the activity or intermittently. 3-Partial/Moderate Assistance-helper does LESS THAN HALF the effort. [place] lifts, holds or supports trunk or limbs, but provides less than half the effort. 2-Substantial/Maximal Assistance-helper does MORE THAN HALF the effort. [place] lifts or holds trunk or limbs and provides more than half the effort. 7-Kbecbqgaq-mzsabl does ALL the effort. Patient does none of the effort to complete the activity. Or, the assistance of 2 or more helpers is required for the patient to complete the activity. If activity was not attempted, code reason: 7-Patient Refused. 9-Not Applicable-not attempted and the patient did not perform the activity before the current illness, exacerbation or injury. 10-Not Attempted due to Environmental Limitations-(lack of equipment, weather restraints, etc.). 88-Not Attempted due to Medical Conditions or Safety Concerns. Roll Left & Right (QC): 1 Lying to Sitting/Side of Bed(Q: 1 Sit to Stand (QC): 2 Chair/Iza-pe-Aocvh Xfer(QC): 2 Patient dependent for supine to sit, she has some dizziness after sitting that passes after a moment. Patient is nauseated but no emesis. Patient is able to assist a little with sit to stand and transfer to recliner, has to stand from recliner one more time to clean bottom. Exercises Seated Therapy Exercises: Ankle pumps, Long arc quads Seated Reps: 20 (requires tactile cues ) Treatments bed mobility and transfers, LE exercise Assessment Current Status: Poor Progress Patient states she just wants to lay in bed "just let me ". PT Felt Cutting Machine Operator Goals Skilled Nursing Goals PT Felt Cutting Machine Operator Goals Time Frame: Oct 27, 2019 Roll Left & Right (QC): 6 Sit to Lying (QC): 6 Lying-Sitting on Side/Bed(QC): 6 Sit to Stand (QC): 3 Chair/Dyz-fx-Yyhlx Xfer(QC): 3 PT Plan Problem List Problem List: Activity Tolerance, Functional Strength, Safety, Balance, Gait, Transfer, Bed Mobility, ROM Treatment/Plan Treatment Plan: Continue Plan of Care Treatment Plan: Bed Mobility, Education, Functional Activity Marya, Functional Strength, Gait, Safety, Therapeutic Exercise, Transfers Treatment Duration: Oct 27, 2019 Frequency: 6 times per week Estimated Hrs Per Day: .25 hour per day Patient and/or Family Agrees t: Yes Safety Risks/Education Patient Education: Transfer Techniques, Correct Positioning, Safety Issues Teaching Recipient: Patient Teaching Methods: Demonstration, Discussion Response to Teaching: Reinforcement Needed Time/GCodes Time In: 927 Time Out: 941 Total Billed Treatment Time: 13 Total Billed Treatment 1 visit FA JAGJIT MAURICIO PT Oct 22, 2019 09:54
--- NOTE | 2019-10-22 10:04 | Occupational Ther Daily Note ---
OT Current Status-Daily Note Subjective Pt resting in bed, reports back pain, but does not rate. RN states pt okay to get up to chair. Mental Status/Objective Patient Orientation: Person, Confused Attachments: Reickson Catheter, Oxygen ADL-Treatment Co-treat with PT secondary to impaired mobility, strength, and activity tolerance. Pt dependent for supine to sit. Pt sat EOB with min assist for balance. Sit to stand and transfer to chair with max assist. Pt stood once more with max assist to clean bottom. Pt changed gown with max assist. Washed face with mod assist while seated in chair. Pt positioned in chair with needs met and chair alarm in place after session. Therapy Code Descriptions/Definitions Functional [place] Measure: 0=Not Assessed/NA 4=Minimal Assistance 1=Total Assistance 5=Supervision or Setup 2=Maximal Assistance 6=Modified [place] 3=Moderate Assistance 7=Complete IndependenceSCALE: Activities may be completed with or without assistive devices. 3-Epplwlrtoq-abvagpg completes the activity by him/herself with no assistance from a helper. 5-Set-up or Clean-up Assistance-helper sets up or cleans up; patient completes activity. [place] assists only prior to or following the activity. 4-Supervision or Touching Assistance-helper provides verbal cues and/or touching/steadying and/or contact guard assistance as patient completes activity. Assistance may be provided throughout the activity or intermittently. 3-Partial/Moderate Assistance-helper does LESS THAN HALF the effort. [place] lifts, holds or supports trunk or limbs, but provides less than half the effort. 2-Substantial/Maximal Assistance-helper does MORE THAN HALF the effort. [place] lifts or holds trunk or limbs and provides more than half the effort. 9-Ablmdfkob-qpsiie does ALL the effort. Patient does none of the effort to c omplete the activity. Or, the assistance of 2 or more helpers is required for the patient to complete the activity. If activity was not attempted, code reason: 7-Patient Refused. 9-Not Applicable-not attempted and the patient did not perform the activity before the current illness, exacerbation or injury. 10-Not Attempted due to Environmental Limitations-(lack of equipment, weather restraints, etc.). 88-Not Attempted due to Medical Conditions or Safety Concerns. OT Short Term Goals Short Term Goals Time Frame: Oct 20, 2019 OT Skilled Nursing Goals Community Representative Goals Time Frame: Nov 03, 2019 Eating (QC): 5 Oral Hygiene (QC): 5 Toileting Hygiene (QC): 3 Upper Body Dressing (QC): 3 Additional Goals: 1-Demonstrate ADL Tasks, 2-Verbalize Understanding, 3- ImproveStrength/Marya 1=Demonstrate adherence to instructed precautions during ADL tasks. 2=Patient will verbalize/demonstrate understanding of assistive devices/modifications for ADL. 3=Patient will improve strength/tolerance for activity to enable patient to perform ADL's. OT Education/Plan Discharge Recommendations Plan/Recommendations: Continue POC Treatment Plan/Plan of Care Patient would benefit from OT for education, treatment and training to promote independence in ADL's, mobility, safety and/or upper extremity function for ADL's. Plan of Care: ADL Retraining, Functional Mobility, UE Funct Exercise/Act Treatment Duration: Oct 27, 2019 Frequency: 5 times per week Estimated Hrs Per Day: .25 hour per day Agreement: Yes Rehab Potential: Fair Time/GCodes Start Time: 09:28 Stop Time: 09:46 Total Time Billed (hr/min): 18 Billed Treatment Time 1 visit, FA(18minutes) TONIO HOLDER OT Oct 22, 2019 10:04
--- NOTE | 2019-10-22 11:03 | Progress Note - Hospitalist ---
Subjective HPI/CC On Admission Date Seen by Provider: Oct 22, 2019 Time Seen by Provider: 10:00 CC: AF w/RVR HPI: This is an 89yoWF [place] patient of [facility] who presented to the [facility] ER with AF w/RVR. Patient tolerated Cardizem well but did require central line placement once arrived in ICU by Dr Bishop. Patient feels better than she did and does not report chest pain or palpitations. Patient has dementia so minimal details. Subjective/Events-last exam Pt having some significant hypotension but Cardizem and cardiac meds place her at risk Lactic acid at 2.35, gentle normal saline IV fluid at 60cc an hour will be given. She is a DNR and is having loose stools also so we went ahead and covered her with Zosyn and Vanc and overall her prognosis remains very poor. Ejection fraction of 25% and the AF unable really to modify a lot of risk factors and I predict that she will have a very gradual but progressive decline. Review of Systems General: Fatigue Gastrointestinal: Diarrhea Neurological: Weakness Focused Exam Lactate Level 10/22/19 10:58: Lactic Acid Level 2.35*H 10/22/19 13:19: Lactic Acid Level 1.90 Objective Exam Vital Signs Vital Signs Date Time Temp Pulse Resp B/P (MAP) Pulse Ox O2 Delivery O2 Flow Rate FiO2 10/22/19 19:06 89 Nasal Cannula 1.50 10/22/19 19:00 119 10/22/19 16:24 36.1 15 90/68 (75) 10/22/19 14:58 28 Capillary Refill : Less Than 3 SecondsLess Than 3 Seconds General Appearance: No Apparent Distress, WD/WN, Chronically ill Respiratory: Chest Non Tender, Lungs Clear, No Accessory Muscle Use, No Respiratory Distress, Decreased Breath Sounds Cardiovascular: Regular Rate, Rhythm, No Edema, No Gallop, No JVD, No Murmur, Normal Peripheral Pulses Neurologic/Psychiatric: Alert, Disoriented Results/Procedures Lab Laboratory Tests 10/22/19 06:15 Patient resulted labs reviewed. Assessment/Plan Assessment and Plan Assess & Plan/Chief Complaint Assessment: AF w/RVR CHF EF 25% RLL PNA with elevated lactic acid Elevated lactic acid on admit Hypotension due to meds Dementia Anemia Central line placement Constipation Chronic pain Nausea Plan: Cardizem ECHO Dr Cameron appreciated Appreciate Dr Bishop for central line placement ASA Eliquis BM regimen Tely NHP? Abx Gentle IVF Diagnosis/Problems Diagnosis/Problems (1) Atrial fibrillation with tachycardic ventricular rate Status: Acute (2) Hypotension Status: Acute Qualifiers: Hypotension type: unspecified hypotension type Qualified Codes: I95.9 - Hypotension, unspecified (3) Anemia Status: Acute Qualifiers: Anemia type: unspecified type Qualified Codes: D64.9 - Anemia, unspecified (4) Essential (primary) hypertension Status: Chronic (5) CAD (coronary artery disease) Status: Chronic Clinical Quality Measures DVT/VTE Risk/Contraindication: Risk Factor Score Per Nursin RFS Level Per Nursing on Admit: 4+=Very High EMILY STEIN DO Oct 22, 2019 11:03
--- NOTE | 2019-10-22 11:18 | NUR ---
DISCHARGE PLANNING: I checked on patient this morning...she has had success with the enema yesterday but still does not feel good and in fact she says "I am going to ". She says she is okay with dying because she knows the Lord. She wishes to go back to [facility]. She says she is okay with hospice but then says she wants to get better. Will call the sons and see what they have to say.
[2019-10-22] MEDS: meTOproloL SUCCINATE 50 MG (TOPROL XL) TAB PO SCH (11:37)
[2019-10-22] MEDS: ENALAPRIL 2.5 MG (VASOTEC) TAB PO SCH (11:37)
[2019-10-22] MEDS ORDERED: NS IV 1000 ML 1,000 ML IV SCH (12:00)
[2019-10-22] MEDS ORDERED: NS IV 1000 ML 1,000 ML ONE (12:04)
[2019-10-22] MEDS ORDERED: VANCOMYCIN INJECTION 0.1 MG in NS (IVPB) 250 ML IV SCH (12:15)
[2019-10-22] MEDS ORDERED: PIPERACILLIN/TAZO 4.5 GM/NS 100 ML IV NR ×2 (12:30)
--- NOTE | 2019-10-22 12:32 | NUR ---
ANDERSON CATH REMOVED PER DR. STEIN'S ORDERS AT THIS TIME. 9 MLS/ REMOVED FROM BULB AT TIME OF REMOVAL. THIS RN WILL USE STERILE TECHNIQUE TO STRAIGHT CATH THIS PATIENT TO TRY TO OBTAIN URINALYSIS PER EMIL'S ORDERS.
--- NOTE | 2019-10-22 12:33 | NUR ---
PTD VANCOMYCIN -RESTART LABS: SCR 0.92 CRCL ~ 35 PLAN: VANCOMYCIN 20MG/KG LOADING DOSE (1,500MG IV X 1), THEN VANCOMYCIN 15MG/KG (1,000MG) IV Q 24 HOURS, PLAN FOR TROUGH PRIOR TO 3RD DOSE- HOLD IF GREATER THAN 20.
[2019-10-22] MEDS ORDERED: VANCOMYCIN 1500 MG/NS 500 ML IVPB IV NR ×2 (13:00)
[2019-10-22 13:38] LABS: CLARITY,URINE SL CLOUDY; COLOR,URINE DARK YELLOW; GLUCOSE, URINE (UA) TRACE (NEGATIVE); KETONES,URINE 1+ (NEGATIVE); LEUKOCYTE ESTERASE ,URINE TRACE (NEGATIVE); NITRITE,URINE NEGATIVE (NEGATIVE); PH,URINE 5.5 (5-9); PROTEIN,URINE 3+ (NEGATIVE)
[2019-10-22 13:49] LABS: BILIRUBIN,URINE 1+ (NEGATIVE); RBC,URINE RARE /HPF
[2019-10-22 13:50] LABS: BACTERIA,URINE MODERATE /HPF
--- NOTE | 2019-10-22 13:55 | Diagnostic Imaging Report ---
INDICATION: Dyspnea. Time of exam 1:10 PM Correlation is made with prior chest from 10/20/2019. Heart size is stable. Cardiac monitoring device overlies the left heart. Right IJ line has tip overlying the SVC. There is subsegmental atelectasis in the right base. Left lungs fairly clear. Upper lung street are clear. No pneumothorax is seen. IMPRESSION: Residual subsegmental atelectasis right base. Dictated by: Dictated on workstation # [id number]
[2019-10-22] MEDS: HYDROcodone/APAP 5 MG/325 MG (LORTAB) TAB PO PRN (14:08)
--- NOTE | 2019-10-22 14:32 | NUR ---
PALLIATIVE CARE RN called and spoke to Serene, patient's son about her not really bouncing well through this illness. We discussed the possibility that this may be moving more toward a hospice end of life need. I have suggested that they call [facility] and enquire whether they will allow her to return to them with hospice and additional care attendants. If they will not take her back with hospice, I will need to send referral to [facility] for placement ( they are already paying out of pocket at [facility]). Will see if she get any improvement with the IV abx that were started today.
--- NOTE | 2019-10-22 14:36 | NUR ---
"RD ASSESSMENT PMHx: CAD; MD; HTN; stroke; gout PT INTERACTION: Pt was awake and pleasant during nutrition follow-up. Pt states she has been eating poorly since last assessment. Note avg PO intake <25% meals, and pt has been refusing meals, per chart review. Pt states issues with nausea and constipation since last assessment. Note last BM was 10/21, and pt currently on bowel regimen of colace BID; and miralax BID, per chart review. ABNORMAL NUTRITION-RELATED LAB VALUES LOW: Na 133; Ca 7.9; Pro 6.0; alb 2.0 HIGH: BNU 23; glu 117; bili 1.7; AST 97; alkphos 336 Est. kcal needs: 8691-6171 kcal | 20-25 kcal/kg Est. Pro needs: 57-72 g Pro | 0.8-1.0 g Pro/kg PES STATEMENT: Inadequate oral intake (NI-2.1) related to loss of appetite | nausea | constipation as evidenced by pt interview | avg PO intake <25% meals | pt refusing meals INTERVENTION: Continue with current diet order of Heart Healthy diet. Continue with current supplementation order of Ensure Enlive with meals TID, for increased kcal intake. Provides 350 kcal and 13 g Pro per serving. Encouraged pt to eat when able. Will continue to follow and reassess as pt needs, intake, and status change. MONITOR/EVALUATE: PO Intake; Plan of Care; Hydration Status; Weight Status; Lab Values Ava Scott, MS, RD, LD"
--- NOTE | 2019-10-22 15:09 | NUR ---
PALLIATIVE CARE RN in to see patient. She has had a rough day with need for intubation. Patient is chronically ill with liver CA evident in her yellow appearance. She has no family but has a DPOA which Dr. Schultz spoke to earlier. Chaplain Lutz did come and say prayer over her. It is anticipated that she will not survive the night. Will continue with aggressive care at this time. Addendum: 10/22/19 at 1522 by TOBI MURILLO RN CANCEL THE NOTE : WRONG PATIENT.
[2019-10-22] MEDS ORDERED: RT-ALBUTEROL SULF 2.5 MG/3 ML PRE-MIX VIAL IH PRN (15:15)
--- NOTE | 2019-10-22 15:35 | Progress Note - Cardiology ---
Cardiology SOAP Progress Note Subjective: No cp or palp or syncope No shortness of breath at rest Gen weakness and malaise Objective: I&O/Vital Signs 10/22/19 10/22/19 10/22/19 10/22/19 04:57 06:44 08:00 08:18 Temp 36.1 35.6 Pulse 121 112 105 Resp 20 24 B/P (MAP) 99/67 (78) 97/66 (76) Pulse Ox 95 94 92 O2 Delivery Nasal Cannula Nasal Cannula Nasal Cannula O2 Flow Rate 1.50 1.50 1.00 10/22/19 10/22/19 10/22/19 10/22/19 09:00 12:00 12:00 12:32 Temp 35.7 Pulse 107 119 Resp 24 12 B/P (MAP) 102/58 (73) 102/58 (73) Pulse Ox 92 96 O2 Delivery Nasal Cannula Nasal Cannula O2 Flow Rate 1.00 1.50 10/22/19 14:58 Temp 35.7 Pulse 94 Pulse Ox 91 FiO2 28 10/22/19 00:00 Intake Total 470 ml Output Total 200 ml Balance 270 ml Weight (Pounds): 136 Weight (Ounces): 8.0 Weight (Calculated Kilograms): 61.566549 Constitutional: AAO x 3 Respiratory: chest is bilaterally symmetric, other (good air entry) Cardiovascular: irregularly irregular, tachycardia, S1 and S2 Gastrointestional: soft, audible bowel sounds Extremities: normal range of motion, non-tender, normal inspection, no lower extremity edema bilateral Neurologic/Psychiatric: other (moves all limbs equally) Skin: No rash on exposed areas, No ulcerations on exposed areas Results/Procedures: Labs Laboratory Tests 10/22/19 06:15: Sodium Level 133L, Potassium Level 4.1, Chloride Level 107, Carbon Dioxide Level 19L, Anion Gap 7, Blood Urea Nitrogen 23H, Creatinine 0.92, Estimat Glomerular Filtration Rate 57, BUN/Creatinine Ratio 25, Glucose Level 117H, Calcium Level 7.9L, Corrected Calcium 9.5, Total Bilirubin 1.7H, Aspartate Amino Transf (AST/SGOT) 97H, Alanine Aminotransferase (ALT/SGPT) 54, Alkaline Phosphatase 336H, Total Protein 6.0L, Albumin 2.0L 10/22/19 10:58: Lactic Acid Level 2.35*H, Procalcitonin 0.49H 10/22/19 13:17: Urine Color DARK YELLOW, Urine Clarity SL CLOUDY, Urine pH 5.5, Urine Specific [place] >=1.030, Urine Protein 3+H, Urine Glucose (UA) TRACEH, Urine Ketones 1+H , Urine Nitrite NEGATIVE, Urine Bilirubin 1+H, Urine Urobilinogen 1.0, Urine Leukocyte Esterase TRACEH, Urine RBC (Auto) 2+H, Urine RBC RARE, Urine WBC 10- 25H, Urine Squamous Epithelial Cells 10-25H, Urine Crystals NONE, Urine Bacteria MODERATEH, Urine Casts NONE, Urine Mucus SMALLH, Urine Culture Indicated YES 10/22/19 13:19: Lactic Acid Level 1.90 Microbiology 10/18/19 Blood Culture - Preliminary, Resulted No growth 10/18/19 MRSA Screen - Final, Complete MRSA not isolated A/P: Assessment: PAF Syncope of undetermined etiology Anemia of undetermined etiology, being managed by Dr Schultz S/p ILR that was implanted on 03/14/19 Ischemic cardiomyopathy: Echo of 10/19/19 (Dr Cameron): LVEF 20-25%, moderately dilated LA, mild MR, PASP 40-45 mmHg H/o MS. She has previously reported that it was in the late s, had cor stents X 2 done at [facility] H/o CVA. 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 Referred to for consideration of CEA, but she has not followed through Hypertension, by history Hyperlipidemia, by history H/o mild dementia Plan: * Complex management * Continue bb and DONN-inhib (as bp tolerates) * Because of AF, treat with apixaban, adjusted for age and wgt (resumed) * Because of carotid art dz, treat with low-dose ASA (resumed) * ASA and Eliquis has been resumed * Anemia of undetermined etiology, evaluated and managed by Dr Schultz * Nausea/emesis of undetermined etiology - management per medical services * Elevated liver enzymes of undetermined etiology - management per Medical services * Monitor labs ABHAY BENAVIDES MD FACP [facility] CCDS Oct 22, 2019 15:35
[2019-10-22] MEDS: PIPERACILLIN/TAZOBACTAM (BULK) 4.5 GM in NS (IVPB) 100 ML IV SCH (18:04)
[2019-10-22] MEDS: RT-ALBUTEROL/IPRATROPIUM 3 ML (DUONEB) VIAL INH SCH (19:05)
[2019-10-23 00:24] VITALS: BP 167/71
[2019-10-23] MEDS: PIPERACILLIN/TAZOBACTAM (BULK) 4.5 GM in NS (IVPB) 100 ML IV SCH (03:08)
[2019-10-23 03:52] VITALS: BP 84/57
[2019-10-23 05:18] LABS: BASOPHILS % (AUTO) 0 % (0-10); EOSINOPHILS # (AUTO) 0.3 10^3/uL (0.0-0.3); EOSINOPHILS % (AUTO) 2 % (0-10); HEMATOCRIT 26 % (35-52); HEMOGLOBIN 8.8 G/DL (11.5-16.0); LYMPHOCYTES # (AUTO) 3.1 X 10^3 (1.0-4.0); LYMPHOCYTES % (AUTO) 20 % (12-44); MEAN CORPUSCULAR HEMOGLOBIN 26 PG (25-34); MEAN CORPUSCULAR HGB CONC 33 G/DL (32-36); MEAN CORPUSCULAR VOLUME 78 FL (80-99); MEAN PLATELET VOLUME 11.2 FL (7.4-10.4); MONOCYTES % (AUTO) 13 % (0-12); NEUTROPHILS # (AUTO) 9.8 X 10^3 (1.8-7.8); NEUTROPHILS % (AUTO) 64 % (42-75); PLATELET COUNT 189 10^3/uL (130-400); RED CELL DISTRIBUTION WIDTH 21.8 % (10.0-14.5); WHITE BLOOD COUNT 15.3 10^3/uL (4.3-11.0)
[2019-10-23 05:41] LABS: ALBUMIN 1.9 GM/DL (3.2-4.5); BILIRUBIN,TOTAL 1.6 MG/DL (0.1-1.0); CREATININE SERUM 1.31 MG/DL (0.60-1.30); POTASSIUM 4.3 MMOL/L (3.6-5.0); TOTAL PROTEIN 5.7 GM/DL (6.4-8.2)
[2019-10-23 05:52] LABS: BAND NEUTROPHILS 1 %; EOSINOPHILS % (MANUAL) 2 %; LYMPHOCYTES % (MANUAL) 20 %; MONOCYTES % (MANUAL) 13 %; NEUTROPHILS % (MANUAL) 64 %
--- NOTE | 2019-10-23 06:31 | Pulmonary Progress Note ---
Subjective Time Seen by a Provider: 06:28 Subjective/Events-last exam No complications noted. Sepsis Event Evaluation Height, Weight, BMI Height: 5'4.00" Weight: 136lbs. 8.0oz. 61.329933cj; 23.00 BMI Method:Stated Focused Exam Lactate Level 10/22/19 10:58: Lactic Acid Level 2.35*H 10/22/19 13:19: Lactic Acid Level 1.90 Exam Exam Vital Signs Date Time Temp Pulse Resp B/P (MAP) Pulse Ox O2 Delivery O2 Flow Rate FiO2 10/23/19 03:52 36.4 66 16 84/57 (66) 95 Nasal Cannula 2.00 10/23/19 01:00 123 10/23/19 00:24 36.4 122 16 167/71 (103) 96 Nasal Cannula 2.00 10/22/19 21:40 Nasal Cannula 1.50 10/22/19 20:00 35.6 76 15 100/58 (72) 92 Nasal Cannula 1.50 10/22/19 19:06 89 Nasal Cannula 1.50 10/22/19 19:00 119 10/22/19 16:24 36.1 68 15 90/68 (75) 98 Nasal Cannula 1.50 10/22/19 14:58 35.7 94 91 28 10/22/19 12:32 119 10/22/19 12:00 35.7 107 12 102/58 (73) 96 Nasal Cannula 1.50 10/22/19 12:00 24 102/58 (73) 10/22/19 09:00 92 Nasal Cannula 1.00 10/22/19 08:18 92 Nasal Cannula 1.00 10/22/19 08:00 35.6 105 24 97/66 (76) 94 Nasal Cannula 1.50 10/22/19 06:44 112 I & O 10/23/19 07:00 Intake Total 2222 ml Output Total 50 ml Balance 2172 ml Height & Weight Height: 5'4.00" Weight: 136lbs. 8.0oz. 61.739530ud; 23.00 BMI Method:Stated General Appearance: No Apparent Distress, WD/WN, Chronically ill HEENT: Normal ENT Inspection Neck: Full Range of Motion, Normal Inspection, Non Tender Respiratory: Chest Non Tender, Lungs Clear, No Accessory Muscle Use, No Respiratory Distress, Decreased Breath Sounds Cardiovascular: Regular Rate, Rhythm, No Edema, No Gallop, No JVD, No Murmur, Normal Peripheral Pulses Capillary Refill: Less Than 3 Seconds Gastrointestinal: non tender, soft, no organomegaly Extremity: Normal Capillary Refill, Normal Inspection, Non Tender, No Calf Tenderness Neurologic/Psychiatric: Alert, Disoriented Skin: Warm/Dry; No Petechia, No Rash Lymphatic: No Adenopathy Results Lab Laboratory Tests 10/22/19 06:15 10/23/19 05:08 Assessment/Plan Assessment/Plan Pneumonia with sepsis - pt is on Vanco/Zosyn currently after LA returned elevated -Castañeda cultures pending Afib -Cardiology following Anemia -Monitor Dehydration -IVF Hx of CHF AURELIO MESA DO Oct 23, 2019 06:31
[2019-10-23] MEDS: NITROFURANTOIN 100 MG (MACROBID) CAPSULE PO SCH (06:33)
[2019-10-23] MEDS: RT-ALBUTEROL/IPRATROPIUM 3 ML (DUONEB) VIAL INH SCH (06:42)
--- NOTE | 2019-10-23 07:16 | Progress Note - Hospitalist ---
Subjective HPI/CC On Admission Date Seen by Provider: Oct 23, 2019 Time Seen by Provider: 10:00 CC: AF w/RVR HPI: This is an 89yoWF NH patient of [facility] who presented to the [facility] ER with AF w/RVR. Patient tolerated Cardizem well but did require central line placement once arrived in ICU by Dr Bishop. Patient feels better than she did and does not report chest pain or palpitations. Patient has dementia so minimal details. Subjective/Events-last exam Pt had a change of status and rapid decline Talked to aristides Mason and placed her on comfort care protocol Pt very edematous and will not recover CHF ejection fraction of 20% and sepsis and considering her poor prognosis when she came in at 89 years old Review of Systems Neurological: Confusion Focused Exam Lactate Level 10/22/19 10:58: Lactic Acid Level 2.35*H 10/22/19 13:19: Lactic Acid Level 1.90 Objective Exam Vital Signs Vital Signs Date Time Temp Pulse Resp B/P (MAP) Pulse Ox O2 Delivery O2 Flow Rate FiO2 10/23/19 09:00 Nasal Cannula 1.50 10/23/19 08:00 36.4 78 20 97/50 (66) 96 10/22/19 14:58 28 Capillary Refill : Less Than 3 SecondsLess Than 3 Seconds General Appearance: No Apparent Distress, WD/WN, Chronically ill Respiratory: Decreased Breath Sounds Cardiovascular: Irregularly Irregular Neurologic/Psychiatric: Disoriented Results/Procedures Lab Laboratory Tests 10/23/19 05:08 Patient resulted labs reviewed. Assessment/Plan Assessment and Plan Assess & Plan/Chief Complaint Assessment: AF w/RVR CHF EF 25% RLL PNA with elevated lactic acid Elevated lactic acid on admit Hypotension due to meds Dementia Anemia Central line placement Constipation Chronic pain Nausea Plan: Comfort care protocol Diagnosis/Problems Diagnosis/Problems (1) Atrial fibrillation with tachycardic ventricular rate Status: Acute (2) Hypotension Status: Acute Qualifiers: Hypotension type: unspecified hypotension type Qualified Codes: I95.9 - Hypotension, unspecified (3) Anemia Status: Acute Qualifiers: Anemia type: unspecified type Qualified Codes: D64.9 - Anemia, unspecified (4) Essential (primary) hypertension Status: Chronic (5) CAD (coronary artery disease) Status: Chronic Clinical Quality Measures DVT/VTE Risk/Contraindication: Risk Factor Score Per Nursin RFS Level Per Nursing on Admit: 4+=Very High EMILY STEIN DO Oct 23, 2019 07:15
[2019-10-23] MEDS: DOCUSATE SODIUM 100 MG (COLACE) CAP PO SCH ×2 (07:48→08:57)
[2019-10-23] MEDS: polyethylene glycoL POWDER 17 GM (MIRALAX) PACK PO SCH (07:48)
[2019-10-23 08:00] VITALS: BP 97/50
--- NOTE | 2019-10-23 08:00 | NUR ---
BLADDER SCAN >300. ST CATH WITH ONLY 10 CC DARK BROWN, CLOUDY URINE. DR. STEIN NOTIFIED RE PT DECLINING CONDITION. ORDERS REC'D.
--- NOTE | 2019-10-23 08:15 | NUR ---
DR. TIJERINA NOTIFIED OF CONSULT.
--- NOTE | 2019-10-23 08:34 | Progress Note - Cardiology ---
Cardiology SOAP Progress Note Subjective: Lying in bed c/o back pain and generalized discomfort. States she does not "feel well at all". No c/o CP or palpitations. Feels breathing is ok this morning. Objective: I&O/Vital Signs Weight (Pounds): 136 Weight (Ounces): 8.0 Weight (Calculated Kilograms): 61.336690 Constitutional: AAO x 3, other (frail) Respiratory: chest is bilaterally symmetric, other (good air entry) Cardiovascular: irregularly irregular, tachycardia, S1 and S2 Gastrointestional: soft, audible bowel sounds Extremities: normal range of motion, non-tender, normal inspection, no lower extremity edema bilateral Neurologic/Psychiatric: other (moves all limbs equally) Skin: No rash on exposed areas, No ulcerations on exposed areas Results/Procedures: Labs Microbiology 10/22/19 Urine Culture - Final, Complete NO GROWTH 10/22/19 Blood Culture - Final, Complete No growth 10/18/19 MRSA Screen - Final, Complete MRSA not isolated A/P: Assessment: Sepsis likely secondary to UTI - management per medical services PAF Syncope of undetermined etiology Anemia of undetermined etiology, being managed by Dr Schultz S/p ILR that was implanted on 03/14/19 Ischemic cardiomyopathy: Echo of 10/19/19 (Dr Cameron): LVEF 20-25%, moderately dilated LA, mild MR, PASP 40-45 mmHg H/o [place]. She has previously reported that it was in the late s, had cor stents X 2 done at [facility] H/o CVA. 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 Referred to for consideration of CEA, but she has not followed through Hypertension, by history Hyperlipidemia, by history H/o mild dementia Plan: * Complex management * Sepsis likely secondary to UTI - management per medical services * Continue bb and DONN-inhib (as bp tolerates) * Because of AF, treat with apixaban, adjusted for age and wgt (resumed) * Because of carotid art dz, treat with low-dose ASA (resumed) * ASA and Eliquis has been resumed * Anemia of undetermined etiology, evaluated and managed by Dr Schultz * Nausea/emesis of undetermined etiology - management per medical services * Elevated liver enzymes of undetermined etiology - management per Medical services * Monitor labs * Generalized weakness * Palliative care consult per medical services ADRIAN ROSALES Oct 23, 2019 08:34
[2019-10-23] MEDS: meTOproloL SUCCINATE 50 MG (TOPROL XL) TAB PO SCH (08:57)
[2019-10-23] MEDS: ASPIRIN 81 MG CHEW (CHILDREN'S ASA) PO SCH (08:57)
[2019-10-23] MEDS: APIXABAN 2.5 MG (ELIQUIS) TABLET PO SCH (08:57)
[2019-10-23] MEDS: ENALAPRIL 2.5 MG (VASOTEC) TAB PO SCH (08:58)
--- NOTE | 2019-10-23 09:10 | NUR ---
#[id number] TO DD WITH 3 CC URINE. CONSULT WITH DR. TIJERINA CANCELLED.
--- NOTE | 2019-10-23 09:33 | Progress Note - Cardiology ---
Cardiology SOAP Progress Note Subjective: She does not provide any answers to questions this am Objective: I&O/Vital Signs 10/22/19 10/23/19 10/23/19 10/23/19 21:40 00:24 01:00 03:52 Temp 36.4 36.4 Pulse 122 123 66 Resp 16 16 B/P (MAP) 167/71 (103) 84/57 (66) Pulse Ox 96 95 O2 Delivery Nasal Cannula Nasal Cannula Nasal Cannula O2 Flow Rate 1.50 2.00 2.00 10/23/19 10/23/19 06:42 08:00 Temp 36.4 Pulse 78 Resp 20 B/P (MAP) 97/50 (66) Pulse Ox 93 96 O2 Delivery Nasal Cannula Nasal Cannula O2 Flow Rate 1.50 2.00 10/23/19 00:00 Intake Total 2142 ml Output Total 50 ml Balance 2092 ml Weight (Pounds): 136 Weight (Ounces): 8.0 Weight (Calculated Kilograms): 61.838859 Constitutional: other (frail-appearing, somnolent, not verbally responsive although does rise from sleep) Respiratory: chest is bilaterally symmetric, other (good air entry; diminished at the bases) Cardiovascular: irregularly irregular, tachycardia, S1 and S2 Gastrointestional: soft, audible bowel sounds Extremities: normal range of motion, non-tender, normal inspection, no lower extremity edema bilateral Neurologic/Psychiatric: other (not verbally responsive on the morning of 10/23/19; moves all limbs equally) Skin: No rash on exposed areas, No ulcerations on exposed areas Results/Procedures: Labs Laboratory Tests 10/22/19 10:58: Lactic Acid Level 2.35*H, Procalcitonin 0.49H 10/22/19 13:17: Urine Color DARK YELLOW, Urine Clarity SL CLOUDY, Urine pH 5.5, Urine Specific [place] >=1.030, Urine Protein 3+H, Urine Glucose (UA) TRACEH, Urine Ketones 1+H , Urine Nitrite NEGATIVE, Urine Bilirubin 1+H, Urine Urobilinogen 1.0, Urine Leukocyte Esterase TRACEH, Urine RBC (Auto) 2+H, Urine RBC RARE, Urine WBC 10- 25H, Urine Squamous Epithelial Cells 10-25H, Urine Crystals NONE, Urine Bacteria MODERATEH, Urine Casts NONE, Urine Mucus SMALLH, Urine Culture Indicated YES 10/22/19 13:19: Lactic Acid Level 1.90 10/23/19 05:08: White Blood Count 15.3H, Red Blood Count 3.38L, Hemoglobin 8.8L, Hematocrit 26L, Mean Corpuscular Volume 78L, Mean Corpuscular Hemoglobin 26, Mean Corpuscular Hemoglobin Concent 33, Red Cell Distribution Width 21.8H, Platelet Count 189, Mean Platelet Volume 11.2H, Neutrophils (%) (Auto) 64, Lymphocytes (%) (Auto) 20, Monocytes (%) (Auto) 13H, Eosinophils (%) (Auto) 2, Basophils (%) (Auto) 0, Neutrophils # (Auto) 9.8H, Lymphocytes # (Auto) 3.1, Monocytes # (Auto) 2.0H, Eosinophils # (Auto) 0.3, Basophils # (Auto) 0.0, Neutrophils % (Manual) 64, Lymphocytes % (Manual) 20, Monocytes % (Manual) 13, Eosinophils % (Manual) 2, Band Neutrophils 1, Sodium Level 134L, Potassium Level 4.3, Chloride Level 109H, Carbon Dioxide Level 18L, Anion Gap 7, Blood Urea Nitrogen 31H, Creatinine 1.31H , Estimat Glomerular Filtration Rate 38, BUN/Creatinine Ratio 24, Glucose Level 123H, Calcium Level 8.0L, Corrected Calcium 9.7, Total Bilirubin 1.6H, Aspartate Amino Transf (AST/SGOT) 101H, Alanine Aminotransferase (ALT/SGPT) 52, Alkaline Phosphatase 292H, Total Protein 5.7L, Albumin 1.9L Microbiology 10/18/19 Blood Culture - Preliminary, Resulted No growth 10/18/19 MRSA Screen - Final, Complete MRSA not isolated Laboratory Tests 10/22/19 06:15 10/23/19 05:08 A/P: Assessment: ESPERANZA - 2, likely due to borderline septic shock, managed by the [facility] Sepsis and borderline septic shock, likely secondary to UTI - management per Medical services PAF Anemia of undetermined etiology, being managed by Dr Schultz H/o syncope of undetermined etiology. S/p ILR that was implanted on 03/14/19 Ischemic cardiomyopathy: Echo of 10/19/19 (Dr Cameron): LVEF 20-25%, moderately dilated LA, mild MR, PASP 40-45 mmHg H/o [place]. She has previously reported that it was in the late 90s, had cor stents X 2 done at [facility] H/o CVA. 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 Referred to for consideration of CEA, but she has not followed through Hypertension, by history Hyperlipidemia, by history H/o mild dementia Plan: * Complex management * iv fluids. Unable to give bb and DONN-inhib on 10/23/19 because of low bp * Sepsis likely secondary to UTI - management per Medical services * Continue anticoag (A Fib) and ASA (carotid dz) * Anemia of undetermined etiology, evaluated and managed by Dr Schultz * Elevated liver enzymes of undetermined etiology - management per Medical services * Monitor labs ABHAY BENAVIDES MD FACP [facility] CCDS Oct 23, 2019 09:33
--- NOTE | 2019-10-23 09:45 | NUR ---
PALLIATIVE CARE RN in to see patient. SHe is laying in bed, therapy arriving to bedside. Patient complains of being cold, appears weaker this morning and not as conversant. Noted that her labs are worse today including WBCs. She had been placed on IV Abx yesterday again. I had spoken to the son, Serene, regarding her condition and possible need for hospice if these Abx did not work. They will be receptive I believe. Would expect patient to be made Comfort Care after Dr. Schultz speaks to the son.
--- NOTE | 2019-10-23 09:51 | Physical Therapy Progress Note ---
Therapy Progress Note Hold per RN due to decline in medical status. DELMER ALLEN PT Oct 23, 2019 09:51
[2019-10-23] MEDS ORDERED: LORazepam INJ 2 MG/ML (ATIVAN) VIAL IVP PRN (10:00)
[2019-10-23] MEDS ORDERED: BISACODYL 10 MG SUPP (DULCOLAX) PR PRN (10:00)
[2019-10-23] MEDS ORDERED: ONDANSETRON 4 MG/2 ML (SDV) Z0FRAN IVP PRN (10:00)
[2019-10-23] MEDS ORDERED: ACETAMINOPHEN 650 MG SUPP (TYLENOL) PR PRN (10:00)
[2019-10-23] MEDS ORDERED: GLYCOPYRROLATE 0.2 MG/ML (ROBINUL) 2 ML VIAL IV PRN (10:00)
[2019-10-23] MEDS ORDERED: morphine INJ 4 MG/ML 1 ML (VIAL/SYRINGE) IV PRN (10:00)
[2019-10-23] MEDS ORDERED: ARTIFICAL TEARS 0.4 ML UNIT DOSE (REFRESH PLUS) OU PRN (10:00)
[2019-10-23] MEDS ORDERED: RT-ALBUTEROL/IPRATROPIUM 3 ML (DUONEB) VIAL INH PRN (10:00)
[2019-10-23] MEDS ORDERED: SALIVA STIMULANT MOUTH SPRAY (BIOTENE) 1.5 OZ MM PRN (10:00)
--- NOTE | 2019-10-23 10:00 | NUR ---
CHANGED TO COMFORT CARE. DR. BENAVIDES NOTIFIED. TELEMETRY AND IVF DISCONTINUED.
--- NOTE | 2019-10-23 10:13 | Occ Therapy Progress Note ---
Therapy Progress Note Pt on hold per nursing due to decline in medical status. OT orders cancelled, thus d/c from OT services at this time. DADA COREAS OT Oct 23, 2019 10:13
--- NOTE | 2019-10-23 12:40 | NUR ---
MS 2MG IV FOR PAIN.
[2019-10-23] MEDS ORDERED: VANCOMYCIN 1 GM/NS 250 ML IVPB IV SCH ×2 (13:00)
--- NOTE | 2019-10-24 09:14 | NUR ---
PALLIATIVE CARE RN in to see patient. She is resting with eyes closed upon entering, but awakens easily when spoken to. She denies pain and reports being tired. Breakfast tray position in front of her and prepare pancakes by cutting and applying syrup. She then starts feeding herself with the help of a pillow positioned under her arm so that she can "hold my arm up". He O2 is mid 90s so discontinued the oxygen that is not aiding in her comfort. Will call sons this morning and see who they would like for a hospice agency. Then arrange for her to return to [facility] in [place]. I had spoken to yesterday and they were to call me back in regards to return with hospice, yesterday they said yes she would be allowed to return, however this morning they are saying they cannot meet her needs. I had previously spoken to her son Serene about the possibility of not being about not being able to return to and he agreed at that time for -. I will send a referral to -[facility]. She had previously [facility] and will switch to the hospice side. Unsure if all can be arranged for discharge today.
--- NOTE | 2019-10-24 10:33 | NUR ---
FINAL DISCHARGE PLAN: Received call from [facility]. They will accept patient for discharge today. I have not spoken to [facility] but do not feel this will be an issue.
[2019-10-24] MEDS ORDERED: LORA2ORA PO (11:36)
[2019-10-24] MEDS ORDERED: MORP20SO PO (11:36)
--- NOTE | 2019-10-24 11:37 | Discharge Summary ---
Discharge Summary Hospital Course Was the Problem List Reviewed?: Yes Problems/Dx: (1) Atrial fibrillation with tachycardic ventricular rate Status: Acute (2) Hypotension Status: Acute Qualifiers: Qualified Codes: I95.9 - Hypotension, unspecified (3) Anemia Status: Acute Qualifiers: Qualified Codes: D64.9 - Anemia, unspecified (4) Essential (primary) hypertension Status: Chronic (5) CAD (coronary artery disease) Status: Chronic Hospital Course Date of Admission: Oct 17, 2019 at 23:34 Admission Diagnosis : Family Physician/Provider: Cruz Mullins MD Date of Discharge: 10/24/19 Discharge Diagnosis: end of life care, AF w/RVR, sepsis, presumed RLL PNA, advanced age, dementia Hospital Course: Long course started in ICU after ER presentation with new onset AF w/RVR. Refractory RVR required multiple med changes. ECHO revealed EF 25%. Dementia was an issue which prevented recovery and participation with therapy. Patient had evidence of sepsis requiring gentle IVF and broad spectrum abx but patient declined further and decision was made to place her on hospice and send to [place] for supportive and comfort care. Labs and Pending Lab Test: Microbiology 10/22/19 Urine Culture - Final, Complete NO GROWTH 10/22/19 Blood Culture - Preliminary, Resulted No growth 10/18/19 MRSA Screen - Final, Complete MRSA not isolated Home Meds Active Reported Macrobid 100 mg Capsule (Nitrofurantoin Monohyd/M-Cryst) 100 Mg Capsule 1 Tab PO DAILY Ramipril 2.5 Mg Capsule 2.5 Mg PO DAILY Atorvastatin Calcium 40 Mg Tablet 40 Mg PO HS Acetaminophen 325 Mg Tablet 650 Mg PO Q4H PRN Benzonatate 100 Mg Capsule 100 Mg PO Q6H PRN Proair Hfa (Albuterol Sulfate) 1 Puff Puff 2 Puff IN Q4H PRN Zyrtec (Cetirizine HCl) 10 Mg Tablet 10 Mg PO DAILY PRN Loperamide (Loperamide HCl) 2 Mg Tablet 2 Mg PO UD PRN MDD 6 DOSES PER 24 HR Hydrocodone-Acetamin 5-325 mg (Hydrocodone/Acetaminophen) 1 Each Tablet 1 Each PO Q4H PRN Ondansetron HCl 4 Mg Tablet 4 Mg PO Q8H PRN Docusate Sodium 100 Mg Capsule 100 Mg PO BID Cyclobenzaprine HCl 5 Mg Tablet 5 Mg PO Q8H PRN Milk of Magnesia (Magnesium Hydroxide) 400 Mg/5 Ml Oral.susp 30 Ml PO DAILY PRN Clopidogrel (Clopidogrel Bisulfate) 75 Mg Tablet 75 Mg PO DAILY Aspirin EC (Aspirin) 81 Mg Tablet.dr 324 Mg PO DAILY TAKES 4 (81MG) TABLETS Assessment/Pt Instructions NHP with hospice enrollment Discharge Planning: <30 minutes discharge planning Discharge Instructions Discharge Diet: No Restrictions Discharge Physical Examination Vital Signs Vital Signs Date Time Temp Pulse Resp B/P (MAP) Pulse Ox O2 Delivery O2 Flow Rate FiO2 10/24/19 08:00 96 Nasal Cannula 1.50 10/23/19 08:00 36.4 78 20 97/50 (66) 10/22/19 14:58 28 General Appearance: Chronically ill Neurologic/Psychiatric: Disoriented Allergies: Coded Allergies: Sulfa (Sulfonamide Antibiotics) (Verified Allergy, Unknown, 10/04/19) carvedilol (Verified Allergy, Unknown, 10/04/19) ciprofloxacin (Verified Allergy, Unknown, 10/04/19) Discharge Summary Date of Admission Oct 17, 2019 at 23:34 Date of Discharge Discharge Date: Oct 24, 2019 Admission Diagnosis Assessment: AF w/RVR Dehydration Elevated lactic acidosis Hypotension due to meds Dementia Anemia Central line placement Plan: Cardizem ECHO Dr Cameron appreciated Appreciate Dr Bishop for central line placement Comfort Measures/ End of Life Care: Comfort Measures Discharge Diagnosis Assessment: AF w/RVR CHF EF 25% RLL PNA with elevated lactic acid Elevated lactic acid on admit Hypotension due to meds Dementia Anemia Central line placement Constipation Chronic pain Nausea Plan: Comfort care protocol (1) Atrial fibrillation with tachycardic ventricular rate Status: Acute (2) Hypotension Status: Acute Qualifiers: Qualified Codes: I95.9 - Hypotension, unspecified (3) Anemia Status: Acute Qualifiers: Qualified Codes: D64.9 - Anemia, unspecified (4) Essential (primary) hypertension Status: Chronic (5) CAD (coronary artery disease) Status: Chronic Clinical Quality Measures DVT/VTE Risk/Contraindication: Risk Factor Score Per Nursin RFS Level Per Nursing on Admit: 4+=Very High EMILY STEIN DO Oct 24, 2019 11:37
[2019-10-24] MEDS ORDERED: TROUGH ORDER-PHARMACY XX ONE (12:00)
--- NOTE | 2019-10-24 13:01 | NUR ---
PALLIATIVE CARE RN/Discharge plan: [facility] new placement, with [facility]. Need to Wait until we here from either [facility] or from that equipment is in place and they are ready for the patient. [facility] # [phone] [facility] [phone] Addendum: 10/24/19 at 1351 by TOBI MURILLO RN received word from [facility] that everything is ready fort he patient at [facility]. EMS can be dispatched when nurse is ready.
[2019-10-24 13:56] VITALS: BP 97/50
--- NOTE | 2019-10-24 14:37 | NUR ---
TRIED TO CALL AND GIVE REPORT TO RECEIVING RN. RN TO CALL BACK.
--- NOTE | 2019-10-24 15:07 | NUR ---
REPORT GIVEN TO PADMINI SHERIDAN
== END 2019-10-24 15:45 | disposition home health service (06) | DRG 308 ==
LOC: EDUNIT# 21:46 → ER FS 21:47 → CSD 23:34 → ICU 10-18 00:47 → CSD 10-19 16:37 → 4TH 10-20 15:27
PROVIDERS: ADMIT Internal Medicine; ATTEND Internal Medicine
PROC: 02HV33Z Insertion of Infusion Device into Superior Vena Cava, Percutaneous Approach (ICD-10-PCS; principal; 2019-10-18)
DX: I48.0 Paroxysmal atrial fibrillation (principal); J18.9 Pneumonia, unspecified organism; A41.9 Sepsis, unspecified organism; R65.21 Severe sepsis with septic shock; E87.2 Acidosis; N39.0 Urinary tract infection, site not specified; N17.9 Acute kidney failure, unspecified; I95.2 Hypotension due to drugs; E86.0 Dehydration; I25.10 Atherosclerotic heart disease of native coronary artery without angina pectoris; I25.2 Old myocardial infarction; I25.5 Ischemic cardiomyopathy; Z66 Do not resuscitate; D64.9 Anemia, unspecified; F03.90 Unspecified dementia, unspecified severity, without behavioral disturbance, psychotic disturbance, mood disturbance, and anxiety; M10.9 Gout, unspecified; I65.21 Occlusion and stenosis of right carotid artery; I34.0 Nonrheumatic mitral (valve) insufficiency; E78.5 Hyperlipidemia, unspecified; I11.0 Hypertensive heart disease with heart failure; I50.9 Heart failure, unspecified; R94.5 Abnormal results of liver function studies; Z86.79 Personal history of other diseases of the circulatory system; Z95.5 Presence of coronary angioplasty implant and graft; Z86.73 Personal history of transient ischemic attack (TIA), and cerebral infarction without residual deficits; Z79.02 Long term (current) use of antithrombotics/antiplatelets; Z88.2 Allergy status to sulfonamides; Z88.1 Allergy status to other antibiotic agents
CPT/HCPCS: 36415; 71045; 80048; 80053; 80202; 81000; 82805; 83605; 83735; 84100; 84145; 84443; 84484; 85007; 85025; 85027; 85610; 85730; 87040; 87081; 87088; 93005; 93306; 94640; 94760; 96374; 96375; 96376

== ENCOUNTER → 2020-05-05 | Outpatient (CLI) | payer MEDICARE ==
[~2020-05-05] MED LIST changes: +ACET325T49 PO; +ACHD5005 PO; +ASPI-1238 PO; -ASPI-983 PO; +ATOR40TA70 PO; +BENZ-36 PO; -CETI10TA21 PO; +CETI10TA49 PO; +DOCU100C37 PO; -HYDR-83 PO; +LOPE2TAB34 PO; +LORA2ORA PO; +MORP20SO PO; -NADO20TA PO; +NADO20TA3 PO; +ONDA-105 PO; +RAMI2.5C2 PO; +RT-ALBUINH IN
[2020-05-05 19:19] LABS: CLARITY,URINE CLEAR; COLOR,URINE YELLOW
[2020-05-05 19:20] LABS: BACTERIA,URINE NEGATIVE /HPF; BILIRUBIN,URINE NEGATIVE (NEGATIVE); GLUCOSE, URINE (UA) NEGATIVE (NEGATIVE); KETONES,URINE NEGATIVE (NEGATIVE); LEUKOCYTE ESTERASE ,URINE 1+ (NEGATIVE); NITRITE,URINE NEGATIVE (NEGATIVE); PROTEIN,URINE NEGATIVE (NEGATIVE); SQUAMOUS EPITHELIAL CELL,UR 0-2 /HPF
== END ==
LOC: LAB FS 18:48
PROVIDERS: ATTEND Family Medicine
DX: R82.998 Other abnormal findings in urine (principal)
CPT/HCPCS: 81000; 87088